=== PATIENT | female | born 1930 | race Caucasian/White ===

== ENCOUNTER 2018-08-25 12:51 | Inpatient (IN) | payer OTHER, BC ==
--- NOTE | 2018-08-25 13:20 | PDOC ---
History of Present Illness - General Chief Complaint: Injury Stated Complaint: LETHARGY Time Seen by Provider: 08/25/18 13:10 History Source: Patient, Family - History of Present Illness Initial Comments: 08/25/18 13:20 Patient is an 88F with history of CHF, hypertension, diabetes (no insulin) and hyperlipidemia here today complaining of lethargy for the past two days. Patient 's family reports that she fell yesterday, unwitnessed, and is unable to say why she fell. Patient reports left knee pain. EMS reports fingerstick of 540. Patient's family also reports that she has been incontinent of urine. Patient states that she doesn't know why she's here and wants to go home. Family and patient deny fever, chills, nausea, vomiting and abdominal pain. Denies chest pain and shortness of breath. Past History - Past Medical History Allergies/Adverse Reactions: Allergies Allergy/AdvReac Type Severity Reaction Status Date / Time Penicillins Allergy Difficulty Verified 01/28/16 17:26 Breathing Home Medications: Ambulatory Orders Aspirin [ASA -] 81 mg PO HS 01/28/16 Glimepiride [Glimepiride -] 1 mg PO BID 01/28/16 metFORMIN HCL [Glucophage -] 1,000 mg PO BID 01/28/16 Bimatoprost [Lumigan] 1 drop OU HS 01/29/16 Epinastine HCl 1 drop OU AM 01/29/16 Quinapril HCl [Accupril -] 10 mg PO HS #30 tablet 02/01/16 Carvedilol [Coreg] 6.25 mg PO BID 08/25/18 Anemia: No Asthma: No Cancer: No Cardiac Disorders: No CVA: No COPD: No CHF: No Dementia: No Diabetes: Yes (x1 year) GI Disorders: No Disorders: No HTN: Yes Hypercholesterolemia: Yes Liver Disease: No Seizures: No Thyroid Disease: No - Surgical History Abdominal Surgery: No Appendectomy: Yes Cardiac Surgery: No Cholecystectomy: No Lung Surgery: No Neurologic Surgery: No Orthopedic Surgery: No - Suicide/Smoking/Psychosocial Hx Smoking History: Never smoked Have you smoked in the past 12 months: No Information on smoking cessation initiated: No Hx Alcohol Use: No Drug/Substance Use Hx: No Substance Use Type: None Hx Substance Use Treatment: No Review of Systems - Review of Systems Comments:: 08/25/18 13:36 GENERAL/CONSTITUTIONAL: No fever or chills.+weakness. HEAD, EYES, EARS, NOSE AND THROAT: No change in vision. No sore throat. CARDIOVASCULAR: No chest pain or shortness of breath RESPIRATORY: No cough, wheezing, or hemoptysis. GASTROINTESTINAL: No nausea, vomiting, diarrhea or constipation. GENITOURINARY: No dysuria, frequency, or change in urination. MUSCULOSKELETAL: +L knee pain. No neck or back pain. SKIN: No rash NEUROLOGIC: No headache, vertigo, loss of consciousness, or change in strength/ sensation. ENDOCRINE: No increased thirst. No abnormal weight change HEMATOLOGIC/LYMPHATIC: No anemia, easy bleeding, or history of blood clots. ALLERGIC/IMMUNOLOGIC: No hives or skin allergy. *Physical Exam - Vital Signs Last Vital Signs Temp Pulse Resp BP Pulse Ox 97.7 F 74 20 162/85 97 08/25/18 13:06 08/25/18 13:06 08/25/18 13:06 08/25/18 13:06 08/25/18 13:06 - Physical Exam Comments: 08/25/18 13:37 GENERAL: Awake, alert, and fully oriented, in no acute distress L KNEE: Tender left patella, neurovascularly intact, no obvious deformity HEAD: No signs of trauma, normocephalic, atraumatic EYES: PERRLA, EOMI, sclera anicteric, conjunctiva clear ENT: Auricles normal inspection, hearing grossly normal, nares patent, oropharynx clear without exudates. Moist mucosa NECK: Normal ROM, supple, no lymphadenopathy, JVD, or masses LUNGS: No distress, speaks full sentences, clear to auscultation bilaterally HEART: Regular rate and rhythm, normal S1 and S2, no murmurs, rubs or gallops, peripheral pulses normal and equal bilaterally. ABDOMEN: Soft, +suprapubic tenderness, normoactive bowel sounds. No guarding, no rebound. No masses EXTREMITIES: Normal inspection, Normal range of motion, no edema. No clubbing or cyanosis. NEUROLOGICAL: Cranial nerves II through XII grossly intact. Normal speech, no focal sensorimotor deficits SKIN: Warm, Dry, normal turgor, no rashes or lesions noted. Moderate Sedation - Procedure Monitoring Vital Signs: Procedure Monitoring Vital Signs Temperature 97.7 F 08/25/18 13:06 Pulse Rate 74 08/25/18 13:06 Respiratory Rate 20 08/25/18 13:06 Blood Pressure 162/85 08/25/18 13:06 O2 Sat by Pulse Oximetry (%) 97 08/25/18 13:06 ED Treatment Course - LABORATORY CBC & Chemistry Diagram: 08/25/18 14:12 08/25/18 13:55 - RADIOLOGY Radiology Studies Ordered: Category Date Time Status HEAD CT WITHOUT CONTRAST [CT] Stat CT Scan 08/25/18 13:12 Ordered CHEST X-RAY PORTABLE* [RAD] Stat Radiology 08/25/18 13:11 Ordered KNEE 3 POS-LEFT [RAD] Stat Radiology 08/25/18 13:15 Ordered Medical Decision Making - Medical Decision Making 08/25/18 13:41 Patient is an 88F with history of CHF, DM, HTN here today with urinary incontinence, L knee pain, and increased confusion. Vitals normal and stable. DDx includes, but is not limited to: mechanical fall, uti, dka, metabolic abnormality. Will evaluate with cbc, cmp, ua, ekg, trop, cxr, pt/inr, vbg, acetone. Given 1L fluids by paramedics. 08/25/18 23:20 CBC, CMP shows hyperglycemia, no DKA. Imaging negative for acute issue. Admitted for hyperglycemia. *DC/Admit/Observation/Transfer Diagnosis at time of Disposition: Hyperglycemia, Dehydration - Discharge Dispostion Condition at time of disposition: Stable Decision to Admit order: Yes - Referrals - Patient Instructions - Post Discharge Activity
--- NOTE | 2018-08-25 13:21 | PDOC ---
Attending Attestation - Resident Resident Name: StuZion - ED Attending Attestation I have performed the following: I have examined & evaluated the patient, The case was reviewed & discussed with the resident, I agree w/resident's findings & plan - HPI HPI: 08/25/18 14:08 88 YOF with h/o NIDDM, HTN, HLD, CHF Presenting with AMS x 2 days. associated with lower abdominal pain, increased thirst and knee pains. Per family more altered than usual. family reports that she fell yesterday, unwitnessed, and is unable to say why she fell. Patient reports left knee pain. EMS reports fingerstick of 540. Patient's family also reports that she has been incontinent of urine. Patient states that she doesn't know why she's here and wants to go home. - Physicial Exam PE: 08/25/18 14:08 NAD, alert, disoriented. PERRL, EOMI, MMM, nl conjunctiva, anicteric; neck supple. lungs clear, RRR, abdomen soft lower suprapubic tenderness, no rebound or guarding. no CVAT. BETANCOURT x4, no focal neuro deficits. No peripheral edema. normal color for ethnicity, WWP. +bilateral knee pain, worse on left. no laxity. no erythema or warmth or skin changes. - Medical Decision Making 08/25/18 15:48 See HPI for details Vital signs reviewed, wnl. DDx. DKA, metabolic/electrolyte derangements, delirium, HHS, UTI Prior notes reviewed, including admissions, discharges and consultations. laboratory results and imaging reviewed, basic labs and lytes notable for hyperglycemia, no AG gap; +acetones UA_+glucose, ketones; but no infection - c/w hyperglycemia. CXR_no acute pathology. Xray knee with arthritic changes, soft tissue swelling Cardiac panel_neg trop, reassuring, less likely angina/ACS. EKG normal sinus rhythm, no interval abnormalities, narrow QRS, ST and T wave segments and morphology normal. Nonspecific T wave abnormalities - occasional PAC. CT head grossly wnl, no acute pathology or mass or acute CVA ED course: IVF and insulin admit for poor control of hyperglycemia, AMS - medical management. pt and family made aware 08/25/18 15:49
[2018-08-25 14:18] LABS: BASO % 0.6 % (0-2.0); EOS % 0.9 % (0-4.5); HEMATOCRIT 35.7 % (32.4-45.2); HEMOGLOBIN 12.2 GM/dL (10.7-15.3); LYMPH % 13.6 % (8-40); MCH 28.7 pg (25.7-33.7); MCHC 34.3 g/dl (32.0-36.0); MEAN CELL VOLUME 83.9 fl (80-96); MEAN PLT VOLUME 7.1 fl (7.5-11.1); MONO % 9.9 % (3.8-10.2); PLATELET COUNT 289 K/MM3 (134-434); RBC 4.26 M/mm3 (3.60-5.2); RDW 14.8 % (11.6-15.6); WHITE BLOOD COUNT 7.5 K/mm3 (4.0-10.0)
[2018-08-25 14:19] LABS: VENOUS PC02 41.6 mmHg (38-52); VENOUS PH 7.37 (7.32-7.42); VENOUS PO2 32.5 mmHg (28-48)
[2018-08-25 14:24] LABS: ALBUMIN 2.9 g/dl (3.4-5.0); ALK PHOS 94 U/L (45-117); ANION GAP 9 MMOL/L (8-16); BILIRUBIN,TOTAL 0.5 mg/dL (0.2-1); BLOOD UREA NITROGEN 38 mg/dL (7-18); CALCIUM 8.1 mg/dL (8.5-10.1); CHLORIDE 102 mmol/L (98-107); CO2 21 mmol/L (21-32); CREATININE 1.3 mg/dL (0.55-1.3); MAGNESIUM 1.8 mg/dL (1.8-2.4); POTASSIUM 3.7 mmol/L (3.5-5.1); SGOT/AST 13 U/L (15-37); SGPT/ALT 18 U/L (13-61); SODIUM 131 mmol/L (136-145); TOT PROT 6.3 g/dl (6.4-8.2)
[2018-08-25 14:28] LABS: GLUCOSE,RANDOM 459 mg/dL (74-106)
[2018-08-25] MEDS ORDERED: INSULIN (NOVOLOG) ASPART 100 UNITS/ML 10ML VIAL SQ ONE (14:28)
[2018-08-25 14:35] LABS: INR 1.03 (0.83-1.09); PROTHROMBIN TIME (PATIENT) 12.1 SEC (9.7-13.0)
[2018-08-25 14:42] LABS: URINE APPEARANCE CLEAR; URINE BILIRUBIN NEGATIVE (<2.0 mg/dL); URINE COLOR STRAW; URINE GLUCOSE (UA) 3+ (NEGATIVE); URINE KETONE TRACE (NEGATIVE); URINE LEUK ESTERASE NEGATIVE (NEGATIVE); URINE NITRITE NEGATIVE (NEGATIVE); URINE PROTEIN 1+ (NEGATIVE); URINE UROBILINOGEN NEGATIVE mg/dL (0.2-1.0)
[2018-08-25] MEDS ORDERED: INSULIN (NOVOLOG) ASPART 100 UNITS/ML 10ML VIAL ONE (14:44)
[2018-08-25 14:46] LABS: EPI CELLS RARE /HPF (FEW); URINE MUCUS RARE
[2018-08-25] MEDS ORDERED: SODIUM CHLORIDE 1,000 ML IV SCH (16:45)
--- NOTE | 2018-08-25 16:45 | EKG ---
Test Reason : Blood Pressure : / mmHG Vent. Rate : 082 BPM Atrial Rate : 082 BPM P-R Int : 166 ms QRS Dur : 064 ms QT Int : 380 ms P-R-T Axes : 031 029 068 degrees QTc Int : 443 ms SINUS RHYTHM WITH PREMATURE ATRIAL COMPLEXES SEPTAL INFARCT , AGE UNDETERMINED ABNORMAL ECG WHEN COMPARED WITH ECG OF 28-JAN-2016 18:13, PREMATURE ATRIAL COMPLEXES ARE NOW PRESENT SEPTAL INFARCT IS NOW PRESENT T WAVE INVERSION NOW EVIDENT IN ANTERIOR LEADS Confirmed by Abdirashid Chowdary MD ([id number]) on 08/25/2018 4:45:09 PM Referred By: Confirmed By:Abdirashid Chowdary MD
--- NOTE | 2018-08-25 17:11 | HP ---
Admitting History and Physical - Primary Care Physician PCP: Edilberto German - Admission Chief Complaint: You tell me why I am here History of Present Illness: Ms Riddle is an 88 year old female who was brought in by her family secondary to weakness and altered mental status. They note that she is beginning to develop dementia with forgetfulness and slight agitation since June ( accusing her grandson of stealing her belongings, refusing medications) and since then she has been drinking more and urinating more. She also lives alone and has been using the bathroom on herself, she is not incontinent but has been weak and cannot make it to the bathroom in time. This Sunday she was walking down the stairs and fell. It was an unwitnessed fall. She was helped and did not have any complaints. However the daughter noted that she was very weak, to the point she cannot walk. She has been using a wheelchair the past 2 days. Today she was receiving a bath and became lethargic and looked like she might pass out. Because of this she was brought in. Ms Riddle tells me she does not know why she is here. She says that she feels lousy and is having some gluteal pain. She denies fevers, chills, lightheadedness, dizziness, passing out, chest pain or pressure, shortness of breath, nausea, vomiting, diarrhea, constipation , polyphagia, polydipsia, polyuria, or swelling. History Source: Family Member Limitations to Obtaining History: Dementia - Past Medical History Cardiovascular: Yes: HTN, Other (hypertriglyceridemia) Musculoskeletal: Yes: Chronic low back pain, Osteoarthritis, Other (right leg benign bone mass (femur)) Endocrine: Yes: Diabetes Mellitus - Past Surgical History Past Surgical History: Yes: Appendectomy, Laminectomy ((lumbar)) - Smoking History Smoking history: Never smoked Have you smoked in the past 12 months: No - Alcohol/Substance Use Hx Alcohol Use: No History of Substance Use: reports: None - Social History Usual Living Arrangement: Yes: Alone ADL: Independent History of Recent Travel: No Home Medications - Allergies Allergies/Adverse Reactions: Allergies Allergy/AdvReac Type Severity Reaction Status Date / Time Penicillins Allergy Difficulty Verified 01/28/16 17:26 Breathing - Home Medications Home Medications: Ambulatory Orders Aspirin [ASA -] 81 mg PO HS 01/28/16 Glimepiride [Glimepiride -] 1 mg PO BID 01/28/16 metFORMIN HCL [Glucophage -] 1,000 mg PO BID 01/28/16 Bimatoprost [Lumigan] 1 drop OU HS 01/29/16 Epinastine HCl 1 drop OU AM 01/29/16 Quinapril HCl [Accupril -] 10 mg PO HS #30 tablet 02/01/16 Carvedilol [Coreg] 6.25 mg PO BID 08/25/18 Family Disease History - Family Disease History Family Disease History: Heart Disease: Brother Review of Systems Findings/Remarks: Full review of systems obtained, as per HPI and otherwise negative. However it is inaccurate secondary to dementia as patient denies all symptoms. Physical Examination Vital Signs: Vital Signs Temperature 36.7 C 08/25/18 14:49 Pulse Rate 74 08/25/18 14:49 Respiratory Rate 20 08/25/18 14:49 Blood Pressure 162/85 08/25/18 14:49 O2 Sat by Pulse Oximetry (%) 97 08/25/18 14:49 Constitutional: Yes: Well Nourished, No Distress, Calm Eyes: Yes: Conjunctiva Clear, EOM Intact, PERRL HENT: Yes: Atraumatic, Normocephalic Cardiovascular: Yes: Regular Rate and Rhythm. No: Gallop, Murmur, Rub Respiratory: Yes: Regular, CTA Bilaterally. No: Rales, Rhonchi, Wheezes Gastrointestinal: Yes: Normal Bowel Sounds, Soft. No: Distention, Tenderness Extremities: Yes: WNL Edema: No Labs: CBC, BMP 08/25/18 14:12 08/25/18 13:55 Imaging - Results Chest X-ray: Report Reviewed, Image Reviewed X-ray: Report Reviewed Cat Scan: Report Reviewed Problem List - Problems (1) Diabetes mellitus Assessment/Plan: -patient is not taking medications as prescribed at home secondary to dementia -presents with hyperglycemia but no DKA -suspect patient will need to be transitioned to insulin on discharge -admit to hospital -place on levemir 10 units qpm -diabetic diet -FSBS and SSI -check HgbA1c Code(s): E11.9 - TYPE 2 DIABETES MELLITUS WITHOUT COMPLICATIONS Qualifiers: Diabetes mellitus type: type 2 Diabetes mellitus intermediate insulin use: without long term care pharmacist use Diabetes mellitus complication status: with hyperglycemia Qualified Code(s): E11.65 - Type 2 diabetes mellitus with hyperglycemia (2) Hyperglycemia Assessment/Plan: -as above Code(s): R73.9 - HYPERGLYCEMIA, UNSPECIFIED (3) Acute metabolic encephalopathy Assessment/Plan: -secondary to hyperglycemia and dehydration in light of new onset dementia -hydration with NS -control glucose Code(s): G93.41 - METABOLIC ENCEPHALOPATHY (4) Dehydration Assessment/Plan: -hydration -recheck bmp in am Code(s): E86.0 - DEHYDRATION (5) Glaucoma Assessment/Plan: -continue home regimen Code(s): H40.9 - UNSPECIFIED GLAUCOMA (6) Hypertension Assessment/Plan: -elevated today -will continue coreg and quinapril -will hold on aldactone -monitor Code(s): I10 - ESSENTIAL (PRIMARY) HYPERTENSION (7) Fall Assessment/Plan: -unclear if mechanical or syncopal, but suspect mechanical -fall risk precautions -ECHO and carotid ultrasound -PT Code(s): W19.XXXA - UNSPECIFIED FALL, INITIAL ENCOUNTER Qualifiers: Encounter type: initial encounter Qualified Code(s): W19.XXXA - Unspecified fall, initial encounter (8) Dementia Assessment/Plan: -new onset -will trial aricept 5mg daily Code(s): F03.90 - UNSPECIFIED DEMENTIA WITHOUT BEHAVIORAL DISTURBANCE Qualifiers: Dementia type: Alzheimer's disease Alzheimer's disease onset: early-onset Dementia behavioral disturbance: without behavioral disturbance Qualified Code(s): G30.0 - Alzheimer's disease with early onset; F02.80 - Dementia in other diseases classified elsewhere without behavioral disturbance
[2018-08-25] MEDS ORDERED: CARVEDILOL 3.125 MG TABLET (FP) ONE (21:01)
[2018-08-25] MEDS ORDERED: ASPIRIN 81 MG CHEWABLE TABLETS ONE (21:01)
[2018-08-25] MEDS ORDERED: DONEPEZIL HCL 5 MG TABLET (FP) ONE (21:02)
[2018-08-25] MEDS ORDERED: QUINAPRIL HCL 10 MG TABLET (FP) ONE (21:02)
[2018-08-25] MEDS: INSULIN SLIDING SCALE (NOVOLOG) 1 VIAL SQ SCH (21:22)
[2018-08-25] MEDS: QUINAPRIL HCL 10 MG TABLET (FP) PO SCH (21:22)
[2018-08-25] MEDS: ASPIRIN 81 MG CHEWABLE TABLETS PO SCH (21:22)
[2018-08-25] MEDS: CARVEDILOL 6.25 MG TABLET (FP) PO SCH (21:22)
[2018-08-25] MEDS ORDERED: INSULIN (LEVEMIR) 100 UNITS/ML UNITS SQ ONE (21:25)
[2018-08-25] MEDS: INSULIN (LEVEMIR) 100 UNITS/ML UNITS SQ SCH (21:26)
[2018-08-25] MEDS: LATANOPROST 0.005% OPHTH SOLN 2.5ML BOTTLE OU SCH (23:14)
[2018-08-26 06:50] LABS: BASO % 0.5 % (0-2.0); EOS % 2.3 % (0-4.5); HEMATOCRIT 34.4 % (32.4-45.2); HEMOGLOBIN 11.7 GM/dL (10.7-15.3); LYMPH % 16.5 % (8-40); MEAN CELL VOLUME 82.5 fl (80-96); MEAN PLT VOLUME 7.3 fl (7.5-11.1); MONO % 11.3 % (3.8-10.2); NEUT % 69.4 % (42.8-82.8); PLATELET COUNT 306 K/MM3 (134-434); RBC 4.17 M/mm3 (3.60-5.2); RDW 14.5 % (11.6-15.6); WHITE BLOOD COUNT 8.8 K/mm3 (4.0-10.0)
[2018-08-26] MEDS ORDERED: EPINASTINE HCL OU SCH (07:00)
[2018-08-26] MEDS ORDERED: INSULIN REGULAR HUMAN 100 UNITS/ML *VIAL ONE (07:08)
[2018-08-26] MEDS: INSULIN SLIDING SCALE (NOVOLOG) 1 VIAL SQ SCH ×4 (07:11→22:31)
[2018-08-26 07:12] LABS: ANION GAP 9 MMOL/L (8-16); BLOOD UREA NITROGEN 29 mg/dL (7-18); CHLORIDE 103 mmol/L (98-107); CO2 23 mmol/L (21-32); CREATININE 1.1 mg/dL (0.55-1.3); GLUCOSE,RANDOM 225 mg/dL (74-106); MAGNESIUM 1.9 mg/dL (1.8-2.4); POTASSIUM 3.5 mmol/L (3.5-5.1); SODIUM 135 mmol/L (136-145)
[2018-08-26] MEDS ORDERED: POTASSIUM CHLORIDE TABS 20 MEQ TABLET.ER (FP) PO ONE (09:36)
[2018-08-26] MEDS: CARVEDILOL 6.25 MG TABLET (FP) PO SCH ×2 (11:19→22:30)
--- NOTE | 2018-08-26 11:40 | ECHO ---
Name: CHARLES NUNES Exam:Adult Echocardiogram Study Date: 08/26/2018 07:53 AM Age: 88 yrs Reason For Study: SYNCOPE Height: 58 in Weight: 165 lb BSA: 1.7 m2 MMode/2D Measurements & Calculations IVSd: 1.1 cm Ao root diam: 2.0 cm LVIDd: 4.1 cm LA dimension: 3.2 cm LVIDs: 3.0 cm LVPWd: 1.1 cm EDV(Teich): 72.2 ml LVOT diam: 2.0 cm ESV(Teich): 34.8 ml LAV (MOD-bp): 43.2 ml Doppler Measurements & Calculations MV E max ventura: 98.0 cm/sec Ao V2 max: 194.1 cm/sec MV A max ventura: 92.6 cm/sec Ao max P.1 mmHg MV E/A: 1.1 Ao V2 mean: 139.1 cm/sec MV dec time: 0.09 sec Ao mean P.9 mmHg Ao V2 VTI: 38.2 cm KERI(I,D): 1.0 cm2 KERI(V,D): 1.1 cm2 LV V1 max P.9 mmHg MR max ventura: 449.6 cm/sec LV V1 mean P.1 mmHg MR max P.0 mmHg LV V1 max: 69.4 cm/sec LV V1 mean: 45.4 cm/sec LV V1 VTI: 12.2 cm SV(LVOT): 39.0 ml TR max ventura: 230.8 cm/sec TR max P.7 mmHg Med Peak E' Ventura: 5.0 cm/sec PI Vmax: 154.7 cm/sec Med E/e': 19.6 Lat Peak E' Ventura: 8.8 cm/sec Lat E/e': 11.1 Procedure A complete two-dimensional transthoracic echocardiogram was performed (2D, M-mode, Doppler and color flow Doppler). Technically limited study. Left Ventricle The left ventricle is normal in size. Left ventricular systolic function is low normal. Ejection Frac tion = 50-55%. Diastolic dysfunction, Grade II, consistent with elevated left atrial pressure. No regional w all motion abnormalities noted. Right Ventricle The right ventricle is normal size. The right ventricular systolic function is normal. Atria The left atrial size is normal. LA volume index is 26 ml/m2. Right atrial size is normal. Mitral Valve The mitral valve is normal in structure and function. There is moderate mitral regurgitation. Tricuspid Valve The tricuspid valve is normal in structure and function. There is Trace to mild tricuspid regurgitati on. Pulmonary artery systolic pressure is at least 30 mmHg assuming RA pressure of 3 mmHg. Aortic Valve There is mild aortic valve thickening. Moderate valvular aortic stenosis. The calculated aortic valve area using the continuity equation is 1.1 cm2. DI (dimensionless index) is estimated 0.29. No aortic regur gitation is present. Pulmonic Valve The pulmonic valve is not well visualized. Trace to mild pulmonic valvular regurgitation. Great Vessels The aortic root is normal size. Pericardium/Pleura There is no pericardial effusion. Interpretation Summary Technically limited study The left ventricle is normal in size. Left ventricular systolic function is low normal. No regional wall motion abnormalities noted. Ejection Fraction = 50-55%. Diastolic dysfunction, Grade II, consistent with elevated left atrial pressure. The right ventricular systolic function is normal. The left atrial size is normal. Right atrial size is normal. There is moderate mitral regurgitation. There is Trace to mild tricuspid regurgitation. Pulmonary artery systolic pressure is at least 30 mmHg assuming RA pressure of 3 mmHg There is mild aortic valve thickening. Moderate valvular aortic stenosis. The calculated aortic valve area using the continuity equation is 1.1 cm2. DI (dimensionless index) is estimated 0.29 No aortic regurgitation is present. Trace to mild pulmonic valvular regurgitation. There is no pericardial effusion. Robert Payton MD 08/26/2018 11:40 AM
--- NOTE | 2018-08-26 12:37 | PN ---
Progress Note, Physician Chief Complaint: Pt lying in bed in no acute distress. Reports wanting to go home. Denies any chest pain, sob, n/v/d - Current Medication List Current Medications: Active Medications Acetaminophen (Tylenol -) 650 mg PO Q4H PRN PRN Reason: FEVER Aspirin (Asa -) 81 mg PO HS [facility] Last Admin: 08/25/18 21:22 Dose: 81 mg Carvedilol (Coreg -) 6.25 mg PO BID [facility] Last Admin: 08/26/18 11:19 Dose: 6.25 mg Donepezil HCl (Aricept -) 5 mg PO [facility] Sodium Chloride (Normal Saline -) 1,000 mls @ 75 mls/hr IV ASDIR [facility] Stop: 08/26/18 16:44 Last Admin: 08/25/18 19:26 Dose: 75 mls/hr Insulin Aspart (Novolog Vial Sliding Scale -) 1 vial SQ [facility]; Protocol Last Admin: 08/26/18 12:19 Dose: 6 units Insulin Detemir (Levemir Vial) 10 units SQ [facility] Last Admin: 08/25/18 21:26 Dose: 10 units Latanoprost (Xalatan 0.005% Eye Drops -) 1 drop OU [facility] Last Admin: 08/25/18 23:14 Dose: Not Given Non-Formulary Medication (Epinastine Hcl) 1 drop OU AM [facility] Quinapril HCl (Accupril -) 10 mg PO [facility] Last Admin: 08/25/18 21:22 Dose: 10 mg - Objective Vital Signs: Vital Signs Temperature 98.8 F 08/26/18 10:10 Pulse Rate 100 H 08/26/18 10:10 Respiratory Rate 18 08/26/18 10:10 Blood Pressure 146/98 08/26/18 10:10 O2 Sat by Pulse Oximetry (%) 98 08/26/18 10:12 Constitutional: Yes: Well Nourished, No Distress, Calm Cardiovascular: Yes: Regular Rate and Rhythm Respiratory: Yes: WNL, Regular, CTA Bilaterally. No: Accessory Muscle Use, SOB , Tachypnea, Wheezes Gastrointestinal: Yes: WNL, Normal Bowel Sounds. No: Distention, Tenderness Genitourinary: Yes: WNL Extremities: Yes: WNL Edema: No Neurological: Yes: Alert Psychiatric: Yes: Alert Labs: CBC, BMP 08/26/18 05:55 08/26/18 05:55 INR, PTT INR 1.03 (0.83-1.09) 08/25/18 14:12 Assessment/Plan (1) Diabetes mellitus Assessment/Plan: HgA1c 15 presented w/ hyperglycemia due to med non-compliance 2/2 dementia BGM Insulin sliding scale levemir hs diabetic diet monitor Code(s): E11.9 - TYPE 2 DIABETES MELLITUS WITHOUT COMPLICATIONS Qualifiers: Diabetes mellitus type: type 2 Diabetes mellitus group home insulin use: without terminal superintendent use Diabetes mellitus complication status: with hyperglycemia Qualified Code(s): E11.65 - Type 2 diabetes mellitus with hyperglycemia (2) Hyperglycemia Assessment/Plan: improving Code(s): R73.9 - HYPERGLYCEMIA, UNSPECIFIED (3) Acute metabolic encephalopathy Assessment/Plan: improving 2/2 dehydration, hyperglycemia Code(s): G93.41 - METABOLIC ENCEPHALOPATHY (4) Dehydration Assessment/Plan: improved Code(s): E86.0 - DEHYDRATION (5) Hyponatremia Assessment/Plan: pseudo improving ns monitor Code(s): E87.1 - HYPO-OSMOLALITY AND HYPONATREMIA (6) Fall Assessment/Plan: mechanical fall risk precautions head ct w/out acute findings ECHO without acute findings carotid ultrasound- mod plaque b/l w/out hemodynamic compromise PT eval pending possible SNF placement Code(s): W19.XXXA - UNSPECIFIED FALL, INITIAL ENCOUNTER Qualifiers: Encounter type: initial encounter Qualified Code(s): W19.XXXA - Unspecified fall, initial encounter (7) Glaucoma Assessment/Plan: continue home regimen Code(s): H40.9 - UNSPECIFIED GLAUCOMA (8) Hypertension Assessment/Plan: improving continue coreg and quinapril holding aldactone Code(s): I10 - ESSENTIAL (PRIMARY) HYPERTENSION (9) Dementia Assessment/Plan: new onset continue aricept Code(s): F03.90 - UNSPECIFIED DEMENTIA WITHOUT BEHAVIORAL DISTURBANCE Qualifiers: Dementia type: Alzheimer's disease Alzheimer's disease onset: early-onset Dementia behavioral disturbance: without behavioral disturbance Qualified Code(s): G30.0 - Alzheimer's disease with early onset; F02.80 - Dementia in other diseases classified elsewhere without behavioral disturbance
[2018-08-26] MEDS ORDERED: INSULIN (NOVOLOG) ASPART 100 UNITS/ML 10ML VIAL SQ ONE (22:29)
[2018-08-26] MEDS: QUINAPRIL HCL 10 MG TABLET (FP) PO SCH (22:29)
[2018-08-26] MEDS: DONEPEZIL HCL 5 MG TABLET (FP) PO SCH (22:30)
[2018-08-26] MEDS: ASPIRIN 81 MG CHEWABLE TABLETS PO SCH (22:30)
[2018-08-26] MEDS: INSULIN (LEVEMIR) 100 UNITS/ML UNITS SQ SCH (22:32)
[2018-08-27] MEDS: LATANOPROST 0.005% OPHTH SOLN 2.5ML BOTTLE OU SCH ×2 (00:19→23:11)
[2018-08-27] MEDS: INSULIN SLIDING SCALE (NOVOLOG) 1 VIAL SQ SCH ×4 (07:00→23:15)
[2018-08-27 07:41] LABS: BASO % 0.8 % (0-2.0); EOS % 2.1 % (0-4.5); HEMATOCRIT 33.6 % (32.4-45.2); HEMOGLOBIN 11.4 GM/dL (10.7-15.3); LYMPH % 19.6 % (8-40); MCH 27.9 pg (25.7-33.7); MEAN CELL VOLUME 82.1 fl (80-96); MEAN PLT VOLUME 7.7 fl (7.5-11.1); MONO % 13.1 % (3.8-10.2); NEUT % 64.4 % (42.8-82.8); PLATELET COUNT 294 K/MM3 (134-434); RDW 14.5 % (11.6-15.6); WHITE BLOOD COUNT 7.6 K/mm3 (4.0-10.0)
[2018-08-27 08:12] LABS: ANION GAP 9 MMOL/L (8-16); BLOOD UREA NITROGEN 25 mg/dL (7-18); CALCIUM 8.7 mg/dL (8.5-10.1); CHLORIDE 102 mmol/L (98-107); CO2 24 mmol/L (21-32); CREATININE 1.2 mg/dL (0.55-1.3); GLUCOSE,RANDOM 290 mg/dL (74-106); MAGNESIUM 1.7 mg/dL (1.8-2.4); PHOSPHOROUS 3.2 mg/dL (2.5-4.9); POTASSIUM 3.6 mmol/L (3.5-5.1); SODIUM 134 mmol/L (136-145)
[2018-08-27] MEDS ORDERED: POTASSIUM CHLORIDE TABS 20 MEQ TABLET.ER (FP) PO ONE (09:04)
[2018-08-27] MEDS ORDERED: MAGNESIUM SULF 50% (8.12 MEQ/2 ML-1 GM VIAL) IVPB ONE (09:04)
[2018-08-27] MEDS ORDERED: INSULIN (LEVEMIR) 100 UNITS/ML UNITS SQ SCH (09:15)
[2018-08-27] MEDS ORDERED: PT OWN MED DRAWER 7, Y5N ONE (09:26)
[2018-08-27] MEDS: CARVEDILOL 6.25 MG TABLET (FP) PO SCH ×2 (09:34→23:12)
--- NOTE | 2018-08-27 09:54 | PN ---
Progress Note, Physician Chief Complaint: Pt lying in bed in no acute distress. reports feeling well. Denies any chest pain, sob, n/v/d - Current Medication List Current Medications: Active Medications Acetaminophen (Tylenol -) 650 mg PO Q4H PRN PRN Reason: FEVER Aspirin (Asa -) [address] [facility] Last Admin: 08/26/18 22:30 Dose: 81 mg Carvedilol (Coreg -) 6.25 mg PO BID [facility] Last Admin: 08/27/18 09:34 Dose: 6.25 mg Donepezil HCl (Aricept -) [address] [facility] Last Admin: 08/26/18 22:30 Dose: 5 mg Insulin Aspart (Novolog Vial Sliding Scale -) 1 vial SQ [facility]; Protocol Last Admin: 08/27/18 07:00 Dose: 6 units Insulin Detemir (Levemir Vial) 15 units SQ BID@0700,2200 [facility] Latanoprost (Xalatan 0.005% Eye Drops -) [address] [facility] Last Admin: 08/27/18 00:19 Dose: Not Given Non-Formulary Medication (Epinastine Hcl) 1 drop OU AM [facility] Quinapril HCl (Accupril -) [address] [facility] Last Admin: 08/26/18 22:29 Dose: 10 mg - Objective Vital Signs: Vital Signs Temperature 99.2 F 08/27/18 06:00 Pulse Rate 84 08/27/18 06:00 Respiratory Rate 18 08/27/18 06:00 Blood Pressure 148/64 08/27/18 06:00 O2 Sat by Pulse Oximetry (%) 98 08/27/18 02:52 Constitutional: Yes: Well Nourished, No Distress Cardiovascular: Yes: Regular Rate and Rhythm, Murmur Respiratory: Yes: WNL, Regular, CTA Bilaterally. No: Accessory Muscle Use, SOB , Tachypnea, Wheezes Gastrointestinal: Yes: WNL, Normal Bowel Sounds, Soft, Abdomen, Obese. No: Distention, Tenderness Genitourinary: Yes: WNL Extremities: Yes: WNL Edema: No Neurological: Yes: WNL, Alert, Oriented Psychiatric: Yes: WNL, Alert, Oriented Labs: CBC, BMP 08/27/18 06:00 08/27/18 06:50 INR, PTT INR 1.03 (0.83-1.09) 08/25/18 14:12 Assessment/Plan (1) Diabetes mellitus Assessment/Plan: improving HgA1c 15 BGM Insulin sliding scale levemir increased to bid diabetic diet monitor Code(s): E11.9 - TYPE 2 DIABETES MELLITUS WITHOUT COMPLICATIONS Qualifiers: Diabetes mellitus type: type 2 Diabetes mellitus retirement insulin use: without extermination inspector use Diabetes mellitus complication status: with hyperglycemia Qualified Code(s): E11.65 - Type 2 diabetes mellitus with hyperglycemia (2) Hyperglycemia Assessment/Plan: improving Code(s): R73.9 - HYPERGLYCEMIA, UNSPECIFIED (3) Acute metabolic encephalopathy Assessment/Plan: improving 2/2 dehydration, hyperglycemia Code(s): G93.41 - METABOLIC ENCEPHALOPATHY (4) Dehydration Assessment/Plan: improved Code(s): E86.0 - DEHYDRATION (5) Hyponatremia Assessment/Plan: pseudo improving monitor Code(s): E87.1 - HYPO-OSMOLALITY AND HYPONATREMIA (6) Fall Assessment/Plan: mechanical fall risk precautions head ct w/out acute findings ECHO without acute findings carotid ultrasound- mod plaque b/l w/out hemodynamic compromise PT eval pending possible SNF placement Code(s): W19.XXXA - UNSPECIFIED FALL, INITIAL ENCOUNTER Qualifiers: Encounter type: initial encounter Qualified Code(s): W19.XXXA - Unspecified fall, initial encounter (7) Glaucoma Assessment/Plan: continue home regimen Code(s): H40.9 - UNSPECIFIED GLAUCOMA (8) Hypertension Assessment/Plan: improving continue coreg and quinapril holding aldactone Code(s): I10 - ESSENTIAL (PRIMARY) HYPERTENSION (9) Dementia Assessment/Plan: new onset continue aricept Code(s): F03.90 - UNSPECIFIED DEMENTIA WITHOUT BEHAVIORAL DISTURBANCE Qualifiers: Dementia type: Alzheimer's disease Alzheimer's disease onset: early-onset Dementia behavioral disturbance: without behavioral disturbance Qualified Code(s): 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
[2018-08-27] MEDS ORDERED: INSULIN (NOVOLOG) ASPART 100 UNITS/ML 10ML VIAL ONE ×2 (12:22→21:01)
[2018-08-27] MEDS ORDERED: INSULIN (NOVOLOG) ASPART 100 UNITS/ML 10ML VIAL SQ ONE (23:07)
[2018-08-27] MEDS: ASPIRIN 81 MG CHEWABLE TABLETS PO SCH (23:12)
[2018-08-27] MEDS: QUINAPRIL HCL 10 MG TABLET (FP) PO SCH (23:13)
[2018-08-27] MEDS: DONEPEZIL HCL 5 MG TABLET (FP) PO SCH (23:13)
[2018-08-27] MEDS: INSULIN (LEVEMIR) 100 UNITS/ML UNITS SQ SCH (23:14)
[2018-08-28] MEDS: INSULIN (LEVEMIR) 100 UNITS/ML UNITS SQ SCH ×2 (07:29→22:19)
[2018-08-28] MEDS: INSULIN SLIDING SCALE (NOVOLOG) 1 VIAL SQ SCH ×4 (07:30→22:21)
[2018-08-28 08:07] LABS: BASO % 0.7 % (0-2.0); EOS % 2.5 % (0-4.5); HEMATOCRIT 29.8 % (32.4-45.2); HEMOGLOBIN 10.1 GM/dL (10.7-15.3); LYMPH % 18.7 % (8-40); MCH 27.9 pg (25.7-33.7); MCHC 33.8 g/dl (32.0-36.0); MEAN CELL VOLUME 82.6 fl (80-96); MEAN PLT VOLUME 8.1 fl (7.5-11.1); NEUT % 65.1 % (42.8-82.8); PLATELET COUNT 322 K/MM3 (134-434); RDW 14.7 % (11.6-15.6); WHITE BLOOD COUNT 7.7 K/mm3 (4.0-10.0)
[2018-08-28 08:24] LABS: ANION GAP 7 MMOL/L (8-16); BLOOD UREA NITROGEN 28 mg/dL (7-18); CALCIUM 8.8 mg/dL (8.5-10.1); CHLORIDE 102 mmol/L (98-107); CO2 24 mmol/L (21-32); CREATININE 1.2 mg/dL (0.55-1.3); GLUCOSE,RANDOM 299 mg/dL (74-106); MAGNESIUM 2.1 mg/dL (1.8-2.4); POTASSIUM 4.3 mmol/L (3.5-5.1); SODIUM 133 mmol/L (136-145)
--- NOTE | 2018-08-28 11:22 | PN ---
Progress Note, Physician Chief Complaint: Pt lying in bed in no acute distress. reports breathing is a little heavier, mild sob. Denies any chest pain, sob, n/v/d - Current Medication List Current Medications: Active Medications Acetaminophen (Tylenol -) 650 mg PO Q4H PRN PRN Reason: FEVER Aspirin (Asa -) 81 mg PO [facility] Last Admin: 08/27/18 23:12 Dose: 81 mg Carvedilol (Coreg -) 6.25 mg PO BID [facility] Last Admin: 08/27/18 23:12 Dose: 6.25 mg Donepezil HCl (Aricept -) 5 mg PO [facility] Last Admin: 08/27/18 23:13 Dose: 5 mg Insulin Aspart (Novolog Vial Sliding Scale -) 1 vial SQ [facility]; Protocol Last Admin: 08/28/18 07:30 Dose: 6 units Insulin Detemir (Levemir Vial) 30 units SQ BID@0700,2200 [facility] Latanoprost (Xalatan 0.005% Eye Drops -) 1 drop OU [facility] Last Admin: 08/27/18 23:11 Dose: 1 drop Non-Formulary Medication (Epinastine Hcl) 1 drop OU AM [facility] Quinapril HCl (Accupril -) 10 mg PO [facility] Last Admin: 08/27/18 23:13 Dose: 10 mg - Objective Vital Signs: Vital Signs Temperature 98.3 F 08/28/18 06:00 Pulse Rate 76 08/28/18 06:00 Respiratory Rate 20 08/28/18 06:00 Blood Pressure 109/48 L 08/28/18 06:00 O2 Sat by Pulse Oximetry (%) 97 08/27/18 21:00 Constitutional: Yes: Well Nourished, No Distress Cardiovascular: Yes: Regular Rate and Rhythm, Murmur Respiratory: Yes: WNL, Regular, CTA Bilaterally. No: Accessory Muscle Use, SOB , Tachypnea, Wheezes Gastrointestinal: Yes: WNL, Normal Bowel Sounds, Soft, Abdomen, Obese. No: Distention, Tenderness Genitourinary: Yes: WNL Extremities: Yes: WNL Edema: No Neurological: Yes: WNL, Alert, Oriented Psychiatric: Yes: WNL, Alert, Oriented Labs: CBC, BMP 08/28/18 06:30 08/28/18 06:30 INR, PTT INR 1.03 (0.83-1.09) 08/25/18 14:12 Assessment/Plan (1) Diabetes mellitus Assessment/Plan: HgA1c 15 BGM Insulin sliding scale levemir increased diabetic diet monitor Code(s): E11.9 - TYPE 2 DIABETES MELLITUS WITHOUT COMPLICATIONS Qualifiers: Diabetes mellitus type: type 2 Diabetes mellitus skilled nursing insulin use: without skilled nursing use Diabetes mellitus complication status: with hyperglycemia Qualified Code(s): E11.65 - Type 2 diabetes mellitus with hyperglycemia (2) Hyperglycemia Assessment/Plan: improving Code(s): R73.9 - HYPERGLYCEMIA, UNSPECIFIED (3) Acute metabolic encephalopathy Assessment/Plan: improving 2/2 dehydration, hyperglycemia Code(s): G93.41 - METABOLIC ENCEPHALOPATHY (4) Dehydration Assessment/Plan: improved Code(s): E86.0 - DEHYDRATION (5) Hyponatremia Assessment/Plan: pseudo improving monitor Code(s): E87.1 - HYPO-OSMOLALITY AND HYPONATREMIA (6) Fall Assessment/Plan: mechanical fall risk precautions head ct w/out acute findings ECHO without acute findings carotid ultrasound- mod plaque b/l w/out hemodynamic compromise PT eval - ambulated poorly SNF placement Code(s): W19.XXXA - UNSPECIFIED FALL, INITIAL ENCOUNTER Qualifiers: Encounter type: initial encounter Qualified Code(s): W19.XXXA - Unspecified fall, initial encounter (7) Glaucoma Assessment/Plan: continue home regimen Code(s): H40.9 - UNSPECIFIED GLAUCOMA (8) Hypertension Assessment/Plan: improving continue coreg and quinapril holding aldactone Code(s): I10 - ESSENTIAL (PRIMARY) HYPERTENSION (9) Dementia Assessment/Plan: new onset continue aricept Code(s): F03.90 - UNSPECIFIED DEMENTIA WITHOUT BEHAVIORAL DISTURBANCE Qualifiers: Dementia type: Alzheimer's disease Alzheimer's disease onset: early-onset Dementia behavioral disturbance: without behavioral disturbance Qualified Code(s): 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 Discussed w/ daughter Mitzi and in agreement in SNF placement.
[2018-08-28] MEDS: CARVEDILOL 6.25 MG TABLET (FP) PO SCH ×2 (11:57→22:12)
[2018-08-28] MEDS ORDERED: ALBUTEROL SO4 2.5/IPRATROPIUM 0.5 INH SOL 3 ML VIAL.NEB. NEB ONE (12:16)
[2018-08-28 14:58] VITALS: BMI 25.0
[2018-08-28] MEDS ORDERED: INSULIN (NOVOLOG) ASPART 100 UNITS/ML 10ML VIAL ONE (22:02)
[2018-08-28] MEDS: ASPIRIN 81 MG CHEWABLE TABLETS PO SCH (22:12)
[2018-08-28] MEDS: DONEPEZIL HCL 5 MG TABLET (FP) PO SCH (22:12)
[2018-08-28] MEDS: QUINAPRIL HCL 10 MG TABLET (FP) PO SCH (22:13)
[2018-08-28] MEDS: LATANOPROST 0.005% OPHTH SOLN 2.5ML BOTTLE OU SCH (22:21)
[2018-08-28] MEDS: ACETAMINOPHEN 325 MG TABLET (FP) PO PRN (22:22)
[2018-08-28] MEDS ORDERED: MELATONIN 5 MG TABLETS PO ONE (22:38)
[2018-08-29] MEDS: INSULIN (LEVEMIR) 100 UNITS/ML UNITS SQ SCH ×2 (06:30→21:13)
[2018-08-29] MEDS: INSULIN SLIDING SCALE (NOVOLOG) 1 VIAL SQ SCH ×4 (06:31→21:12)
[2018-08-29] MEDS ORDERED: INSULIN (NOVOLOG) ASPART 100 UNITS/ML 10ML VIAL ONE (07:15)
[2018-08-29] MEDS ORDERED: PT OWN MED DRAWER 7, Y5N ONE (07:15)
[2018-08-29] MEDS ORDERED: INSULIN (LEVEMIR) 100 UNITS/ML UNITS SQ ONE (07:15)
[2018-08-29 07:40] LABS: BASO % 0.8 % (0-2.0); EOS % 4.9 % (0-4.5); HEMOGLOBIN 10.1 GM/dL (10.7-15.3); LYMPH % 22.5 % (8-40); MCHC 33.6 g/dl (32.0-36.0); MEAN CELL VOLUME 83.3 fl (80-96); MEAN PLT VOLUME 7.9 fl (7.5-11.1); MONO % 12.2 % (3.8-10.2); NEUT % 59.6 % (42.8-82.8); PLATELET COUNT 322 K/MM3 (134-434); RDW 14.4 % (11.6-15.6)
[2018-08-29 08:18] LABS: ANION GAP 8 MMOL/L (8-16); BLOOD UREA NITROGEN 32 mg/dL (7-18); CALCIUM 9.4 mg/dL (8.5-10.1); CHLORIDE 106 mmol/L (98-107); CO2 24 mmol/L (21-32); CREATININE 1.3 mg/dL (0.55-1.3); GLUCOSE,RANDOM 231 mg/dL (74-106); MAGNESIUM 1.8 mg/dL (1.8-2.4); PHOSPHOROUS 4.5 mg/dL (2.5-4.9); POTASSIUM 4.5 mmol/L (3.5-5.1); SODIUM 138 mmol/L (136-145)
[2018-08-29] MEDS: CARVEDILOL 6.25 MG TABLET (FP) PO SCH ×2 (10:12→21:06)
[2018-08-29] MEDS ORDERED: sitaGLIPtin PHOSPHATE 50 MG TABLET PO ONE (10:36)
[2018-08-29] MEDS ORDERED: MAGNESIUM SULF 50% (8.12 MEQ/2 ML-1 GM VIAL) IVPB ONE (10:42)
--- NOTE | 2018-08-29 10:43 | PN ---
Progress Note, Physician Chief Complaint: Pt lying in bed in no acute distress. wants to go home. Denies any chest pain, sob, n/v/d - Current Medication List Current Medications: Active Medications Acetaminophen (Tylenol -) 650 mg PO Q4H PRN PRN Reason: FEVER Last Admin: 08/28/18 22:22 Dose: 650 mg Aspirin (Asa -) 81 mg PO [facility] Last Admin: 08/28/18 22:12 Dose: 81 mg Carvedilol (Coreg -) 6.25 mg PO BID [facility] Last Admin: 08/29/18 10:12 Dose: 6.25 mg Donepezil HCl (Aricept -) 5 mg PO [facility] Last Admin: 08/28/18 22:12 Dose: 5 mg Insulin Aspart (Novolog Vial Sliding Scale -) 1 vial SQ [facility]; Protocol Last Admin: 08/29/18 06:31 Dose: 4 units Insulin Detemir (Levemir Vial) 30 units SQ BID@0700,2200 [facility] Last Admin: 08/29/18 06:30 Dose: 30 units Latanoprost (Xalatan 0.005% Eye Drops -) 1 drop OU [facility] Last Admin: 08/28/18 22:21 Dose: 1 drop Magnesium Sulfate (Magnesium Sulfate) 2 gm IVPB ONCE ONE Stop: 08/29/18 10:43 Quinapril HCl (Accupril -) 10 mg PO [facility] Last Admin: 08/28/18 22:13 Dose: 10 mg Sitagliptin Phosphate (Januvia -) 50 mg PO DAILY@0700 [facility] - Objective Vital Signs: Vital Signs Temperature 98.3 F 08/29/18 06:00 Pulse Rate 66 08/29/18 06:00 Respiratory Rate 20 08/29/18 06:00 Blood Pressure 105/48 L 08/29/18 06:00 O2 Sat by Pulse Oximetry (%) 96 08/28/18 21:00 Constitutional: Yes: Well Nourished, No Distress, Calm Cardiovascular: Yes: Regular Rate and Rhythm, Murmur Respiratory: Yes: WNL, Regular, CTA Bilaterally. No: Accessory Muscle Use, Tachypnea, Wheezes Gastrointestinal: Yes: WNL, Normal Bowel Sounds, Soft, Abdomen, Obese. No: Distention, Tenderness Genitourinary: Yes: WNL Musculoskeletal: Yes: WNL Extremities: Yes: WNL Edema: No Neurological: Yes: WNL, Alert, Oriented, Confusion (intermittent, forgetful) Psychiatric: Yes: WNL, Alert, Oriented Labs: CBC, BMP 08/29/18 06:20 08/29/18 06:20 INR, PTT INR 1.03 (0.83-1.09) 08/25/18 14:12 Assessment/Plan (1) Diabetes mellitus Assessment/Plan: improving BGM Insulin sliding scale levemir 30 bid januvia added diabetic diet monitor Code(s): E11.9 - TYPE 2 DIABETES MELLITUS WITHOUT COMPLICATIONS Qualifiers: Diabetes mellitus type: type 2 Diabetes mellitus half-way insulin use: without half-way use Diabetes mellitus complication status: with hyperglycemia Qualified Code(s): E11.65 - Type 2 diabetes mellitus with hyperglycemia (2) Hyperglycemia Assessment/Plan: improving Code(s): R73.9 - HYPERGLYCEMIA, UNSPECIFIED (3) Acute metabolic encephalopathy Assessment/Plan: improved Code(s): G93.41 - METABOLIC ENCEPHALOPATHY (4) Dehydration Assessment/Plan: improved Code(s): E86.0 - DEHYDRATION (5) Hyponatremia Assessment/Plan: resolved Code(s): E87.1 - HYPO-OSMOLALITY AND HYPONATREMIA (6) Fall Assessment/Plan: mechanical fall risk precautions cardiac/neuro etiology neg PT SNF placement Code(s): W19.XXXA - UNSPECIFIED FALL, INITIAL ENCOUNTER Qualifiers: Encounter type: initial encounter Qualified Code(s): W19.XXXA - Unspecified fall, initial encounter (7) Glaucoma Assessment/Plan: continue home regimen Code(s): H40.9 - UNSPECIFIED GLAUCOMA (8) Hypertension Assessment/Plan: improving continue coreg and quinapril Code(s): I10 - ESSENTIAL (PRIMARY) HYPERTENSION (9) Dementia Assessment/Plan: new onset continue aricept Code(s): F03.90 - UNSPECIFIED DEMENTIA WITHOUT BEHAVIORAL DISTURBANCE Qualifiers: Dementia type: Alzheimer's disease Alzheimer's disease onset: early-onset Dementia behavioral disturbance: without behavioral disturbance Qualified Code(s): 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 anticipate discharge tomorrow if no clinical changes
[2018-08-29] MEDS: ASPIRIN 81 MG CHEWABLE TABLETS PO SCH (21:06)
[2018-08-29] MEDS: LATANOPROST 0.005% OPHTH SOLN 2.5ML BOTTLE OU SCH (21:06)
[2018-08-29] MEDS: DONEPEZIL HCL 5 MG TABLET (FP) PO SCH (21:07)
[2018-08-29] MEDS: QUINAPRIL HCL 10 MG TABLET (FP) PO SCH (21:07)
[2018-08-29] MEDS: ACETAMINOPHEN 325 MG TABLET (FP) PO PRN (22:05)
[2018-08-30] MEDS: INSULIN SLIDING SCALE (NOVOLOG) 1 VIAL SQ SCH ×3 (06:07→17:18)
[2018-08-30] MEDS ORDERED: sitaGLIPtin PHOSPHATE 50 MG TABLET PO SCH (07:00)
[2018-08-30] MEDS: INSULIN (LEVEMIR) 100 UNITS/ML UNITS SQ SCH (07:29)
[2018-08-30 08:35] LABS: BASO % 0.7 % (0-2.0); EOS % 5.6 % (0-4.5); HEMATOCRIT 33.1 % (32.4-45.2); HEMOGLOBIN 11.1 GM/dL (10.7-15.3); LYMPH % 20.2 % (8-40); MCH 27.7 pg (25.7-33.7); MCHC 33.6 g/dl (32.0-36.0); MEAN CELL VOLUME 82.3 fl (80-96); MEAN PLT VOLUME 7.5 fl (7.5-11.1); MONO % 9.7 % (3.8-10.2); NEUT % 63.8 % (42.8-82.8); PLATELET COUNT 407 K/MM3 (134-434); RBC 4.02 M/mm3 (3.60-5.2); RDW 14.4 % (11.6-15.6); WHITE BLOOD COUNT 6.4 K/mm3 (4.0-10.0)
[2018-08-30 10:11] LABS: ANION GAP 7 MMOL/L (8-16); BLOOD UREA NITROGEN 31 mg/dL (7-18); CALCIUM 9.1 mg/dL (8.5-10.1); CHLORIDE 108 mmol/L (98-107); CO2 23 mmol/L (21-32); CREATININE 1.1 mg/dL (0.55-1.3); GLUCOSE,RANDOM 127 mg/dL (74-106); MAGNESIUM 2.2 mg/dL (1.8-2.4); POTASSIUM 4.6 mmol/L (3.5-5.1); SODIUM 138 mmol/L (136-145)
[2018-08-30] MEDS: CARVEDILOL 6.25 MG TABLET (FP) PO SCH ×2 (10:26→21:37)
[2018-08-30] MEDS ORDERED: INSULIN (LEVEMIR) 100 UNITS/ML UNITS SQ ONE (11:16)
--- NOTE | 2018-08-30 11:28 | DS ---
Physical Examination Vital Signs: Vital Signs Temperature 97.5 F L 08/30/18 06:17 Pulse Rate 70 08/30/18 06:17 Respiratory Rate 20 08/30/18 06:17 Blood Pressure 137/68 08/30/18 06:17 O2 Sat by Pulse Oximetry (%) 96 08/29/18 21:00 Constitutional: Yes: Well Nourished, No Distress, Calm Cardiovascular: Yes: Regular Rate and Rhythm Respiratory: Yes: WNL, Regular, CTA Bilaterally. No: Accessory Muscle Use, Tachypnea, Wheezes Gastrointestinal: Yes: WNL, Normal Bowel Sounds, Soft. No: Distention, Tenderness Renal/: Yes: WNL Extremities: Yes: WNL Edema: No Neurological: Yes: WNL, Alert, Oriented Psychiatric: Yes: WNL, Alert, Oriented Labs: CBC, BMP 08/30/18 06:20 08/30/18 06:20 Discharge Summary Reason For Visit: LETHARGY Current Active Problems Acute metabolic encephalopathy (Acute) Dehydration (Acute) Dementia (Acute) Fall (Acute) Glaucoma (Acute) Hyperglycemia (Acute) Hypokalemia (Acute) Hypomagnesemia (Acute) Hyponatremia (Acute) SOB (shortness of breath) (Acute) Hospital Course: Ms Riddle is an 88 year old female who was brought in by her family secondary to weakness and altered mental status at home. Pt found to be hyperglycemic and dehydrated as she was not taking medications at home 2/2 new onset dementia, plan for outpt work up. HgA1C 15, pt started on levemir and sliding scale. Blood sugars improving. Januvia added. Levemir changed to lantus, continue lantus, insulin sliding scale, and januvia at SNF, uptitrate as needed. 2/15 UA positive however pt denies any urgency/frequency/dysuria. Asymptomatic bacteriuria, treatment not recommended. Pt is medically stable for discharge to SNF. Discussed the plan with family, in agreement. Condition: Stable - Instructions Diet, Activity, Other Instructions: diabetic diet PT as tolerated insulin lantus/ januvia sliding scale - may change to basal bolus continue blood sugar monitoring and increase lantus by 2units if BGM>180 if needed follow up as directed Referrals: Charles Gonzalez MD [Staff Physician] - 2 Weeks (neurology, dementia work up) Edilberto German MD [Primary Care Provider] - 1 Week Guillermina Lyle MD [Staff Physician] - 1 Week [facility]position: [facility] - Home Medications Comprehensive Discharge Medication List: Ambulatory Orders Aspirin [ASA -] 81 mg PO HS 01/28/16 Bimatoprost [Lumigan] 1 drop OU HS 01/29/16 Epinastine HCl 1 drop OU AM 01/29/16 Quinapril HCl [Accupril -] 10 mg PO HS #30 tablet 02/01/16 Carvedilol [Coreg] 6.25 mg PO BID 08/25/18 Donepezil HCl [Aricept -] 5 mg PO HS tablet 08/30/18 Insulin Glargine,Hum.rec.anlog [Lantus] 50 unit SQ HS #1 vial 08/30/18 Insulin Sliding Scale [Novolog Vial Sliding Scale -] 1 vial SQ ACHS units 08/30 Sitagliptin Phosphate [Januvia -] 50 mg PO DAILY@0700 tablet 08/30/18
[2018-08-30 12:35] LABS: URINE APPEARANCE CLOUDY; URINE BILIRUBIN NEGATIVE (<2.0 mg/dL); URINE COLOR YELLOW; URINE GLUCOSE (UA) NEGATIVE (NEGATIVE); URINE KETONE NEGATIVE (NEGATIVE); URINE LEUK ESTERASE 2+ (NEGATIVE); URINE NITRITE POSITIVE (NEGATIVE); URINE PROTEIN 1+ (NEGATIVE); URINE UROBILINOGEN NEGATIVE mg/dL (0.2-1.0)
[2018-08-30 12:54] LABS: EPI CELLS RARE /HPF (FEW); URINE BACTERIA MANY /hpf (NONE SEEN)
--- NOTE | 2018-08-30 15:01 | EKG ---
Test Reason : Blood Pressure : / mmHG Vent. Rate : 079 BPM Atrial Rate : 079 BPM P-R Int : 172 ms QRS Dur : 064 ms QT Int : 372 ms P-R-T Axes : 036 055 072 degrees QTc Int : 426 ms SINUS RHYTHM WITH OCCASIONAL PREMATURE VENTRICULAR COMPLEXES Confirmed by RAVEN EDWARDS MD ([id number]) on 08/30/2018 3:01:14 PM Referred By: Confirmed By:RAVEN EDWARDS MD
[2018-08-30 15:20] VITALS: TEMP 98.7
[2018-08-30 18:56] VITALS: BP 153/83; PULSE 76
[2018-08-30] MEDS ORDERED: INSULIN (NOVOLOG) ASPART 100 UNITS/ML 10ML VIAL ONE (21:02)
[2018-08-30] MEDS: QUINAPRIL HCL 10 MG TABLET (FP) PO SCH (21:37)
[2018-08-30] MEDS: DONEPEZIL HCL 5 MG TABLET (FP) PO SCH (21:37)
[2018-08-30] MEDS: ASPIRIN 81 MG CHEWABLE TABLETS PO SCH (21:37)
== END 2018-08-30 21:59 | DRG 637 ==
LOC: JER 12:51 → JERBED 16:18 → J5S 08-26 16:41
PROVIDERS: ADMIT Internal Medicine; ATTEND Nurse Practitioner Family
DX: E11.65 Type 2 diabetes mellitus with hyperglycemia (principal); G93.41 Metabolic encephalopathy; E87.1 Hypo-osmolality and hyponatremia; F03.90 Unspecified dementia, unspecified severity, without behavioral disturbance, psychotic disturbance, mood disturbance, and anxiety; I10 Essential (primary) hypertension; E86.0 Dehydration; E87.6 Hypokalemia; E83.42 Hypomagnesemia; H40.9 Unspecified glaucoma; R41.82 Altered mental status, unspecified; Z79.4 Long term (current) use of insulin
CPT/HCPCS: 36415; 70450-TC; 71045-TC-FY; 73562-TC-LT-FY; 80048; 80053; 81003; 81015; 82009; 82550; 82803; 82962; 83036; 83735; 84100; 84484; 85025; 85610; 87086; 87186; 93005; 93010; 93306-TC; 93880-TC; 94010; 94640; 97116-GP; 97162-GP; 99285-25; J7030

== ENCOUNTER 2020-03-23 19:09 | Inpatient (IN) | payer OTHER, BC ==
[2020-03-23] MEDS ORDERED: LACTATED RINGERS SOLUTION 1000 ML INFUS.BAG IV ONE (19:29)
--- NOTE | 2020-03-23 20:02 | PDOC ---
History of Present Illness - General Chief Complaint: SIRS, Suspected/Possible Stated Complaint: HYPERGLYCEMIA Time Seen by Provider: 03/23/20 19:27 History Source: Patient Exam Limitations: No Limitations - History of Present Illness Initial Comments: Hx limited patient appears to be altered. Cannot provide a meaningful historical narrative Emma is an 89 yo F w a hx of NIDDM (Refuses to take insulin at home despite poor glucose control), HTN, HLD, HF who presents to the [facility] her daughter who is a nurse noticed that she has looked off for the past 2 days. Her daughter thinks she is confused and when the daughter checked a fingerstick her BGM was in the 300's. When EMS arrived they checked her glucose and noted it to be around 490. Daughter states she has been somewhat confused for the past 2 days and states this frequently happens when she has a UTI. The patient also endorses generalized lower abdominal pain as well as frequent urination. PCP: Dr. Henry PSH: Appendectomy Social Hx: states she is independent in ADL... I am suspicious, daughter helps out. Denies smoking, drinking, or other substance abuse Allergies: Penicillins - When she was younger she had an allergy at the age of 35 Past History - Medical History Allergies/Adverse Reactions: Allergies Allergy/AdvReac Type Severity Reaction Status Date / Time Penicillins Allergy Difficulty Verified 01/28/16 17:26 Breathing Home Medications: Ambulatory Orders Aspirin [ASA -] 81 mg PO HS 01/28/16 Bimatoprost [Lumigan] 1 drop OU HS 01/29/16 Epinastine HCl 1 drop OU AM 01/29/16 Quinapril HCl [Accupril -] 10 mg PO HS #30 tablet 02/01/16 Carvedilol [Coreg] 6.25 mg PO BID 08/25/18 Donepezil HCl [Aricept -] 5 mg PO HS tablet 08/30/18 Insulin Glargine,Hum.rec.anlog [Lantus] 50 unit SQ HS #1 vial 08/30/18 Insulin Sliding Scale [Novolog Vial Sliding Scale -] 1 vial SQ ACHS units 08/30/18 Sitagliptin Phosphate [Januvia -] 50 mg PO DAILY@0700 tablet 08/30/18 Anemia: No Asthma: No Cancer: No Cardiac Disorders: No CVA: No COPD: No CHF: Yes Dementia: Yes Diabetes: Yes (x1 year) GI Disorders: No Disorders: No HTN: Yes Hypercholesterolemia: Yes Liver Disease: No Seizures: No Thyroid Disease: No - Surgical History Abdominal Surgery: No Appendectomy: Yes Cardiac Surgery: No Cholecystectomy: No Lung Surgery: No Neurologic Surgery: No Orthopedic Surgery: No - Psycho-Social/Smoking History Smoking History: Unknown if ever smoked Have you smoked in the past 12 months: No - Substance Abuse Hx (Audit-C & DAST Scrn) How often the patient has a drink containing alcohol: Never Score: In Men: 4 or > Positive; In Women: 3 or > Positive: 0 Screen Result (Pos requires Nsg. Audit-10AR): Negative Review of Systems - Review of Systems Able to Perform ROS?: Yes Comments:: CONSTITUTIONAL: Present: Fever, chills, fatigue EYES: Absent: visual changes ENT: Absent: ear pain, no sore throat CARDIOVASCULAR: Absent: chest pain, no palpitations RESPIRATORY: Absent: cough, no SOB GI: Present: Abdominal pain Absent: no nausea, no vomiting, no constipation, no diarrhea GENITOURINARY: Present: frequency Absent: dysuria, no hematuria MUSKULOSKELETAL: Present: Arthralgia Absent: back pain, no myalgia SKIN: Absent: rash NEURO: Absent: headache *Physical Exam - Vital Signs Last Vital Signs Temp Pulse Resp BP Pulse Ox 109 H 18 143/79 96 03/23/20 19:36 03/23/20 19:36 03/23/20 19:36 03/23/20 19:36 - Physical Exam GENERAL: Appears confused, thinks shes cold but feels warm. Well-nourished. No apparent distress. HEENT: Normocephalic, atraumatic. PERRL, EOM intact. CARDIOVASCULAR: Tachycardic. systolic crescendo decresendo murmur prominent in the aortic region. Regular rhythm. PULMONARY: No evidence of respiratory distress. Lungs clear to auscultation bilaterally. No wheezing, rales or rhonchi. ABDOMEN: There is suprapubic right and left lower abdominal TTP. No peritoneal signs. EXTREMITIES: Normal ROM in all four extremities. No gross deformities. SKIN: Warm, dry. No rash NEUROLOGICAL: No focal neurological deficits. ED Treatment Course - LABORATORY CBC & Chemistry Diagram: 03/24/20 00:28 03/24/20 00:28 - RADIOLOGY Radiology Studies Ordered: Category Date Time Status ABDOMEN & PELVIS CT WITH CONTR [CT] Stat CT Scan 03/23/20 19:53 Ordered CHEST X-RAY PORTABLE* [RAD] Stat Radiology 03/23/20 19:32 Ordered Medical Decision Making - Medical Decision Making Hx limited patient appears to be altered. Cannot provide a meaningful historical narrative Emma is an 89 yo F w a hx of NIDDM (Refuses to take insulin at home despite poor glucose control), HTN, HLD, HF who presents to the [facility] her daughter who is a nurse noticed that she has looked off for the past 2 days. Her daughter thinks she is confused and when the daughter checked a fingerstick her BGM was in the 300's. When EMS arrived they checked her glucose and noted it to be around 490. Daughter states she has been somewhat confused for the past 2 days and states this frequently happens when she has a UTI. The patient also endorses generalized lower abdominal pain as well as frequent urination. Mitzi - patients daughter - [phone] - noticed on weekend, very cranky, so figured BS was up. doesn'tt morena insulin, stopped insulin bc of combativeness, oral hypoglycemic nepaglinidie 120 mg bid, januvia 50 mg bid, dr. henry dropped it to once daily. Vital Signs Temp Pulse Resp BP Pulse Ox 109 H 18 143/79 96 03/23/20 19:36 03/23/20 19:36 03/23/20 19:36 03/23/20 19:36 DDx IBNLT: Sepsis - uti, pna, viral syndrome, covid, electrolyte/metabolic disturbance, HHNS, DKA, dehydration, MARCIA, AMS Plan: septic/DKA workup, CTAP, Abx Dispo: Admission to hospital for AMS, Sepsis, and glucose control CTAP: Right pylonephritis. There is mild right hydronephrosis with a 3 mm distal right ureteral stone slightly proximal to the UVJ. - Ceftriaxone - Uro consult Discharge - Discharge Information Problems reviewed: Yes Clinical Impression/Diagnosis: Hyperglycemia, MARCIA (acute kidney injury), Pyelonephritis, Calculus of ureterovesical junction (UVJ), Renal stone AMS (altered mental status) Qualifiers: Altered mental status type: unspecified Qualified Code(s): R41.82 - Altered mental status, unspecified Sepsis Qualifiers: Sepsis type: sepsis due to unspecified organism Sepsis acute organ dysfunction status: unspecified Qualified Code(s): A41.9 - Sepsis, unspecified organism Condition: Stable - Admission Yes - Follow up/Referral - Patient Discharge Instructions - Post Discharge Activity
[2020-03-23] MEDS ORDERED: CEFTRIAXONE 1,000 MG in DEXTROSE 5%-WATER - 50 ML IVPB ONE (20:25)
[2020-03-23 20:26] LABS: VENOUS BASE EXCESS -6.5 mmol/L (-2-2); VENOUS O2 SATURATION 54.3 % (70-80); VENOUS PCO2 40.2 mmHg (38-52); VENOUS PH 7.302 (7.310-7.410)
[2020-03-23 20:28] LABS: BASO % 0.1 % (0-2.0); HEMOGLOBIN 11.3 GM/dL (10.7-15.3); LYMPH % 1.9 % (8-40); MCH 24.3 pg (25.7-33.7); MCHC 32.4 g/dl (32.0-36.0); MEAN PLT VOLUME 7.6 fl (7.5-11.1); MONO % 6.1 % (3.8-10.2); NEUT % 91.9 % (42.8-82.8); PLATELET COUNT 259 K/MM3 (134-434); RBC 4.66 M/mm3 (3.60-5.2); RDW 18.4 % (11.6-15.6)
[2020-03-23 20:42] LABS: ALK PHOS 82 U/L (45-117); ANION GAP 12 MMOL/L (8-16); BILIRUBIN,TOTAL 0.9 mg/dL (0.2-1); BLOOD UREA NITROGEN 54.9 mg/dL (7-18); CALCIUM 8.7 mg/dL (8.5-10.1); CHLORIDE 96 mmol/L (98-107); CO2 20 mmol/L (21-32); CREATININE 2.4 mg/dL (0.55-1.3); GLUCOSE,RANDOM 388 mg/dL (74-106); POTASSIUM 4.5 mmol/L (3.5-5.1); SGOT/AST 17 U/L (15-37); SGPT/ALT 16 U/L (13-61); SODIUM 128 mmol/L (136-145); TOT PROT 7.2 g/dl (6.4-8.2)
[2020-03-23] MEDS ORDERED: CEFTRIAXONE 1 GM/50 ML BAG ONE (20:42)
[2020-03-23 21:13] LABS: INR 1.34 (0.83-1.09); PROTHROMBIN TIME (PATIENT) 15.8 SEC (9.7-13.0)
[2020-03-23 21:16] LABS: ACTIVATED PTT 27.3 SECONDS (25.2-36.5)
--- NOTE | 2020-03-23 22:46 | PDOC ---
Documentation entered by [place] SCRIBE, acting as scribe for Christiana Christopher DO. Christiana Christopher DO: This documentation has been prepared by the prema, Montez [place] SCRIBE, under my direction and personally reviewed by me in its entirety. I confirm that the documentation accurately reflects all work, treatment, procedures, and medical decision making performed by me. Attending Attestation - Resident Resident Name: Syed Weston - ED Attending Attestation I have performed the following: I have examined & evaluated the patient, The case was reviewed & discussed with the resident, I agree w/resident's findings & plan - HPI HPI: 03/23/20 19:28 The patient is a 89y/o F with a pmh of NIDDM, HTN, HLD, and CHF who presents to the ED BIBA for hyperglycemia. Per daughter who is a nurse, the pt has been more confused the past 2 days. Per daughter, the pt's BS was in the 300's. Per EMS, pt's BS was 490, when they arrived at the scene. Daughter states, the symptoms are consistent with pt's prior UTI's Allergies: PCN PCP: Dr. German - Physicial Exam PE: 03/23/20 19:35 Agree with resident exam - Critical Care Time Total Critical Care Time: 90 Critical Care Statement: The care of this patient involved high complexity decision making to prevent further life threatening deterioration of the patient's condition and/or to evaluate & treat vital organ system(s) failure or risk of failure. - Medical Decision Making 03/23/20 20:26 The patient is a 89y/o F with a history of UTI's, brought in by daughter for AMS and fever. Plan for sepsis eval and CT abdomen/ pelvis plan for Admission for further management pending results 03/24/20 02:53 Evaluation consistent with upper urinary tract infection/pyelonephritis Rocephin as well as 1 L of IV fluids given with repeat labs showing improvement lactic acidosis Will admit to medical service Discharge - Discharge Information Problems reviewed: Yes Clinical Impression/Diagnosis: Hyperglycemia, MARCIA (acute kidney injury), Pyelonephritis, Calculus of ureterovesical junction (UVJ), Renal stone Sepsis Qualifiers: Sepsis type: sepsis due to unspecified organism Sepsis acute organ dysfunction status: unspecified Qualified Code(s): A41.9 - Sepsis, unspecified organism Condition: Stable - Follow up/Referral - Patient Discharge Instructions - Post Discharge Activity
[2020-03-23 23:51] LABS: URINE APPEARANCE TURBID; URINE COLOR YELLOW
[2020-03-23 23:52] LABS: URINE BILIRUBIN NEGATIVE (NEGATIVE); URINE GLUCOSE (UA) 2+ (NEGATIVE); URINE KETONE NEGATIVE (NEGATIVE)
[2020-03-23 23:53] LABS: EPI CELLS 519.4 /uL (0-25.1); HYALINE CASTS 536.09 /uL (0-3.1); URINE BACTERIA 55079.3 /uL (0-1359); URINE LEUK ESTERASE 2+ (NEGATIVE); URINE NITRITE NEGATIVE (NEGATIVE); URINE PROTEIN 3+ (NEGATIVE); URINE UROBILINOGEN 0.2 mg/dL (0.2-1.0); URINE WBC 33590.6 /uL (0-25.8)
[2020-03-24 00:51] LABS: VENOUS BASE EXCESS -5.4 mmol/L (-2-2); VENOUS O2 SATURATION 41.5 % (70-80); VENOUS PCO2 38.8 mmHg (38-52); VENOUS PH 7.33 (7.310-7.410)
[2020-03-24 00:56] LABS: BASO % 0.1 % (0-2.0); HEMATOCRIT 30.6 % (32.4-45.2); HEMOGLOBIN 10.1 GM/dL (10.7-15.3); LYMPH % 1.6 % (8-40); MCH 24.4 pg (25.7-33.7); MCHC 32.8 g/dl (32.0-36.0); MEAN CELL VOLUME 74.3 fl (80-96); MEAN PLT VOLUME 7.6 fl (7.5-11.1); MONO % 6.8 % (3.8-10.2); NEUT % 91.5 % (42.8-82.8); PLATELET COUNT 228 K/MM3 (134-434); RBC 4.12 M/mm3 (3.60-5.2); RDW 18.4 % (11.6-15.6)
[2020-03-24 01:09] LABS: ALBUMIN 2.6 g/dl (3.4-5.0); BILIRUBIN,TOTAL 0.5 mg/dL (0.2-1); BLOOD UREA NITROGEN 55.1 mg/dL (7-18); CALCIUM 8.6 mg/dL (8.5-10.1); CREATININE 2.2 mg/dL (0.55-1.3); POTASSIUM 4.3 mmol/L (3.5-5.1); TOT PROT 6.4 g/dl (6.4-8.2)
--- NOTE | 2020-03-24 02:50 | PN ---
Teaching Attending Note Name of Resident: [place] ATTENDING PHYSICIAN STATEMENT I saw and evaluated the patient. I reviewed the resident's note and discussed the case with the resident. I agree with the resident's findings and plan as documented. SUBJECTIVE: 89yoF with history of diabetes, HTN, HLD, and chronic diastolic CHF who presents with altered mental status and hyperglycemia. Patient was noted by family to be acting confused for two days, daughter checked glucose which was in the 300s. Patient reportedly refuses to take insulin and has presented similarly with UTI in the past. Patient febrile in the ED to 100.8, tachycardic and tachypneic. Labs notable for WBC 22.0, sodium 129 corrected to 135, creatinine 2.2, glucose 351. Venous pH 7.3, anion gap 12, lactic acid 2.6. Urinalysis grossly positive for infection. CT abd/pelvis showed right pyelonephritis with mild hydronephrosis and two ureteral stones measuring 3 and 6mm. Patient received 1L LR and ceftriaxone with improvement in lactic acid. OBJECTIVE: Vital Signs (72 hours) 03/23/20 03/23/20 03/23/20 19:32 19:35 19:36 Temperature 100.8 F H 100.8 F H Pulse Rate 109 H Pulse Rate [ Apical] Respiratory 18 Rate Blood Pressure 143/79 Blood Pressure [Left Arm] O2 Sat by Pulse 96 Oximetry (%) 03/24/20 03/24/20 01:36 03:56 Temperature Pulse Rate Pulse Rate [ 116 H 113 H Apical] Respiratory 24 H 17 Rate Blood Pressure Blood Pressure 163/78 154/74 [Left Arm] O2 Sat by Pulse 95 99 Oximetry (%) EXAM Gen: sleeping but easily awakes to voice. Mild distress HEENT: NC/AT CV: RRR, no MRG appreciated. Tachycardic Resp: Tachypneic, faint wheezing in upper lobes, no rales/rhonchi Abd: Soft, ND, tender to palpation lower quadrants MSK: Trace edema Derm: Dry skin, warm Neuro: Moving all extremities Psych: AO to person, place Laboratory Results - last 24 hr 03/23/20 03/23/20 03/23/20 19:10 19:10 19:10 WBC 23.0 H RBC 4.66 Hgb 11.3 Hct 35.0 MCV 75.0 L MCH 24.3 L D MCHC 32.4 RDW 18.4 H Plt Count 259 D MPV 7.6 Absolute Neuts (auto) 21.1 H Neutrophils % 91.9 H D Neutrophils % (Manual) 74.0 Band Neutrophils % 16.0 Lymphocytes % 1.9 L D Lymphocytes % (Manual) 4.0 L Monocytes % 6.1 Monocytes % (Manual) 6 Eosinophils % 0.0 D Eosinophils % (Manual) 0.0 Basophils % 0.1 Basophils % (Manual) 0.0 Myelocytes % (Man) 0 Promyelocytes % (Man) 0 Blast Cells % (Manual) 0 Nucleated RBC % 0 Metamyelocytes 0 PT with INR INR PTT (Actin FS) VBG pH 7.302 L POC VBG pCO2 40.2 POC VBG pO2 31.4 VBG HCO3 19.4 L VBG O2 Sat (Melissa) 54.3 L VBG Base Excess -6.5 L Sodium Potassium Chloride Carbon Dioxide Anion Gap BUN Creatinine Est GFR (CKD-EPI)AfAm Est GFR (CKD-EPI)NonAf POC Glucometer Random Glucose Lactic Acid Calcium Total Bilirubin AST ALT Alkaline Phosphatase Creatine Kinase Creatine Kinase Index CK-MB (CK-2) 7.0 H Troponin I Total Protein Albumin Beta-Hydroxybutyrate 6.7 H Urine Color Urine Appearance Urine pH Ur Specific [place] Urine Protein Urine Glucose (UA) Urine Ketones Urine Blood Urine Nitrite Urine Bilirubin Urine Urobilinogen Ur Leukocyte Esterase Urine WBC (Auto) Urine Casts (Auto) U Epithel Cells (Auto) Urine Bacteria (Auto) 03/23/20 03/23/20 03/23/20 19:10 19:10 19:10 WBC RBC Hgb Hct MCV MCH MCHC RDW Plt Count MPV Absolute Neuts (auto) Neutrophils % Neutrophils % (Manual) Band Neutrophils % Lymphocytes % Lymphocytes % (Manual) Monocytes % Monocytes % (Manual) Eosinophils % Eosinophils % (Manual) Basophils % Basophils % (Manual) Myelocytes % (Man) Promyelocytes % (Man) Blast Cells % (Manual) Nucleated RBC % Metamyelocytes PT with INR 15.80 H INR 1.34 H PTT (Actin FS) 27.3 VBG pH POC VBG pCO2 POC VBG pO2 VBG HCO3 VBG O2 Sat (Melissa) VBG Base Excess Sodium 128 L Potassium 4.5 Chloride 96 L Carbon Dioxide 20 L Anion Gap 12 BUN 54.9 H Creatinine 2.4 H Est GFR (CKD-EPI)AfAm 20.21 Est GFR (CKD-EPI)NonAf 17.44 POC Glucometer Random Glucose 388 H Lactic Acid 2.6 H* Calcium 8.7 Total Bilirubin 0.9 AST 17 ALT 16 Alkaline Phosphatase 82 Creatine Kinase 157 Creatine Kinase Index 4.3 CK-MB (CK-2) 6.8 H Troponin I < 0.02 Total Protein 7.2 Albumin 3.0 L Beta-Hydroxybutyrate Urine Color Urine Appearance Urine pH Ur Specific [place] Urine Protein Urine Glucose (UA) Urine Ketones Urine Blood Urine Nitrite Urine Bilirubin Urine Urobilinogen Ur Leukocyte Esterase Urine WBC (Auto) Urine Casts (Auto) U Epithel Cells (Auto) Urine Bacteria (Auto) 03/23/20 03/24/20 03/24/20 20:20 00:28 00:28 WBC 22.0 H RBC 4.12 Hgb 10.1 L Hct 30.6 L MCV 74.3 L MCH 24.4 L MCHC 32.8 RDW 18.4 H Plt Count 228 MPV 7.6 Absolute Neuts (auto) 20.2 H Neutrophils % 91.5 H Neutrophils % (Manual) Band Neutrophils % Lymphocytes % 1.6 L Lymphocytes % (Manual) Monocytes % 6.8 Monocytes % (Manual) Eosinophils % 0.0 Eosinophils % (Manual) Basophils % 0.1 Basophils % (Manual) Myelocytes % (Man) Promyelocytes % (Man) Blast Cells % (Manual) Nucleated RBC % 0 Metamyelocytes PT with INR INR PTT (Actin FS) VBG pH 7.330 POC VBG pCO2 38.8 POC VBG pO2 25.0 L VBG HCO3 20.0 L VBG O2 Sat (Melissa) 41.5 L VBG Base Excess -5.4 L Sodium Potassium Chloride Carbon Dioxide Anion Gap BUN Creatinine Est GFR (CKD-EPI)AfAm Est GFR (CKD-EPI)NonAf POC Glucometer Random Glucose Lactic Acid Calcium Total Bilirubin AST ALT Alkaline Phosphatase Creatine Kinase Creatine Kinase Index CK-MB (CK-2) Troponin I Total Protein Albumin Beta-Hydroxybutyrate Urine Color Yellow Urine Appearance Turbid Urine pH 5.0 Ur Specific [place] 1.020 Urine Protein 3+ H Urine Glucose (UA) 2+ H Urine Ketones Negative Urine Blood 3+ H Urine Nitrite Negative Urine Bilirubin Negative Urine Urobilinogen 0.2 Ur Leukocyte Esterase 2+ H Urine WBC (Auto) 58193.6 Urine Casts (Auto) 536.09 U Epithel Cells (Auto) 519.4 Urine Bacteria (Auto) 49200.3 03/24/20 03/24/20 03/24/20 00:28 00:28 02:27 WBC RBC Hgb Hct MCV MCH MCHC RDW Plt Count MPV Absolute Neuts (auto) Neutrophils % Neutrophils % (Manual) Band Neutrophils % Lymphocytes % Lymphocytes % (Manual) Monocytes % Monocytes % (Manual) Eosinophils % Eosinophils % (Manual) Basophils % Basophils % (Manual) Myelocytes % (Man) Promyelocytes % (Man) Blast Cells % (Manual) Nucleated RBC % Metamyelocytes PT with INR INR PTT (Actin FS) VBG pH POC VBG pCO2 POC VBG pO2 VBG HCO3 VBG O2 Sat (Melissa) VBG Base Excess Sodium 129 L Potassium 4.3 Chloride 96 L Carbon Dioxide 20 L Anion Gap 13 BUN 55.1 H Creatinine 2.2 H Est GFR (CKD-EPI)AfAm 22.46 Est GFR (CKD-EPI)NonAf 19.37 POC Glucometer 325 Random Glucose 351 H Lactic Acid 1.9 Calcium 8.6 Total Bilirubin 0.5 AST 14 L ALT 14 Alkaline Phosphatase 74 Creatine Kinase Creatine Kinase Index CK-MB (CK-2) Troponin I Total Protein 6.4 Albumin 2.6 L Beta-Hydroxybutyrate Urine Color Urine Appearance Urine pH Ur Specific [place] Urine Protein Urine Glucose (UA) Urine Ketones Urine Blood Urine Nitrite Urine Bilirubin Urine Urobilinogen Ur Leukocyte Esterase Urine WBC (Auto) Urine Casts (Auto) U Epithel Cells (Auto) Urine Bacteria (Auto) Imaging, EKG reviewed in chart ASSESSMENT AND PLAN: 89yoF with history of diabetes, HTN, HLD, and chronic diastolic CHF who presents with altered mental status and hyperglycemia in the setting of severe sepsis secondary to right pyelonephritis and ureteral obstruction. Severe sepsis secondary to pyelonephritis, infected stones Prelim read of CT abd/pelvis showing mild right hydronephrosis with 3mm distal right ureteral stone and possible second 6mm distal ureteral stone UA grossly infected, culture pending s/p ceftriaxone in ED; given presentation with severe sepsis and presence of stone, will broaden empirically - broaden antibiotic coverage to aztreonam - f/u urine, blood cultures - continue IVF - tamsulosin - strain urine - urology consult AMS, acute toxic metabolic encephalopathy In setting of severe sepsis as above Currently AOx2, please clarify baseline mental status with family in the morning - treat sepsis as above MARCIA Likely multifactorial, prerenal and obstructive - continue hydration and urology consult as above - monitor I/O - trend renal function - avoid nephrotoxic meds Hyperglycemia; pseudohyponatremia In setting of poorly controlled diabetes and acute infection Corrected sodium 135 - ISS - A1c - holding home oral medications Chronic diastolic CHF: currently appears mildly dehydrated on exam. IVF as above, monitor volume status DVT ppx: heparin subq
[2020-03-24] MEDS ORDERED: SODIUM CHLORIDE 500 ML IV STA (03:18)
[2020-03-24] MEDS ORDERED: SODIUM CHLORIDE 1,000 ML IV SCH (03:30)
[2020-03-24] MEDS ORDERED: METOPROLOL TARTRATE 25 MG TABLET (FP) PO ONE (04:49)
[2020-03-24] MEDS ORDERED: METOPROLOL TARTRATE 25 MG TABLET (FP) PO PRN (04:50)
[2020-03-24 06:36] LABS: PLATELET ESTIMATE ADEQUATE
[2020-03-24] MEDS: INSULIN SLIDING SCALE (NOVOLOG) 1 VIAL SQ SCH ×4 (06:36→21:15)
[2020-03-24] MEDS: HEPARIN NA (PORCINE) 5,000 UNITS/ML 1ML VIAL SQ SCH ×3 (06:38→21:10)
--- NOTE | 2020-03-24 07:51 | HP ---
CHIEF COMPLAINT: Altered Mental Status for 2 days PCP: Dr. German HISTORY OF PRESENT ILLNESS: 89 year old female patient with past medical history of DM, HTN, HLD, and CHF, who presents to the emergency room brought in by ambulance with hyperglycemia and altered mental status for two days. The patient's daughter had found that the patient's blood sugar was in the 300's and called EMS. The patient is A&Ox2 (name and place) and confused. CT A/P found right pyelonephritis, right mild hydronephrosis, and 2 renal stones. ER course was notable for: (1) Insulin, 1 liter LR, Rocephin 1g (2) CT A/P found right pyelonephritis with right mild hydronephrosis with a 3 mm distal right ureteral stone and a possible second 6 mm distal stone. (3) Severe sepsis (WBC 23.0, 100.8F, 116bpm, 24 breaths per minute) (4) Lactic acid 2.6, later dropped to 1.9 Recent Travel: PAST MEDICAL HISTORY: DM, HTN, HLD, and CHF PAST SURGICAL HISTORY: Appendectomy Social History: Smoking: Daughter denied Alcohol: Daughter denied Drugs: Daughter denied Allergies Penicillins Allergy (Verified 01/28/16 17:26) Difficulty Breathing HOME MEDICATIONS: Home Medications Medication Instructions Recorded Aspirin [ASA -] 81 mg PO HS 01/28/16 Bimatoprost [Lumigan] 1 drop OU HS 01/29/16 Epinastine HCl 1 drop OU AM 01/29/16 Quinapril HCl [Accupril -] 10 mg PO HS #30 tablet 02/01/16 Carvedilol [Coreg] 6.25 mg PO BID 08/25/18 Donepezil HCl [Aricept -] 5 mg PO HS tablet 08/30/18 Insulin Glargine,Hum.rec.anlog 50 unit SQ HS #1 vial 08/30/18 [Lantus] Insulin Sliding Scale [Novolog 1 vial SQ ACHS units 08/30/18 Vial Sliding Scale -] Sitagliptin Phosphate [Januvia -] 50 mg PO DAILY@0700 tablet 08/30/18 REVIEW OF SYSTEMS CONSTITUTIONAL: Patient confused, answering 'no' to all review of system questions Absent: denies any pain HEENT: Absent: denies blurry vision RESPIRATORY: Absent: denies shortness of breath GENITOURINARY: Absent: denies dysuria, denies urinary frequency MUSCULOSKELETAL: Absent: denies joint pain PHYSICAL EXAMINATION Vital Signs - 24 hr 03/23/20 03/23/20 03/23/20 19:32 19:35 19:36 Temperature 100.8 F H 100.8 F H Pulse Rate 109 H Pulse Rate [ Apical] Respiratory 18 Rate Blood Pressure 143/79 Blood Pressure [Left Arm] O2 Sat by Pulse 96 Oximetry (%) 03/24/20 03/24/20 03/24/20 01:36 03:56 05:20 Temperature 99.0 F Pulse Rate 109 H Pulse Rate [ 116 H 113 H Apical] Respiratory 24 H 17 20 Rate Blood Pressure 156/72 Blood Pressure 163/78 154/74 [Left Arm] O2 Sat by Pulse 95 99 Oximetry (%) 03/24/20 05:21 Temperature Pulse Rate Pulse Rate [ Apical] Respiratory Rate Blood Pressure Blood Pressure [Left Arm] O2 Sat by Pulse 97 Oximetry (%) GENERAL: A&Ox2 and confused. HEAD: Normal with no signs of trauma. EYES: Pupils equal, round and reactive to light, extraocular movements intact. No lid lag. EARS, NOSE, THROAT: Ears normal, nares patent, oropharynx clear without e xudates. Dry mucous membranes. NECK: Normal range of motion, supple without lymphadenopathy, JVD, or masses. LUNGS: Breath sounds equal, clear to auscultation bilaterally. No wheezes, and no crackles. Some accessory muscle use. HEART: Regular rate and rhythm, normal S1 and S2 without murmur, rub or gallop. ABDOMEN: Soft, nontender, not distended, normoactive bowel sounds, no guarding, no rebound, no masses. MUSCULOSKELETAL: Normal range of motion at all joints. No bony deformities or tenderness. Mild CVA tenderness (initially said no pain when asked, but then said 'you're hurting me'). UPPER EXTREMITIES: 2+ pulses, warm, well-perfused. No cyanosis. No clubbing. No peripheral edema. LOWER EXTREMITIES: 2+ pulses, warm, well-perfused. No calf tenderness. Mild pitting edema. NEUROLOGICAL: Normal speech. PSYCHIATRIC: Cooperative. Good eye contact. Appropriate mood and affect. SKIN: Warm, dry, normal turgor, no rashes or lesions noted, normal capillary refill. Laboratory Results - last 24 hr 03/23/20 03/23/20 03/23/20 19:10 19:10 19:10 WBC 23.0 H RBC 4.66 Hgb 11.3 Hct 35.0 MCV 75.0 L MCH 24.3 L D MCHC 32.4 RDW 18.4 H Plt Count 259 D MPV 7.6 Absolute Neuts (auto) 21.1 H Total Counted Neutrophils % 91.9 H D Neutrophils % (Manual) 74.0 Band Neutrophils % 16.0 Lymphocytes % 1.9 L D Lymphocytes % (Manual) 4.0 L Monocytes % 6.1 Monocytes % (Manual) 6 Eosinophils % 0.0 D Eosinophils % (Manual) 0.0 Basophils % 0.1 Basophils % (Manual) 0.0 Myelocytes % (Man) 0 Promyelocytes % (Man) 0 Blast Cells % (Manual) 0 Nucleated RBC % 0 Metamyelocytes 0 Platelet Estimate Platelet Comment PT with INR INR PTT (Actin FS) VBG pH 7.302 L POC VBG pCO2 40.2 POC VBG pO2 31.4 VBG HCO3 19.4 L VBG O2 Sat (Melissa) 54.3 L VBG Base Excess -6.5 L Sodium Potassium Chloride Carbon Dioxide Anion Gap BUN Creatinine Est GFR (CKD-EPI)AfAm Est GFR (CKD-EPI)NonAf POC Glucometer Random Glucose Lactic Acid Calcium Total Bilirubin AST ALT Alkaline Phosphatase Creatine Kinase Creatine Kinase Index CK-MB (CK-2) 7.0 H Troponin I Total Protein Albumin Beta-Hydroxybutyrate 6.7 H Urine Color Urine Appearance Urine pH Ur Specific [place] Urine Protein Urine Glucose (UA) Urine Ketones Urine Blood Urine Nitrite Urine Bilirubin Urine Urobilinogen Ur Leukocyte Esterase Urine WBC (Auto) Urine Casts (Auto) U Epithel Cells (Auto) Urine Bacteria (Auto) 03/23/20 03/23/20 03/23/20 19:10 19:10 19:10 WBC RBC Hgb Hct MCV MCH MCHC RDW Plt Count MPV Absolute Neuts (auto) Total Counted Neutrophils % Neutrophils % (Manual) Band Neutrophils % Lymphocytes % Lymphocytes % (Manual) Monocytes % Monocytes % (Manual) Eosinophils % Eosinophils % (Manual) Basophils % Basophils % (Manual) Myelocytes % (Man) Promyelocytes % (Man) Blast Cells % (Manual) Nucleated RBC % Metamyelocytes Platelet Estimate Platelet Comment PT with INR 15.80 H INR 1.34 H PTT (Actin FS) 27.3 VBG pH POC VBG pCO2 POC VBG pO2 VBG HCO3 VBG O2 Sat (Melissa) VBG Base Excess Sodium 128 L Potassium 4.5 Chloride 96 L Carbon Dioxide 20 L Anion Gap 12 BUN 54.9 H Creatinine 2.4 H Est GFR (CKD-EPI)AfAm 20.21 Est GFR (CKD-EPI)NonAf 17.44 POC Glucometer Random Glucose 388 H Lactic Acid 2.6 H* Calcium 8.7 Total Bilirubin 0.9 AST 17 ALT 16 Alkaline Phosphatase 82 Creatine Kinase 157 Creatine Kinase Index 4.3 CK-MB (CK-2) 6.8 H Troponin I < 0.02 Total Protein 7.2 Albumin 3.0 L Beta-Hydroxybutyrate Urine Color Urine Appearance Urine pH Ur Specific [place] Urine Protein Urine Glucose (UA) Urine Ketones Urine Blood Urine Nitrite Urine Bilirubin Urine Urobilinogen Ur Leukocyte Esterase Urine WBC (Auto) Urine Casts (Auto) U Epithel Cells (Auto) Urine Bacteria (Auto) 03/23/20 03/24/20 03/24/20 20:20 00:28 00:28 WBC 22.0 H RBC 4.12 Hgb 10.1 L Hct 30.6 L MCV 74.3 L MCH 24.4 L MCHC 32.8 RDW 18.4 H Plt Count 228 MPV 7.6 Absolute Neuts (auto) 20.2 H Total Counted 100 Neutrophils % 91.5 H Neutrophils % (Manual) 90.0 H Band Neutrophils % 5.0 Lymphocytes % 1.6 L Lymphocytes % (Manual) 1.0 L D Monocytes % 6.8 Monocytes % (Manual) 4 Eosinophils % 0.0 Eosinophils % (Manual) Basophils % 0.1 Basophils % (Manual) Myelocytes % (Man) Promyelocytes % (Man) Blast Cells % (Manual) Nucleated RBC % 0 Metamyelocytes Platelet Estimate Adequate Platelet Comment No clumping noted PT with INR INR PTT (Actin FS) VBG pH 7.330 POC VBG pCO2 38.8 POC VBG pO2 25.0 L VBG HCO3 20.0 L VBG O2 Sat (Melissa) 41.5 L VBG Base Excess -5.4 L Sodium Potassium Chloride Carbon Dioxide Anion Gap BUN Creatinine Est GFR (CKD-EPI)AfAm Est GFR (CKD-EPI)NonAf POC Glucometer Random Glucose Lactic Acid Calcium Total Bilirubin AST ALT Alkaline Phosphatase Creatine Kinase Creatine Kinase Index CK-MB (CK-2) Troponin I Total Protein Albumin Beta-Hydroxybutyrate Urine Color Yellow Urine Appearance Turbid Urine pH 5.0 Ur Specific [place] 1.020 Urine Protein 3+ H Urine Glucose (UA) 2+ H Urine Ketones Negative Urine Blood 3+ H Urine Nitrite Negative Urine Bilirubin Negative Urine Urobilinogen 0.2 Ur Leukocyte Esterase 2+ H Urine WBC (Auto) 10474.6 Urine Casts (Auto) 536.09 U Epithel Cells (Auto) 519.4 Urine Bacteria (Auto) 31568.3 03/24/20 03/24/20 03/24/20 00:28 00:28 02:27 WBC RBC Hgb Hct MCV MCH MCHC RDW Plt Count MPV Absolute Neuts (auto) Total Counted Neutrophils % Neutrophils % (Manual) Band Neutrophils % Lymphocytes % Lymphocytes % (Manual) Monocytes % Monocytes % (Manual) Eosinophils % Eosinophils % (Manual) Basophils % Basophils % (Manual) Myelocytes % (Man) Promyelocytes % (Man) Blast Cells % (Manual) Nucleated RBC % Metamyelocytes Platelet Estimate Platelet Comment PT with INR INR PTT (Actin FS) VBG pH POC VBG pCO2 POC VBG pO2 VBG HCO3 VBG O2 Sat (Melissa) VBG Base Excess Sodium 129 L Potassium 4.3 Chloride 96 L Carbon Dioxide 20 L Anion Gap 13 BUN 55.1 H Creatinine 2.2 H Est GFR (CKD-EPI)AfAm 22.46 Est GFR (CKD-EPI)NonAf 19.37 POC Glucometer 325 Random Glucose 351 H Lactic Acid 1.9 Calcium 8.6 Total Bilirubin 0.5 AST 14 L ALT 14 Alkaline Phosphatase 74 Creatine Kinase Creatine Kinase Index CK-MB (CK-2) Troponin I Total Protein 6.4 Albumin 2.6 L Beta-Hydroxybutyrate Urine Color Urine Appearance Urine pH Ur Specific [place] Urine Protein Urine Glucose (UA) Urine Ketones Urine Blood Urine Nitrite Urine Bilirubin Urine Urobilinogen Ur Leukocyte Esterase Urine WBC (Auto) Urine Casts (Auto) U Epithel Cells (Auto) Urine Bacteria (Auto) 03/24/20 06:34 WBC RBC Hgb Hct MCV MCH MCHC RDW Plt Count MPV Absolute Neuts (auto) Total Counted Neutrophils % Neutrophils % (Manual) Band Neutrophils % Lymphocytes % Lymphocytes % (Manual) Monocytes % Monocytes % (Manual) Eosinophils % Eosinophils % (Manual) Basophils % Basophils % (Manual) Myelocytes % (Man) Promyelocytes % (Man) Blast Cells % (Manual) Nucleated RBC % Metamyelocytes Platelet Estimate Platelet Comment PT with INR INR PTT (Actin FS) VBG pH POC VBG pCO2 POC VBG pO2 VBG HCO3 VBG O2 Sat (Melissa) VBG Base Excess Sodium Potassium Chloride Carbon Dioxide Anion Gap BUN Creatinine Est GFR (CKD-EPI)AfAm Est GFR (CKD-EPI)NonAf POC Glucometer 300 Random Glucose Lactic Acid Calcium Total Bilirubin AST ALT Alkaline Phosphatase Creatine Kinase Creatine Kinase Index CK-MB (CK-2) Troponin I Total Protein Albumin Beta-Hydroxybutyrate Urine Color Urine Appearance Urine pH Ur Specific [place] Urine Protein Urine Glucose (UA) Urine Ketones Urine Blood Urine Nitrite Urine Bilirubin Urine Urobilinogen Ur Leukocyte Esterase Urine WBC (Auto) Urine Casts (Auto) U Epithel Cells (Auto) Urine Bacteria (Auto) ASSESSMENT/PLAN: 89 year old female patient with past medical history of DM, HTN, HLD, and CHF, who presents to the emergency room brought in by ambulance with hyperglycemia and altered mental status for two days. 1. Severe sepsis secondary to Pyelonephritis - Aztreonam due to penicillin allergy - Tamsulosin - Urology consulted - ID consulted 2. Hyperglycemia secondary to DM - Novolog Sliding Scale - A1C 3. MARCIA - IV Fluids - Monitoring I/O #FEN - NS at 75. Monitor Electrolytes. NPO DVT PPx - Heparin SQ Family Medical History Family History: Unable to Obtain Visit type - Medication Review Med list reviewed for High Risk Meds patients 65 and older: Yes - Emergency Visit Emergency Visit: Yes ED Registration Date: 03/23/20 Care time: The patient presented to the Emergency Department on the above date and was hospitalized for further evaluation of their emergent condition. - New Patient This patient is new to me today: Yes Date on this admission: 03/24/20 - Critical Care Critical Care patient: No ATTENDING PHYSICIAN STATEMENT I saw and evaluated the patient. I reviewed the resident's note and discussed the case with the resident. I agree with the resident's findings and plan as documented. SUBJECTIVE: OBJECTIVE: ASSESSMENT AND PLAN:
[2020-03-24 08:50] LABS: BASO % 0.1 % (0-2.0); HEMATOCRIT 29.7 % (32.4-45.2); HEMOGLOBIN 9.6 GM/dL (10.7-15.3); LYMPH % 1.9 % (8-40); MCH 23.6 pg (25.7-33.7); MCHC 32.2 g/dl (32.0-36.0); MEAN CELL VOLUME 73.5 fl (80-96); MEAN PLT VOLUME 7.5 fl (7.5-11.1); MONO % 7.4 % (3.8-10.2); NEUT % 90.6 % (42.8-82.8); PLATELET COUNT 215 K/MM3 (134-434); RBC 4.04 M/mm3 (3.60-5.2); RDW 18.2 % (11.6-15.6); WHITE BLOOD COUNT 23.6 K/mm3 (4.0-10.0)
[2020-03-24] MEDS ORDERED: AZTREONAM 1 GM VIAL (RESTRICTED TO ID) IVPB SCH ×2 (09:00)
[2020-03-24 09:22] LABS: ALBUMIN 2.4 g/dl (3.4-5.0); BILIRUBIN,TOTAL 0.5 mg/dL (0.2-1); BLOOD UREA NITROGEN 53.2 mg/dL (7-18); CALCIUM 8.5 mg/dL (8.5-10.1); CREATININE 2.3 mg/dL (0.55-1.3); MAGNESIUM 1.6 mg/dL (1.8-2.4); PHOSPHOROUS 3.3 mg/dL (2.5-4.9); TOT PROT 6.2 g/dl (6.4-8.2)
[2020-03-24] MEDS ORDERED: AZTREONAM 1 GM VIAL (RESTRICTED TO ID) ONE ×3 (09:27→20:52)
[2020-03-24] MEDS ORDERED: DEXTROSE 5%-WATER - 50 ML IVPB ONE ×3 (09:27→20:52)
--- NOTE | 2020-03-24 09:48 | PN ---
Progress Note (short form) - Note Progress Note: ID consult dictated imp/reccd gram negative bacteremia obstructive uropathy MARCIA UTI penicillin allergy continue aztreonam f/u blood cultures urology consult pending NPO Problem List - Problems (1) Gram-negative bacteremia Code(s): R78.81 - BACTEREMIA (2) Obstructive uropathy Code(s): N13.9 - OBSTRUCTIVE AND REFLUX UROPATHY, UNSPECIFIED (3) MARCIA (acute kidney injury) Code(s): N17.9 - ACUTE KIDNEY FAILURE, UNSPECIFIED (4) Penicillin allergy Code(s): Z88.0 - ALLERGY STATUS TO PENICILLIN
[2020-03-24] MEDS: TAMSULOSIN HCL 0.4 MG CAP PO SCH (09:51)
[2020-03-24] MEDS: AZTREONAM 1 GM in DEXTROSE 5%-WATER - 50 ML IVPB SCH ×3 (09:51→21:10)
[2020-03-24] MEDS ORDERED: AZTREONAM 1 GM in DEXTROSE 5%-WATER - 50 ML IVPB SCH (10:30)
--- NOTE | 2020-03-24 10:54 | CONS ---
INFECTIOUS DISEASE CONSULTATION DATE OF CONSULTATION: DATE OF DICTATION: 03/24/2020 HISTORY: This is an 89-year-old woman. She came to the ER yesterday evening with hyperglycemia. She has been more confused for the last 2 days. Her sugars have been running high at home and per EMS it was 490 when they got to her house. The patient lives alone. She reports she has a sandhya tenant. She denies fevers, chills, nausea, vomiting, diarrhea, dysuria, chest pain or abdominal pain. She is ALLERGIC TO PENICILLIN which she reports gives her swelling and makes her red. She is not a very good historian, but is alert, knows she is at the hospital. She was evaluated in the ER and her emergency room course was notable for blood work that showed a white count of 23,000. She was found to have a creatinine of 2.4, a lactic acid of 2.6, a UA consistent with pyuria. She had a CAT scan of her abdomen and pelvis that showed extensive diverticulosis; no diverticulitis; no appendicitis; mildly enlarged liver and she has a 6-mm distal right ureteral calculus that is partially obstructing; edematous changes of the right kidney with perinephric and periureteral stranding and mild hydronephrosis. ALLERGIES: She is allergic to PENICILLIN as previously stated. HOME MEDICATIONS: Include Januvia, , insulin, Aricept, Coreg, Lumigan and aspirin. SOCIAL HISTORY: She reports she lives alone, but has a tenant. REVIEW OF SYSTEMS: Negative. She denies abdominal pain, dysuria, chest pain or shortness of breath. PHYSICAL EXAMINATION: General: She is a pleasant woman. Vital Signs: Temperature is 99. T-max is 100.8, pulse of 109, blood pressure 156/72. Respiratory rate is 20. She is saturating 97% on 2 L. She is in no distress. HEENT: She is normocephalic. Her eyes are anicteric. Neck: Supple. Lungs: Clear to auscultation. Heart: Regular rate and rhythm. Abdomen: Soft, nontender. Extremities: Without edema. White count is 23.6, hemoglobin 9.6. Platelets are 215. BUN is 53 and creatinine 2.3. Urinalysis has 2+ leukocytes with 3359 white cells. Blood cultures 4 of 4 bottles are growing gram-negative bacilli. Repeat lactic acid overnight is 1.9. In summary, this is an 89-year-old woman with gram-negative bacteremia, obstructive uropathy, acute kidney injury, urinary tract infection with a PENICILLIN ALLERGY. I would continue Azactam, follow up blood cultures. Urology consult is pending at this time. Patient is currently n.p.o. while awaiting Urology consult. ALYSSA CAMARA M.D. [id number]
[2020-03-24 11:15] LABS: ANISOCYTOSIS 2+; MACROCYTOSIS 0; PLATELET ESTIMATE NORMAL
--- NOTE | 2020-03-24 12:58 | EKG ---
Test Reason : Blood Pressure : / mmHG Vent. Rate : 109 BPM Atrial Rate : 109 BPM P-R Int : 170 ms QRS Dur : 072 ms QT Int : 332 ms P-R-T Axes : 084 038 068 degrees QTc Int : 447 ms SINUS TACHYCARDIA WITH PREMATURE SUPRAVENTRICULAR COMPLEXES ANTERIOR INFARCT , AGE UNDETERMINED ABNORMAL ECG WHEN COMPARED WITH ECG OF 30-AUG-2018 13:08, PREMATURE VENTRICULAR COMPLEXES ARE NO LONGER PRESENT PREMATURE SUPRAVENTRICULAR COMPLEXES ARE NOW PRESENT Confirmed by MD NIKOLE, AUREA ([id number]) on 03/24/2020 12:58:14 PM Referred By: Confirmed By:AUREA AGUSTIN MD
[2020-03-24 20:04] LABS: BASO % 0.2 % (0-2.0); EOS % 0.3 % (0-4.5); HEMATOCRIT 28.4 % (32.4-45.2); HEMOGLOBIN 9.2 GM/dL (10.7-15.3); LYMPH % 1.6 % (8-40); MCH 24.1 pg (25.7-33.7); MCHC 32.4 g/dl (32.0-36.0); MEAN CELL VOLUME 74.5 fl (80-96); MEAN PLT VOLUME 7.6 fl (7.5-11.1); MONO % 7.4 % (3.8-10.2); NEUT % 90.5 % (42.8-82.8); PLATELET COUNT 180 K/MM3 (134-434); RBC 3.81 M/mm3 (3.60-5.2); WHITE BLOOD COUNT 17.5 K/mm3 (4.0-10.0)
[2020-03-24 21:21] LABS: ALBUMIN 2.4 g/dl (3.4-5.0); BILIRUBIN,TOTAL 0.3 mg/dL (0.2-1); BLOOD UREA NITROGEN 59.4 mg/dL (7-18); CALCIUM 8.1 mg/dL (8.5-10.1); CREATININE 2.7 mg/dL (0.55-1.3); MAGNESIUM 1.6 mg/dL (1.8-2.4); TOT PROT 6.3 g/dl (6.4-8.2)
[2020-03-24] MEDS ORDERED: MAGNESIUM 2GM/50ML STERILE WATER IVPB IVPB ONE (23:10)
[2020-03-25] MEDS ORDERED: AZTREONAM 1 GM VIAL (RESTRICTED TO ID) ONE ×2 (01:44→09:22)
[2020-03-25] MEDS ORDERED: DEXTROSE 5%-WATER - 50 ML IVPB ONE ×2 (01:45→09:23)
[2020-03-25] MEDS: AZTREONAM 1 GM in DEXTROSE 5%-WATER - 50 ML IVPB SCH ×3 (02:12→19:36)
[2020-03-25] MEDS ORDERED: METOPROLOL TARTRATE 25 MG TABLET (FP) PO ONE (02:45)
[2020-03-25] MEDS: HEPARIN NA (PORCINE) 5,000 UNITS/ML 1ML VIAL SQ SCH ×3 (06:18→22:14)
[2020-03-25] MEDS: INSULIN SLIDING SCALE (NOVOLOG) 1 VIAL SQ SCH ×4 (06:19→22:23)
[2020-03-25] MEDS: TAMSULOSIN HCL 0.4 MG CAP PO SCH (08:21)
--- NOTE | 2020-03-25 10:30 | CON.GU ---
Consult - History of Present Illness History of Present Illness: 89 yo female admitted with fever and abdominal pain, CT shows 3 and 6 mm RDU stones and pyelonephritis with only mild hydro. Repeat sono with no hydro. Pt cont to have tachycardia although no pain. Cultures are positive - Past Medical History Cardio/Vascular: Yes: HTN, Other (hypertriglyceridemia) Musculoskeletal: Yes: Chronic low back pain, Osteoarthritis, Other (right leg benign bone mass (femur)) Endocrine: Yes: Diabetes Mellitus - Past Surgical History Past Surgical History: Yes: Appendectomy, Laminectomy ((lumbar)) - Alcohol/Substance Use Hx Alcohol Use: No History of Substance Use: reports: None - Smoking History Smoking history: Unknown if ever smoked Have you smoked in the past 12 months: No - Social History ADL: Independent History of Recent Travel: No Home Medications - Allergies Allergies/Adverse Reactions: Allergies Allergy/AdvReac Type Severity Reaction Status Date / Time Penicillins Allergy Severe Difficulty Verified 03/24/20 18:52 Breathing - Home Medications Home Medications: Ambulatory Orders Aspirin [ASA -] 81 mg PO HS 01/28/16 Bimatoprost [Lumigan] 1 drop OU HS 01/29/16 Epinastine HCl 1 drop OU AM PRN 01/29/16 Carvedilol [Coreg] 6.25 mg PO BID 08/25/18 Donepezil HCl [Aricept -] 5 mg PO HS tablet 08/30/18 Insulin Glargine,Hum.rec.anlog [Lantus] 50 unit SQ HS #1 vial 08/30/18 Insulin Sliding Scale [Novolog Vial Sliding Scale -] 1 vial SQ ACHS units 08/30/18 Sitagliptin Phosphate [Januvia -] 50 mg PO DAILY@0700 tablet 08/30/18 Atorvastatin Ca [Lipitor] 20 mg PO AM 03/24/20 Cholecalciferol (Vitamin D3) [Vitamin D3] 2,000 mg PO DAILY 03/24/20 Nateglinide [Starlix (Nf) -] 120 mg PO TID 03/24/20 Quinapril HCl [Accupril -] 40 mg PO HS 03/24/20 Ubidecarenone/Vit E Acet [Co Q-10 100 mg Softgel] 1 mg PO DAILY 03/24/20 Physical Exam- Vital Signs: Vital Signs Temperature 98.4 F 03/25/20 06:00 Pulse Rate 118 H 03/25/20 06:00 Respiratory Rate 22 H 03/25/20 06:00 Blood Pressure 117/69 03/25/20 06:00 O2 Sat by Pulse Oximetry (%) 98 03/25/20 06:00 Renal/: Yes: WNL (no heme) Labs: CBC, BMP 03/24/20 19:35 03/24/20 19:35 Imaging - Results Cat Scan: Image Reviewed Problem List - Problems (1) Right ureteral calculus Assessment/Plan: in light of persistant tachycardia and leukocytosis will plan for cysto/rt stent placement. I have spoken to Dr Gandhi and he is unable to place NT since no significant hydronephrosis Code(s): N20.1 - CALCULUS OF URETER
--- NOTE | 2020-03-25 11:25 | PN ---
Physical Exam: SUBJECTIVE: Patient seen and examined OBJECTIVE: Vital Signs Period Temp Pulse Resp BP Sys/Jackson Pulse Ox Last 24 Hr 98 F-99.8 F 92-132 18-32 102-144/52-83 94-987 GENERAL: The patient is awake, alert, and fully oriented, in no acute distress. HEAD: Normal with no signs of trauma. EYES: PERRL, extraocular movements intact, sclera anicteric, conjunctiva clear. No ptosis. ENT: Ears normal, nares patent, oropharynx clear without exudates, moist mucous membranes. NECK: Trachea midline, full range of motion, supple. LUNGS: Breath sounds equal, clear to auscultation bilaterally, no wheezes, no crackles, no accessory muscle use. HEART: Regular rate and rhythm, S1, S2 without murmur, rub or gallop. ABDOMEN: Soft, nontender, nondistended, normoactive bowel sounds, no guarding, no rebound, no hepatosplenomegaly, no masses. EXTREMITIES: 2+ pulses, warm, well-perfused, no edema. NEUROLOGICAL: Cranial nerves II through XII grossly intact. Normal speech, gait not observed. PSYCH: Normal mood, normal affect. SKIN: Warm, dry, normal turgor, no rashes or lesions noted Laboratory Results - last 24 hr 03/24/20 03/24/20 03/24/20 06:00 07:55 12:09 WBC RBC Hgb Hct MCV MCH MCHC RDW Plt Count MPV Absolute Neuts (auto) Neutrophils % Lymphocytes % Monocytes % Eosinophils % Basophils % Nucleated RBC % Sodium Potassium Chloride Carbon Dioxide Anion Gap BUN Creatinine Est GFR (CKD-EPI)AfAm Est GFR (CKD-EPI)NonAf POC Glucometer 289 Random Glucose Hemoglobin A1c % 10.8 H Lactic Acid Calcium Magnesium Total Bilirubin AST ALT Alkaline Phosphatase Total Protein Albumin COVID-19 (ERNESTINA) Not detected 03/24/20 03/24/20 03/24/20 17:04 19:35 19:35 WBC 17.5 H RBC 3.81 Hgb 9.2 L Hct 28.4 L MCV 74.5 L MCH 24.1 L MCHC 32.4 RDW 18.0 H Plt Count 180 MPV 7.6 Absolute Neuts (auto) 15.8 H Neutrophils % 90.5 H Lymphocytes % 1.6 L Monocytes % 7.4 Eosinophils % 0.3 D Basophils % 0.2 Nucleated RBC % 0 Sodium 130 L Potassium 4.0 Chloride 99 Carbon Dioxide 18 L Anion Gap 13 BUN 59.4 H Creatinine 2.7 H Est GFR (CKD-EPI)AfAm 17.53 Est GFR (CKD-EPI)NonAf 15.13 POC Glucometer 264 Random Glucose 289 H Hemoglobin A1c % Lactic Acid Calcium 8.1 L Magnesium 1.6 L Total Bilirubin 0.3 AST 10 L ALT 15 Alkaline Phosphatase 79 Total Protein 6.3 L Albumin 2.4 L COVID-19 (ERNESTINA) 03/24/20 03/24/20 03/25/20 19:35 21:08 06:12 WBC RBC Hgb Hct MCV MCH MCHC RDW Plt Count MPV Absolute Neuts (auto) Neutrophils % Lymphocytes % Monocytes % Eosinophils % Basophils % Nucleated RBC % Sodium Potassium Chloride Carbon Dioxide Anion Gap BUN Creatinine Est GFR (CKD-EPI)AfAm Est GFR (CKD-EPI)NonAf POC Glucometer 254 285 Random Glucose Hemoglobin A1c % Lactic Acid 1.5 Calcium Magnesium Total Bilirubin AST ALT Alkaline Phosphatase Total Protein Albumin COVID-19 (ERNESTINA) Active Medications Generic Name Dose Route Start Last Admin Trade Name Freq PRN Reason Stop Dose Admin Heparin Sodium (Porcine) 5,000 unit 03/24/20 06:00 03/25/20 06:18 Heparin - SQ 5,000 unit TID CHRIS Administration Aztreonam 1 gm/ Dextrose 50 mls @ 100 mls/hr 03/25/20 03:00 03/25/20 09:24 IVPB 100 mls/hr Q6H-IV CHRIS Administration Insulin Aspart 1 vial 03/24/20 07:00 03/25/20 06:19 Novolog Vial Sliding Scale - SQ 6 units ACHS CHRIS Administration Protocol Tamsulosin HCl 0.4 mg 03/24/20 08:30 03/25/20 08:21 Flomax - PO 0.4 mg DAILY@0830 CHRIS Administration ASSESSMENT/PLAN: 89 year old female patient with past medical history of DM, HTN, HLD, and CHF, who presents to the emergency room brought in by ambulance with hyperglycemia and altered mental status for two days. 1. Severe sepsis secondary to Pyelonephritis - Aztreonam due to penicillin allergy - Tamsulosin - Urology consulted - ID consulted 2. Hyperglycemia secondary to DM - Novolog Sliding Scale - A1C 3. MARCIA - IV Fluids - Monitoring I/O #FEN - NS at 75. Monitor Electrolytes. NPO DVT PPx - Heparin SQ \ 89 yo female admitted with fever and abdominal pain, CT shows 3 and 6 mm RDU stones and pyelonephritis with only mild hydro. Repeat sono with no hydro. Pt cont to have tachycardia although no pain. Cultures are positive
[2020-03-25] MEDS ORDERED: MAGNESIUM 2GM/50ML STERILE WATER IVPB IVPB ONE (11:29)
[2020-03-25] MEDS ORDERED: SODIUM CHLORIDE 1,000 ML IV SCH (11:45)
[2020-03-25] MEDS ORDERED: ONDANSETRON 4 MG/2 ML VIAL IVPUSH PRN (12:20)
[2020-03-25] MEDS ORDERED: ETOMIDATE 20 MG/10 ML AMPUL IVPUSH ONE (12:28)
[2020-03-25] MEDS ORDERED: PHENYLEPHRINE HCL 10 MG/1 ML SINGLE DOSE VIAL ONE (12:48)
[2020-03-25] MEDS ORDERED: EPINEPHrine 1:10,000 (P-F SYR) 1 MG/10 ML DISP.SYRIN ONE (12:52)
[2020-03-25] MEDS ORDERED: EPHEDRINE SULFATE/0.9% NACL/PF 50 MG/10 ML SYRINGE NR ONE (13:01)
[2020-03-25] MEDS ORDERED: ROCURONIUM BROMIDE 50 MG/5 ML SYRINGE ONE (13:04)
[2020-03-25] MEDS ORDERED: MIDAZOLAM HCL 2 MG/2 ML SINGLE DOSE VIAL ONE (13:04)
--- NOTE | 2020-03-25 13:11 | OP ---
Operative Note - Note: Operative Date: 03/25/20 Pre-Operative Diagnosis: RDU stone/sepsis Operation: cysto/rt stent Post-Operative Diagnosis: Same as Pre-op Anesthesia: General Operative Report Dictated: Yes
[2020-03-25] MEDS ORDERED: NOREPINEPHRINE BITARTRATE 4 MG/4 ML ML IV ONE (13:21)
[2020-03-25] MEDS: DILTIAZEM INJECTION 125 MG in DEXTROSE 5%-WATER - 100 ML IVPB SCH (13:25)
--- NOTE | 2020-03-25 14:03 | OP ---
DATE OF OPERATION: DATE OF DICTATION: 03/25/2020 PREOPERATIVE DIAGNOSIS: Obstructing right ureteral stone with sepsis. POSTOPERATIVE DIAGNOSIS: Obstructing right ureteral stone with sepsis. PROCEDURE: Cystoscopy, right ureteral stent placement. SURGEON: Sherman Orellana MD INDICATION: Patient is an 89-year-old female urinary sepsis secondary to obstructing stone. She was taken to the OR emergently for cystoscopy and stent placement. DESCRIPTION OF PROCEDURE: After informed consent was obtained from patient's daughter, patient was taken to the OR, placed supine on the table. patient monitor was administered, general anesthesia was established. She had been given aztreonam just prior to her procedure. Prior to giving anesthetic, the patient was already noted to be in atrial fibrillation, and then cystoscopy was performed. Attention was turned to right ureteral orifice, intubated with ureteral catheter. A guidewire was advanced into the right renal pelvis. A tiny bit of contrast was injected just to gently opacify the system, and then over the guidewire a 7-Lao 22-cm double pigtail stent was then advanced in monorail fashion. Fluoroscopy confirmed the stent to be in good position. During the procedure, the patient was developing tachycardia and hypotension and required pressors to support the biopsy-proven. At the completion of the procedure, the patient was intubated and transferred to recovery room where her blood pressure and heart rate were treated to be stabilized. SHERMAN ORELLANA M.D. [id number]
[2020-03-25 14:13] LABS: BLOOD UREA NITROGEN 72.1 mg/dL (7-18); CALCIUM 8.2 mg/dL (8.5-10.1); CREATININE 3.6 mg/dL (0.55-1.3); POTASSIUM 3.9 mmol/L (3.5-5.1)
[2020-03-25] MEDS ORDERED: FUROSEMIDE 40 MG/4 ML INJECTABLE VIAL IVPUSH ONE ×2 (14:55→17:13)
[2020-03-25] MEDS ORDERED: FUROSEMIDE 40 MG/4 ML INJECTABLE VIAL ONE (14:56)
--- NOTE | 2020-03-25 15:30 | PN ---
Progress Note (short form) - Note Progress Note: seen in RR s/p stent placement today noted to be in afib hypotensive extubated in recovery room and then reintubated and sedated on cardizem drip Vital Signs Period Temp Pulse Resp BP Sys/Jackson Pulse Ox Last 24 Hr 98 F-99.8 F 97-132 10-32 67-144/46-94 94-987 cor-rrr llungs tachycardic abd soft andrews with bloody urine ext no edema CBC, BMP 03/24/20 19:35 03/25/20 13:45 Microbiology 03/23/20 19:10 Blood - Peripheral Venous Blood Culture - Preliminary Lactose Fermenting Neg Bacilli 03/23/20 19:10 Blood - Peripheral Venous Blood Culture - Preliminary Lactose Fermenting Neg Bacilli 03/23/20 20:20 Urine - Urine - Catheterized Urine Culture - Preliminary Lactose Fermenting Neg Bacilli imp/reccd possible sepsis with hypotension resp failure post ureteral stent today afib gram negative bacteremia obstructive uropathy MARCIA UTI penicillin allergy labs repeated and pending switch to meropenem MAR reviewed-received ceftriaxone in the ED 03/23 overall status guarded 35 minutes spent in the care of this critically ill ICU patient Problem List - Problems (1) Gram-negative bacteremia Code(s): R78.81 - BACTEREMIA (2) Obstructive uropathy Code(s): N13.9 - OBSTRUCTIVE AND REFLUX UROPATHY, UNSPECIFIED (3) MARCIA (acute kidney injury) Code(s): N17.9 - ACUTE KIDNEY FAILURE, UNSPECIFIED (4) Penicillin allergy Code(s): Z88.0 - ALLERGY STATUS TO PENICILLIN
[2020-03-25] MEDS: SODIUM CHLORIDE 1,000 ML IV SCH ×2 (16:10→19:00)
--- NOTE | 2020-03-25 16:45 | EKG ---
Test Reason : Blood Pressure : / mmHG Vent. Rate : 121 BPM Atrial Rate : 110 BPM P-R Int : 000 ms QRS Dur : 082 ms QT Int : 282 ms P-R-T Axes : 000 052 044 degrees QTc Int : 400 ms ATRIAL FIBRILLATION WITH RAPID VENTRICULAR RESPONSE NONSPECIFIC ST ABNORMALITY ABNORMAL ECG WHEN COMPARED WITH ECG OF 23-MAR-2020 19:40, ATRIAL FIBRILLATION HAS REPLACED SINUS RHYTHM NONSPECIFIC T WAVE ABNORMALITY NOW EVIDENT IN INFERIOR LEADS Confirmed by BRANT OATES, CHAVA ([id number]) on 03/25/2020 4:44:38 PM Referred By: Confirmed By:CHAVA GUO MD
--- NOTE | 2020-03-25 16:46 | PN ---
Teaching Attending Note Name of Resident: Nathan Santana ATTENDING PHYSICIAN STATEMENT I saw and evaluated the patient. I reviewed the resident's note and discussed the case with the resident. I agree with the resident's findings and plan as documented. SUBJECTIVE: Patient seen and examined in the ICU. 89 F, DM, HTN, HLD, and CHF. Admitted via the ER due to hyperglycemia and altered mental status. Found to have Gm (-) bacteremia due to a source. Today was taken to the OR for a cystoscopy for stent placement. Developed new onset AFib and Hypotension. Was extubated and required re-intubation. Intake & Output 03/22/20 03/23/20 03/24/20 03/25/20 23:59 23:59 23:59 23:59 Intake Total 200 550 Balance 200 550 Weight 150 lb 157 lb 8 oz 157 lb 11.2 oz Last Vital Signs Temp Pulse Resp BP Pulse Ox 99 F 120 H 23 H 119/55 L 94 L 03/25/20 13:10 03/25/20 14:25 03/25/20 15:42 03/25/20 14:25 03/25/20 15:42 Active Medications Chlorhexidine Gluconate (Hibiclens For Decolonization -) 1 applic TP HS CHRIS Diltiazem HCl 125 mg/ Dextrose 125 mls @ 5 mls/hr IVPB TITR CHRIS; Protocol Propofol (Diprivan -) 1,000,000 mcg in 100 mls @ 2.146 mls/hr IVPB TITR CHIRS; Protocol Meropenem 500 mg/ Dextrose 100 mls @ 200 mls/hr IVPB Q12H CHRIS Sodium Chloride (Normal Saline -) 1,000 mls @ 60 mls/hr IV ASDIR CHRIS Insulin Aspart (Novolog Vial Sliding Scale -) 1 vial SQ ACHS CHRIS; Protocol Mupirocin (Bactroban Ointment (For Decolonization) -) 1 applic NS BID CHRIS Stop: 03/30/20 21:59 GENERAL: Intubated and sedated HEAD: Normal with no signs of trauma. EYES: (-) Pallor EARS, NOSE, THROAT: Ears normal, nares patent, oropharynx clear without exudates. Dry mucous membranes. NECK: Normal range of motion, supple without lymphadenopathy, JVD, or masses. LUNGS: Vented, diminished at the bases HEART: Afib (rate controlled on IV Cardizem @ 5mg/hr). ABDOMEN: Soft, nontender, not distended, normoactive bowel sounds, no guarding, no rebound, no masses. MUSCULOSKELETAL: No bony deformities or tenderness. UPPER EXTREMITIES: 2+ pulses, warm, well-perfused. No cyanosis. No clubbing. No peripheral edema. LOWER EXTREMITIES: 2+ pulses, warm, well-perfused. No calf tenderness. Mild pitting edema. NEUROLOGICAL: Sedated SKIN: Warm, dry, normal turgor, no rashes or lesions noted, normal capillary refill. Laboratory Results - last 24 hr 03/24/20 03/24/20 03/24/20 06:00 07:55 17:04 WBC RBC Hgb Hct MCV MCH MCHC RDW Plt Count MPV Absolute Neuts (auto) Neutrophils % Lymphocytes % Monocytes % Eosinophils % Basophils % Nucleated RBC % Sodium Potassium Chloride Carbon Dioxide Anion Gap BUN Creatinine Est GFR (CKD-EPI)AfAm Est GFR (CKD-EPI)NonAf POC Glucometer 264 Random Glucose Hemoglobin A1c % 10.8 H Lactic Acid Calcium Magnesium Total Bilirubin AST ALT Alkaline Phosphatase Creatine Kinase Troponin I Total Protein Albumin COVID-19 (ERNESTINA) Not detected 03/24/20 03/24/20 03/24/20 19:35 19:35 19:35 WBC 17.5 H RBC 3.81 Hgb 9.2 L Hct 28.4 L MCV 74.5 L MCH 24.1 L MCHC 32.4 RDW 18.0 H Plt Count 180 MPV 7.6 Absolute Neuts (auto) 15.8 H Neutrophils % 90.5 H Lymphocytes % 1.6 L Monocytes % 7.4 Eosinophils % 0.3 D Basophils % 0.2 Nucleated RBC % 0 Sodium 130 L Potassium 4.0 Chloride 99 Carbon Dioxide 18 L Anion Gap 13 BUN 59.4 H Creatinine 2.7 H Est GFR (CKD-EPI)AfAm 17.53 Est GFR (CKD-EPI)NonAf 15.13 POC Glucometer Random Glucose 289 H Hemoglobin A1c % Lactic Acid 1.5 Calcium 8.1 L Magnesium 1.6 L Total Bilirubin 0.3 AST 10 L ALT 15 Alkaline Phosphatase 79 Creatine Kinase Troponin I Total Protein 6.3 L Albumin 2.4 L COVID-19 (ERNESTINA) 03/24/20 03/25/20 03/25/20 21:08 06:12 13:40 WBC RBC Hgb Hct MCV MCH MCHC RDW Plt Count MPV Absolute Neuts (auto) Neutrophils % Lymphocytes % Monocytes % Eosinophils % Basophils % Nucleated RBC % Sodium Potassium Chloride Carbon Dioxide Anion Gap BUN Creatinine Est GFR (CKD-EPI)AfAm Est GFR (CKD-EPI)NonAf POC Glucometer 254 285 Random Glucose Hemoglobin A1c % Lactic Acid 2.0 Calcium Magnesium Total Bilirubin AST ALT Alkaline Phosphatase Creatine Kinase Troponin I Total Protein Albumin COVID-19 (ERNESTINA) 03/25/20 03/25/20 13:41 13:45 WBC RBC Hgb Hct MCV MCH MCHC RDW Plt Count MPV Absolute Neuts (auto) Neutrophils % Lymphocytes % Monocytes % Eosinophils % Basophils % Nucleated RBC % Sodium 130 L Potassium 3.9 Chloride 98 Carbon Dioxide 18 L Anion Gap 14 BUN 72.1 H Creatinine 3.6 H Est GFR (CKD-EPI)AfAm 12.38 Est GFR (CKD-EPI)NonAf 10.68 POC Glucometer Random Glucose 306 H Hemoglobin A1c % Lactic Acid Calcium 8.2 L Magnesium Total Bilirubin AST ALT Alkaline Phosphatase Creatine Kinase 49 Troponin I 0.03 Total Protein Albumin COVID-19 (ERNESTINA) ASSESSMENT/PLAN: Acute Respiratory Failure Gm (-) Sepsis due to a source New onset AFib S/P Cystocopy with stent placement DM HTN HLD MARCIA CHF by history AC Mode of vent Strict I & O ABX per ID Cardizem for rate control Trend Cardiac Enzymes If continue AFib may need AC Glycemic control Check CVP to guide IVF resuscitation Check ABG VTE prophylaxis Insert TLC Requires ICU monitoring Dr Hurt Critical care time spent in reviewing chart, evaluating patient and formulating plan - 36 minutes.
[2020-03-25] MEDS: PROPOFOL 1,000,000 MCG/100 ML VIAL IVPB SCH (17:00)
[2020-03-25] MEDS ORDERED: DEXTROSE 5%-WATER 100 ML IVPB ONE (17:35)
[2020-03-25] MEDS: MEROPENEM 500 MG in DEXTROSE 5%-WATER 100 ML IVPB SCH (17:35)
[2020-03-25] MEDS ORDERED: MEROPENEM 500 MG VIAL (RESTRICTED TO ID) IVPB ONE (17:35)
--- NOTE | 2020-03-25 17:45 | PROC ---
Procedure Note Procedure: Central line placed by Claudia Cruz with assist of Javier Goode Central Line Insertion Indication: Vasopressor Risks and Benefits Explained: Yes Consent on Chart: Yes (emergency physician consent ) Central Line: Triple Lumen Catheter Sterile Technique: Yes Ultrasound Guided Assistance: Yes Position: Right Internal Jugular Post Insertion: Yes: Chest X-Ray Ordered Sterile Dressing Applied: Yes
--- NOTE | 2020-03-25 17:47 | CONSULT ---
Consultation: REQUESTING PROVIDER: CONSULT REQUEST: We have been asked to medically evaluate this patient for ICU HISTORY OF PRESENT ILLNESS 89 yo female pt with PMHx of DM, HTN, HLD, and CHF, who presents to the ER on 03/23 with hyperglycemia and altered mental status for two days. The patient's daughter had found that the patient's blood sugar was in the 300's and called EMS. CT A/P found right pyelonephritis, right mild hydronephrosis, and 2 renal stones. Admitted to hospital due to hyperglycemia and altered mental status. Found to have gram negative bacteremia due to a source. Patient underwent a cystoscopy with rt stent. After the procedure, she was noted to be in afib & be hypotensive. In the PACU she was reintubated, sedated, and started on cardizem drip. REVIEW OF SYSTEMS: patient currently sedated and intubated unable to obtain ROS CONSTITUTIONAL: Absent: fever, chills, diaphoresis, generalized weakness, malaise, loss of appetite, weight change HEENT: Absent: rhinorrhea, nasal congestion, throat pain, throat swelling, difficulty swallowing, mouth swelling, ear pain, eye pain, visual changes CARDIOVASCULAR: Absent: chest pain, syncope, palpitations, irregular heart rate, lightheadedness, peripheral edema RESPIRATORY: Absent: cough, shortness of breath, dyspnea with exertion, orthopnea, wheezing, stridor, hemoptysis GASTROINTESTINAL: Absent: abdominal pain, abdominal distension, nausea, vomiting, diarrhea, constipation, melena, hematochezia GENITOURINARY: Absent: dysuria, frequency, urgency, hesitancy, hematuria, flank pain, genital pain MUSCULOSKELETAL: Absent: myalgia, arthralgia, joint swelling, back pain, neck pain SKIN: Absent: rash, itching, pallor HEMATOLOGIC/IMMUNOLOGIC: Absent: easy bleeding, easy bruising, lymphadenopathy, frequent infections ENDOCRINE: Absent: unexplained weight gain, unexplained weight loss, heat intolerance, cold intolerance NEUROLOGIC: Absent: headache, focal weakness or paresthesias, dizziness, unsteady gait, seizure, mental status changes, bladder or bowel incontinence PSYCHIATRIC: Absent: anxiety, depression, suicidal or homicidal ideation, hallucinations. PHYSICAL EXAMINATION Last Vital Signs Temp Pulse Resp BP Pulse Ox 98.6 F 75 15 75/57 L 100 03/25/20 18:00 03/25/20 18:45 03/25/20 18:30 03/25/20 18:45 03/25/20 18:30 GENERAL: sedated, intubated. HEAD: Normal with no signs of trauma. EYES: PERRL ENT: Moist mucous membranes. NECK: Supple LUNGS: venti breath sounds BL HEART: RRR, s1 ,s2, not currently in Afib ABDOMEN: Obese, soft, nondistended, normoactive bowel sounds MUSCULOSKELETAL: Normal range of motion at all joints. No bony deformities or tenderness. No CVA tenderness. EXTREMITIES: warm, well-perfused. No cyanosis. Mild BL edema in legs NEUROLOGICAL: unable to assess SKIN: Warm, dry, no rashes or lesions noted. Laboratory Results - last 24 hr 03/24/20 03/24/20 03/24/20 06:00 07:55 19:35 WBC 17.5 H RBC 3.81 Hgb 9.2 L Hct 28.4 L MCV 74.5 L MCH 24.1 L MCHC 32.4 RDW 18.0 H Plt Count 180 MPV 7.6 Absolute Neuts (auto) 15.8 H Neutrophils % 90.5 H Lymphocytes % 1.6 L Monocytes % 7.4 Eosinophils % 0.3 D Basophils % 0.2 Nucleated RBC % 0 Sodium Potassium Chloride Carbon Dioxide Anion Gap BUN Creatinine Est GFR (CKD-EPI)AfAm Est GFR (CKD-EPI)NonAf POC Glucometer Random Glucose Hemoglobin A1c % 10.8 H Lactic Acid Calcium Magnesium Total Bilirubin AST ALT Alkaline Phosphatase Creatine Kinase Troponin I Total Protein Albumin COVID-19 (ERNESTINA) Not detected 03/24/20 03/24/20 03/24/20 19:35 19:35 21:08 WBC RBC Hgb Hct MCV MCH MCHC RDW Plt Count MPV Absolute Neuts (auto) Neutrophils % Lymphocytes % Monocytes % Eosinophils % Basophils % Nucleated RBC % Sodium 130 L Potassium 4.0 Chloride 99 Carbon Dioxide 18 L Anion Gap 13 BUN 59.4 H Creatinine 2.7 H Est GFR (CKD-EPI)AfAm 17.53 Est GFR (CKD-EPI)NonAf 15.13 POC Glucometer 254 Random Glucose 289 H Hemoglobin A1c % Lactic Acid 1.5 Calcium 8.1 L Magnesium 1.6 L Total Bilirubin 0.3 AST 10 L ALT 15 Alkaline Phosphatase 79 Creatine Kinase Troponin I Total Protein 6.3 L Albumin 2.4 L COVID-19 (ERNESTINA) 03/25/20 03/25/20 03/25/20 06:12 13:40 13:41 WBC RBC Hgb Hct MCV MCH MCHC RDW Plt Count MPV Absolute Neuts (auto) Neutrophils % Lymphocytes % Monocytes % Eosinophils % Basophils % Nucleated RBC % Sodium Potassium Chloride Carbon Dioxide Anion Gap BUN Creatinine Est GFR (CKD-EPI)AfAm Est GFR (CKD-EPI)NonAf POC Glucometer 285 Random Glucose Hemoglobin A1c % Lactic Acid 2.0 Calcium Magnesium Total Bilirubin AST ALT Alkaline Phosphatase Creatine Kinase 49 Troponin I 0.03 Total Protein Albumin COVID-19 (ERNESTINA) 03/25/20 03/25/20 13:45 17:26 WBC RBC Hgb Hct MCV MCH MCHC RDW Plt Count MPV Absolute Neuts (auto) Neutrophils % Lymphocytes % Monocytes % Eosinophils % Basophils % Nucleated RBC % Sodium 130 L Potassium 3.9 Chloride 98 Carbon Dioxide 18 L Anion Gap 14 BUN 72.1 H Creatinine 3.6 H Est GFR (CKD-EPI)AfAm 12.38 Est GFR (CKD-EPI)NonAf 10.68 POC Glucometer 354 Random Glucose 306 H Hemoglobin A1c % Lactic Acid Calcium 8.2 L Magnesium Total Bilirubin AST ALT Alkaline Phosphatase Creatine Kinase Troponin I Total Protein Albumin COVID-19 (ERNESTINA) Active Medications Generic Name Dose Route Start Last Admin Trade Name Freq PRN Reason Stop Dose Admin Chlorhexidine Gluconate 1 applic 03/25/20 22:00 Hibiclens For Decolonization - TP HS CHRIS Furosemide 10 mg 03/25/20 17:13 Lasix Injection - IVPUSH 03/25/20 17:14 ONCE ONE Diltiazem HCl 125 mg/ Dextrose 125 mls @ 5 mls/hr 03/25/20 13:45 03/25/20 13:25 IVPB 10 mls TITR CHRIS Administration Protocol 5 MG/HR Propofol 1,000,000 mcg in 100 mls @ 2.146 mls/hr 03/25/20 15:15 03/25/20 17:00 Diprivan - IVPB 10 mcg/kg/min TITR CHRIS 4.292 mls/hr Titration Protocol 5 MCG/KG/MIN Meropenem 500 mg/ Dextrose 100 mls @ 200 mls/hr 03/25/20 16:45 03/25/20 17:35 IVPB 200 mls/hr Q12H CHRIS Administration Sodium Chloride 1,000 mls @ 60 mls/hr 03/25/20 15:36 03/25/20 16:10 Normal Saline - IV 0 mls ASDIR CHRIS Administration Insulin Aspart 1 vial 03/25/20 16:30 03/25/20 17:29 Novolog Vial Sliding Scale - SQ 10 units ACHS CHRIS Administration Protocol Mupirocin 1 applic 03/25/20 22:00 Bactroban Ointment (For Decolonization) - NS 03/30/20 21:59 BID CHRIS ASSESSMENT/PLAN: 89 yo female pt with PMHx of DM, HTN, HLD, and CHF, who presents to the ER on 03/23 with hyperglycemia and altered mental status for two days. Admitted to hospital due to hyperglycemia and altered mental status. Found to have gram negative bacteremia due to a source. Patient underwent a cystoscopy with rt stent. After the procedure, she was noted to be in afib & be hypotensive. Patient was reintubated and admitted to ICU for septic shock 2/2 bactermia. Neuro - sedated and intubated - admitted with [facility] Pul - AC vent settings - morning ABG Cardio - new onset Afib - started on cardizem drip in PACU - d/c caridzem due to hypotension >> started levophed - strict I&Os - trend trops Renal - right pyelonephritis - right renal stones >> s/p cystocopy - MARCIA, continue to monitor - Dr. Rao - s/p cystocopy with rt stent GI - no current issues ID - Dr. Boyd consulted - s/p azactam 1 day - meropenam started today Endo - DM - BGM w/ISS DVT Ppx - heparin tid GI Ppx - protonix 40 mg IV daily Lines RIJ placed 03/25 FEN - increased IVF NS to 100cc/hr - NPO Dispo: Admission to ICU Visit type - Medication Review Med list reviewed for High Risk Meds patients 65 and older: Yes - Emergency Visit Emergency Visit: Yes ED Registration Date: 03/23/20 Care time: The patient presented to the Emergency Department on the above date and was hospitalized for further evaluation of their emergent condition. - New Patient This patient is new to me today: Yes Date on this admission: 03/23/20 - Critical Care Critical Care patient: Yes Total Critical Care Time (in minutes): 35 Critical Care Statement: The care of this patient involved high complexity decision making to prevent further life threatening deterioration of the p atient's condition and/or to evaluate & treat vital organ system(s) failure or risk of failure. ATTENDING PHYSICIAN STATEMENT I saw and evaluated the patient. I reviewed the resident's note and discussed the case with the resident. I agree with the resident's findings and plan as documented. SUBJECTIVE: OBJECTIVE: ASSESSMENT AND PLAN:
[2020-03-25] MEDS: NOREPINEPHRINE BITARTRATE 16,000 MCG in SODIUM CHLORIDE 484 ML IV SCH (18:50)
[2020-03-25] MEDS ORDERED: FENTANYL NS IVPB 500 MCG/100 ML BAG IVPB SCH (20:45)
[2020-03-25] MEDS: CHLORHEXIDINE GLUCONATE 4% CLEANSER FOR DECOLONIZATION TP SCH (21:44)
[2020-03-25] MEDS: MUPIROCIN 2% TOPICAL OINTMENT FOR DECOLONIZATION NS SCH (21:44)
[2020-03-26] MEDS ORDERED: MEROPENEM 500 MG VIAL (RESTRICTED TO ID) IVPB ONE ×2 (01:52→17:22)
[2020-03-26] MEDS ORDERED: DEXTROSE 5%-WATER 100 ML IVPB ONE ×2 (01:53→17:23)
[2020-03-26] MEDS ORDERED: ACETAMINOPHEN 1000 MG/100 ML VIAL (NON FORMULARY) IVPB ONE (03:00)
[2020-03-26] MEDS: MEROPENEM 500 MG in DEXTROSE 5%-WATER 100 ML IVPB SCH ×2 (05:00→17:24)
[2020-03-26] MEDS: PROPOFOL 1,000,000 MCG/100 ML VIAL IVPB SCH ×2 (05:01→17:17)
[2020-03-26 06:51] LABS: HEMATOCRIT 26.9 % (32.4-45.2); HEMOGLOBIN 8.7 GM/dL (10.7-15.3); MCH 23.8 pg (25.7-33.7); MCHC 32.2 g/dl (32.0-36.0); MEAN CELL VOLUME 73.7 fl (80-96); MEAN PLT VOLUME 8.1 fl (7.5-11.1); PLATELET COUNT 185 K/MM3 (134-434); RBC 3.65 M/mm3 (3.60-5.2); RDW 18.9 % (11.6-15.6); WHITE BLOOD COUNT 13.5 K/mm3 (4.0-10.0)
[2020-03-26 07:03] LABS: ARTERIAL BLD GAS O2 SATURATION 99.1 mmHg (95-98); ARTERIAL BLOOD GAS BASE EXCESS -11.8 mmol/L (-2-2); ARTERIAL BLOOD GAS PO2 177.9 mmHg (80-100); ARTERIAL BLOOD GAS pH 7.318 (7.350-7.450)
[2020-03-26 07:04] LABS: ALLENS TEST POSITIVE; VENT MODE A/C
[2020-03-26 07:05] LABS: VENT RATE 12
[2020-03-26 07:14] LABS: ALBUMIN 1.8 g/dl (3.4-5.0); BILIRUBIN,TOTAL 0.5 mg/dL (0.2-1); BLOOD UREA NITROGEN 83.4 mg/dL (7-18); CALCIUM 7.5 mg/dL (8.5-10.1); CREATININE 4.2 mg/dL (0.55-1.3); MAGNESIUM 2.3 mg/dL (1.8-2.4); PHOSPHOROUS 5.2 mg/dL (2.5-4.9); POTASSIUM 4.1 mmol/L (3.5-5.1); TOT PROT 5.5 g/dl (6.4-8.2)
[2020-03-26] MEDS: HEPARIN NA (PORCINE) 5,000 UNITS/ML 1ML VIAL SQ SCH ×2 (07:23→14:37)
[2020-03-26] MEDS ORDERED: METOPROLOL TARTRATE 5 MG/5 ML VIAL IVPUSH PRN (07:59)
[2020-03-26] MEDS: INSULIN SLIDING SCALE (NOVOLOG) 1 VIAL SQ SCH ×5 (08:36→23:57)
[2020-03-26] MEDS ORDERED: ACETAMINOPHEN INJECTION 100 ML IVPB ONE (08:50)
--- NOTE | 2020-03-26 09:06 | EKG ---
Test Reason : Blood Pressure : / mmHG Vent. Rate : 110 BPM Atrial Rate : 144 BPM P-R Int : 000 ms QRS Dur : 078 ms QT Int : 320 ms P-R-T Axes : 000 049 068 degrees QTc Int : 433 ms ATRIAL FIBRILLATION WITH RAPID VENTRICULAR RESPONSE ABNORMAL ECG WHEN COMPARED WITH ECG OF 25-MAR-2020 13:35, NONSPECIFIC T WAVE ABNORMALITY NO LONGER EVIDENT IN INFERIOR LEADS Confirmed by RAVEN EDWARDS MD ([id number]) on 03/26/2020 9:06:17 AM Referred By: Confirmed By:RAVEN EDWARDS MD
[2020-03-26] MEDS: PANTOPRAZOLE SODIUM 40 MG VIAL IVPUSH SCH (09:26)
[2020-03-26] MEDS: MUPIROCIN 2% TOPICAL OINTMENT FOR DECOLONIZATION NS SCH ×2 (09:26→22:50)
--- NOTE | 2020-03-26 10:50 | PN ---
Progress Note (short form) - Note Progress Note: remains intubated on levopohed pod #1 s/p ureteral stent Vital Signs Period Temp Pulse Resp BP Sys/Jackson Pulse Ox Last 24 Hr 98.4 F-100.7 F 72-131 10-23 67-136/46-94 94-100 cor-rrr lungs decreased bs at bses abd softnt ext no edema +andrews CBC, BMP 03/26/20 06:00 03/26/20 06:00 Microbiology 03/23/20 19:10 Blood - Peripheral Venous Blood Culture - Preliminary Lactose Fermenting Neg Bacilli 03/23/20 19:10 Blood - Peripheral Venous Blood Culture - Preliminary Lactose Fermenting Neg Bacilli 03/23/20 20:20 Urine - Urine - Catheterized Urine Culture - Preliminary Lactose Fermenting Neg Bacilli cxray clear Active Medications Chlorhexidine Gluconate (Hibiclens For Decolonization -) 1 applic TP HS CHRIS Last Admin: 03/25/20 21:44 Dose: 1 applic Documented by: Heparin Sodium (Porcine) (Heparin -) 5,000 unit SQ TID CHRIS Last Admin: 03/26/20 07:23 Dose: 5,000 unit Documented by: Diltiazem HCl 125 mg/ Dextrose 125 mls @ 5 mls/hr IVPB TITR CHRIS; Protocol Last Titration: 03/25/20 18:45 Dose: 0 mg/hr, 0 mls/hr Documented by: Propofol (Diprivan -) 1,000,000 mcg in 100 mls @ 2.146 mls/hr IVPB TITR CHRIS; Pr otocol Last Titration: 03/26/20 10:00 Dose: 0 mcg/kg/min, 0 mls/hr Documented by: Meropenem 500 mg/ Dextrose 100 mls @ 200 mls/hr IVPB Q12H CHRIS Last Admin: 03/26/20 05:00 Dose: 200 mls/hr Documented by: Sodium Chloride (Normal Saline -) 1,000 mls @ 60 mls/hr IV ASDIR CHRIS Last Admin: 03/25/20 19:00 Dose: 60 mls/hr Documented by: Norepinephrine Bitartrate 16, (000 mcg/ Sodium Chloride) 500 mls @ 9.375 mls/hr IV TITR CHRIS; Protocol Last Titration: 03/26/20 10:00 Dose: 5 mcg/min, 9.375 mls/hr Documented by: Fentanyl (Sublimaze Ivpb) 500 mcg in 100 mls @ 1 mls/hr IVPB TITR [facility]; Protocol Last Titration: 03/26/20 00:30 Dose: 30 mcg/hr, 6 mls/hr Documented by: Insulin Aspart (Novolog Vial Sliding Scale -) 1 vial SQ ACHS [facility]; Protocol Metoprolol Tartrate (Lopressor Injection -) 5 mg IVPUSH Q4H PRN PRN Reason: TACHYCARDIA Mupirocin (Bactroban Ointment (For Decolonization) -) 1 applic NS BID [facility] Stop: 03/30/20 21:59 Last Admin: 03/26/20 09:26 Dose: 1 applic Documented by: Pantoprazole Sodium (Protonix Iv) 40 mg IVPUSH DAILY [facility] Last Admin: 03/26/20 09:26 Dose: 40 mg Documented by: imp/reccd gram negative sepsis s/p ureteral stent afib MARCIA UTI penicillin allergy follow up cultures MAR reviewed-received ceftriaxone in the ED 03/23 continue meropenem for now, hopefully deescalate to a cephalosporin when results are back overall status guarded Problem List - Problems (1) Gram-negative bacteremia Code(s): R78.81 - BACTEREMIA (2) Obstructive uropathy Code(s): N13.9 - OBSTRUCTIVE AND REFLUX UROPATHY, UNSPECIFIED (3) MARCIA (acute kidney injury) Code(s): N17.9 - ACUTE KIDNEY FAILURE, UNSPECIFIED (4) Penicillin allergy Code(s): Z88.0 - ALLERGY STATUS TO PENICILLIN
--- NOTE | 2020-03-26 12:15 | CON.CARD ---
Consult Consult Specialty:: Cardiology Referred by:: Dr. Hurt Reason for Consultation:: new onset AF - History of Present Illness Chief Complaint: Gram negative sepsis, new onset AF History of Present Illness: 89F with PMH: DM, chronic diastolic CHF, possible CAD (mild apical ischemia persantine MPI 2016 managed medically), PSVT/PAT, NSVT, HTN, HLD, Moderate Aortic Stenosis Admitted originally via the ER due to hyperglycemia and altered mental status. Found to have Gm (-) bacteremia due to a source. CT showed 3 and 6 mm RDU stones and pyelonephritis, she was evaluated by . Was subsequently taken to the OR for a cystoscopy for stent placement. Developed new onset AFib and Hypotension, intubated. Was extubated and required re-intubation. She has been in the ICU, we are consulted for new onset atrial fibrillation which appears overall controlled with mildly elevated V-response in the 100- 115bpm range, off rate control agents. She is currently intubated, off sedation in the ICU on Levo gtts ICU plans to extubate later today. Her H/H have been drifting down. She is alert, moves all 4 extremities, denies chest pain or prior hx of atrial fibrillation. - History Source History Provided By: Patient, Medical Record Limitations to Obtaining History: Clinical Condition - Past Medical History Cardio/Vascular: Yes: HTN, Other (chronic diastolic CHF, moderate , CAD, PSVT, PAT) Pulmonary: No: Asthma, Bronchitis, Cancer, COPD, O2 Dependent, Pneumonia, Previously Intubated, Pulmonary Embolus, Pulmonary Fibrosis, Sleep Apnea, Other Gastrointestinal: No: Ascites, Cancer, Constipation, Crohn's Disease, Diverticulitis, Diverticulosis, Esophageal Varices, Gastritis, GERD, GI Bleed, Hemorrhoids, Hiatal Hernia, Inflamatory Bowel Disease, Irritable Bowel Disease, Pancreatitis, Peptic Ulcer Disease, Ulcerative Colitis, Other Hepatobiliary: No: Cirrhosis, Cholelithiasis, Cholecystitis, Choledocholithiasis, Hepatitis A, Hepatitis B, Hepatitis C, Other Renal/: Yes: Renal Inusuff Musculoskeletal: Yes: Chronic low back pain, Osteoarthritis, Other (right leg benign bone mass (femur)) Endocrine: Yes: Diabetes Mellitus - Past Surgical History Past Surgical History: Yes: Appendectomy, Laminectomy ((lumbar)) - Alcohol/Substance Use Hx Alcohol Use: No History of Substance Use: reports: None - Smoking History Smoking history: Unknown if ever smoked Have you smoked in the past 12 months: No - Social History ADL: Independent History of Recent Travel: No Home Medications - Allergies Allergies/Adverse Reactions: Allergies Allergy/AdvReac Type Severity Reaction Status Date / Time Penicillins Allergy Severe Difficulty Verified 03/24/20 18:52 Breathing - Home Medications Home Medications: Ambulatory Orders Aspirin [ASA -] 81 mg PO HS 01/28/16 Bimatoprost [Lumigan] 1 drop OU HS 01/29/16 Epinastine HCl 1 drop OU AM PRN 01/29/16 Carvedilol [Coreg] 6.25 mg PO BID 08/25/18 Donepezil HCl [Aricept -] 5 mg PO HS tablet 08/30/18 Insulin Glargine,Hum.rec.anlog [Lantus] 50 unit SQ HS #1 vial 08/30/18 Insulin Sliding Scale [Novolog Vial Sliding Scale -] 1 vial SQ ACHS units 08/30/18 Sitagliptin Phosphate [Januvia -] 50 mg PO DAILY@0700 tablet 08/30/18 Atorvastatin Ca [Lipitor] 20 mg PO AM 03/24/20 Cholecalciferol (Vitamin D3) [Vitamin D3] 2,000 mg PO DAILY 03/24/20 Nateglinide [Starlix (Nf) -] 120 mg PO TID 03/24/20 Quinapril HCl [Accupril -] 40 mg PO HS 03/24/20 Ubidecarenone/Vit E Acet [Co Q-10 100 mg Softgel] 1 mg PO DAILY 03/24/20 Family Medical History Family History: Unremarkable (not contributory to this presentation) Review of Systems Findings/Remarks: see HPI - Review of Systems Constitutional: reports: Fever HENT: reports: No Symptoms Neck: reports: No Symptoms Cardiovascular: reports: No Symptoms Respiratory: reports: No Symptoms Gastrointestinal: reports: No Symptoms Breasts: denies: No Symptoms Reported, See HPI, Breast Implants, Discharge from Nipple, Lumps, Pain, Skin Changes, Other Musculoskeletal: denies: No Symptoms, Back Pain, Crepitus, Decreased ROM, Extremity Pain, Joint Pain, Joint Swelling, Muscle Pain, Muscle Cramps, Muscle Weakness, Other Integumentary: denies: No Symptoms, Blister, Bruising, Change in Color, Eczema, Erythema, Incision, Lesions, Lump, Pallor, Pruritis, Rash, Wound, Other Neurological: reports: Other (altered mental status on admission) Psychiatric: reports: No Symptoms - Risk Factors Known Risk Factors: Yes: Age, Diabetes Mellitus, Other (Presumed CAD) Vital Signs: Vital Signs Temperature 100.7 F H 03/26/20 08:00 Pulse Rate 96 H 03/26/20 12:03 Respiratory Rate 19 03/26/20 12:02 Blood Pressure 126/72 03/26/20 12:03 O2 Sat by Pulse Oximetry (%) 100 03/26/20 12:02 Constitutional: Yes: No Distress Eyes: Yes: Conjunctiva Clear HENT: Yes: Other (+ ETT) Neck: Yes: Other (R. IJ) Respiratory: Yes: Other (= breath sounds bilaterally) Gastrointestinal: Yes: Soft (nt) Cardiovascular: Yes: Pulse Irregular JVD: No Heart Sounds: Yes: S1, S2 (irreg, 2/6 MATTY RSB c/w aortic stenosis) Edema: No Neurological: Yes: Alert, Other (moves all 4 extremities) - Other Data Labs, Other Data: CBC, BMP 03/26/20 06:00 03/26/20 06:00 INR, PTT INR 1.34 (0.83-1.09) H 03/23/20 19:10 Troponin, BNP 03/25/20 13:41 Troponin I 0.03 Troponin, BNP 03/25/20 13:41 Troponin I 0.03 Microbiology 03/23/20 20:20 Urine - Urine - Catheterized Urine Culture - Final Escherichia Coli 03/23/20 19:10 Blood - Peripheral Venous Blood Culture - Final Escherichia Coli 03/23/20 19:10 Blood - Peripheral Venous Blood Culture - Final Escherichia Coli Laboratory Tests 03/23/20 03/24/20 03/24/20 19:10 00:28 06:00 WBC Hgb 11.3 10.1 L Hct Plt Count Sodium Potassium BUN Creatinine Random Glucose COVID-19 (ERNESTINA) Not detected 03/24/20 03/24/20 03/26/20 07:55 19:35 06:00 WBC Hgb 9.6 L 9.2 L Hct Plt Count Sodium 132 L Potassium 4.1 BUN 83.4 H Creatinine 4.2 H Random Glucose 249 H COVID-19 (ERNESTINA) 03/26/20 06:00 WBC 13.5 H Hgb 8.7 L Hct 26.9 L Plt Count 185 Sodium Potassium BUN Creatinine Random Glucose COVID-19 (ERNESTINA) AF 121bpm, NSST TELE: AFib, one teens. Echo: Pending, Report Reviewed Imaging - Results Chest X-ray: Image Reviewed EKG: Image Reviewed Assessment/Plan IMP: New onset atrial fibrillation in the setting of E.Coli bacteremia due to UTI/pyelo, nephrolithiasis Hypotension, septic shock secondary to above requiring pressors Acute respiratory failure due to septic shock DM CAD Chronic diastolic CHF (grade II diastolic dysfunction on echo here 08/2018) Moderate aortic stenosis Acute renal failure Anemia History of PSVT/PAT History of NSVT REC: 1. AF: new onset, likely triggered by sepsis, shock -Rates are currently reasonable without AV angi agents (100-115bpm) and patient is on levophed gtts for hypotension -Would hold off an adding rate control agents at this time, wean Levo as tolerated. -When BP stable off pressors, can start Lopressor 2.5- 5mg IV q4-6H to keep heart rate < 120bpm -When tolerates PO, start Lopressor 12.5mg PO Q6h (hold for SBP <100 or pulse < 60bpm). Can then convert to Toprol XL prior to discharge -IF she develops PLACIDO and it is sustained: can use Amio 150mg IV x1 dose if SBP > > 100; otherwise can use IV dig (same loading dose in renal disease) -[id number] score is at least 3 (age, DM, Female) and anticoagulation is indicated. However, H/H have drifted down since admission. While this may be dilutional, please check stool guaiac and if negative, can start UFH gtts to maintain PTT 50-70. -Can convert to Eliquis or Xarelto prior to discharge 2. Hypotension due to gram negative sepsis: -Abx as per Critical Care and ID -Wean Levophed gtts as tolerated 3. Acute respiratory failure: -CXR looks ok, patient is alert. -Wean vent as per Critical Care 4. DM: as per Critical Care Team 5. CAD: -Mildly abnl persantine MIBI here in 2016 showing mild apical ischemia managed medically -Resume beta weston as outlined above when BP stable -If she begins full AC for AF, then can discontinue ASA as it will increase bleed risk in this age group with little added benefit -Statin when tolerates PO -Rate control as outlined above 6. Chronic diastolic CHF: -Currently septic on pressors, would not diurese. -Rate control as outlined 7. Moderate : last echo here 08/2018 -Update echo 8. ARF: likely due to ATN in setting of mild obstructive uropathy -Treat underling infection, IV fluids -Daily BMP to follow renal function -Follow urine output -Avoid hypotension -Renal consulted 9. Anemia: Baseline seems to be 10-11 -Drifting down this admission, ?dilutional component -Check stool for occult blood so that we can decide re safety of anticoagulation 10. Hx PSVT/PAT/NSVT with Normal LVEF: -Now in AF -try to start beta blockade when stable off pressors -Echo to assess EF -Keep K+/Mg2+ normalized -Continue tele
--- NOTE | 2020-03-26 13:48 | ECHO ---
Version: 1 Name: CHARLES NUNES Exam: Adult Echocardiogram Study Date: 03/26/2020, 12:51 PM Age: 89 Years MMode/2D Measurements & Calculations IVSd: 1.09 cm LVIDs: 2.7 cm LVIDd: 4.3 cm LVPWd: 1.06 cm Ao root diam: 2.22 cm LA dimension: 3.1 cm Doppler Measurements & Calculations MV E max ventura: 106.9 cm/sec Med E/e': 17.9 MV A max ventura: 51.4 cm/sec Med Peak E' Ventura: 6.0 cm/sec MV E/A: 2.08 Lat E/e': 18.2 Lat Peak E' Ventura: 5.9 cm/sec MR max P.0 mmHg Ao max P.1 mmHg LV V1 mean: 56.8 cm/sec Ao mean P.7 mmHg LV V1 mean P.46 mmHg Ao V2 max: 218.3 cm/sec AI P1/2t: 236.5 msec TR max ventura: 261.0 cm/sec TR max P.0 mmHg Left Ventricle Left ventricular systolic function is normal. Ejection Fraction = 55-60%. Right Ventricle The right ventricle is normal in size and function. Atria Normal left and right atrial size and function. Mitral Valve The mitral valve is normal in structure and function. There is trace mitral regurgitation. Tricuspid Valve The tricuspid valve is normal in structure and function. There is mild tricuspid regurgitation. Righ t ventricular systolic pressure is elevated at 30-40mmHg. Aortic Valve Heavily calcified and thickened aortic valve leaflets with markedly reduced excursion. At least mode rate, possibly severe aortic valve stenosis. The obtained mean and peak gradients are likely underestimate d due to poor /non-parallel alignment of the CW doppler. Mild aortic regurgitation. Pulmonic Valve The pulmonic valve is not well seen, but is grossly normal. There is no pulmonic valvular stenosis. Great Vessels The aortic root is normal size. Pericardium/Pleura There is no pericardial effusion. Summary Statements Left ventricular systolic function is normal. Ejection Fraction = 55-60%. The right ventricle is normal in size and function. There is trace mitral regurgitation. There is mild tricuspid regurgitation. Right ventricular systolic pressure is elevated at 30-40mmHg. Heavily calcified and thickened aortic valve leaflets with markedly reduced excursion. At least moderate, possibly severe aortic valve stenosis. The obtained mean and peak gradients are l ikely underestimated due to poor /non-parallel alignment of the CW doppler MD Joiner *Axel 03/26/2020, 1:47 PM Ordering Physician: Rhys Reyna Performed By: Diane Lucas
--- NOTE | 2020-03-26 14:25 | PN ---
Teaching Attending Note Name of Resident: Claudia Cruz ATTENDING PHYSICIAN STATEMENT I saw and evaluated the patient. I reviewed the resident's note and discussed the case with the resident. I agree with the resident's findings and plan as documented. SUBJECTIVE: Patient seen and examined in the ICU. Remains intubated and sedated. NE @ 5 mcq for hemodynamic support. Intake & Output 03/23/20 03/24/20 03/25/20 03/26/20 23:59 23:59 23:59 23:59 Intake Total 200 1949 1103 Output Total 320 400 Balance 200 1629 703 Weight 150 lb 157 lb 8 oz 157 lb 11.2 oz 159 lb 6.307 oz Last Vital Signs Temp Pulse Resp BP Pulse Ox 100.7 F H 96 H 19 126/72 100 03/26/20 08:00 03/26/20 12:03 03/26/20 12:02 03/26/20 12:03 03/26/20 12:02 Active Medications Chlorhexidine Gluconate (Hibiclens For Decolonization -) 1 applic TP HS CHRIS Last Admin: 03/25/20 21:44 Dose: 1 applic Documented by: Heparin Sodium (Porcine) (Heparin -) 5,000 unit SQ TID CHRIS Last Admin: 03/26/20 07:23 Dose: 5,000 unit Documented by: Diltiazem HCl 125 mg/ Dextrose 125 mls @ 5 mls/hr IVPB TITR [facility]RIS; Protocol Last Titration: 03/25/20 18:45 Dose: 0 mg/hr, 0 mls/hr Documented by: Propofol (Diprivan -) 1,000,000 mcg in 100 mls @ 2.146 mls/hr IVPB TITR [facility]RIS; Protocol Last Titration: 03/26/20 10:00 Dose: 0 mcg/kg/min, 0 mls/hr Documented by: Meropenem 500 mg/ Dextrose 100 mls @ 200 mls/hr IVPB Q12H [facility]IS Last Admin: 03/26/20 05:00 Dose: 200 mls/hr Documented by: Sodium Chloride (Normal Saline -) 1,000 mls @ 60 mls/hr IV ASDIR [facility]IS Last Admin: 03/25/20 19:00 Dose: 60 mls/hr Documented by: Norepinephrine Bitartrate 16, (000 mcg/ Sodium Chloride) 500 mls @ 9.375 mls/hr IV TITR [facility]RIS; Protocol Last Titration: 03/26/20 12:03 Dose: 3 mcg/min, 5.625 mls/hr Documented by: Fentanyl (Sublimaze Ivpb) 500 mcg in 100 mls @ 1 mls/hr IVPB TITR [facility]; Protocol Last Titration: 03/26/20 11:00 Dose: 0 mcg/hr, 0 mls/hr Documented by: Insulin Aspart (Novolog Vial Sliding Scale -) 1 vial SQ ACHS [facility]IS; Protocol Last Admin: 03/26/20 12:11 Dose: 6 units Documented by: Metoprolol Tartrate (Lopressor Injection -) 5 mg IVPUSH Q4H PRN PRN Reason: TACHYCARDIA Mupirocin (Bactroban Ointment (For Decolonization) -) 1 applic NS BID [facility] Stop: 03/30/20 21:59 Last Admin: 03/26/20 09:26 Dose: 1 applic Documented by: Pantoprazole Sodium (Protonix Iv) 40 mg IVPUSH DAILY [facility] Last Admin: 03/26/20 09: Dose: 40 mg Documented by: GENERAL: Intubated and awake HEAD: Normal with no signs of trauma. EYES: (-) Pallor EARS, NOSE, THROAT: Ears normal, nares patent, oropharynx clear without exudates. Dry mucous membranes. NECK: Normal range of motion, supple without lymphadenopathy, JVD, or masses. LUNGS: Vented, diminished at the bases HEART: Afib ABDOMEN: Soft, nontender, not distended, normoactive bowel sounds, no guarding, no rebound, no masses. MUSCULOSKELETAL: No bony deformities or tenderness. UPPER EXTREMITIES: 2+ pulses, warm, well-perfused. No cyanosis. No clubbing. No peripheral edema. LOWER EXTREMITIES: 2+ pulses, warm, well-perfused. No calf tenderness. Mild pitting edema. NEUROLOGICAL: Non-focal SKIN: Warm, dry, normal turgor, no rashes or lesions noted, normal capillary refill. Laboratory Results - last 24 hr 03/25/20 03/25/20 03/26/20 17:26 22:19 06:00 WBC RBC Hgb Hct MCV MCH MCHC RDW Plt Count MPV Anticoagulation Therapy Puncture Site Patient Temperature ABG pH ABG pCO2 ABG pO2 ABG HCO3 ABG O2 Sat (Measured) ABG O2 Content ABG Base Excess Cj Test Patient On Oxygen O2 Delivery Device Oxygen Flow Rate Vent Mode Vent Rate Mechanical Rate PEEP Pressure Support Vent Sodium 132 L Potassium 4.1 Chloride 101 Carbon Dioxide 17 L Anion Gap 14 BUN 83.4 H Creatinine 4.2 H Est GFR (CKD-EPI)AfAm 10.28 Est GFR (CKD-EPI)NonAf 8.87 POC Glucometer 354 332 Random Glucose 249 H Calcium 7.5 L Phosphorus 5.2 H Magnesium 2.3 Total Bilirubin 0.5 AST 16 ALT 18 Alkaline Phosphatase 98 Total Protein 5.5 L Albumin 1.8 L Stool Occult Blood 03/26/20 03/26/20 03/26/20 06:00 06:30 08:12 WBC 13.5 H RBC 3.65 Hgb 8.7 L Hct 26.9 L MCV 73.7 L MCH 23.8 L MCHC 32.2 RDW 18.9 H Plt Count 185 MPV 8.1 Anticoagulation Therapy No Result Required. Puncture Site Right radial Patient Temperature No Result Required. ABG pH 7.318 L ABG pCO2 25.70 L ABG pO2 177.9 H ABG HCO3 12.9 L ABG O2 Sat (Measured) 99.1 H ABG O2 Content No Result Required. ABG Base Excess -11.8 L Cj Test Positive Patient On Oxygen Yes O2 Delivery Device Vent Oxygen Flow Rate 50% Vent Mode A/c Vent Rate 12 Mechanical Rate Yes PEEP 6.0 Pressure Support Vent 500 Sodium Potassium Chloride Carbon Dioxide Anion Gap BUN Creatinine Est GFR (CKD-EPI)AfAm Est GFR (CKD-EPI)NonAf POC Glucometer 233 Random Glucose Calcium Phosphorus Magnesium Total Bilirubin AST ALT Alkaline Phosphatase Total Protein Albumin Stool Occult Blood 03/26/20 03/26/20 10:57 14:00 WBC RBC Hgb Hct MCV MCH MCHC RDW Plt Count MPV Anticoagulation Therapy Puncture Site Patient Temperature ABG pH ABG pCO2 ABG pO2 ABG HCO3 ABG O2 Sat (Measured) ABG O2 Content ABG Base Excess Cj Test Patient On Oxygen O2 Delivery Device Oxygen Flow Rate Vent Mode Vent Rate Mechanical Rate PEEP Pressure Support Vent Sodium Potassium Chloride Carbon Dioxide Anion Gap BUN Creatinine Est GFR (CKD-EPI)AfAm Est GFR (CKD-EPI)NonAf POC Glucometer 220 Random Glucose Calcium Phosphorus Magnesium Total Bilirubin AST ALT Alkaline Phosphatase Total Protein Albumin Stool Occult Blood Positive ASSESSMENT/PLAN: Acute Respiratory Failure Gm (-) Sepsis due to a source New onset AFib S/P Cystocopy with stent placement DM HTN HLD MARCIA CHF by history Wean trials as tolerated Strict I & O ABX per ID Cardiology evaluation Glycemic control Follow CVP to guide IVF resuscitation VTE prophylaxis Requires ICU monitoring Dr Hurt Critical care time spent in reviewing chart, evaluating patient and formulating plan - 36 minutes.
--- NOTE | 2020-03-26 14:40 | PN ---
Physical Exam: SUBJECTIVE: Patient seen and examined at the bedside, extubated today, is AOx3, states she feels "lousy". OBJECTIVE: Vital Signs Period Temp Pulse Resp BP Sys/Jackson Pulse Ox Last 24 Hr 98.4 F-100.7 F 72-123 10-24 73-136/54-88 94-100 GENERAL: AOx3 LUNGS: Extubated today, decreased BS BL HEART: Irregular rhythm ABDOMEN: Soft, non tender, non distended, rectal exam performed, hemorrhoids at 12 o clock position, no adonay bleeding noticed NEUROLOGICAL: Motor 5/5, sensations intact PSYCH: Normal mood, normal affect. SKIN: Warm, dry, normal turgor, no rashes or lesions noted Laboratory Results - last 24 hr 03/25/20 03/25/20 03/26/20 17:26 22:19 06:00 WBC RBC Hgb Hct MCV MCH MCHC RDW Plt Count MPV Anticoagulation Therapy Puncture Site Patient Temperature ABG pH ABG pCO2 ABG pO2 ABG HCO3 ABG O2 Sat (Measured) ABG O2 Content ABG Base Excess Cj Test Patient On Oxygen O2 Delivery Device Oxygen Flow Rate Vent Mode Vent Rate Mechanical Rate PEEP Pressure Support Vent Sodium 132 L Potassium 4.1 Chloride 101 Carbon Dioxide 17 L Anion Gap 14 BUN 83.4 H Creatinine 4.2 H Est GFR (CKD-EPI)AfAm 10.28 Est GFR (CKD-EPI)NonAf 8.87 POC Glucometer 354 332 Random Glucose 249 H Calcium 7.5 L Phosphorus 5.2 H Magnesium 2.3 Total Bilirubin 0.5 AST 16 ALT 18 Alkaline Phosphatase 98 Total Protein 5.5 L Albumin 1.8 L Stool Occult Blood 03/26/20 03/26/20 03/26/20 06:00 06:30 08:12 WBC 13.5 H RBC 3.65 Hgb 8.7 L Hct 26.9 L MCV 73.7 L MCH 23.8 L MCHC 32.2 RDW 18.9 H Plt Count 185 MPV 8.1 Anticoagulation Therapy No Result Required. Puncture Site Right radial Patient Temperature No Result Required. ABG pH 7.318 L ABG pCO2 25.70 L ABG pO2 177.9 H ABG HCO3 12.9 L ABG O2 Sat (Measured) 99.1 H ABG O2 Content No Result Required. ABG Base Excess -11.8 L Cj Test Positive Patient On Oxygen Yes O2 Delivery Device Vent Oxygen Flow Rate 50% Vent Mode A/c Vent Rate 12 Mechanical Rate Yes PEEP 6.0 Pressure Support Vent 500 Sodium Potassium Chloride Carbon Dioxide Anion Gap BUN Creatinine Est GFR (CKD-EPI)AfAm Est GFR (CKD-EPI)NonAf POC Glucometer 233 Random Glucose Calcium Phosphorus Magnesium Total Bilirubin AST ALT Alkaline Phosphatase Total Protein Albumin Stool Occult Blood 03/26/20 03/26/20 10:57 14:00 WBC RBC Hgb Hct MCV MCH MCHC RDW Plt Count MPV Anticoagulation Therapy Puncture Site Patient Temperature ABG pH ABG pCO2 ABG pO2 ABG HCO3 ABG O2 Sat (Measured) ABG O2 Content ABG Base Excess Cj Test Patient On Oxygen O2 Delivery Device Oxygen Flow Rate Vent Mode Vent Rate Mechanical Rate PEEP Pressure Support Vent Sodium Potassium Chloride Carbon Dioxide Anion Gap BUN Creatinine Est GFR (CKD-EPI)AfAm Est GFR (CKD-EPI)NonAf POC Glucometer 220 Random Glucose Calcium Phosphorus Magnesium Total Bilirubin AST ALT Alkaline Phosphatase Total Protein Albumin Stool Occult Blood Positive Active Medications Generic Name Dose Route Start Last Admin Trade Name Freq PRN Reason Stop Dose Admin Chlorhexidine Gluconate 1 applic 03/25/20 22:00 03/25/20 21:44 Hibiclens For Decolonization - TP 1 applic HS CHRIS Administration Diltiazem HCl 125 mg/ Dextrose 125 mls @ 5 mls/hr 03/25/20 13:45 03/25/20 18:45 IVPB 0 mg/hr TITR CHRIS 0 mls/hr Titration Protocol 5 MG/HR Propofol 1,000,000 mcg in 100 mls @ 2.146 mls/hr 03/25/20 15:15 03/26/20 10 :00 Diprivan - IVPB 0 mcg/kg/min TITR CHRIS 0 mls/hr Titration Protocol 5 MCG/KG/MIN Meropenem 500 mg/ Dextrose 100 mls @ 200 mls/hr 03/25/20 16:45 03/26/20 05:00 IVPB 200 mls/hr Q12H CHRIS Administration Sodium Chloride 1,000 mls @ 60 mls/hr 03/25/20 15:36 03/25/20 19:00 Normal Saline - IV 60 mls/hr ASDIR CHRIS Administration Norepinephrine Bitartrate 16, 500 mls @ 9.375 mls/hr 03/25/20 18:45 03/26/20 12:03 000 mcg/ Sodium Chloride IV 3 mcg/min TITR CHRIS 5.625 mls/hr Titration Protocol 5 MCG/MIN Fentanyl 500 mcg in 100 mls @ 1 mls/hr 03/25/20 20:45 03/26/20 11:00 Sublimaze Ivpb IVPB 0 mcg/hr TITR [facility]RIS 0 mls/hr Titration Protocol 5 MCG/HR Insulin Aspart 1 vial 03/26/20 08:37 03/26/20 12:11 Novolog Vial Sliding Scale - SQ 6 units ACHS CHRIS Administration Protocol Metoprolol Tartrate 5 mg 03/26/20 07:59 Lopressor Injection - IVPUSH Q4H PRN TACHYCARDIA Mupirocin 1 applic 03/25/20 22:00 03/26/20 09:26 Bactroban Ointment (For Decolonization) - NS 03/30/20 21:59 1 applic BID CHRIS Administration Pantoprazole Sodium 40 mg 03/26/20 10:00 03/26/20 09:26 Protonix Iv IVPUSH 40 mg DAILY [facility]IS Administration ASSESSMENT/PLAN: 89F with PMH of DM, HTN, HLD, and CHF, s/p cystoscopy with rt stent. After the procedure, she was noted to be in afib & be hypotensive. 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 Can then convert to Toprol XL prior to discharge - Can use Amio 150mg IV x1 dose if SBP > > 100; otherwise can use IV dig (same loading dose in renal disease) - [id number] VASC at least 3, FOBT negative so holding off on AC for now #Resp - Extubated today - On High Flow #Renal - S/p cystoscopy - MARCIA: 2/2 Meropenem? Pt on renal dose - Cr 2.7 -> 3.6 -> 4.2 - Uro, Renal on board - MARCIA, continue to monitor #GI - FOBT +, will hold off on AC - Hg 8.7, will trend #ID - Blood, urine cx positive for E.Coli - ID on board - Meropenem (Penicillin allergy) started 03/25 #Endo - BGM, ISS #Prophylaxis - Protonix - Heparin held due to FOBT+ #FEN - NS @ 100 - NPO with small sips of water #Dispo: - ICU monitoring ATTENDING PHYSICIAN STATEMENT I saw and evaluated the patient. I reviewed the resident's note and discussed the case with the resident. I agree with the resident's findings and plan as documented. SUBJECTIVE: OBJECTIVE: ASSESSMENT AND PLAN:
--- NOTE | 2020-03-26 15:10 | CONSULT ---
Consult Consult Specialty:: Nephrology Reason for Consultation:: MARCIA - History of Present Illness Chief Complaint: initially presented with altered mental status History of Present Illness: Pt is an 89 year old female with pmhx of dm, htn, hld, chf, who initially presented with altered mental status and hyperglycemia. She was found to have nephrolithiasis and gram neg sepsis. She was taken for cyto and right uretral stent. She was admitted to the ICU for sepsis. She is intubated and on a vent. She was found to have worsening renal function that did not recover. She is unable to give history. CHart was reviewed and I discussed with case with the ICU team. - History Source History Provided By: Medical Record - Past Medical History Cardio/Vascular: Yes: HTN, Other (chronic diastolic CHF, moderate , CAD, PSVT, PAT) Renal/: Yes: Renal Inusuff Musculoskeletal: Yes: Chronic low back pain, Osteoarthritis, Other (right leg benign bone mass (femur)) Endocrine: Yes: Diabetes Mellitus - Past Surgical History Past Surgical History: Yes: Appendectomy, Laminectomy ((lumbar)) - Alcohol/Substance Use Hx Alcohol Use: No History of Substance Use: reports: None - Smoking History Smoking history: Unknown if ever smoked Have you smoked in the past 12 months: No - Social History ADL: Independent History of Recent Travel: No Home Medications - Allergies Allergies/Adverse Reactions: Allergies Allergy/AdvReac Type Severity Reaction Status Date / Time Penicillins Allergy Severe Difficulty Verified 03/24/20 18:52 Breathing - Home Medications Home Medications: Ambulatory Orders Aspirin [ASA -] 81 mg PO HS 01/28/16 Bimatoprost [Lumigan] 1 drop OU HS 01/29/16 Epinastine HCl 1 drop OU AM PRN 01/29/16 Carvedilol [Coreg] 6.25 mg PO BID 08/25/18 Donepezil HCl [Aricept -] 5 mg PO HS tablet 08/30/18 Insulin Glargine,Hum.rec.anlog [Lantus] 50 unit SQ HS #1 vial 08/30/18 Insulin Sliding Scale [Novolog Vial Sliding Scale -] 1 vial SQ ACHS units 08/30/18 Sitagliptin Phosphate [Januvia -] 50 mg PO DAILY@0700 tablet 08/30/18 Atorvastatin Ca [Lipitor] 20 mg PO AM 03/24/20 Cholecalciferol (Vitamin D3) [Vitamin D3] 2,000 mg PO DAILY 03/24/20 Nateglinide [Starlix (Nf) -] 120 mg PO TID 03/24/20 Quinapril HCl [Accupril -] 40 mg PO HS 03/24/20 Ubidecarenone/Vit E Acet [Co Q-10 100 mg Softgel] 1 mg PO DAILY 03/24/20 Family Medical History Family History: Unremarkable (not contributory to this presentation) Review of Systems Unable to obtain ROS, reason: pt intubated Physical Exam Vital Signs: Vital Signs Temperature 100.7 F H 03/26/20 08:00 Pulse Rate 110 H 03/26/20 14:00 Respiratory Rate 24 H 03/26/20 14:00 Blood Pressure 97/71 03/26/20 14:00 O2 Sat by Pulse Oximetry (%) 100 03/26/20 12:02 Constitutional: Yes: Calm Eyes: Yes: Conjunctiva Clear HENT: Yes: Atraumatic Neck: Yes: Supple Cardiovascular: Yes: S1, S2 Respiratory: Yes: Mechanically Ventilated Gastrointestinal: Yes: Soft Renal/: Yes: August Present Edema: No Integumentary: Yes: WNL Neurological: Yes: Lethargy Labs: CBC, BMP 03/26/20 06:00 03/26/20 06:00 Laboratory Tests 03/23/20 03/24/20 03/24/20 19:10 00:28 07:55 Sodium Carbon Dioxide Creatinine 2.4 H 2.2 H 2.3 H 03/24/20 03/25/20 03/26/20 19:35 13:45 06:00 Sodium 130 L 132 L Carbon Dioxide 17 L Creatinine 2.7 H 3.6 H 4.2 H Imaging - Results Chest X-ray: Report Reviewed Ultrasound: Report Reviewed Problem List - Problems (1) MARCIA (acute kidney injury) Code(s): N17.9 - ACUTE KIDNEY FAILURE, UNSPECIFIED (2) Gram-negative bacteremia Code(s): R78.81 - BACTEREMIA Assessment/Plan Current Medications Generic Name Dose Route Start Last Admin Trade Name Freq PRN Reason Stop Dose Admin Chlorhexidine Gluconate 1 applic 03/25/20 22:00 03/25/20 21:44 Hibiclens For Decolonization - TP 1 applic HS [facility] Administration Diltiazem HCl 125 mg/ Dextrose 125 mls @ 5 mls/hr 03/25/20 13:45 03/25/20 18:45 IVPB 0 mg/hr TITR CHRIS 0 mls/hr Titration Protocol 5 MG/HR Propofol 1,000,000 mcg in 100 mls @ 2.146 mls/hr 03/25/20 15:15 03/26/20 10:00 Diprivan - IVPB 0 mcg/kg/min TITR CHRIS 0 mls/hr Titration Protocol 5 MCG/KG/MIN Meropenem 500 mg/ Dextrose 100 mls @ 200 mls/hr 03/25/20 16:45 03/26/20 05:00 IVPB 200 mls/hr Q12H CHRIS Administration Sodium Chloride 1,000 mls @ 60 mls/hr 03/25/20 15:36 03/25/20 19:00 Normal Saline - IV 60 mls/hr ASDIR CHRIS Administration Norepinephrine Bitartrate 16, 500 mls @ 9.375 mls/hr 03/25/20 18:45 03/26/20 12:03 000 mcg/ Sodium Chloride IV 3 mcg/min TITR CHRIS 5.625 mls/hr Titration Protocol 5 MCG/MIN Fentanyl 500 mcg in 100 mls @ 1 mls/hr 03/25/20 20:45 03/26/20 11:00 Sublimaze Ivpb IVPB 0 mcg/hr TITR CHRIS 0 mls/hr Titration Protocol 5 MCG/HR Insulin Aspart 1 vial 03/26/20 08:37 03/26/20 12:11 Novolog Vial Sliding Scale - SQ 6 units ACHS CHRIS Administration Protocol Metoprolol Tartrate 5 mg 03/26/20 07:59 Lopressor Injection - IVPUSH Q4H PRN TACHYCARDIA Mupirocin 1 applic 03/25/20 22:00 03/26/20 09:26 Bactroban Ointment (For Decolonization) - NS 03/30/20 21:59 1 applic BID CHRIS Administration Pantoprazole Sodium 40 mg 03/26/20 10:00 03/26/20 09:26 Protonix Iv IVPUSH 40 mg DAILY CHRIS Administration Impression 1. marcia 2. sepsis 3. gram neg bacteremai 4. resp failure 5. nephrolithiasis 6. shock 7. dm 8. htn 9. 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
[2020-03-26] MEDS: DILTIAZEM INJECTION 125 MG in DEXTROSE 5%-WATER - 100 ML IVPB SCH (17:16)
[2020-03-26] MEDS: SODIUM CHLORIDE 1,000 ML IV SCH (17:17)
[2020-03-26] MEDS: NOREPINEPHRINE BITARTRATE 16,000 MCG in SODIUM CHLORIDE 484 ML IV SCH (18:50)
[2020-03-26 21:31] LABS: BASO % 0.3 % (0-2.0); EOS % 2.8 % (0-4.5); HEMATOCRIT 27.8 % (32.4-45.2); HEMOGLOBIN 9.2 GM/dL (10.7-15.3); LYMPH % 3.5 % (8-40); MCH 24.5 pg (25.7-33.7); MCHC 32.9 g/dl (32.0-36.0); MEAN CELL VOLUME 74.4 fl (80-96); MEAN PLT VOLUME 8.1 fl (7.5-11.1); MONO % 11.4 % (3.8-10.2); PLATELET COUNT 189 K/MM3 (134-434); RBC 3.73 M/mm3 (3.60-5.2); RDW 19.1 % (11.6-15.6); WHITE BLOOD COUNT 14.9 K/mm3 (4.0-10.0)
[2020-03-26] MEDS: CHLORHEXIDINE GLUCONATE 4% CLEANSER FOR DECOLONIZATION TP SCH (22:50)
[2020-03-27] MEDS: MEROPENEM 500 MG in DEXTROSE 5%-WATER 100 ML IVPB SCH (04:55)
[2020-03-27] MEDS ORDERED: MEROPENEM 500 MG VIAL (RESTRICTED TO ID) IVPB ONE (06:26)
[2020-03-27] MEDS ORDERED: DEXTROSE 5%-WATER 100 ML IVPB ONE (06:26)
[2020-03-27] MEDS: INSULIN SLIDING SCALE (NOVOLOG) 1 VIAL SQ SCH ×5 (06:31→22:53)
[2020-03-27 07:18] LABS: BASO % 0.3 % (0-2.0); EOS % 3.4 % (0-4.5); HEMATOCRIT 25.1 % (32.4-45.2); HEMOGLOBIN 8.3 GM/dL (10.7-15.3); LYMPH % 4.8 % (8-40); MCH 24.1 pg (25.7-33.7); MEAN CELL VOLUME 73.1 fl (80-96); MONO % 11.4 % (3.8-10.2); NEUT % 80.1 % (42.8-82.8); PLATELET COUNT 182 K/MM3 (134-434); RBC 3.44 M/mm3 (3.60-5.2); WHITE BLOOD COUNT 11.9 K/mm3 (4.0-10.0)
[2020-03-27 07:45] LABS: ALBUMIN 1.8 g/dl (3.4-5.0); BILIRUBIN,TOTAL 0.4 mg/dL (0.2-1); BLOOD UREA NITROGEN 96.9 mg/dL (7-18); CALCIUM 7.9 mg/dL (8.5-10.1); CREATININE 4.8 mg/dL (0.55-1.3); MAGNESIUM 2.4 mg/dL (1.8-2.4); PHOSPHOROUS 6.4 mg/dL (2.5-4.9); TOT PROT 5.4 g/dl (6.4-8.2)
--- NOTE | 2020-03-27 08:37 | PN ---
Progress Note, Physician Chief Complaint: altered MS History of Present Illness: extubated breathing "a little heavy" no cp, palp, syncope no cigs - Current Medication List Current Medications: Active Medications Chlorhexidine Gluconate (Hibiclens For Decolonization -) 1 applic TP HS [facility] Last Admin: 03/26/20 22:50 Dose: 1 applic Documented by: Meropenem 500 mg/ Dextrose 100 mls @ 200 mls/hr IVPB Q12H [facility] Last Admin: 03/27/20 04:55 Dose: 200 mls/hr Documented by: Sodium Chloride (Normal Saline -) 1,000 mls @ 60 mls/hr IV ASDIR [facility] Last Admin: 03/26/20 17:17 Dose: Not Given Documented by: Norepinephrine Bitartrate 16, (000 mcg/ Sodium Chloride) 500 mls @ 9.375 mls/hr IV TITR [facility]; Protocol Last Admin: 03/26/20 18:50 Dose: Not Given Documented by: Insulin Aspart (Novolog Vial Sliding Scale -) [address] [facility]; Protocol Last Admin: 03/27/20 06:31 Dose: Not Given Documented by: Metoprolol Tartrate (Lopressor Injection -) 5 mg IVPUSH Q4H PRN PRN Reason: TACHYCARDIA Last Admin: 03/27/20 00:00 Dose: 5 mg Documented by: Mupirocin (Bactroban Ointment (For Decolonization) -) 1 applic NS BID [facility] Stop: 03/30/20 21:59 Last Admin: 03/26/20 22:50 Dose: 1 applic Documented by: Pantoprazole Sodium (Protonix Iv) 40 mg IVPUSH DAILY [facility] Last Admin: 03/26/20 09:26 Dose: 40 mg Documented by: - Objective Vital Signs: Vital Signs Temperature 98.6 F 03/27/20 06:00 Pulse Rate 122 H 03/27/20 06:00 Respiratory Rate 20 03/27/20 06:00 Blood Pressure 99/71 03/27/20 06:00 O2 Sat by Pulse Oximetry (%) 94 L 03/27/20 06:00 Constitutional: Yes: Well Nourished, No Distress, Calm Cardiovascular: Yes: Pulse Irregular, S1, S2. No: JVD, Gallop, Murmur Respiratory: Yes: Regular, CTA Bilaterally. No: Accessory Muscle Use, Rales (anteriorly), Wheezes Extremities: No: Cold Edema: No Neurological: Yes: Alert. No: Seizure Psychiatric: No: Agitated Labs: CBC, BMP 03/27/20 05:00 03/27/20 05:00 INR, PTT INR 1.34 (0.83-1.09) H 03/23/20 19:10 Assessment/Plan Echo 04/04: nl LV/RV. moderate vs severe (misaligned doppler gradients). RVSP 30-40 tele: AF hr 120s-130s bpm AF: new onset, likely triggered by sepsis, shock -Rates rapid, off pressors with soft BPs not likely to tolerate much BB or CCB. -start lopressor 12.5 bid trial, watch for hypotension. defer dig given very low GFR -[id number] score is at least 3 (age, DM, Female) and anticoagulation is indicated. However, H/H have drifted down since admission, with + stool guaiac--AC held -Can convert to Eliquis or Xarelto prior to discharge if bleeding resolves Hypotension due to gram negative sepsis with shock: -Abx as per Critical Care and ID -off levophed, soft bp's but stable, mentating well CAD: -Mildly abnl persantine MIBI here in 2016 showing mild apical ischemia managed medically -Resume beta weston as outlined above when BP stable -If she begins full AC for AF, then can discontinue ASA as it will increase bleed risk in this age group with little added benefit -Statin when tolerates PO -Rate control as outlined above Chronic diastolic CHF: -appears euvolemic clinically--defer diuretics -Rate control for AF mgmt , moderate vs severe -echo here indeterminate regarding severity of stenosis. no audible murmur but soft heart sounds -in absence of attributable sx's (ischemia, refractory chf), plan outpt f/u and repeat echo ARF: likely due to ATN in setting of mild obstructive uropathy -Treat underling infection, IV fluids -Daily BMP to follow renal function -Follow urine output -Avoid hypotension -Renal consulted Anemia: Baseline seems to be 10-11 -Drifting down this admission, + guaiac DM: -per critical care, primary team Hx PSVT/PAT/NSVT with Normal LVEF: -Now in AF -try to start beta blockade when stable off pressors -Echo to assess EF -Keep K+/Mg2+ normalized -Continue tele
--- NOTE | 2020-03-27 09:29 | PN ---
Progress Note (short form) - Note Progress Note: afebrile off pressors urine clear andrews in place antibiotics ar per ID Problem List - Problems (1) Right ureteral calculus Code(s): N20.1 - CALCULUS OF URETER
[2020-03-27] MEDS: MUPIROCIN 2% TOPICAL OINTMENT FOR DECOLONIZATION NS SCH ×2 (09:54→22:48)
[2020-03-27] MEDS: PANTOPRAZOLE SODIUM 40 MG VIAL IVPUSH SCH (09:54)
--- NOTE | 2020-03-27 11:12 | PN ---
Progress Note, Physician History of Present Illness: AWAKE, ALERT IN BED TEMPS DOWN BREATHING NON LABORED ON RA AFEBRILE WBC IMPROVED OFF PRESSORS INCREASED CR BC E COLI - Current Medication List Current Medications: Active Medications Chlorhexidine Gluconate (Hibiclens For Decolonization -) 1 applic TP HS [facility] Last Admin: 03/26/20 22:50 Dose: 1 applic Documented by: Meropenem 500 mg/ Dextrose 100 mls @ 200 mls/hr IVPB Q12H [facility] Last Admin: 03/27/20 04:55 Dose: 200 mls/hr Documented by: Sodium Chloride (Normal Saline -) 1,000 mls @ 60 mls/hr IV ASDIR [facility] Last Admin: 03/26/20 17:17 Dose: Not Given Documented by: Norepinephrine Bitartrate 16, (000 mcg/ Sodium Chloride) 500 mls @ 9.375 mls/hr IV TITR [facility]; Protocol Last Admin: 03/26/20 18:50 Dose: Not Given Documented by: Insulin Aspart (Novolog Vial Sliding Scale -) 1 vial SQ [facility]; Protocol Last Admin: 03/27/20 06:31 Dose: Not Given Documented by: Metoprolol Tartrate (Lopressor Injection -) 5 mg IVPUSH Q4H PRN PRN Reason: TACHYCARDIA Last Admin: 03/27/20 00:00 Dose: 5 mg Documented by: Mupirocin (Bactroban Ointment (For Decolonization) -) 1 applic NS BID [facility] Stop: 03/30/20 21:59 Last Admin: 03/27/20 09:54 Dose: 1 applic Documented by: Pantoprazole Sodium (Protonix Iv) 40 mg IVPUSH DAILY [facility] Last Admin: 03/27/20 09:54 Dose: 40 mg Documented by: - Objective Vital Signs: Vital Signs Temperature 98.6 F 03/27/20 06:00 Pulse Rate 122 H 03/27/20 06:00 Respiratory Rate 20 03/27/20 06:00 Blood Pressure 99/71 03/27/20 06:00 O2 Sat by Pulse Oximetry (%) 94 L 03/27/20 06:00 Constitutional: Yes: No Distress Eyes: Yes: Conjunctiva Clear Cardiovascular: Yes: Regular Rate and Rhythm, Tachycardia Respiratory: Yes: CTA Bilaterally Gastrointestinal: Yes: Normal Bowel Sounds, Soft. No: Tenderness Labs: CBC, BMP 03/27/20 05:00 03/27/20 05:00 INR, PTT INR 1.34 (0.83-1.09) H 03/23/20 19:10 Assessment/Plan GRAM NEGATIVE SEPSIS SECONDARY TO SOURCE S/P URETERAL STENT MARCIA PCN ALLERGY WILL SUBSTITUTE AZTREONAM ADJUSTED FOR MARCIA (EMR DOCUMENTS DIFFICULTY BREATHING WITH PCN)
[2020-03-27] MEDS ORDERED: AZTREONAM 0.5 GM in DEXTROSE 5%-WATER - 50 ML IVPB SCH (11:30)
[2020-03-27] MEDS ORDERED: METOPROLOL TARTRATE 5 MG/5 ML VIAL IVPUSH PRN (12:50)
[2020-03-27] MEDS: METOPROLOL TARTRATE 25 MG TABLET (FP) PO SCH ×2 (13:10→22:49)
--- NOTE | 2020-03-27 13:22 | PN ---
Progress Note (short form) - Note Progress Note: This is an 89year old female with PMH of DM, HTN, HLD, and CHF, she was admitted 03/23 for AMS and was found to have R sided pyelonephritis with [address] AP[address] Cystoscopy with rt stent was performed 03/25, during the procedure she developed AFib RVR and became hypotensive. She was re-intubated, sedated, started on a Cardizem drip, and transfered to the ICU. In the ICU, central line was placed for pressor support, Dilt drip was DCed. She required Norepinephrine for BP support for one day only, on 03/25. She was extubated on 03/26. She was found to have E. Coli bacteremia, and was started on Meropenem on 03/25. Was switched to renally dosed Aztreonam on 03/27 by ID. Pt also has rising Cr level, likely MARCIA 2/2 to hypotension, as per Nephro. Will continue hydration with N/S @ 60 for now. Cardio was consulted for new onset AF. Recommendations included no rate control at this time, Lopressor 12.5mg PO Q6h convert to Toprol XL prior to discharge, can use Amio 150mg IV x1 dose if SBP> 100, otherwise can use IV dig (same loading dose in renal disease), and AC for CHADSVASC of 3. However, pt's FOBT was found to be positive with moderate drop in Hg from 8.7 -> (FOBT +) -> 9.2 -> 8.3. GI was consulted. She is now stable for transfer with rate under control, and tolerating extubation, with GI consult and FOBT ordered for today. Pending FOBT and discussion with family, pt may be started on AC for A Fib. Advertising Agent will speak to family regarding today AC. Timeline: 03/23: Admitted 03/25: Cystoscopy with R stent, AF RVR, intubated, ICU, Norepinephrine, Meropenem for E Coli bacteremia 03/26: Extubated, FOBT + 03/27: Transfer out of ICU to [facility]
--- NOTE | 2020-03-27 13:37 | PN ---
Teaching Attending Note Name of Resident: Benjamin Villanueva ATTENDING PHYSICIAN STATEMENT I saw and evaluated the patient. I reviewed the resident's note and discussed the case with the resident. I agree with the resident's findings and plan as documented. SUBJECTIVE: Patient seen and examined in the ICU. Remains extubated. NAD on NC O2. Rate controlled AFib. Off pressors for hemodynamic support. Slow downtrend of H&H. Intake & Output 03/24/20 03/25/20 03/26/20 03/27/20 23:59 23:59 23:59 23:59 Intake Total 200 1949 1870 820 Output Total 320 500 Balance 200 1629 1370 820 Weight 157 lb 8 oz 157 lb 11.2 oz 159 lb 160 lb 6.4 oz Last Vital Signs Temp Pulse Resp BP Pulse Ox 98.1 F 114 H 19 98/73 95 03/27/20 10:00 03/27/20 12:21 03/27/20 12:21 03/27/20 12:21 03/27/20 12:21 Active Medications Chlorhexidine Gluconate (Hibiclens For Decolonization -) 1 applic TP HS [facility] Last Admin: 03/26/20 22:50 Dose: 1 applic Documented by: Sodium Chloride (Normal Saline -) 1,000 mls @ 60 mls/hr IV ASDIR CHRIS Last Admin: 03/26/20 17:17 Dose: Not Given Documented by: Norepinephrine Bitartrate 16, (000 mcg/ Sodium Chloride) 500 mls @ 9.375 mls/hr IV TITR [facility]; Protocol Last Admin: 03/26/20 18:50 Dose: Not Given Documented by: Aztreonam 0.5 gm/ Dextrose 50 mls @ 100 mls/hr IVPB BID [facility]; Protocol Insulin Aspart (Novolog Vial Sliding Scale -) 1 vial SQ ACHS [facility]; Protocol Last Admin: 03/27/20 12:27 Dose: 4 units Documented by: Metoprolol Tartrate (Lopressor -) 12.5 mg PO BID CHRIS Metoprolol Tartrate (Lopressor Injection -) 2.5 mg IVPUSH Q4H PRN PRN Reason: TACHYCARDIA Mupirocin (Bactroban Ointment (For Decolonization) -) 1 applic NS BID [facility] Stop: 03/30/20 21:59 Last Admin: 09/12/20 09:54 Dose: 1 applic Documented by: Pantoprazole Sodium (Protonix Iv) 40 mg IVPUSH DAILY CHRIS Last Admin: 03/27/20 09:54 Dose: 40 mg Documented by: GENERAL: Extubated, NAD HEAD: Normal with no signs of trauma. EYES: (-) Pallor EARS, NOSE, THROAT: Ears normal, nares patent, oropharynx clear without exudates. Dry mucous membranes. NECK: Normal range of motion, supple without lymphadenopathy, JVD, or masses. LUNGS: diminished at the bases HEART: Afib ABDOMEN: Soft, nontender, not distended, normoactive bowel sounds, no guarding, no rebound, no masses. MUSCULOSKELETAL: No bony deformities or tenderness. UPPER EXTREMITIES: 2+ pulses, warm, well-perfused. No cyanosis. No clubbing. No peripheral edema. LOWER EXTREMITIES: 2+ pulses, warm, well-perfused. No calf tenderness. Mild pitting edema. NEUROLOGICAL: Non-focal SKIN: Warm, dry, normal turgor, no rashes or lesions noted, normal capillary refill. Laboratory Results - last 24 hr 03/26/20 03/26/20 03/26/20 14:00 17:14 21:00 WBC 14.9 H RBC 3.73 Hgb 9.2 L Hct 27.8 L MCV 74.4 L MCH 24.5 L MCHC 32.9 RDW 19.1 H Plt Count 189 MPV 8.1 Absolute Neuts (auto) 12.2 H Neutrophils % 82.0 Lymphocytes % 3.5 L D Monocytes % 11.4 H Eosinophils % 2.8 D Basophils % 0.3 Nucleated RBC % 0 Sodium Potassium Chloride Carbon Dioxide Anion Gap BUN Creatinine Est GFR (CKD-EPI)AfAm Est GFR (CKD-EPI)NonAf POC Glucometer 166 Random Glucose Calcium Phosphorus Magnesium Total Bilirubin AST ALT Alkaline Phosphatase Total Protein Albumin Stool Occult Blood Positive 03/26/20 03/27/20 03/27/20 23:56 05:00 05:00 WBC 11.9 H RBC 3.44 L Hgb 8.3 L Hct 25.1 L MCV 73.1 L MCH 24.1 L MCHC 33.0 RDW 19.0 H Plt Count 182 MPV 8.0 Absolute Neuts (auto) 9.5 H Neutrophils % 80.1 Lymphocytes % 4.8 L D Monocytes % 11.4 H Eosinophils % 3.4 Basophils % 0.3 Nucleated RBC % 0 Sodium 132 L Potassium 4.0 Chloride 103 Carbon Dioxide 16 L Anion Gap 13 BUN 96.9 H Creatinine 4.8 H Est GFR (CKD-EPI)AfAm 8.74 Est GFR (CKD-EPI)NonAf 7.54 POC Glucometer 194 Random Glucose 144 H Calcium 7.9 L Phosphorus 6.4 H Magnesium 2.4 Total Bilirubin 0.4 AST 12 L ALT 16 Alkaline Phosphatase 92 Total Protein 5.4 L Albumin 1.8 L Stool Occult Blood 03/27/20 03/27/20 06:30 11:44 WBC RBC Hgb Hct MCV MCH MCHC RDW Plt Count MPV Absolute Neuts (auto) Neutrophils % Lymphocytes % Monocytes % Eosinophils % Basophils % Nucleated RBC % Sodium Potassium Chloride Carbon Dioxide Anion Gap BUN Creatinine Est GFR (CKD-EPI)AfAm Est GFR (CKD-EPI)NonAf POC Glucometer 129 155 Random Glucose Calcium Phosphorus Magnesium Total Bilirubin AST ALT Alkaline Phosphatase Total Protein Albumin Stool Occult Blood ASSESSMENT/PLAN: Acute Respiratory Failure Gm (-) Sepsis due to a source New onset AFib S/P Cystocopy with stent placement DM HTN HLD MARCIA CHF by history Supplemental O2 as needed Strict I & O ABX per ID Need to discuss Risks and benefits of AC with family as patient does not seem capable to make a sound decision Glycemic control DC TLC VTE prophylaxis Cardiac Telemetry monitoring Dr Hurt
--- NOTE | 2020-03-27 14:20 | PN ---
Physical Exam: SUBJECTIVE: Patient seen and examined OBJECTIVE: Vital Signs Period Temp Pulse Resp BP Sys/Jackson Pulse Ox Last 24 Hr 98.1 F-99 F 95-129 19-22 91-117/55-82 94-98 GENERAL: The patient is awake, alert, and fully oriented, in no acute distress. HEAD: Normal with no signs of trauma. EYES: PERRL, extraocular movements intact, sclera anicteric, conjunctiva clear. No ptosis. ENT: Ears normal, nares patent, oropharynx clear without exudates, moist mucous membranes. NECK: Trachea midline, full range of motion, supple. LUNGS: Breath sounds equal, clear to auscultation bilaterally, no wheezes, no crackles, no accessory muscle use. HEART: Regular rate and rhythm, S1, S2 without murmur, rub or gallop. ABDOMEN: Soft, nontender, nondistended, normoactive bowel sounds, no guarding, no rebound, no hepatosplenomegaly, no masses. EXTREMITIES: 2+ pulses, warm, well-perfused, no edema. NEUROLOGICAL: Cranial nerves II through XII grossly intact. Normal speech, gait not observed. PSYCH: Normal mood, normal affect. SKIN: Warm, dry, normal turgor, no rashes or lesions noted Laboratory Results - last 24 hr 03/26/20 03/26/20 03/26/20 14:00 17:14 21:00 WBC 14.9 H RBC 3.73 Hgb 9.2 L Hct 27.8 L MCV 74.4 L MCH 24.5 L MCHC 32.9 RDW 19.1 H Plt Count 189 MPV 8.1 Absolute Neuts (auto) 12.2 H Neutrophils % 82.0 Lymphocytes % 3.5 L D Monocytes % 11.4 H Eosinophils % 2.8 D Basophils % 0.3 Nucleated RBC % 0 Sodium Potassium Chloride Carbon Dioxide Anion Gap BUN Creatinine Est GFR (CKD-EPI)AfAm Est GFR (CKD-EPI)NonAf POC Glucometer 166 Random Glucose Calcium Phosphorus Magnesium Total Bilirubin AST ALT Alkaline Phosphatase Total Protein Albumin Stool Occult Blood Positive 03/26/20 03/27/20 03/27/20 23:56 05:00 05:00 WBC 11.9 H RBC 3.44 L Hgb 8.3 L Hct 25.1 L MCV 73.1 L MCH 24.1 L MCHC 33.0 RDW 19.0 H Plt Count 182 MPV 8.0 Absolute Neuts (auto) 9.5 H Neutrophils % 80.1 Lymphocytes % 4.8 L D Monocytes % 11.4 H Eosinophils % 3.4 Basophils % 0.3 Nucleated RBC % 0 Sodium 132 L Potassium 4.0 Chloride 103 Carbon Dioxide 16 L Anion Gap 13 BUN 96.9 H Creatinine 4.8 H Est GFR (CKD-EPI)AfAm 8.74 Est GFR (CKD-EPI)NonAf 7.54 POC Glucometer 194 Random Glucose 144 H Calcium 7.9 L Phosphorus 6.4 H Magnesium 2.4 Total Bilirubin 0.4 AST 12 L ALT 16 Alkaline Phosphatase 92 Total Protein 5.4 L Albumin 1.8 L Stool Occult Blood 03/27/20 03/27/20 06:30 11:44 WBC RBC Hgb Hct MCV MCH MCHC RDW Plt Count MPV Absolute Neuts (auto) Neutrophils % Lymphocytes % Monocytes % Eosinophils % Basophils % Nucleated RBC % Sodium Potassium Chloride Carbon Dioxide Anion Gap BUN Creatinine Est GFR (CKD-EPI)AfAm Est GFR (CKD-EPI)NonAf POC Glucometer 129 155 Random Glucose Calcium Phosphorus Magnesium Total Bilirubin AST ALT Alkaline Phosphatase Total Protein Albumin Stool Occult Blood Active Medications Generic Name Dose Route Start Last Admin Trade Name Freq PRN Reason Stop Dose Admin Chlorhexidine Gluconate 1 applic 03/25/20 22:00 03/26/20 22:50 Hibiclens For Decolonization - TP 1 applic HS CHRIS Administration Sodium Chloride 1,000 mls @ 60 mls/hr 03/25/20 15:36 03/26/20 17:17 Normal Saline - IV Not Given ASDIR CHRIS Aztreonam 0.5 gm/ Dextrose 50 mls @ 100 mls/hr 03/27/20 11:35 IVPB BID CHRIS Protocol Insulin Aspart 1 vial 03/26/20 08:37 03/27/20 12:27 Novolog Vial Sliding Scale - SQ 4 units ACHS CHRIS Administration Protocol Metoprolol Tartrate 12.5 mg 03/27/20 13:00 03/27/20 13:10 Lopressor - PO 12.5 mg BID CHRIS Administration Metoprolol Tartrate 2.5 mg 03/27/20 12:50 Lopressor Injection - IVPUSH Q4H PRN TACHYCARDIA Mupirocin 1 applic 03/25/20 22:00 03/27/20 09:54 Bactroban Ointment (For Decolonization) - NS 03/30/20 21:59 1 applic BID CHRIS Administration Pantoprazole Sodium 40 mg 03/26/20 10:00 03/27/20 09:54 Protonix Iv IVPUSH 40 mg DAILY CHRIS Administration ASSESSMENT/PLAN: ATTENDING PHYSICIAN STATEMENT I saw and evaluated the patient. I reviewed the resident's note and discussed the case with the resident. I agree with the resident's findings and plan as documented. SUBJECTIVE: OBJECTIVE: ASSESSMENT AND PLAN:
--- NOTE | 2020-03-27 15:34 | HOSP ---
Subjective - Review of Symptoms Subjective: 89 yo f w/ PMH PMH of DM, HTN, HLD, and CHF admiotted for rt pyelo and renal stones x2. during cytoscopy, pt went into RVR and became hyoptensive. Pt intubated and transferred to ICU on pressors. pt found to have e. coli bacteremia. Now extubated, normotensive. On aztreonam per ID. pt had marcia, improving, nephro following. General: No: Chills, Night Sweats, Fatigue HEENT: No: Head Aches Pulmonary: No: Dyspnea, Cough Cardiovascular: No: Chest Pain Gastrointestinal: No: Nausea, Vomiting, Abdominal Pain Genitourinary: No: Dysuria, Frequency Musculoskeletal: No: Back Pain Neurological: No: Weakness, Numbness Physical Examination Vital Signs: Vital Signs Temperature 98.5 F 03/27/20 14:17 Pulse Rate 108 H 03/27/20 14:17 Respiratory Rate 20 03/27/20 14:17 Blood Pressure 114/67 03/27/20 14:17 O2 Sat by Pulse Oximetry (%) 95 03/27/20 14:17 Constitutional: Yes: Well Nourished, No Distress, Calm Eyes: Yes: Conjunctiva Clear, EOM Intact HENT: Yes: Atraumatic, Normocephalic Neck: Yes: Supple, Trachea Midline Cardiovascular: Yes: Regular Rate and Rhythm, S1, S2. No: Gallop, Murmur, Rub Respiratory: Yes: Regular, CTA Bilaterally Gastrointestinal: Yes: Normal Bowel Sounds, Soft. No: Tenderness Edema: No Neurological: Yes: Alert, Oriented, Cran Nerves II-XII Intact Psychiatric: Yes: Alert, Oriented. No: Agitated Labs: CBC, BMP 03/27/20 05:00 03/27/20 05:00 Hospitalist Encounter Assessment: E.coli bacteremia -on aztreonam, ID following MARCIA -improving, nephro following Afib w/ RVR and hypotension after cysto -now in sinus rhythm off drips -rate ctrl w/ lopressor -cardio following. -AC discussion ongoing
--- NOTE | 2020-03-27 15:53 | PN ---
Progress Note, Physician History of Present Illness: Pt seen and examined at bedside. She is now extubated. she remains in the iCU. - Current Medication List Current Medications: Active Medications Chlorhexidine Gluconate (Hibiclens For Decolonization -) 1 applic TP HS [facility] Last Admin: 03/26/20 22:50 Dose: 1 applic Documented by: Sodium Chloride (Normal Saline -) 1,000 mls @ 60 mls/hr IV ASDIR [facility] Last Admin: 03/26/20 17:17 Dose: Not Given Documented by: Aztreonam 0.5 gm/ Dextrose 50 mls @ 100 mls/hr IVPB BID [facility]; Protocol Insulin Aspart (Novolog Vial Sliding Scale -) 1 vial SQ ACHS [facility]; Protocol Last Admin: 03/27/20 12:27 Dose: 4 units Documented by: Metoprolol Tartrate (Lopressor -) 12.5 mg PO BID [facility] Last Admin: 03/27/20 13:10 Dose: 12.5 mg Documented by: Metoprolol Tartrate (Lopressor Injection -) 2.5 mg IVPUSH Q4H PRN PRN Reason: TACHYCARDIA Mupirocin (Bactroban Ointment (For Decolonization) -) 1 applic NS BID [facility] Stop: 03/30/20 21:59 Last Admin: 03/27/20 09:54 Dose: 1 applic Documented by: Pantoprazole Sodium (Protonix Iv) 40 mg IVPUSH DAILY [facility] Last Admin: 03/27/20 09:54 Dose: 40 mg Documented by: - Objective Vital Signs: Vital Signs Temperature 98.5 F 03/27/20 14:17 Pulse Rate 108 H 03/27/20 14:17 Respiratory Rate 20 03/27/20 14:17 Blood Pressure 114/67 03/27/20 14:17 O2 Sat by Pulse Oximetry (%) 95 03/27/20 14:17 Constitutional: Yes: Calm Eyes: Yes: Conjunctiva Clear HENT: Yes: Atraumatic Cardiovascular: Yes: S1, S2 Respiratory: Yes: On Nasal O2 Gastrointestinal: Yes: Soft Genitourinary: Yes: August Present Musculoskeletal: Yes: WNL Edema: No Neurological: Yes: Oriented Psychiatric: Yes: Oriented Labs: CBC, BMP 03/27/20 05:00 03/27/20 05:00 INR, PTT INR 1.34 (0.83-1.09) H 03/23/20 19:10 Problem List - Problems (1) MARCIA (acute kidney injury) Code(s): N17.9 - ACUTE KIDNEY FAILURE, UNSPECIFIED (2) Gram-negative bacteremia Code(s): R78.81 - BACTEREMIA Assessment/Plan Current Medications Generic Name Dose Route Start Last Admin Trade Name Freq PRN Reason Stop Dose Admin Chlorhexidine Gluconate 1 applic 03/25/20 22:00 03/26/20 22:50 Hibiclens For Decolonization - TP 1 applic HS CHRIS Administration Sodium Chloride 1,000 mls @ 60 mls/hr 03/25/20 15:36 03/26/20 17:17 Normal Saline - IV Not Given ASDIR CHRIS Aztreonam 0.5 gm/ Dextrose 50 mls @ 100 mls/hr 03/27/20 11:35 IVPB BID [facility] Protocol Insulin Aspart 1 vial 03/26/20 08:37 03/27/20 12:27 Novolog Vial Sliding Scale - SQ 4 units ACHS CHRIS Administration Protocol Metoprolol Tartrate 12.5 mg 03/27/20 13:00 03/27/20 13:10 Lopressor - PO 12.5 mg BID CHRIS Administration Metoprolol Tartrate 2.5 mg 03/27/20 12:50 Lopressor Injection - IVPUSH Q4H PRN TACHYCARDIA Mupirocin 1 applic 03/25/20 22:00 03/27/20 09:54 Bactroban Ointment (For Decolonization) - NS 03/30/20 21:59 1 applic BID CHRIS Administration Pantoprazole Sodium 40 mg 03/26/20 10:00 03/27/20 09:54 Protonix Iv IVPUSH 40 mg DAILY CHRIS Administration Impression 1. marcia 2. sepsis 3. gram neg bacteremai 4. resp failure 5. nephrolithiasis 6. shock 7. dm 8. htn 9. hld Plan - follow urine studies, will re-order - renal function worsening however she is making urine - cont to trend felt carbonizer - cont fluids for now - start phos binders - likely atn from hypotension - monitor urine output - renal dose meds - pressors to map of 65 - repeat labs in am - discussed with ICU
[2020-03-27] MEDS: SODIUM CHLORIDE 1,000 ML IV SCH (17:12)
[2020-03-27 17:52] LABS: EPI CELLS 14 /uL (0-25.1); HYALINE CASTS 2 /uL (0-3.1); URINE APPEARANCE CLOUDY; URINE BACTERIA 50 /uL (0-1359); URINE BILIRUBIN NEGATIVE (NEGATIVE); URINE COLOR YELLOW; URINE GLUCOSE (UA) NEGATIVE (NEGATIVE); URINE KETONE NEGATIVE (NEGATIVE); URINE LEUK ESTERASE 1+ (NEGATIVE); URINE NITRITE NEGATIVE (NEGATIVE); URINE PROTEIN 2+ (NEGATIVE); URINE UROBILINOGEN 0.2 mg/dL (0.2-1.0); URINE WBC 167 /uL (0-25.8)
--- NOTE | 2020-03-27 18:13 | CON.GI ---
Consult Consult Specialty:: coverage for Dr Lozano - History of Present Illness History of Present Illness: 89 yo f w/ PMH PMH of DM, HTN, HLD, and CHF admiotted for rt pyelo and renal stones x2. during cytoscopy, pt went into RVR and became hyoptensive. Pt intubated and transferred to ICU on pressors. pt found to have e. coli bacteremia. Now extubated, normotensive. On aztreonam per ID. pt had clayton, i mproving, nephro following. Patient noted to have guaiac positive stool, denies nausea, vomiting,rectal bleeding, melena. Denies recent EGD and colonoscopy - Past Medical History Cardio/Vascular: Yes: HTN, Other (chronic diastolic CHF, moderate , CAD, PSVT, PAT) Pulmonary: No: Asthma, Bronchitis, Cancer, COPD, O2 Dependent, Pneumonia, Previously Intubated, Pulmonary Embolus, Pulmonary Fibrosis, Sleep Apnea, Other Gastrointestinal: No: Ascites, Cancer, Constipation, Crohn's Disease, Diverticulitis, Diverticulosis, Esophageal Varices, Gastritis, GERD, GI Bleed, Hemorrhoids, Hiatal Hernia, Inflamatory Bowel Disease, Irritable Bowel Disease, Pancreatitis, Peptic Ulcer Disease, Ulcerative Colitis, Other Hepatobiliary: No: Cirrhosis, Cholelithiasis, Cholecystitis, Choledocholit hiasis, Hepatitis A, Hepatitis B, Hepatitis C, Other Renal/: Yes: Renal Inusuff Musculoskeletal: Yes: Chronic low back pain, Osteoarthritis, Other (right leg benign bone mass (femur)) Endocrine: Yes: Diabetes Mellitus - Past Surgical History Past Surgical History: Yes: Appendectomy, Laminectomy ((lumbar)) - Alcohol/Substance Use Hx Alcohol Use: No History of Substance Use: reports: None - Smoking History Smoking history: Unknown if ever smoked Have you smoked in the past 12 months: No - Social History ADL: Independent History of Recent Travel: No Home Medications - Allergies Allergies/Adverse Reactions: Allergies Allergy/AdvReac Type Severity Reaction Status Date / Time Penicillins Allergy Severe Difficulty Verified 03/24/20 18:52 Breathing - Home Medications Home Medications: Ambulatory Orders Aspirin [ASA -] 81 mg PO HS 01/28/16 Bimatoprost [Lumigan] 1 drop OU HS 01/29/16 Epinastine HCl 1 drop OU AM PRN 01/29/16 Carvedilol [Coreg] 6.25 mg PO BID 08/25/18 Donepezil HCl [Aricept -] 5 mg PO HS tablet 08/30/18 Insulin Glargine,Hum.rec.anlog [Lantus] 50 unit SQ HS #1 vial 08/30/18 Insulin Sliding Scale [Novolog Vial Sliding Scale -] 1 vial SQ ACHS units 08/30/18 Sitagliptin Phosphate [Januvia -] 50 mg PO DAILY@0700 tablet 08/30/18 Atorvastatin Ca [Lipitor] 20 mg PO AM 03/24/20 Cholecalciferol (Vitamin D3) [Vitamin D3] 2,000 mg PO DAILY 03/24/20 Nateglinide [Starlix (Nf) -] 120 mg PO TID 03/24/20 Quinapril HCl [Accupril -] 40 mg PO HS 03/24/20 Ubidecarenone/Vit E Acet [Co Q-10 100 mg Softgel] 1 mg PO DAILY 03/24/20 Family Medical History Family History: Unremarkable (not contributory to this presentation) Physical Exam-GI Vital Signs: Vital Signs Temperature 98.5 F 03/27/20 14:17 Pulse Rate 95 H 03/27/20 17:22 Respiratory Rate 20 03/27/20 17:22 Blood Pressure 130/81 03/27/20 17:22 O2 Sat by Pulse Oximetry (%) 96 03/27/20 17:22 Constitutional: Yes: Well Nourished Eyes: Yes: Conjunctiva Clear HENT: Yes: Atraumatic Neck: Yes: Trachea Midline Cardiovascular: Yes: Regular Rate and Rhythm Respiratory: Yes: CTA Bilaterally ...Palpate: Yes: Soft. No: Firm/Rigid, Guarding, Hepatomegaly, Mass, Pulsatile Mass, Splenomegaly, Tenderness Labs: CBC, BMP 03/27/20 05:00 03/27/20 05:00 INR, PTT INR 1.34 (0.83-1.09) H 03/23/20 19:10 Problem List - Problems (1) Anemia Assessment/Plan: multifactorial including secondary to occult gi bleeding and hematuria R>will need gi w/u once medically stable continue PPI Code(s): D64.9 - ANEMIA, UNSPECIFIED
[2020-03-27 18:34] LABS: URINE RBC 225 /uL (0-23.9); YEAST NEGATIVE (NEGATIVE)
[2020-03-27] MEDS: AZTREONAM 0.5 GM in DEXTROSE 5%-WATER - 50 ML IVPB SCH (22:48)
[2020-03-27] MEDS: CHLORHEXIDINE GLUCONATE 4% CLEANSER FOR DECOLONIZATION TP SCH (22:48)
[2020-03-28] MEDS ORDERED: ACETYLCYSTEINE 20% 200MG/ML 30 ML VIAL *FOR ORAL / INH USE ONLY PO SCH (03:30)
[2020-03-28] MEDS ORDERED: ACETYLCYSTEINE 20% 200MG/ML 30 ML VIAL *FOR ORAL / INH USE ONLY NEB SCH (03:40)
[2020-03-28] MEDS: INSULIN SLIDING SCALE (NOVOLOG) 1 VIAL SQ SCH ×5 (06:25→23:02)
[2020-03-28 07:03] LABS: BASO % 0.2 % (0-2.0); EOS % 2.5 % (0-4.5); HEMATOCRIT 27.4 % (32.4-45.2); HEMOGLOBIN 8.8 GM/dL (10.7-15.3); LYMPH % 4.3 % (8-40); MCH 23.7 pg (25.7-33.7); MCHC 32.1 g/dl (32.0-36.0); MEAN PLT VOLUME 7.9 fl (7.5-11.1); MONO % 12.2 % (3.8-10.2); NEUT % 80.8 % (42.8-82.8); PLATELET COUNT 240 K/MM3 (134-434); RDW 19.7 % (11.6-15.6); WHITE BLOOD COUNT 11.5 K/mm3 (4.0-10.0)
[2020-03-28 07:38] LABS: ALBUMIN 1.8 g/dl (3.4-5.0); BILIRUBIN,TOTAL 0.3 mg/dL (0.2-1); BLOOD UREA NITROGEN 98.2 mg/dL (7-18); CALCIUM 7.8 mg/dL (8.5-10.1); CREATININE 4.4 mg/dL (0.55-1.3); MAGNESIUM 2.4 mg/dL (1.8-2.4); PHOSPHOROUS 6.8 mg/dL (2.5-4.9); POTASSIUM 4.6 mmol/L (3.5-5.1); TOT PROT 5.9 g/dl (6.4-8.2)
[2020-03-28] MEDS ORDERED: IPRATROPIUM BR 0.02% 0.5 MG/2.5 ML VIAL.NEB. NEB PRN (09:02)
[2020-03-28 09:19] LABS: ANISOCYTOSIS 2+; MACROCYTOSIS 0; PLATELET ESTIMATE NORMAL
[2020-03-28] MEDS: MUPIROCIN 2% TOPICAL OINTMENT FOR DECOLONIZATION NS SCH ×2 (09:31→23:01)
[2020-03-28] MEDS: PANTOPRAZOLE SODIUM 40 MG VIAL IVPUSH SCH (09:32)
[2020-03-28] MEDS: METOPROLOL TARTRATE 25 MG TABLET (FP) PO SCH ×2 (09:32→23:02)
[2020-03-28] MEDS ORDERED: PT OWN MED DRAWER 7, Y5N ONE (10:30)
[2020-03-28] MEDS: AZTREONAM 0.5 GM in DEXTROSE 5%-WATER - 50 ML IVPB SCH ×2 (10:32→23:01)
[2020-03-28] MEDS: POLYETHYLENE GLYCOL 3350 119 GM BTL PO SCH (10:32)
--- NOTE | 2020-03-28 11:09 | PN ---
Progress Note (short form) - Note Progress Note: SUBJECTIVE: Feeling well, wants to go home. No complaints. OBJECTIVE: Afebrile, Hemodynamically Stable, AAO x 3. Last Vital Signs Temp Pulse Resp BP Pulse Ox 98 F 110 H 22 H 129/90 98 03/28/20 06:38 03/28/20 09:00 03/28/20 09:00 03/28/20 09:00 03/28/20 08:44 HEENT - Atraumatic, R IJ Line removed, site dressed. Heart - S1, S2, SM Lungs - few basal crackles Abdomen - High BMI, Soft, non-tender. Bowel Sounds normal. Extremities - mild edema, no calf tenderness Neuro - AAO x 3. Generalized weakness, no focal deficits. Laboratory Results - last 24 hr 03/27/20 03/27/20 03/27/20 11:44 16:08 16:08 WBC RBC Hgb Hct MCV MCH MCHC RDW Plt Count MPV Absolute Neuts (auto) Neutrophils % Neutrophils % (Manual) Band Neutrophils % Lymphocytes % Lymphocytes % (Manual) Monocytes % Monocytes % (Manual) Eosinophils % Eosinophils % (Manual) Basophils % Basophils % (Manual) Myelocytes % (Man) Promyelocytes % (Man) Blast Cells % (Manual) Nucleated RBC % Metamyelocytes Hypochromia Platelet Estimate Polychromasia Poikilocytosis Anisocytosis Microcytosis Macrocytosis Sodium Potassium Chloride Carbon Dioxide Anion Gap BUN Creatinine Est GFR (CKD-EPI)AfAm Est GFR (CKD-EPI)NonAf POC Glucometer 155 Random Glucose Calcium Phosphorus Magnesium Total Bilirubin AST ALT Alkaline Phosphatase Total Protein Albumin Urine Color Yellow Urine Appearance Cloudy Urine pH 5.0 Ur Specific [place] 1.010 Urine Protein 2+ H Urine Glucose (UA) Negative Urine Ketones Negative Urine Blood 3+ H Urine Nitrite Negative Urine Bilirubin Negative Urine Urobilinogen 0.2 Ur Leukocyte Esterase 1+ H Urine WBC (Auto) 167 Urine RBC (Auto) 225 Urine Casts (Auto) 2 U Epithel Cells (Auto) 14 Urine Bacteria (Auto) 50 Urine Yeast (Auto) Negative Ur Random Creatinine 44.0 Ur Random Sodium 28 L Ur Random Potassium 13.0 L Ur Random Chloride 24 L 03/27/20 03/27/20 03/28/20 17:04 22:52 05:00 WBC 11.5 H RBC 3.70 Hgb 8.8 L Hct 27.4 L MCV 74.0 L MCH 23.7 L MCHC 32.1 RDW 19.7 H Plt Count 240 D MPV 7.9 Absolute Neuts (auto) 9.3 H Neutrophils % 80.8 Neutrophils % (Manual) 82.8 Band Neutrophils % 0.0 Lymphocytes % 4.3 L Lymphocytes % (Manual) 5.1 L D Monocytes % 12.2 H Monocytes % (Manual) 8 Eosinophils % 2.5 Eosinophils % (Manual) 4.0 D Basophils % 0.2 Basophils % (Manual) 0.0 Myelocytes % (Man) 0 Promyelocytes % (Man) 0 Blast Cells % (Manual) 0 Nucleated RBC % 0 Metamyelocytes 0 Hypochromia 0 Platelet Estimate Normal Polychromasia 0 Poikilocytosis 0 Anisocytosis 2+ Microcytosis 2+ Macrocytosis 0 Sodium Potassium Chloride Carbon Dioxide Anion Gap BUN Creatinine Est GFR (CKD-EPI)AfAm Est GFR (CKD-EPI)NonAf POC Glucometer 183 264 Random Glucose Calcium Phosphorus Magnesium Total Bilirubin AST ALT Alkaline Phosphatase Total Protein Albumin Urine Color Urine Appearance Urine pH Ur Specific [place] Urine Protein Urine Glucose (UA) Urine Ketones Urine Blood Urine Nitrite Urine Bilirubin Urine Urobilinogen Ur Leukocyte Esterase Urine WBC (Auto) Urine RBC (Auto) Urine Casts (Auto) U Epithel Cells (Auto) Urine Bacteria (Auto) Urine Yeast (Auto) Ur Random Creatinine Ur Random Sodium Ur Random Potassium Ur Random Chloride 03/28/20 03/28/20 05:42 06:00 WBC RBC Hgb Hct MCV MCH MCHC RDW Plt Count MPV Absolute Neuts (auto) Neutrophils % Neutrophils % (Manual) Band Neutrophils % Lymphocytes % Lymphocytes % (Manual) Monocytes % Monocytes % (Manual) Eosinophils % Eosinophils % (Manual) Basophils % Basophils % (Manual) Myelocytes % (Man) Promyelocytes % (Man) Blast Cells % (Manual) Nucleated RBC % Metamyelocytes Hypochromia Platelet Estimate Polychromasia Poikilocytosis Anisocytosis Microcytosis Macrocytosis Sodium 134 L Potassium 4.6 Chloride 106 Carbon Dioxide 16 L Anion Gap 11 BUN 98.2 H Creatinine 4.4 H Est GFR (CKD-EPI)AfAm 9.71 Est GFR (CKD-EPI)NonAf 8.38 POC Glucometer 212 Random Glucose 227 H Calcium 7.8 L Phosphorus 6.8 H Magnesium 2.4 Total Bilirubin 0.3 AST 19 ALT 16 Alkaline Phosphatase 93 Total Protein 5.9 L Albumin 1.8 L Urine Color Urine Appearance Urine pH Ur Specific [place] Urine Protein Urine Glucose (UA) Urine Ketones Urine Blood Urine Nitrite Urine Bilirubin Urine Urobilinogen Ur Leukocyte Esterase Urine WBC (Auto) Urine RBC (Auto) Urine Casts (Auto) U Epithel Cells (Auto) Urine Bacteria (Auto) Urine Yeast (Auto) Ur Random Creatinine Ur Random Sodium Ur Random Potassium Ur Random Chloride Current Medications Generic Name Dose Route Start Last Admin Trade Name Freq PRN Reason Stop Dose Admin Chlorhexidine Gluconate 1 applic 03/25/20 22:00 03/27/20 22:48 Hibiclens For Decolonization - TP 1 applic HS CHRIS Administration Aztreonam 0.5 gm/ Dextrose 50 mls @ 100 mls/hr 03/27/20 11:35 03/28/20 10:32 IVPB 100 mls/hr BID CHRIS Administration Protocol Insulin Aspart 1 vial 03/26/20 08:37 03/28/20 06:25 Novolog Vial Sliding Scale - SQ 6 units ACHS CHRIS Administration Protocol Ipratropium [place] 1 amp 03/28/20 14:00 Atrovent 0.02% Nebulizer - NEB RTID CHRIS Ipratropium [place] 1 amp 03/28/20 09:02 Atrovent 0.02% Nebulizer - NEB 04/04/20 09:02 Q4H PRN WHEEZING Metoprolol Tartrate 12.5 mg 03/27/20 13:00 03/28/20 09:32 Lopressor - PO 12.5 mg BID CHRIS Administration Metoprolol Tartrate 2.5 mg 03/27/20 12:50 Lopressor Injection - IVPUSH Q4H PRN TACHYCARDIA Mupirocin 1 applic 03/25/20 22:00 03/28/20 09:31 Bactroban Ointment (For Decolonization) - NS 03/30/20 21:59 1 applic BID CHRIS Administration Pantoprazole Sodium 40 mg 03/26/20 10:00 03/28/20 09:32 Protonix Iv IVPUSH 40 mg DAILY CHRIS Administration Polyethylene Glycol 17 gm 03/28/20 10:00 03/28/20 10:32 Miralax (For Daily Use) - PO 17 gm DAILY CHRIS Administration Home Medications Medication Instructions Recorded Aspirin [ASA -] 81 mg PO HS 01/28/16 Bimatoprost [Lumigan] 1 drop OU HS 01/29/16 Epinastine HCl 1 drop OU AM PRN 01/29/16 Carvedilol [Coreg] 6.25 mg PO BID 08/25/18 Donepezil HCl [Aricept -] 5 mg PO HS tablet 08/30/18 Insulin Glargine,Hum.rec.anlog 50 unit SQ HS #1 vial 08/30/18 [Lantus] Insulin Sliding Scale [Novolog 1 vial SQ ACHS units 08/30/18 Vial Sliding Scale -] Sitagliptin Phosphate [Januvia -] 50 mg PO DAILY@0700 tablet 08/30/18 Atorvastatin Ca [Lipitor] 20 mg PO AM 03/24/20 Cholecalciferol (Vitamin D3) 2,000 mg PO DAILY 03/24/20 [Vitamin D3] Nateglinide [Starlix (Nf) -] 120 mg PO TID 03/24/20 Quinapril HCl [Accupril -] 40 mg PO HS 03/24/20 Ubidecarenone/Vit E Acet [Co Q-10 1 mg PO DAILY 03/24/20 100 mg Softgel] ASSESSMENT/PLAN: 89 year old female with history of DM 2, Chronic Diastolic CHF, CAD (mild apical ischemia on MPI 2015), Hx PSVT/PA/NSVT, HTN, HLD, Aortic Stenosis, initially admitted with AMS and hyperglycemia, found to have Acute Pyelonephritis with Bacteremia and RDU stones (3 and 6mm). She was evaluated by Urology and taken to OR for cystoscopy and stent placement, during which she developed new onset [place] fibrillation, respiratory distress, hypotension, requiring intubation and pressors. She has since been extubated and required re-intubation, now successfully extubated and off pressors. 1. Acute Hypoxic Respiratory Failure and Septic Shock secondary to Acute Pyelonephritis with Ecoli Bacteremia sec to Nephrolithiasis Shock and resp failure resolved - extubated, off pressors. POD 3 s/p Ureteral Stent Continue Aztreonam 2. New Onset Atrial Fibrillation, Hx PSVT/PAT and NSVT Likely trigger - GA, Urological procedure, Septic Shock - still with episodes of RVR AC held currently due to FOBT positive stool. Previously on Coreg, now on Metoprolol. For Metoprolol dose up-titration by Cardio. 3. FOBT + Evaluated by GI - for further work-up once medically stable. Continue PPI. 4. MARCIA - ATN sec to Shock +/- Obstructive Uropathy Not currently on IV fluids. Nephrology following. 5. Chronic Diastolic CHF with mod-Severe Grade II diastolic dysfunction No evidence of acute decompensation. Further management as per Cardio. 6. DM 2 - Maintain on Novolog sliding scale. Glargine, Januvia, Starlix held. 7. CAD s/p abnormal MIBI 2015 showing mild apical ischemia - for medical management as per Cardio. Previously on Aspirin/BB/Statin. Can resume statin on DC. Decision regarding ASA vs AC for Cardio and GI to recommend. 8. Normocytic Anemia - mild trend down-verdugo in H/H.FOBT positive - for further eval by GI. Iron/Ferritin B12, Folate levels requested. 9. HTN - CHRIS-I held due to shock and MARCIA 10 . History of Dementia - unclear whether on Aricept, will need med rec. DVT Px - SCDs. Visit type - Emergency Visit Emergency Visit: Yes ED Registration Date: 03/23/20 Care time: The patient presented to the Emergency Department on the above date and was hospitalized for further evaluation of their emergent condition. - New Patient This patient is new to me today: Yes Date on this admission: 03/29/20 - Critical Care Critical Care patient: Yes Total Critical Care Time (in minutes): 35 Critical Care Statement: The care of this patient involved high complexity decision making to prevent further life threatening deterioration of the patient's condition and/or to evaluate & treat vital organ system(s) failure or risk of failure. - Discharge Referral Referred to [facility] No - Medication Review Med list reviewed for High Risk Meds patients 65 and older: Yes
--- NOTE | 2020-03-28 11:27 | PN ---
Progress Note, Physician Chief Complaint: altered MS History of Present Illness: denies sob today no cp, palp, swelling no cigs - Current Medication List Current Medications: Active Medications Chlorhexidine Gluconate (Hibiclens For Decolonization -) 1 applic TP HS [facility] Last Admin: 03/27/20 22:48 Dose: 1 applic Documented by: Aztreonam 0.5 gm/ Dextrose 50 mls @ 100 mls/hr IVPB BID [facility]; Protocol Last Admin: 03/28/20 10:32 Dose: 100 mls/hr Documented by: Insulin Aspart (Novolog Vial Sliding Scale -) 1 vial SQ ACHS [facility]; Protocol Last Admin: 03/28/20 06:25 Dose: 6 units Documented by: Ipratropium [place] (Atrovent 0.02% Nebulizer -) 1 amp NEB RTID CHRIS Ipratropium [place] (Atrovent 0.02% Nebulizer -) 1 amp NEB Q4H PRN PRN Reason: WHEEZING Stop: 04/04/20 09:02 Metoprolol Tartrate (Lopressor -) 12.5 mg PO BID [facility] Last Admin: 03/28/20 09:32 Dose: 12.5 mg Documented by: Metoprolol Tartrate (Lopressor Injection -) 2.5 mg IVPUSH Q4H PRN PRN Reason: TACHYCARDIA Mupirocin (Bactroban Ointment (For Decolonization) -) 1 applic NS BID [facility] Stop: 03/30/20 21:59 Last Admin: 03/28/20 09:31 Dose: 1 applic Documented by: Pantoprazole Sodium (Protonix Iv) 40 mg IVPUSH DAILY [facility] Last Admin: 03/28/20 09:32 Dose: 40 mg Documented by: Polyethylene Glycol (Miralax (For Daily Use) -) 17 gm PO DAILY [facility] Last Admin: 03/28/20 10:32 Dose: 17 gm Documented by: - Objective Vital Signs: Vital Signs Temperature 98 F 03/28/20 06:38 Pulse Rate 110 H 03/28/20 09:00 Respiratory Rate 22 H 03/28/20 09:00 Blood Pressure 129/90 03/28/20 09:00 O2 Sat by Pulse Oximetry (%) 98 03/28/20 08:44 Constitutional: Yes: No Distress, Calm, Obese Eyes: No: Sclera Icterus HENT: No: Nasal Congestion Cardiovascular: Yes: Pulse Irregular, S1, S2, Other (PMI non diplaced). No: JVD, Gallop, Murmur Respiratory: Yes: CTA Bilaterally, Wheezes. No: Accessory Muscle Use, Rales Gastrointestinal: Yes: Normal Bowel Sounds, Soft. No: Tenderness Musculoskeletal: Yes: Other (No kyphosis) Extremities: No: Cyanosis Edema: No Integumentary: No: Jaundice Neurological: Yes: Alert. No: Seizure Psychiatric: No: Agitated Labs: CBC, BMP 03/28/20 05:00 03/28/20 06:00 INR, PTT INR 1.34 (0.83-1.09) H 03/23/20 19:10 Assessment/Plan Echo 04/04: nl LV/RV. moderate vs severe (misaligned doppler gradients). RVSP 30-40 tele: AF hr 90s-100s AF: new onset, likely triggered by sepsis, shock -Rates rapid, off pressors with soft BPs not likely to tolerate much BB or CCB. -started lopressor 12.5 bid, HR improved on this, no hypotension--continue same -[id number] score is at least 3 (age, DM, Female) and anticoagulation is indicated. However, H/H have drifted down since admission, with + stool guaiac--AC held -Can convert to Eliquis or Xarelto prior to discharge if bleeding resolves Hypotension due to gram negative sepsis with shock: -Abx as per Critical Care and ID -off levophed, soft bp's but stable, mentating well CAD: -Mildly abnl persantine MIBI here in 2016 showing mild apical ischemia managed medically -Resume beta weston as outlined above when BP stable -If she begins full AC for AF, then can discontinue ASA as it will increase bleed risk in this age group with little added benefit -Statin when tolerates PO -Rate control as outlined above Chronic diastolic CHF: -appears euvolemic clinically, though cxr mild congestive changes and audible wheezing -bun/creat persist very elevated--will d/w renal re: lasix dose today (ok to hold, as long as no resp complaints or hypoxia) -Rate control for AF mgmt , moderate vs severe -echo here indeterminate regarding severity of stenosis. no audible murmur but soft heart sounds -in absence of attributable sx's (ischemia, refractory chf), plan outpt f/u and repeat echo ARF: likely due to ATN in setting of mild obstructive uropathy -Treat underling infection, IV fluids -Daily BMP to follow renal function -Follow urine output -Avoid hypotension -Renal consulted Anemia: Baseline seems to be 10-11 -Drifting down this admission, + guaiac DM: -per critical care, primary team Hx PSVT/PAT/NSVT with Normal LVEF: -Now in AF -try to start beta blockade when stable off pressors -Echo to assess EF -Keep K+/Mg2+ normalized -Continue tele
[2020-03-28] MEDS ORDERED: DONEPEZIL HCL 5 MG TABLET (FP) PO SCH (12:30)
--- NOTE | 2020-03-28 12:40 | PN ---
Progress Note (short form) - Note Progress Note: Patient seen and examined in the ICU. Remains extubated. NAD on NC O2. Rate controlled AFib. Slow downtrend of H&H. Intake & Output 03/25/20 03/26/20 03/27/20 03/28/20 23:59 23:59 23:59 23:59 Intake Total 1949 1870 1280 970 Output Total 320 098 974 7429 Balance 1629 1370 780 -130 Weight 157 lb 11.2 oz 159 lb 160 lb 6.4 oz 160 lb Last Vital Signs Temp Pulse Resp BP Pulse Ox 98 F 110 H 22 H 129/90 98 03/28/20 06:38 03/28/20 09:00 03/28/20 09:00 03/28/20 09:00 03/28/20 08:44 Active Medications Chlorhexidine Gluconate (Hibiclens For Decolonization -) 1 applic TP HS [facility] Last Admin: 03/27/20 22:48 Dose: 1 applic Documented by: Donepezil HCl (Aricept -) 5 mg PO ONCE CHRIS Donepezil HCl (Aricept -) 5 mg PO HS CHRIS Aztreonam 0.5 gm/ Dextrose 50 mls @ 100 mls/hr IVPB BID [facility]RIS; Protocol Last Admin: 03/28/20 10:32 Dose: 100 mls/hr Documented by: Insulin Aspart (Novolog Vial Sliding Scale -) 1 vial SQ ACHS CHRIS; Protocol Last Admin: 03/28/20 12:11 Dose: 6 units Documented by: Ipratropium [place] (Atrovent 0.02% Nebulizer -) 1 amp NEB RTID CHRIS Ipratropium [place] (Atrovent 0.02% Nebulizer -) 1 amp NEB Q4H PRN PRN Reason: WHEEZING Stop: 04/04/20 09:02 Metoprolol Tartrate (Lopressor -) 12.5 mg PO BID CHRIS Last Admin: 03/28/20 09:32 Dose: 12.5 mg Documented by: Metoprolol Tartrate (Lopressor Injection -) 2.5 mg IVPUSH Q4H PRN PRN Reason: TACHYCARDIA Mupirocin (Bactroban Ointment (For Decolonization) -) 1 applic NS BID CHRIS Stop: 03/30/20 21:59 Last Admin: 03/28/20 09:31 Dose: 1 applic Documented by: Pantoprazole Sodium (Protonix Iv) 40 mg IVPUSH DAILY [facility] Last Admin: 03/28/20 09:32 Dose: 40 mg Documented by: Polyethylene Glycol (Miralax (For Daily Use) -) 17 gm PO DAILY [facility] Last Admin: 03/28/20 10:32 Dose: 17 gm Documented by: GENERAL: Extubated, NAD HEAD: Normal with no signs of trauma. EYES: (-) Pallor EARS, NOSE, THROAT: Ears normal, nares patent, oropharynx clear without exudates. Dry mucous membranes. NECK: Normal range of motion, supple without lymphadenopathy, JVD, or masses. LUNGS: Bilateral expiratory wheeze, diminished at the bases HEART: Afib ABDOMEN: Soft, nontender, not distended, normoactive bowel sounds, no guarding, no rebound, no masses. MUSCULOSKELETAL: No bony deformities or tenderness. UPPER EXTREMITIES: 2+ pulses, warm, well-perfused. No cyanosis. No clubbing. No peripheral edema. LOWER EXTREMITIES: 2+ pulses, warm, well-perfused. No calf tenderness. Mild pitting edema. NEUROLOGICAL: Non-focal SKIN: Warm, dry, normal turgor, no rashes or lesions noted, normal capillary refill. Laboratory Results - last 24 hr 03/27/20 03/27/20 03/27/20 16:08 16:08 17:04 WBC RBC Hgb Hct MCV MCH MCHC RDW Plt Count MPV Absolute Neuts (auto) Neutrophils % Neutrophils % (Manual) Band Neutrophils % Lymphocytes % Lymphocytes % (Manual) Monocytes % Monocytes % (Manual) Eosinophils % Eosinophils % (Manual) Basophils % Basophils % (Manual) Myelocytes % (Man) Promyelocytes % (Man) Blast Cells % (Manual) Nucleated RBC % Metamyelocytes Hypochromia Platelet Estimate Polychromasia Poikilocytosis Anisocytosis Microcytosis Macrocytosis Sodium Potassium Chloride Carbon Dioxide Anion Gap BUN Creatinine Est GFR (CKD-EPI)AfAm Est GFR (CKD-EPI)NonAf POC Glucometer 183 Random Glucose Calcium Phosphorus Magnesium Total Bilirubin AST ALT Alkaline Phosphatase Total Protein Albumin Urine Color Yellow Urine Appearance Cloudy Urine pH 5.0 Ur Specific [place] 1.010 Urine Protein 2+ H Urine Glucose (UA) Negative Urine Ketones Negative Urine Blood 3+ H Urine Nitrite Negative Urine Bilirubin Negative Urine Urobilinogen 0.2 Ur Leukocyte Esterase 1+ H Urine WBC (Auto) 167 Urine RBC (Auto) 225 Urine Casts (Auto) 2 U Epithel Cells (Auto) 14 Urine Bacteria (Auto) 50 Urine Yeast (Auto) Negative Ur Random Creatinine 44.0 Ur Random Sodium 28 L Ur Random Potassium 13.0 L Ur Random Chloride 24 L 03/27/20 03/28/20 03/28/20 22:52 05:00 05:42 WBC 11.5 H RBC 3.70 Hgb 8.8 L Hct 27.4 L MCV 74.0 L MCH 23.7 L MCHC 32.1 RDW 19.7 H Plt Count 240 D MPV 7.9 Absolute Neuts (auto) 9.3 H Neutrophils % 80.8 Neutrophils % (Manual) 82.8 Band Neutrophils % 0.0 Lymphocytes % 4.3 L Lymphocytes % (Manual) 5.1 L D Monocytes % 12.2 H Monocytes % (Manual) 8 Eosinophils % 2.5 Eosinophils % (Manual) 4.0 D Basophils % 0.2 Basophils % (Manual) 0.0 Myelocytes % (Man) 0 Promyelocytes % (Man) 0 Blast Cells % (Manual) 0 Nucleated RBC % 0 Metamyelocytes 0 Hypochromia 0 Platelet Estimate Normal Polychromasia 0 Poikilocytosis 0 Anisocytosis 2+ Microcytosis 2+ Macrocytosis 0 Sodium Potassium Chloride Carbon Dioxide Anion Gap BUN Creatinine Est GFR (CKD-EPI)AfAm Est GFR (CKD-EPI)NonAf POC Glucometer 264 212 Random Glucose Calcium Phosphorus Magnesium Total Bilirubin AST ALT Alkaline Phosphatase Total Protein Albumin Urine Color Urine Appearance Urine pH Ur Specific [place] Urine Protein Urine Glucose (UA) Urine Ketones Urine Blood Urine Nitrite Urine Bilirubin Urine Urobilinogen Ur Leukocyte Esterase Urine WBC (Auto) Urine RBC (Auto) Urine Casts (Auto) U Epithel Cells (Auto) Urine Bacteria (Auto) Urine Yeast (Auto) Ur Random Creatinine Ur Random Sodium Ur Random Potassium Ur Random Chloride 03/28/20 03/28/20 06:00 12:08 WBC RBC Hgb Hct MCV MCH MCHC RDW Plt Count MPV Absolute Neuts (auto) Neutrophils % Neutrophils % (Manual) Band Neutrophils % Lymphocytes % Lymphocytes % (Manual) Monocytes % Monocytes % (Manual) Eosinophils % Eosinophils % (Manual) Basophils % Basophils % (Manual) Myelocytes % (Man) Promyelocytes % (Man) Blast Cells % (Manual) Nucleated RBC % Metamyelocytes Hypochromia Platelet Estimate Polychromasia Poikilocytosis Anisocytosis Microcytosis Macrocytosis Sodium 134 L Potassium 4.6 Chloride 106 Carbon Dioxide 16 L Anion Gap 11 BUN 98.2 H Creatinine 4.4 H Est GFR (CKD-EPI)AfAm 9.71 Est GFR (CKD-EPI)NonAf 8.38 POC Glucometer 224 Random Glucose 227 H Calcium 7.8 L Phosphorus 6.8 H Magnesium 2.4 Total Bilirubin 0.3 AST 19 ALT 16 Alkaline Phosphatase 93 Total Protein 5.9 L Albumin 1.8 L Urine Color Urine Appearance Urine pH Ur Specific [place] Urine Protein Urine Glucose (UA) Urine Ketones Urine Blood Urine Nitrite Urine Bilirubin Urine Urobilinogen Ur Leukocyte Esterase Urine WBC (Auto) Urine RBC (Auto) Urine Casts (Auto) U Epithel Cells (Auto) Urine Bacteria (Auto) Urine Yeast (Auto) Ur Random Creatinine Ur Random Sodium Ur Random Potassium Ur Random Chloride ASSESSMENT/PLAN: Acute Respiratory Failure Gm (-) Sepsis due to a source New onset AFib S/P Cystocopy with stent placement DM HTN HLD MARCIA CHF by history Supplemental O2 as needed BD TX Monitor off systemic steroids for now due to bleeding risk Strict I & O ABX per ID Need to discuss Risks and benefits of AC with family as patient does not seem capable to make a sound decision Glycemic control VTE prophylaxis Cardiac Telemetry monitoring Dr Hurt
[2020-03-28] MEDS: IPRATROPIUM BR 0.02% 0.5 MG/2.5 ML VIAL.NEB. NEB SCH ×2 (14:20→20:14)
--- NOTE | 2020-03-28 14:45 | PN ---
Progress Note, Physician History of Present Illness: Pt seen and examined at bedside. She is awake and alert. She denies shortness of breath. - Current Medication List Current Medications: Active Medications Chlorhexidine Gluconate (Hibiclens For Decolonization -) 1 applic TP HS [facility] Last Admin: 03/27/20 22:48 Dose: 1 applic Documented by: Donepezil HCl (Aricept -) 5 mg PO ONCE [facility] Last Admin: 03/28/20 13:35 Dose: 5 mg Documented by: Donepezil HCl (Aricept -) 5 mg PO [facility] Aztreonam 0.5 gm/ Dextrose 50 mls @ 100 mls/hr IVPB BID [facility]; Protocol Last Admin: 03/28/20 10:32 Dose: 100 mls/hr Documented by: Insulin Aspart (Novolog Vial Sliding Scale -) 1 vial SQ ACHS [facility]; Protocol Last Admin: 03/28/20 12:11 Dose: 6 units Documented by: Ipratropium [place] (Atrovent 0.02% Nebulizer -) 1 amp NEB RTID [facility] Last Admin: 03/28/20 14:20 Dose: 1 amp Documented by: Ipratropium [place] (Atrovent 0.02% Nebulizer -) 1 amp NEB Q4H PRN PRN Reason: WHEEZING Stop: 04/04/20 09:02 Metoprolol Tartrate (Lopressor -) 12.5 mg PO BID [facility] Last Admin: 03/28/20 09:32 Dose: 12.5 mg Documented by: Metoprolol Tartrate (Lopressor Injection -) 2.5 mg IVPUSH Q4H PRN PRN Reason: TACHYCARDIA Mupirocin (Bactroban Ointment (For Decolonization) -) 1 applic NS BID [facility] Stop: 03/30/20 21:59 Last Admin: 03/28/20 09:31 Dose: 1 applic Documented by: Pantoprazole Sodium (Protonix Iv) 40 mg IVPUSH DAILY [facility] Last Admin: 03/28/20 09:32 Dose: 40 mg Documented by: Polyethylene Glycol (Miralax (For Daily Use) -) 17 gm PO DAILY [facility] Last Admin: 03/28/20 10:32 Dose: 17 gm Documented by: - Objective Vital Signs: Vital Signs Temperature 97.8 F 03/28/20 13:00 Pulse Rate 105 H 03/28/20 13:00 Respiratory Rate 22 H 03/28/20 13:00 Blood Pressure 112/84 03/28/20 13:00 O2 Sat by Pulse Oximetry (%) 97 03/28/20 11:00 Constitutional: Yes: Calm Eyes: Yes: Conjunctiva Clear HENT: Yes: Atraumatic Neck: Yes: Supple Cardiovascular: Yes: S1, S2 Respiratory: Yes: On Nasal O2, Wheezes Gastrointestinal: Yes: Soft Genitourinary: Yes: August Present Edema: No Neurological: Yes: Oriented Psychiatric: Yes: Oriented Labs: CBC, BMP 03/28/20 05:00 03/28/20 06:00 INR, PTT INR 1.34 (0.83-1.09) H 03/23/20 19:10 Problem List - Problems (1) MARCIA (acute kidney injury) Code(s): N17.9 - ACUTE KIDNEY FAILURE, UNSPECIFIED (2) Gram-negative bacteremia Code(s): R78.81 - BACTEREMIA Assessment/Plan Current Medications Generic Name Dose Route Start Last Admin Trade Name Freq PRN Reason Stop Dose Admin Chlorhexidine Gluconate 1 applic 03/25/20 22:00 03/27/20 22:48 Hibiclens For Decolonization - TP 1 applic HS [facility] Administration Donepezil HCl 5 mg 03/28/20 12:30 03/28/20 13:35 Aricept - PO 5 mg ONCE [facility] Administration Donepezil HCl 5 mg 03/29/20 22:00 Aricept - PO HS [facility] Aztreonam 0.5 gm/ Dextrose 50 mls @ 100 mls/hr 03/27/20 11:35 03/28/20 10:32 IVPB 100 mls/hr BID [facility] Administration Protocol Insulin Aspart 1 vial 03/26/20 08:37 03/28/20 12:11 Novolog Vial Sliding Scale - SQ 6 units ACHS [facility] Administration Protocol Ipratropium [place] 1 amp 03/28/20 14:00 03/28/20 14:20 Atrovent 0.02% Nebulizer - NEB 1 amp RTID [facility] Administration Ipratropium [place] 1 amp 03/28/20 09:02 Atrovent 0.02% Nebulizer - NEB 04/04/20 09:02 Q4H PRN WHEEZING Metoprolol Tartrate 12.5 mg 03/27/20 13:00 03/28/20 09:32 Lopressor - PO 12.5 mg BID [facility] Administration Metoprolol Tartrate 2.5 mg 03/27/20 12:50 Lopressor Injection - IVPUSH Q4H PRN TACHYCARDIA Mupirocin 1 applic 03/25/20 22:00 03/28/20 09:31 Bactroban Ointment (For Decolonization) - NS 03/30/20 21:59 1 applic BID [facility] Administration Pantoprazole Sodium 40 mg 03/26/20 10:00 03/28/20 09:32 Protonix Iv IVPUSH 40 mg DAILY [facility] Administration Polyethylene Glycol 17 gm 03/28/20 10:00 03/28/20 10:32 Miralax (For Daily Use) - PO 17 gm DAILY [facility] Administration Impression 1. marcia 2. sepsis 3. gram neg bacteremai 4. resp failure 5. nephrolithiasis 6. shock 7. dm 8. htn 9. hld Plan - cont to monitor renal function - repeat labs in am - monitor off of fluids - hold off lasix for now - repeat phos level in am - likely atn from hypotension - monitor urine output - renal dose meds - pressors to map of 65 - discussed with ICU
[2020-03-28] MEDS: CHLORHEXIDINE GLUCONATE 4% CLEANSER FOR DECOLONIZATION TP SCH (23:01)
[2020-03-29] MEDS: INSULIN SLIDING SCALE (NOVOLOG) 1 VIAL SQ SCH ×5 (06:22→22:17)
[2020-03-29] MEDS: IPRATROPIUM BR 0.02% 0.5 MG/2.5 ML VIAL.NEB. NEB SCH ×3 (07:35→20:30)
[2020-03-29] MEDS ORDERED: PT OWN MED DRAWER 7, Y5N ONE (09:35)
[2020-03-29] MEDS: METOPROLOL TARTRATE 25 MG TABLET (FP) PO SCH ×2 (09:50→22:09)
[2020-03-29] MEDS: MUPIROCIN 2% TOPICAL OINTMENT FOR DECOLONIZATION NS SCH ×2 (09:50→22:10)
[2020-03-29] MEDS: PANTOPRAZOLE SODIUM 40 MG VIAL IVPUSH SCH (09:51)
[2020-03-29] MEDS: POLYETHYLENE GLYCOL 3350 119 GM BTL PO SCH (09:51)
--- NOTE | 2020-03-29 10:53 | PN ---
Progress Note (short form) - Note Progress Note: extubated alert pod #4 s/p ureteral stent Vital Signs Period Temp Pulse Resp BP Sys/Jackson Pulse Ox Last 24 Hr 97.8 F-98.8 F 92-117 18-22 104-171/65-109 95-99 cor-rrr lungs decreased bs at bases abd soft,nt ext no edema +andrews CBC, BMP 03/28/20 05:00 03/28/20 06:00 Microbiology 03/27/20 05:46 Blood - Peripheral Venous Blood Culture - Preliminary NO GROWTH OBTAINED AFTER 48 HOURS, INCUBATION TO CONTINUE FOR 3 DAYS. 03/27/20 05:58 Blood - Peripheral Venous Blood Culture - Preliminary NO GROWTH OBTAINED AFTER 48 HOURS, INCUBATION TO CONTINUE FOR 3 DAYS. 03/23/20 20:20 Urine - Urine - Catheterized Urine Culture - Final Escherichia Coli 03/23/20 19:10 Blood - Peripheral Venous Blood Culture - Final Escherichia Coli 03/23/20 19:10 Blood - Peripheral Venous Blood Culture - Final Escherichia Coli Active Medications Chlorhexidine Gluconate (Hibiclens For Decolonization -) 1 applic TP HS [facility] Last Admin: 03/28/20 23:01 Dose: 1 applic Documented by: Donepezil HCl (Aricept -) 5 mg PO HS [facility] Aztreonam 0.5 gm/ Dextrose 50 mls @ 100 mls/hr IVPB BID [facility]; Protocol Last Admin: 03/28/20 23:01 Dose: 100 mls/hr Documented by: Insulin Aspart (Novolog Vial Sliding Scale -) 1 vial SQ ACHS [facility]; Protocol Last Admin: 03/29/20 06:22 Dose: 4 units Documented by: Ipratropium [place] (Atrovent 0.02% Nebulizer -) 1 amp NEB RTID [facility] Last Admin: 03/29/20 07:35 Dose: 1 amp Documented by: Ipratropium [place] (Atrovent 0.02% Nebulizer -) 1 amp NEB Q4H PRN PRN Reason: WHEEZING Stop: 04/04/20 09:02 Metoprolol Tartrate (Lopressor Injection -) 2.5 mg IVPUSH Q4H PRN PRN Reason: TACHYCARDIA Metoprolol Tartrate (Lopressor -) 25 mg PO BID [facility] Mupirocin (Bactroban Ointment (For Decolonization) -) 1 applic NS BID [facility] Stop: 03/30/20 21:59 Last Admin: 03/29/20 09:50 Dose: 1 applic Documented by: Pantoprazole Sodium (Protonix Iv) 40 mg IVPUSH DAILY [facility] Last Admin: 03/29/20 09:51 Dose: 40 mg Documented by: Polyethylene Glycol (Miralax (For Daily Use) -) 17 gm PO DAILY [facility] Last Admin: 03/29/20 09:51 Dose: 17 gm Documented by: imp/reccd ecoli bacteremia s/p ureteral stent afib MARCIA UTI penicillin allergy clinically improving continue azactam Problem List - Problems (1) Gram-negative bacteremia Code(s): R78.81 - BACTEREMIA (2) Obstructive uropathy Code(s): N13.9 - OBSTRUCTIVE AND REFLUX UROPATHY, UNSPECIFIED (3) MARCIA (acute kidney injury) Code(s): N17.9 - ACUTE KIDNEY FAILURE, UNSPECIFIED (4) Penicillin allergy Code(s): Z88.0 - ALLERGY STATUS TO PENICILLIN
[2020-03-29] MEDS: AZTREONAM 0.5 GM in DEXTROSE 5%-WATER - 50 ML IVPB SCH ×2 (10:55→22:10)
--- NOTE | 2020-03-29 11:14 | PN ---
Progress Note (short form) - Note Progress Note: Chief Complaint: altered MS History of Present Illness: denies sob today no cp, palp, swelling no cigs - Current Medications Generic Name Dose Route Start Last Admin Trade Name Lorenza PRN Reason Stop Dose Admin Chlorhexidine Gluconate 1 applic 03/25/20 22:00 03/28/20 23:01 Hibiclens For Decolonization - TP 1 applic HS [facility] Administration Donepezil HCl 5 mg 03/29/20 22:00 Aricept - PO HS [facility] Aztreonam 0.5 gm/ Dextrose 50 mls @ 100 mls/hr 03/27/20 11:35 03/29/20 10:55 IVPB 100 mls/hr BID [facility] Administration Protocol Insulin Aspart 1 vial 03/26/20 08:37 03/29/20 06:22 Novolog Vial Sliding Scale - SQ 4 units ACHS [facility] Administration Protocol Ipratropium [place] 1 amp 03/28/20 14:00 03/29/20 07:35 Atrovent 0.02% Nebulizer - NEB 1 amp RTID [facility] Administration Ipratropium [place] 1 amp 03/28/20 09:02 Atrovent 0.02% Nebulizer - NEB 04/04/20 09:02 Q4H PRN WHEEZING Metoprolol Tartrate 2.5 mg 03/27/20 12:50 Lopressor Injection - IVPUSH Q4H PRN TACHYCARDIA Metoprolol Tartrate 25 mg 03/29/20 22:00 Lopressor - PO BID [facility] Mupirocin 1 applic 03/25/20 22:00 03/29/20 09:50 Bactroban Ointment (For Decolonization) - NS 03/30/20 21:59 1 applic BID [facility] Administration Pantoprazole Sodium 40 mg 03/26/20 10:00 03/29/20 09:51 Protonix Iv IVPUSH 40 mg DAILY [facility] Administration Polyethylene Glycol 17 gm 03/28/20 10:00 03/29/20 09:51 Miralax (For Daily Use) - PO 17 gm DAILY [facility] Administration Vital Signs Period Temp Pulse Resp BP Sys/Jackson Pulse Ox Last 24 Hr 97.8 F-98.8 F 92-117 18-22 104-171/65-109 95-99 Constitutional: Yes: No Distress, Calm, Obese Eyes: No: Sclera Icterus HENT: No: Nasal Congestion Cardiovascular: Yes: Pulse Irregular, S1, S2, Other (PMI non diplaced). No: JVD, Gallop, Murmur Respiratory: Yes: CTA Bilaterally, Wheezes. No: Accessory Muscle Use, Rales Gastrointestinal: Yes: Normal Bowel Sounds, Soft. No: Tenderness Musculoskeletal: Yes: Other (No kyphosis) Extremities: No: Cyanosis Edema: No Integumentary: No: Jaundice Neurological: Yes: Alert. No: Seizure Psychiatric: No: Agitated Labs: CBC, BMP 03/28/20 05:00 03/28/20 06:00 Assessment/Plan Echo 04/04: nl LV/RV. moderate vs severe (misaligned doppler gradients). RVSP 30-40 tele: AF hr 100s-110s AF: new onset, likely triggered by sepsis, shock -still with mild rvr at times, bp stable, will increase lopressor to 25 bid, monitor tele -[id number] score is at least 3 (age, DM, Female) and anticoagulation is indicated. However, H/H have drifted down since admission, with + stool guaiac--AC held -Can convert to Eliquis or Xarelto prior to discharge if bleeding resolves Hypotension due to gram negative sepsis with shock: -Abx as per Critical Care and ID -off levophed, bp stable CAD: -Mildly abnl persantine MIBI here in 2016 showing mild apical ischemia managed medically -Resume beta weston as outlined above when BP stable -If she begins full AC for AF, then can discontinue ASA as it will increase bleed risk in this age group with little added benefit -Statin when tolerates PO -Rate control as outlined above Chronic diastolic CHF: -appears euvolemic clinically, though cxr mild congestive changes and audible wheezing -bun/creat persist very elevated--will d/w renal re: lasix dose today (ok to hold, as long as no resp complaints or hypoxia) -Rate control for AF mgmt , moderate vs severe -echo here indeterminate regarding severity of stenosis. no audible murmur but soft heart sounds -in absence of attributable sx's (ischemia, refractory chf), plan outpt f/u and repeat echo ARF: likely due to ATN in setting of mild obstructive uropathy -Treat underling infection, IV fluids -Daily BMP to follow renal function -Follow urine output -Avoid hypotension -Renal consulted Anemia: Baseline seems to be 10-11 -Drifting down this admission, + guaiac DM: -per critical care, primary team Hx PSVT/PAT/NSVT with Normal LVEF: -Now in AF -cont bb -Keep K+/Mg2+ normalized -Continue tele
--- NOTE | 2020-03-29 12:02 | PN ---
Teaching Attending Note Name of Resident: Patty Nassar ATTENDING PHYSICIAN STATEMENT I saw and evaluated the patient. I reviewed the resident's note and discussed the case with the resident. I agree with the resident's findings and plan as documented. SUBJECTIVE: Feeling well, no complaints. no shortness of breath/cough/fever. OBJECTIVE: Afebrile, Hemodynamically Stable, AAO x 2. Last Vital Signs Temp Pulse Resp BP Pulse Ox 98.8 F 106 H 20 139/72 100 03/29/20 05:28 03/29/20 10:00 03/29/20 10:00 03/29/20 10:00 03/29/20 10:00 HEENT - Atraumatic, R IJ Line removed, site dressed. Heart - S1, S2, SM Lungs - basal crackles Abdomen - High BMI, Soft, non-tender. Bowel Sounds normal. Extremities - mild edema, no calf tenderness Neuro - AAO x 2. Generalized weakness, no focal deficits. Laboratory Results - last 24 hr 03/28/20 03/28/20 03/28/20 12:08 17:54 21:49 POC Glucometer 224 274 326 03/29/20 03/29/20 06:20 11:23 POC Glucometer 174 187 Current Medications Generic Name Dose Route Start Last Admin Trade Name Freq PRN Reason Stop Dose Admin Chlorhexidine Gluconate 1 applic 03/25/20 22:00 03/28/20 23:01 Hibiclens For Decolonization - TP 1 applic HS [facility] Administration Donepezil HCl 5 mg 03/29/20 22:00 Aricept - PO HS [facility] Aztreonam 0.5 gm/ Dextrose 50 mls @ 100 mls/hr 03/27/20 11:35 03/29/20 10:55 IVPB 100 mls/hr BID [facility] Administration Protocol Insulin Aspart 1 vial 03/26/20 08:37 03/29/20 11:30 Novolog Vial Sliding Scale - SQ 4 units ACHS [facility] Administration Protocol Ipratropium [place] 1 amp 03/28/20 14:00 03/29/20 07:35 Atrovent 0.02% Nebulizer - NEB 1 amp RTID [facility] Administration Ipratropium [place] 1 amp 03/28/20 09:02 Atrovent 0.02% Nebulizer - NEB 04/04/20 09:02 Q4H PRN WHEEZING Metoprolol Tartrate 2.5 mg 03/27/20 12:50 Lopressor Injection - IVPUSH Q4H PRN TACHYCARDIA Metoprolol Tartrate 25 mg 03/29/20 22:00 Lopressor - PO BID [facility] Mupirocin 1 applic 03/25/20 22:00 03/29/20 09:50 Bactroban Ointment (For Decolonization) - NS 03/30/20 21:59 1 applic BID [facility] Administration Pantoprazole Sodium 40 mg 03/26/20 10:00 03/29/20 09:51 Protonix Iv IVPUSH 40 mg DAILY [facility] Administration Polyethylene Glycol 17 gm 03/28/20 10:00 03/29/20 09:51 Miralax (For Daily Use) - PO 17 gm DAILY [facility] Administration Home Medications Medication Instructions Recorded Aspirin [ASA -] 81 mg PO HS 01/28/16 Bimatoprost [Lumigan] 1 drop OU HS 01/29/16 Epinastine HCl 1 drop OU AM PRN 01/29/16 Carvedilol [Coreg] 6.25 mg PO BID 08/25/18 Donepezil HCl [Aricept -] 5 mg PO HS tablet 08/30/18 Insulin Glargine,Hum.rec.anlog 50 unit SQ HS #1 vial 08/30/18 [Lantus] Insulin Sliding Scale [Novolog 1 vial SQ ACHS units 08/30/18 Vial Sliding Scale -] Sitagliptin Phosphate [Januvia -] 50 mg PO DAILY@0700 tablet 08/30/18 Atorvastatin Ca [Lipitor] 20 mg PO AM 03/24/20 Cholecalciferol (Vitamin D3) 2,000 mg PO DAILY 03/24/20 [Vitamin D3] Nateglinide [Starlix (Nf) -] 120 mg PO TID 03/24/20 Quinapril HCl [Accupril -] 40 mg PO HS 03/24/20 Ubidecarenone/Vit E Acet [Co Q-10 1 mg PO DAILY 03/24/20 100 mg Softgel] ASSESSMENT/PLAN: 89 year old female with history of DM 2, Chronic Diastolic CHF, CAD (mild apical ischemia on MPI 2015), Hx PSVT/PA/NSVT, HTN, HLD, Aortic Stenosis, initially admitted with AMS and hyperglycemia, found to have Acute Pyelonephritis with Bacteremia and RDU stones (3 and 6mm). She was evaluated by Urology and taken to OR for cystoscopy and stent placement, during which she developed new onset [place] fibrillation, respiratory distress, hypotension, requiring intubation and pressors. She has since been extubated and required re-intubation, now successfully extubated and off pressors. 1. Acute Hypoxic Respiratory Failure and Septic Shock secondary to Acute Pyelonephritis with Ecoli Bacteremia sec to Nephrolithiasis Shock and resp failure resolved - extubated, off pressors. POD 4 s/p Ureteral Stent Continue Aztreonam ID following. 2. New Onset Atrial Fibrillation, Hx PSVT/PAT and NSVT Likely trigger - GA, Urological procedure, Septic Shock - still with episodes of RVR AC held currently due to FOBT positive stool. Previously on Coreg, now on Metoprolol. For Metoprolol dose up-titration by Cardio. 3. FOBT + Evaluated by GI - for further work-up once medically stable. Continue PPI. 4. MARCIA - ATN sec to Shock +/- Obstructive Uropathy Not currently on IV fluids. Nephrology following. 5. Chronic Diastolic CHF with mod-Severe Grade II diastolic dysfunction No evidence of acute decompensation. Further management as per Cardio. 6. DM 2 - Maintain on Novolog sliding scale. Glargine, Januvia, Starlix held. 7. CAD s/p abnormal MIBI 2015 showing mild apical ischemia - for medical management as per Cardio. Previously on Aspirin/BB/Statin. Can resume statin on DC. Decision regarding ASA vs AC for Cardio and GI to recommend. 8. Normocytic Anemia - mild trend down-verdugo in H/H.FOBT positive - for further eval by GI. Iron/Ferritin B12, Folate levels requested. 9. HTN - CHRIS-I held due to shock and MARCIA 10. History of Dementia - unclear whether on Aricept, will need med rec. DVT Px - SCDs.
[2020-03-29 12:30] LABS: BASO % 0.6 % (0-2.0); HEMATOCRIT 30.6 % (32.4-45.2); HEMOGLOBIN 9.9 GM/dL (10.7-15.3); LYMPH % 5.8 % (8-40); MCH 24.2 pg (25.7-33.7); MCHC 32.5 g/dl (32.0-36.0); MEAN CELL VOLUME 74.7 fl (80-96); MEAN PLT VOLUME 7.5 fl (7.5-11.1); MONO % 11.6 % (3.8-10.2); PLATELET COUNT 301 K/MM3 (134-434); RDW 19.3 % (11.6-15.6); WHITE BLOOD COUNT 12.1 K/mm3 (4.0-10.0)
--- NOTE | 2020-03-29 16:10 | PN ---
Progress Note, Physician History of Present Illness: Pt seen and examined at bedside. She is awake and alert. She denies shortness of breath at rest. She is tolerating diet. - Current Medication List Current Medications: Active Medications Chlorhexidine Gluconate (Hibiclens For Decolonization -) 1 applic TP HS [facility] Last Admin: 03/28/20 23:01 Dose: 1 applic Documented by: Donepezil HCl (Aricept -) 5 mg PO HS [facility] Aztreonam 0.5 gm/ Dextrose 50 mls @ 100 mls/hr IVPB BID [facility]; Protocol Last Admin: 03/29/20 10:55 Dose: 100 mls/hr Documented by: Insulin Aspart (Novolog Vial Sliding Scale -) 1 vial SQ ACHS [facility]; Protocol Last Admin: 03/29/20 11:30 Dose: 4 units Documented by: Ipratropium [place] (Atrovent 0.02% Nebulizer -) 1 amp NEB RTID [facility] Last Admin: 03/29/20 14:45 Dose: 1 amp Documented by: Ipratropium [place] (Atrovent 0.02% Nebulizer -) 1 amp NEB Q4H PRN PRN Reason: WHEEZING Stop: 04/04/20 09:02 Metoprolol Tartrate (Lopressor Injection -) 2.5 mg IVPUSH Q4H PRN PRN Reason: TACHYCARDIA Metoprolol Tartrate (Lopressor -) 25 mg PO BID [facility] Mupirocin (Bactroban Ointment (For Decolonization) -) 1 applic NS BID [facility] Stop: 03/30/20 21:59 Last Admin: 03/29/20 09:50 Dose: 1 applic Documented by: Pantoprazole Sodium (Protonix Iv) 40 mg IVPUSH DAILY [facility] Last Admin: 03/29/20 09:51 Dose: 40 mg Documented by: Polyethylene Glycol (Miralax (For Daily Use) -) 17 gm PO DAILY [facility] Last Admin: 03/29/20 09:51 Dose: 17 gm Documented by: - Objective Vital Signs: Vital Signs Temperature 98.8 F 03/29/20 05:28 Pulse Rate 113 H 03/29/20 14:00 Respiratory Rate 20 03/29/20 14:00 Blood Pressure 138/92 03/29/20 14:00 O2 Sat by Pulse Oximetry (%) 97 03/29/20 14:00 Constitutional: Yes: Calm Eyes: Yes: Conjunctiva Clear HENT: Yes: Atraumatic Neck: Yes: Supple Cardiovascular: Yes: Tachycardia, S1, S2 Respiratory: Yes: On Nasal O2, Wheezes Gastrointestinal: Yes: Normal Bowel Sounds, Soft Genitourinary: Yes: August Present Musculoskeletal: Yes: WNL Edema: No Neurological: Yes: Oriented Psychiatric: Yes: Oriented Labs: CBC, BMP 03/29/20 12:08 INR, PTT INR 1.34 (0.83-1.09) H 03/23/20 19:10 Problem List - Problems (1) MARCIA (acute kidney injury) Code(s): N17.9 - ACUTE KIDNEY FAILURE, UNSPECIFIED (2) Gram-negative bacteremia Code(s): R78.81 - BACTEREMIA Assessment/Plan Current Medications Generic Name Dose Route Start Last Admin Trade Name Freq PRN Reason Stop Dose Admin Chlorhexidine Gluconate 1 applic 03/25/20 22:00 03/28/20 23:01 Hibiclens For Decolonization - TP 1 applic HS [facility] Administration Donepezil HCl 5 mg 03/29/20 22:00 Aricept - PO HS [facility] Aztreonam 0.5 gm/ Dextrose 50 mls @ 100 mls/hr 03/27/20 11:35 03/29/20 10:55 IVPB 100 mls/hr BID [facility] Administration Protocol Insulin Aspart 1 vial 03/26/20 08:37 03/29/20 11:30 Novolog Vial Sliding Scale - SQ 4 units ACHS [facility] Administration Protocol Ipratropium [place] 1 amp 03/28/20 14:00 03/29/20 14:45 Atrovent 0.02% Nebulizer - NEB 1 amp RTID [facility] Administration Ipratropium [place] 1 amp 03/28/20 09:02 Atrovent 0.02% Nebulizer - NEB 04/04/20 09:02 Q4H PRN WHEEZING Metoprolol Tartrate 2.5 mg 03/27/20 12:50 Lopressor Injection - IVPUSH Q4H PRN TACHYCARDIA Metoprolol Tartrate 25 mg 03/29/20 22:00 Lopressor - PO BID [facility] Mupirocin 1 applic 03/25/20 22:00 03/29/20 09:50 Bactroban Ointment (For Decolonization) - NS 03/30/20 21:59 1 applic BID [facility] Administration Pantoprazole Sodium 40 mg 03/26/20 10:00 03/29/20 09:51 Protonix Iv IVPUSH 40 mg DAILY [facility] Administration Polyethylene Glycol 17 gm 03/28/20 10:00 03/29/20 09:51 Miralax (For Daily Use) - PO 17 gm DAILY [facility]IS Administration Impression 1. marcia 2. sepsis 3. gram neg bacteremai 4. resp failure 5. nephrolithiasis 6. shock 7. dm 8. htn 9. hld Plan - follow up bmp - monitor rate - avoid nephrotoxins - pt tolerating diet - hold off fluids for now - likely atn from hypotension - monitor urine output - renal dose meds - discussed with ICU
--- NOTE | 2020-03-29 16:40 | PN.GI ---
GI Progress Note Subjective: No acute events No overt bleeding - Objective Vital Signs: Vital Signs Temperature 98.8 F 03/29/20 05:28 Pulse Rate 113 H 03/29/20 14:00 Respiratory Rate 03/29/20 14:00 Blood Pressure 138/92 03/29/20 14:00 O2 Sat by Pulse Oximetry (%) 97 03/29/20 14:00 Constitutional: Calm Eyes: No: Sclera Icterus Cardiovascular: Yes: Tachycardia, Pulse Irregular Respiratory: Yes: CTA Bilaterally ...Auscultate: Yes: Normoactive Bowel Sounds ...Palpate: Yes: Soft. No: Hepatomegaly, Splenomegaly, Tenderness ...Rectal Exam: Yes: Other (No external lesions, no masses, formed light brown stool. No blood/melena) Edema: No (No LE edema) Neurological: Yes: Alert Labs: CBC, BMP 03/29/20 12:08 INR, PTT INR 1.34 (0.83-1.09) H 03/23/20 19:10 Hepatic Panel Total Bilirubin 0.3 mg/dL (0.2-1) 03/28/20 06:00 AST 19 U/L (15-37) 03/28/20 06:00 ALT 16 U/L (13-61) 03/28/20 06:00 Alkaline Phosphatase 93 U/L (45-117) 03/28/20 06:00 Albumin 1.8 g/dl (3.4-5.0) L 03/28/20 06:00 Problem List - Problems (1) Anemia Assessment/Plan: When medically cleared, discussed colonoscopy +/- endoscopy with Ms. Riddle to evaluate for GI sources of anemia (bleeding blood vessels, PUD, polyps or cancers of the GI tract such as colon cancer). We discussed potential risks of the procedrues like but not limited to bleeding, perforation requiring surgery to repair, infection, sedation medication effects all of which could be potentially life threatneing. She refused the procedures. I asked that she think about those options. She said "OK, I thought about it and it's still no." Will sign off. Please recall GI when patient is medicall cleared for procedures and ameanble to having them performed Code(s): D64.9 - ANEMIA, UNSPECIFIED
[2020-03-29 16:55] LABS: ALBUMIN 1.9 g/dl (3.4-5.0); BILIRUBIN,TOTAL 0.3 mg/dL (0.2-1); BLOOD UREA NITROGEN 87.2 mg/dL (7-18); CALCIUM 8.2 mg/dL (8.5-10.1); CREATININE 3.4 mg/dL (0.55-1.3); POTASSIUM 4.2 mmol/L (3.5-5.1); TOT PROT 5.9 g/dl (6.4-8.2)
--- NOTE | 2020-03-29 18:35 | PN ---
Physical Exam: SUBJECTIVE: Patient seen and examined OBJECTIVE: Vital Signs Period Temp Pulse Resp BP Sys/Jackson Pulse Ox Last 24 Hr 97.9 F-98.8 F 84-120 18-21 103-171/65-109 95-100 GENERAL: AAOx2, in no acute distress HEENT: NCAT, PERRLA, EOMI, sclera anicteric, conjunctiva clear, oropharynx clear w/o exudates. MMM. NECK: Normal ROM, supple, no lymphadenopathy, JVD, or masses, R IJ line removed, covered with dressing, no blood/discharge LUNGS: b/l basal crackles. No distress HEART: RRR, normal S1 S2, no M/R/G, peripheral pulses 2+ and equal b/l ABDOMEN: Soft, obese, non-tender, + BS. No guarding or rebound. No hepatomegaly or splenomegaly. MSK: ROM WNL, NO CVA tenderness EXTREMITIES: Normal inspection. +1 pitting edema, no calf tenderness. No clubbing or cyanosis. NEUROLOGICAL: CN II-XII intact. Normal speech, gait not observed, no focal sensorimotor deficits. Generalized weakness PSYCH: Normal mood, normal affect. SKIN: Warm, Dry, normal turgor, no rashes or lesions noted Laboratory Results - last 24 hr 03/28/20 03/28/20 03/29/20 17:54 21:49 06:20 WBC RBC Hgb Hct MCV MCH MCHC RDW Plt Count MPV Absolute Neuts (auto) Total Counted Neutrophils % Neutrophils % (Manual) Lymphocytes % Lymphocytes % (Manual) Monocytes % Monocytes % (Manual) Eosinophils % Basophils % Nucleated RBC % Sodium Potassium Chloride Carbon Dioxide Anion Gap BUN Creatinine Est GFR (CKD-EPI)AfAm Est GFR (CKD-EPI)NonAf POC Glucometer 274 326 174 Random Glucose Calcium Iron TIBC Iron Saturation Unsaturated IBC Ferritin Total Bilirubin AST ALT Alkaline Phosphatase Total Protein Albumin Vitamin B12 Serum Folate TSH 03/29/20 03/29/20 03/29/20 11:23 12:08 12:08 WBC 12.1 H RBC 4.10 Hgb 9.9 L Hct 30.6 L MCV 74.7 L MCH 24.2 L MCHC 32.5 RDW 19.3 H Plt Count 301 D MPV 7.5 Absolute Neuts (auto) 9.6 H Total Counted 100 Neutrophils % 79.0 Neutrophils % (Manual) 85.0 H Lymphocytes % 5.8 L D Lymphocytes % (Manual) 6.0 L Monocytes % 11.6 H Monocytes % (Manual) 9 Eosinophils % 3.0 Basophils % 0.6 Nucleated RBC % 0 Sodium 137 Potassium 4.2 Chloride 110 H Carbon Dioxide 16 L Anion Gap 11 BUN 87.2 H Creatinine 3.4 H Est GFR (CKD-EPI)AfAm 13.27 Est GFR (CKD-EPI)NonAf 11.45 POC Glucometer 187 Random Glucose 205 H Calcium 8.2 L Iron 13 L TIBC 201 L Iron Saturation 6 L Unsaturated IBC 188 L Ferritin 143.4 Total Bilirubin 0.3 AST 11 L ALT 14 Alkaline Phosphatase 92 Total Protein 5.9 L Albumin 1.9 L Vitamin B12 879 Serum Folate 5 TSH 10.10 H 03/29/20 17:17 WBC RBC Hgb Hct MCV MCH MCHC RDW Plt Count MPV Absolute Neuts (auto) Total Counted Neutrophils % Neutrophils % (Manual) Lymphocytes % Lymphocytes % (Manual) Monocytes % Monocytes % (Manual) Eosinophils % Basophils % Nucleated RBC % Sodium Potassium Chloride Carbon Dioxide Anion Gap BUN Creatinine Est GFR (CKD-EPI)AfAm Est GFR (CKD-EPI)NonAf POC Glucometer 215 Random Glucose Calcium Iron TIBC Iron Saturation Unsaturated IBC Ferritin Total Bilirubin AST ALT Alkaline Phosphatase Total Protein Albumin Vitamin B12 Serum Folate TSH Active Medications Generic Name Dose Route Start Last Admin Trade Name Lorenza PRN Reason Stop Dose Admin Chlorhexidine Gluconate 1 applic 03/25/20 22:00 03/28/20 23:01 Hibiclens For Decolonization - TP 1 applic HS CHRIS Administration Donepezil HCl 5 mg 03/29/20 22:00 Aricept - PO HS CHRIS Aztreonam 0.5 gm/ Dextrose 50 mls @ 100 mls/hr 03/27/20 11:35 03/29/20 10:55 IVPB 100 mls/hr BID CHRIS Administration Protocol Insulin Aspart 1 vial 03/26/20 08:37 03/29/20 11:30 Novolog Vial Sliding Scale - SQ 4 units ACHS CHRIS Administration Protocol Ipratropium [place] 1 amp 03/28/20 14:00 03/29/20 14:45 Atrovent 0.02% Nebulizer - NEB 1 amp RTID CHRIS Administration Ipratropium [place] 1 amp 03/28/20 09:02 Atrovent 0.02% Nebulizer - NEB 04/04/20 09:02 Q4H PRN WHEEZING Metoprolol Tartrate 2.5 mg 03/27/20 12:50 Lopressor Injection - IVPUSH Q4H PRN TACHYCARDIA Metoprolol Tartrate 25 mg 03/29/20 22:00 Lopressor - PO BID CHRIS Mupirocin 1 applic 03/25/20 22:00 03/29/20 09:50 Bactroban Ointment (For Decolonization) - NS 03/30/20 21:59 1 applic BID CHRIS Administration Pantoprazole Sodium 40 mg 03/26/20 10:00 03/29/20 09:51 Protonix Iv IVPUSH 40 mg DAILY CHRIS Administration Polyethylene Glycol 17 gm 03/28/20 10:00 03/29/20 09:51 Miralax (For Daily Use) - PO 17 gm DAILY CHRIS Administration ASSESSMENT/PLAN: 89 year old female with history of DM 2, Chronic Diastolic CHF, CAD (mild apical ischemia on MPI 2015), Hx PSVT/PA/NSVT, HTN, HLD, Aortic Stenosis, initially admitted with AMS and hyperglycemia, found to have Acute Pyelonephritis with Bacteremia and RDU stones (3 and 6mm) on admission 03/23. She was evaluated by Urology and taken to OR for cystoscopy and stent placement on 03/25, during which she developed new onset [place] fibrillation, respiratory distress, hypotension, requiring intubation and pressors and admitted to ICU. She is now successfully extubated and off pressors. #Acute Hypoxic Respiratory Failure and Septic Shock requiring intubation - 2/2 Acute Pyelonephritis with Ecoli Bacteremia, likely 2/2 Nephrolithiasis - 03/26 : Shock and resp failure resolved. Patient was extubated and off pressors - 03/27 : Transferred from ICU to [facility] - s/p Ureteral Stent, POD #4 - ID is on board - will Continue with Aztreonam #New Onset Atrial Fibrillation - Likely triggered by septic shock/urological procedure - She has a Hx PSVT/PAT and NSVT - Holding AC for now due to Positive FOBT - Cardio on board #FOBT + - GI on Board, will revaluate when medically stable colonoscopy +/- endoscopy, when medically stable - will continue PPI. #MARCIA /ATN - Likely 2/2 septic shock, Hypotension - Nephro on board, Holding IVF for now - avoid nephrotoxic drugs #Chronic diastolic HF - CXR shows mild congestive changes, PE revealed b/l basal crackles - Cardio is on board #Hx of DM - BGM + ISS - Holding home meds: Glargine, Januvia, Starlix #Hx of CAD - Patient had a MIBI in 2016 : mild apical ischemia, Cardio on board. Beta blockers when BP is stable Statin can be resumed on d/c #Hx of Normocytic Anemia - f/u with Iron/Ferritin B12, Folate labs - FOBT positive, pending further eval by GI colonoscopy +/- endoscopy, when medically stable FEN - No standing fluids at this time - Continue to monitor electrolytes - Sodium controlled diet DVT Px - Holding chemical ppx, FOBt + - SCDs. Dispo -Will continue to monitor on Tele Visit type - Emergency Visit Emergency Visit: Yes ED Registration Date: 03/23/20 Care time: The patient presented to the Emergency Department on the above date and was hospitalized for further evaluation of their emergent condition. - New Patient This patient is new to me today: No - Critical Care Critical Care patient: No - Discharge Referral Referred to [facility] No - Medication Review Med list reviewed for High Risk Meds patients 65 and older: Yes ATTENDING PHYSICIAN STATEMENT I saw and evaluated the patient. I reviewed the resident's note and discussed the case with the resident. I agree with the resident's findings and plan as documented. SUBJECTIVE: OBJECTIVE: ASSESSMENT AND PLAN:
[2020-03-29] MEDS: CHLORHEXIDINE GLUCONATE 4% CLEANSER FOR DECOLONIZATION TP SCH (22:10)
[2020-03-29] MEDS: DONEPEZIL HCL 5 MG TABLET (FP) PO SCH (23:57)
[2020-03-30] MEDS: INSULIN SLIDING SCALE (NOVOLOG) 1 VIAL SQ SCH ×4 (06:22→21:15)
[2020-03-30 06:45] LABS: BASO % 0.7 % (0-2.0); EOS % 3.2 % (0-4.5); HEMATOCRIT 31.8 % (32.4-45.2); HEMOGLOBIN 10.4 GM/dL (10.7-15.3); LYMPH % 8.4 % (8-40); MCH 24.2 pg (25.7-33.7); MCHC 32.6 g/dl (32.0-36.0); MEAN CELL VOLUME 74.2 fl (80-96); MEAN PLT VOLUME 7.2 fl (7.5-11.1); MONO % 10.2 % (3.8-10.2); NEUT % 77.5 % (42.8-82.8); PLATELET COUNT 357 K/MM3 (134-434); RBC 4.29 M/mm3 (3.60-5.2); RDW 19.7 % (11.6-15.6); WHITE BLOOD COUNT 10.8 K/mm3 (4.0-10.0)
[2020-03-30 07:17] LABS: ALBUMIN 1.9 g/dl (3.4-5.0); BILIRUBIN,TOTAL 0.8 mg/dL (0.2-1); CALCIUM 8.1 mg/dL (8.5-10.1); MAGNESIUM 1.9 mg/dL (1.8-2.4); PHOSPHOROUS 5.5 mg/dL (2.5-4.9); POTASSIUM 4.4 mmol/L (3.5-5.1); TOT PROT 5.9 g/dl (6.4-8.2)
[2020-03-30] MEDS ORDERED: METOPROLOL TARTRATE 5 MG/5 ML VIAL IVPB PRN (07:30)
[2020-03-30] MEDS: IPRATROPIUM BR 0.02% 0.5 MG/2.5 ML VIAL.NEB. NEB SCH ×2 (08:04→20:16)
[2020-03-30] MEDS ORDERED: PT OWN MED DRAWER 7, Y5N ONE (08:46)
[2020-03-30] MEDS: METOPROLOL TARTRATE 25 MG TABLET (FP) PO SCH ×2 (09:05→21:10)
[2020-03-30] MEDS: PANTOPRAZOLE SODIUM 40 MG VIAL IVPUSH SCH (09:05)
[2020-03-30] MEDS: POLYETHYLENE GLYCOL 3350 119 GM BTL PO SCH (09:14)
[2020-03-30] MEDS ORDERED: AZTREONAM 0.5 GM in DEXTROSE 5%-WATER - 50 ML IVPB SCH (10:00)
[2020-03-30 10:37] LABS: ANISOCYTOSIS 2+; MACROCYTOSIS 0; OVALOCYTE 1+; PLATELET ESTIMATE NORMAL
[2020-03-30] MEDS ORDERED: METOPROLOL TARTRATE 25 MG TABLET (FP) PO ONE (11:33)
--- NOTE | 2020-03-30 11:49 | PN ---
Progress Note (short form) - Note Progress Note: cc: altered mental status s: no chest pain, palps, dizziness, dyspnea Current Medications Generic Name Dose Route Start Last Admin Trade Name Freq PRN Reason Stop Dose Admin Donepezil HCl 5 mg 03/29/20 22:00 03/29/20 23:57 Aricept - PO 5 mg HS CHRIS Administration Aztreonam 0.5 gm/ Dextrose 50 mls @ 100 mls/hr 03/30/20 10:00 03/30/20 09:14 IVPB 100 mls/hr BID CHRIS Administration Protocol Insulin Aspart 1 vial 03/30/20 11:00 Novolog Vial Sliding Scale - SQ ACHS CHRIS Protocol Ipratropium [place] 1 amp 03/28/20 14:00 03/30/20 08:04 Atrovent 0.02% Nebulizer - NEB Not Given RTID CHRIS Ipratropium [place] 1 amp 03/28/20 09:02 Atrovent 0.02% Nebulizer - NEB 04/04/20 09:02 Q4H PRN WHEEZING Metoprolol Tartrate 25 mg 03/29/20 22:00 03/30/20 09:05 Lopressor - PO 25 mg BID CHRIS Administration Metoprolol Tartrate 2.5 mg 03/30/20 07:30 Lopressor Injection - IVPB Q4H PRN TACHYCARDIA Pantoprazole Sodium 40 mg 03/30/20 10:00 03/30/20 09:05 Protonix Iv IVPUSH 40 mg DAILY CHRIS Administration Polyethylene Glycol 17 gm 03/28/20 10:00 03/30/20 09:14 Miralax (For Daily Use) - PO 17 gm DAILY CHRIS Administration Vital Signs Period Temp Pulse Resp BP Sys/Jackson Pulse Ox Last 24 Hr 97.6 F-98.9 F 84-131 18-23 103-156/71-114 96-100 Constitutional: Yes: No Distress, Calm, Obese Eyes: No: Sclera Icterus HENT: No: Nasal Congestion Cardiovascular: Yes: Pulse Irregular, S1, S2, Other (PMI non diplaced). No: JVD, Gallop, Murmur Respiratory: Yes: CTA Bilaterally No: Accessory Muscle Use, Rales, wheeze Gastrointestinal: Yes: Normal Bowel Sounds, Soft. No: Tenderness Musculoskeletal: Yes: Other (No kyphosis) Extremities: No: Cyanosis Edema: No Integumentary: No: Jaundice Neurological: Yes: Alert. No: Seizure Psychiatric: No: Agitated Assessment/Plan Echo 04/04: nl LV/RV. moderate vs severe (misaligned doppler gradients). RVSP 30-40 tele: AF hr 120s-130s AF: new onset, likely triggered by sepsis, shock -still with rvr episodes, increase lopressor to 50 mg BID, monitor tele -[id number] score is at least 3 (age, DM, Female) and anticoagulation is indicated. However, H/H have drifted down since admission, with + stool guaiac--AC held -Can convert to Eliquis or Xarelto prior to discharge if bleeding resolves and H/H remains stable Hypotension due to gram negative sepsis with shock: -Abx as per Critical Care and ID -off levophed, bp stable CAD: -Mildly abnl persantine MIBI here in 2016 showing mild apical ischemia managed medically -If she begins full AC for AF, then can discontinue ASA as it will increase bleed risk in this age group with little added benefit -cont bb - statin resumed -Rate control as outlined above Chronic diastolic CHF: -appears euvolemic clinically, though cxr mild congestive changes - lasix held for MARCIA -Rate control for AF mgmt , moderate vs severe -echo here indeterminate regarding severity of stenosis. no audible murmur but soft heart sounds -in absence of attributable sx's (ischemia, refractory chf), plan outpt f/u and repeat echo ARF: likely due to ATN in setting of mild obstructive uropathy -improving with IVF -Renal consulted Anemia: Baseline seems to be 10-11 -Drifting down this admission, + guaiac - GI consulted - patient refused EGD/Carm[place] DM: -per primary team Hx PSVT/PAT/NSVT with Normal LVEF: -Now in AF -cont bb -Keep K+/Mg2+ normalized -Continue tele
--- NOTE | 2020-03-30 12:34 | PN ---
Progress Note, Physician History of Present Illness: Pt seen and examined at bedside. She is awake and alert. She denies shortness of breath. - Current Medication List Current Medications: Active Medications Atorvastatin Calcium (Lipitor -) 20 mg PO HS [facility] Donepezil HCl (Aricept -) 5 mg PO HS [facility] Last Admin: 03/29/20 23:57 Dose: 5 mg Documented by: Aztreonam 0.5 gm/ Dextrose 50 mls @ 100 mls/hr IVPB BID [facility]; Protocol Last Admin: 03/30/20 09:14 Dose: 100 mls/hr Documented by: Insulin Aspart (Novolog Vial Sliding Scale -) 1 vial SQ ACHS [facility]; Protocol Last Admin: 03/30/20 11:59 Dose: 8 unit Documented by: Ipratropium [place] (Atrovent 0.02% Nebulizer -) 1 amp NEB RTID [facility] Last Admin: 03/30/20 08:04 Dose: Not Given Documented by: Ipratropium [place] (Atrovent 0.02% Nebulizer -) 1 amp NEB Q4H PRN PRN Reason: WHEEZING Stop: 04/04/20 09:02 Metoprolol Tartrate (Lopressor Injection -) 2.5 mg IVPB Q4H PRN PRN Reason: TACHYCARDIA Metoprolol Tartrate (Lopressor -) 50 mg PO BID [facility] Pantoprazole Sodium (Protonix Iv) 40 mg IVPUSH DAILY [facility] Last Admin: 03/30/20 09:05 Dose: 40 mg Documented by: Polyethylene Glycol (Miralax (For Daily Use) -) 17 gm PO DAILY [facility] Last Admin: 03/30/20 09:14 Dose: 17 gm Documented by: - Objective Vital Signs: Vital Signs Temperature 98.4 F 03/30/20 10:00 Pulse Rate 111 H 03/30/20 10:00 Respiratory Rate 03/30/20 10:00 Blood Pressure 141/78 03/30/20 10:00 O2 Sat by Pulse Oximetry (%) 97 03/30/20 10:00 Constitutional: Yes: Calm Eyes: Yes: Conjunctiva Clear HENT: Yes: Atraumatic Neck: Yes: Supple Cardiovascular: Yes: S1, S2 Respiratory: Yes: CTA Bilaterally Gastrointestinal: Yes: Soft Genitourinary: Yes: August Present Musculoskeletal: Yes: WNL Edema: No Neurological: Yes: Oriented Psychiatric: Yes: Oriented Labs: CBC, BMP 03/30/20 06:25 03/30/20 06:25 INR, PTT INR 1.34 (0.83-1.09) H 03/23/20 19:10 Problem List - Problems (1) MARCIA (acute kidney injury) Code(s): N17.9 - ACUTE KIDNEY FAILURE, UNSPECIFIED (2) Gram-negative bacteremia Code(s): R78.81 - BACTEREMIA Assessment/Plan Current Medications Generic Name Dose Route Start Last Admin Trade Name Freq PRN Reason Stop Dose Admin Atorvastatin Calcium 20 mg 03/30/20 22:00 Lipitor - PO HS CHRIS Donepezil HCl 5 mg 03/29/20 22:00 03/29/20 23:57 Aricept - PO 5 mg HS CHRIS Administration Aztreonam 0.5 gm/ Dextrose 50 mls @ 100 mls/hr 03/30/20 10:00 03/30/20 09:14 IVPB 100 mls/hr BID CHRIS Administration Protocol Insulin Aspart 1 vial 03/30/20 11:00 03/30/20 11:59 Novolog Vial Sliding Scale - SQ 8 unit ACHS CHRIS Administration Protocol Ipratropium [place] 1 amp 03/28/20 14:00 03/30/20 08:04 Atrovent 0.02% Nebulizer - NEB Not Given RTID CHRIS Ipratropium [place] 1 amp 03/28/20 09:02 Atrovent 0.02% Nebulizer - NEB 04/04/20 09:02 Q4H PRN WHEEZING Metoprolol Tartrate 2.5 mg 03/30/20 07:30 Lopressor Injection - IVPB Q4H PRN TACHYCARDIA Metoprolol Tartrate 50 mg 03/30/20 22:00 Lopressor - PO BID CHRIS Pantoprazole Sodium 40 mg 03/30/20 10:00 03/30/20 09:05 Protonix Iv IVPUSH 40 mg DAILY CHRIS Administration Polyethylene Glycol 17 gm 03/28/20 10:00 03/30/20 09:14 Miralax (For Daily Use) - PO 17 gm DAILY CHRIS Administration Impression 1. marcia 2. sepsis 3. gram neg bacteremai 4. resp failure 5. nephrolithiasis 6. shock 7. dm 8. htn 9. hld Plan - renal function improving - pt tolerating diet - pt getting voiding trial today - repeat phos in am, if elevated will start binder - renal diet for now - cont to monitor rate
--- NOTE | 2020-03-30 13:55 | PN ---
Teaching Attending Note Name of Resident: Patty Nassar ATTENDING PHYSICIAN STATEMENT I saw and evaluated the patient. I reviewed the resident's note and discussed the case with the resident. I agree with the resident's findings and plan as documented. SUBJECTIVE: pt seen and examined OBJECTIVE: GENERAL: Awake, alert, and fully oriented, in no acute distress. HEENT: AT/NC, not P/C/J, PERRLA LUNGS: Breath sounds equal, clear to auscultation bilaterally. No wheezes, and no crackles. No accessory muscle use. HEART: Regular rate and rhythm, normal S1 and S2 ABDOMEN: Soft, nontender, not distended MUSCULOSKELETAL: Normal range of motion at all joints. No bony deformities or tenderness. No CVA tenderness. UPPER EXTREMITIES: 2+ pulses, warm, well-perfused. No cyanosis. No clubbing. No peripheral edema. LOWER EXTREMITIES: 2+ pulses, warm, well-perfused. No calf tenderness. No peripheral edema. NEUROLOGICAL: Cranial nerves II-XII intact. Normal speech. CBCD WBC 10.8 K/mm3 (4.0-10.0) H 03/30/20 06:25 RBC 4.29 M/mm3 (3.60-5.2) 03/30/20 06:25 Hgb 10.4 GM/dL (10.7-15.3) L 03/30/20 06:25 Hct 31.8 % (32.4-45.2) L 03/30/20 06:25 MCV 74.2 fl (80-96) L 03/30/20 06:25 MCHC 32.6 g/dl (32.0-36.0) 03/30/20 06:25 RDW 19.7 % (11.6-15.6) H 03/30/20 06:25 Plt Count 357 K/MM3 (134-434) 03/30/20 06:25 MPV 7.2 fl (7.5-11.1) L 03/30/20 06:25 CMP Sodium 140 mmol/L (136-145) 03/30/20 06:25 Potassium 4.4 mmol/L (3.5-5.1) 03/30/20 06:25 Chloride 111 mmol/L (98-107) H 03/30/20 06:25 Carbon Dioxide 20 mmol/L (21-32) L 03/30/20 06:25 Anion Gap 9 MMOL/L (8-16) 03/30/20 06:25 BUN 83.0 mg/dL (7-18) H 03/30/20 06:25 Creatinine 3.0 mg/dL (0.55-1.3) H 03/30/20 06:25 Random Glucose 226 mg/dL (74-106) H 03/30/20 06:25 Calcium 8.1 mg/dL (8.5-10.1) L 03/30/20 06:25 Total Bilirubin 0.8 mg/dL (0.2-1) 03/30/20 06:25 AST 13 U/L (15-37) L 03/30/20 06:25 ALT 14 U/L (13-61) 03/30/20 06:25 Alkaline Phosphatase 88 U/L (45-117) 03/30/20 06:25 Total Protein 5.9 g/dl (6.4-8.2) L 03/30/20 06:25 Albumin 1.9 g/dl (3.4-5.0) L 03/30/20 06:25 CARDIAC ENZYMES Creatine Kinase 49 U/L (26-192) 03/25/20 13:41 Troponin I 0.03 ng/ml (0.00-0.05) 03/25/20 13:41 Active Medications Atorvastatin Calcium (Lipitor -) 20 mg PO HS CHRIS Donepezil HCl (Aricept -) 5 mg PO HS CHRIS Last Admin: 03/29/20 23:57 Dose: 5 mg Documented by: Aztreonam 0.5 gm/ Dextrose 50 mls @ 100 mls/hr IVPB BID CHRIS; Protocol Last Admin: 03/30/20 09:14 Dose: 100 mls/hr Documented by: Insulin Aspart (Novolog Vial Sliding Scale -) 1 vial SQ ACHS CHRIS; Protocol Last Admin: 03/30/20 11:59 Dose: 8 unit Documented by: Ipratropium [place] (Atrovent 0.02% Nebulizer -) 1 amp NEB RTID CHRIS Last Admin: 03/30/20 08:04 Dose: Not Given Documented by: Ipratropium [place] (Atrovent 0.02% Nebulizer -) 1 amp NEB Q4H PRN PRN Reason: WHEEZING Stop: 04/04/20 09:02 Metoprolol Tartrate (Lopressor Injection -) 2.5 mg IVPB Q4H PRN PRN Reason: TACHYCARDIA Metoprolol Tartrate (Lopressor -) 50 mg PO BID [facility] Pantoprazole Sodium (Protonix Iv) 40 mg IVPUSH DAILY [facility] Last Admin: 03/30/20 09:05 Dose: 40 mg Documented by: Polyethylene Glycol (Miralax (For Daily Use) -) 17 gm PO DAILY [facility] Last Admin: 03/30/20 09:14 Dose: 17 gm Documented by: ASSESSMENT AND PLAN: 89 year old female with history of DM 2, Chronic Diastolic CHF, CAD (mild apical ischemia on MPI 2015), Hx PSVT/PA/NSVT, HTN, HLD, Aortic Stenosis, initially admitted with AMS and hyperglycemia, found to have Acute Pyelonephritis with septic shock and 2/2 AFib, intubated (now extubated) and downgraded to tele # Acute Hypoxic Respiratory Failure and Septic Shock - resolved 2/2 to Acute Pyelonephritis/Nephrolithiasis with Ecoli VSS, afebrile, WBC trending down POD 5 s/p Ureteral Stent Abx per ID TOV today # New Onset AFib Likely trigger by Septic Shock still with episodes of RVR FOBT+ stable H/H, can start AC [id number] # ATN improving KFT due to Shock +/- Obstructive Uropathy Not currently on IV fluids. Nephrology following. HFpEF DM 2 CAD Normocytic Anemia HTN Dementia DVT Proph
--- NOTE | 2020-03-30 15:15 | PN ---
Physical Exam: SUBJECTIVE: Patient seen and examined at bedside, she reports that she is feeling better and wants to go home. Denies any fever, chills, nausea, vomiting. No acute events overnight, tele Afib hr @ 120s-130s OBJECTIVE: Vital Signs Period Temp Pulse Resp BP Sys/Jackson Pulse Ox Last 24 Hr 97.6 F-98.9 F 111-131 18-23 118-156/74-114 96-100 GENERAL: AAOx2, in no acute distress HEENT: NCAT, PERRLA, EOMI, sclera anicteric, conjunctiva clear, oropharynx clear w/o exudates. MMM. NECK: Normal ROM, supple, no lymphadenopathy, JVD, or masses, R IJ line removed, covered with dressing, no blood/discharge LUNGS: b/l basal crackles. No distress HEART: RRR, normal S1 S2, no M/R/G, peripheral pulses 2+ and equal b/l ABDOMEN: Soft, obese, non-tender, + BS. No guarding or rebound. No hepatomegaly or splenomegaly. MSK: ROM WNL, NO CVA tenderness EXTREMITIES: Normal inspection. +1 pitting edema, no calf tenderness. No clubbing or cyanosis. NEUROLOGICAL: CN II-XII intact. Normal speech, gait not observed, no focal sensorimotor deficits. Generalized weakness PSYCH: Normal mood, normal affect. SKIN: Warm, Dry, normal turgor, no rashes or lesions noted Laboratory Results - last 24 hr 03/27/20 03/29/20 03/29/20 16:08 12:08 17:17 WBC RBC Hgb Hct MCV MCH MCHC RDW Plt Count MPV Absolute Neuts (auto) Neutrophils % Neutrophils % (Manual) Band Neutrophils % Lymphocytes % Lymphocytes % (Manual) Monocytes % Monocytes % (Manual) Eosinophils % Eosinophils % (Manual) Basophils % Basophils % (Manual) Myelocytes % (Man) Promyelocytes % (Man) Blast Cells % (Manual) Nucleated RBC % Metamyelocytes Hypochromia Platelet Estimate Polychromasia Poikilocytosis Anisocytosis Microcytosis Macrocytosis Ovalocytes Sodium 137 Potassium 4.2 Chloride 110 H Carbon Dioxide 16 L Anion Gap 11 BUN 87.2 H Creatinine 3.4 H Est GFR (CKD-EPI)AfAm 13.27 Est GFR (CKD-EPI)NonAf 11.45 POC Glucometer 215 Random Glucose 205 H Calcium 8.2 L Phosphorus Magnesium Iron 13 L TIBC 201 L Iron Saturation 6 L Unsaturated IBC 188 L Ferritin 143.4 Total Bilirubin 0.3 AST 11 L ALT 14 Alkaline Phosphatase 92 Total Protein 5.9 L Albumin 1.9 L Vitamin B12 879 Serum Folate 5 TSH 10.10 H Urine Eosinophils None seen 03/29/20 03/30/20 03/30/20 22:09 05:54 06:25 WBC 10.8 H RBC 4.29 Hgb 10.4 L Hct 31.8 L MCV 74.2 L MCH 24.2 L MCHC 32.6 RDW 19.7 H Plt Count 357 MPV 7.2 L Absolute Neuts (auto) 8.4 H Neutrophils % 77.5 Neutrophils % (Manual) 75.0 Band Neutrophils % 0.0 Lymphocytes % 8.4 D Lymphocytes % (Manual) 7.0 L Monocytes % 10.2 Monocytes % (Manual) 11 H Eosinophils % 3.2 Eosinophils % (Manual) 0.0 D Basophils % 0.7 Basophils % (Manual) 0.0 Myelocytes % (Man) 2 D Promyelocytes % (Man) 0 Blast Cells % (Manual) 0 Nucleated RBC % 0 Metamyelocytes 0 Hypochromia 1+ Platelet Estimate Normal Polychromasia 0 Poikilocytosis 1+ Anisocytosis 2+ Microcytosis 2+ Macrocytosis 0 Ovalocytes 1+ Sodium Potassium Chloride Carbon Dioxide Anion Gap BUN Creatinine Est GFR (CKD-EPI)AfAm Est GFR (CKD-EPI)NonAf POC Glucometer 263 211 Random Glucose Calcium Phosphorus Magnesium Iron TIBC Iron Saturation Unsaturated IBC Ferritin Total Bilirubin AST ALT Alkaline Phosphatase Total Protein Albumin Vitamin B12 Serum Folate TSH Urine Eosinophils 03/30/20 06:25 WBC RBC Hgb Hct MCV MCH MCHC RDW Plt Count MPV Absolute Neuts (auto) Neutrophils % Neutrophils % (Manual) Band Neutrophils % Lymphocytes % Lymphocytes % (Manual) Monocytes % Monocytes % (Manual) Eosinophils % Eosinophils % (Manual) Basophils % Basophils % (Manual) Myelocytes % (Man) Promyelocytes % (Man) Blast Cells % (Manual) Nucleated RBC % Metamyelocytes Hypochromia Platelet Estimate Polychromasia Poikilocytosis Anisocytosis Microcytosis Macrocytosis Ovalocytes Sodium 140 Potassium 4.4 Chloride 111 H Carbon Dioxide 20 L Anion Gap 9 BUN 83.0 H Creatinine 3.0 H Est GFR (CKD-EPI)AfAm 15.43 Est GFR (CKD-EPI)NonAf 13.32 POC Glucometer Random Glucose 226 H Calcium 8.1 L Phosphorus 5.5 H Magnesium 1.9 Iron TIBC Iron Saturation Unsaturated IBC Ferritin Total Bilirubin 0.8 AST 13 L ALT 14 Alkaline Phosphatase 88 Total Protein 5.9 L Albumin 1.9 L Vitamin B12 Serum Folate TSH Urine Eosinophils Active Medications Generic Name Dose Route Start Last Admin Trade Name Freq PRN Reason Stop Dose Admin Atorvastatin Calcium 20 mg 03/30/20 22:00 Lipitor - PO HS CHRIS Donepezil HCl 5 mg 03/29/20 22:00 03/29/20 23:57 Aricept - PO 5 mg HS CHRIS Administration Aztreonam 0.5 gm/ Dextrose 50 mls @ 100 mls/hr 03/30/20 10:00 03/30/20 09:14 IVPB 100 mls/hr BID CHRIS Administration Protocol Insulin Aspart 1 vial 03/30/20 11:00 03/30/20 11:59 Novolog Vial Sliding Scale - SQ 8 unit ACHS CHRIS Administration Protocol Ipratropium [place] 1 amp 03/28/20 14:00 03/30/20 08:04 Atrovent 0.02% Nebulizer - NEB Not Given RTID CHRIS Ipratropium [place] 1 amp 03/28/20 09:02 Atrovent 0.02% Nebulizer - NEB 04/04/20 09:02 Q4H PRN WHEEZING Metoprolol Tartrate 2.5 mg 03/30/20 07:30 Lopressor Injection - IVPB Q4H PRN TACHYCARDIA Metoprolol Tartrate 50 mg 03/30/20 22:00 Lopressor - PO BID CHRIS Pantoprazole Sodium 40 mg 03/30/20 10:00 03/30/20 09:05 Protonix Iv IVPUSH 40 mg DAILY CHRIS Administration Polyethylene Glycol 17 gm 03/28/20 10:00 03/30/20 09:14 Miralax (For Daily Use) - PO 17 gm DAILY CHRIS Administration ASSESSMENT/PLAN: 89 year old female with history of DM 2, Chronic Diastolic CHF, CAD (mild apical ischemia on MPI 2015), Hx PSVT/PA/NSVT, HTN, HLD, Aortic Stenosis, initially admitted with AMS and hyperglycemia, found to have Acute Pyelonephritis with Bacteremia and RDU stones (3 and 6mm) on admission 03/23. She was evaluated by Urology and taken to OR for cystoscopy and stent placement on 03/25, during which she developed new onset [place] fibrillation, respiratory distress, hypotension, requiring intubation and pressors and admitted to ICU. She is now successfully extubated and off pressors. #Acute Hypoxic Respiratory Failure and Septic Shock requiring intubation - 2/2 Acute Pyelonephritis with Ecoli Bacteremia, likely 2/2 Nephrolithiasis - 03/26 : Shock and resp failure resolved. Patient was extubated and off pressors - 03/27 : Transferred from ICU to Tele - s/p Ureteral Stent, POD #5 - ID is on board - will Continue with Aztreonam #New Onset Atrial Fibrillation - Likely triggered by septic shock/urological procedure - She has a Hx PSVT/PAT and NSVT - Holding AC for now due to Positive FOBT - AVD2IB1-KHTr 4, can start AC when medically stable - Cardio on board #FOBT + - GI on Board, will revaluate when medically stable colonoscopy +/- endoscopy, when medically stable - will continue PPI. #MARCIA /ATN - Likely 2/2 septic shock, Hypotension - Nephro on board, Holding IVF for now - Crea is improving, today 3.0 - August was d/c'ed and initiated a TOV - Phos is elevated 5.5, will f/u with am labs - avoid nephrotoxic drugs #Chronic diastolic HF - CXR shows mild congestive changes, PE revealed b/l basal crackles - Cardio is on board #Hx of DM - BGM + ISS - Holding home meds: Glargine, Januvia, Starlix #Hx of CAD - Patient had a MIBI in 2016 : mild apical ischemia, Cardio on board. Beta blockers when BP is stable Statin can be resumed on d/c #Hx of Normocytic Anemia - f/u with Iron/Ferritin B12, Folate labs - FOBT positive, pending further eval by GI colonoscopy +/- endoscopy, when medically stable FEN - No standing fluids at this time - Continue to monitor electrolytes - Renal Diet DVT Px - Holding chemical ppx, FOBt + - SCDs. Dispo -Will continue to monitor on Tele Visit type - Emergency Visit Emergency Visit: Yes ED Registration Date: 03/23/20 Care time: The patient presented to the Emergency Department on the above date and was hospitalized for further evaluation of their emergent condition. - New Patient This patient is new to me today: No - Critical Care Critical Care patient: No - Discharge Referral Referred to [facility] Med P.C.: No - Medication Review Med list reviewed for High Risk Meds patients 65 and older: Yes ATTENDING PHYSICIAN STATEMENT I saw and evaluated the patient. I reviewed the resident's note and discussed the case with the resident. I agree with the resident's findings and plan as documented. SUBJECTIVE: OBJECTIVE: ASSESSMENT AND PLAN:
--- NOTE | 2020-03-30 17:12 | PN ---
Progress Note (short form) - Note Progress Note: andrews just d/ravi hasn't voided yet pod #5 s/p ureteral stent Vital Signs Period Temp Pulse Resp BP Sys/Jackson Pulse Ox Last 24 Hr 97.6 F-98.9 F 111-131 18-23 118-156/74-114 96-100 cor-rrr lungs clear abd soft, nt ext no edema CBC, BMP 03/30/20 06:25 03/30/20 06:25 Microbiology 03/27/20 05:58 Blood - Peripheral Venous Blood Culture - Preliminary NO GROWTH OBTAINED AFTER 72 HOURS, INCUBATION TO CONTINUE FOR 2 DAYS. 03/27/20 05:46 Blood - Peripheral Venous Blood Culture - Preliminary NO GROWTH OBTAINED AFTER 72 HOURS, INCUBATION TO CONTINUE FOR 2 DAYS. 03/23/20 20:20 Urine - Urine - Catheterized Urine Culture - Final Escherichia Coli 03/23/20 19:10 Blood - Peripheral Venous Blood Culture - Final Escherichia Coli 03/23/20 19:10 Blood - Peripheral Venous Blood Culture - Final Escherichia Coli imp/reccd ecoli bacteremia s/p ureteral stent afib MARCIA-improving UTI penicillin allergy clinically improving continue azactam day #5 after stent increase dose with improving renal function Problem List - Problems (1) Gram-negative bacteremia Code(s): R78.81 - BACTEREMIA (2) Obstructive uropathy Code(s): N13.9 - OBSTRUCTIVE AND REFLUX UROPATHY, UNSPECIFIED (3) MARCIA (acute kidney injury) Code(s): N17.9 - ACUTE KIDNEY FAILURE, UNSPECIFIED (4) Penicillin allergy Code(s): Z88.0 - ALLERGY STATUS TO PENICILLIN
[2020-03-30] MEDS ORDERED: AZTREONAM 1 GM VIAL (RESTRICTED TO ID) ONE (21:03)
[2020-03-30] MEDS ORDERED: DEXTROSE 5%-WATER - 50 ML IVPB ONE (21:03)
[2020-03-30] MEDS: AZTREONAM 1 GM in DEXTROSE 5%-WATER - 50 ML IVPB SCH (21:09)
[2020-03-30] MEDS: ATORVASTATIN CA 20 MG TABLET (FP) PO SCH (21:10)
[2020-03-30] MEDS: DONEPEZIL HCL 5 MG TABLET (FP) PO SCH (21:10)
[2020-03-31] MEDS: INSULIN SLIDING SCALE (NOVOLOG) 1 VIAL SQ SCH ×4 (06:31→21:29)
[2020-03-31 08:14] LABS: POTASSIUM 4.4 mmol/L (3.5-5.1)
[2020-03-31 08:23] LABS: ALBUMIN 1.9 g/dl (3.4-5.0); BLOOD UREA NITROGEN 70.5 mg/dL (7-18); CALCIUM 7.8 mg/dL (8.5-10.1); CREATININE 2.5 mg/dL (0.55-1.3); MAGNESIUM 1.7 mg/dL (1.8-2.4); PHOSPHOROUS 4.2 mg/dL (2.5-4.9); TOT PROT 5.7 g/dl (6.4-8.2)
[2020-03-31] MEDS ORDERED: MAGNESIUM SULF 50% (8.12 MEQ/2 ML-1 GM VIAL) IVPB ONE (08:32)
[2020-03-31] MEDS: IPRATROPIUM BR 0.02% 0.5 MG/2.5 ML VIAL.NEB. NEB SCH ×3 (08:33→20:15)
[2020-03-31] MEDS ORDERED: MAGNESIUM 1GM/D5W - 1 GM/100 ML IVPB IVPB ONE (08:45)
[2020-03-31] MEDS ORDERED: AZTREONAM 1 GM VIAL (RESTRICTED TO ID) ONE ×2 (08:57→21:07)
[2020-03-31] MEDS ORDERED: DEXTROSE 5%-WATER - 50 ML IVPB ONE ×2 (08:57→21:07)
[2020-03-31] MEDS: AZTREONAM 1 GM in DEXTROSE 5%-WATER - 50 ML IVPB SCH ×2 (09:13→21:15)
[2020-03-31] MEDS: PANTOPRAZOLE SODIUM 40 MG VIAL IVPUSH SCH (09:14)
[2020-03-31] MEDS: METOPROLOL TARTRATE 25 MG TABLET (FP) PO SCH ×2 (09:14→21:15)
[2020-03-31] MEDS: POLYETHYLENE GLYCOL 3350 119 GM BTL PO SCH (09:25)
[2020-03-31 09:33] LABS: BASO % 1.3 % (0-2.0); EOS % 3.5 % (0-4.5); HEMATOCRIT 29.2 % (32.4-45.2); HEMOGLOBIN 9.4 GM/dL (10.7-15.3); LYMPH % 8.5 % (8-40); MCH 24.2 pg (25.7-33.7); MCHC 32.2 g/dl (32.0-36.0); MEAN CELL VOLUME 75.3 fl (80-96); MEAN PLT VOLUME 7.5 fl (7.5-11.1); MONO % 7.8 % (3.8-10.2); NEUT % 78.9 % (42.8-82.8); PLATELET COUNT 356 K/MM3 (134-434); RBC 3.88 M/mm3 (3.60-5.2); RDW 19.3 % (11.6-15.6); WHITE BLOOD COUNT 11.9 K/mm3 (4.0-10.0)
[2020-03-31] MEDS ORDERED: METOPROLOL TARTRATE 25 MG TABLET (FP) PO ONE (11:40)
--- NOTE | 2020-03-31 11:46 | PN ---
Progress Note (short form) - Note Progress Note: cc: altered mental status s: no chest pain, palps, dizziness, dyspnea Current Medications Generic Name Dose Route Start Last Admin Trade Name Freq PRN Reason Stop Dose Admin Atorvastatin Calcium 20 mg 03/30/20 22:00 03/30/20 21:10 Lipitor - PO 20 mg HS CHRIS Administration Donepezil HCl 5 mg 03/29/20 22:00 03/30/20 21:10 Aricept - PO 5 mg HS CHRIS Administration Aztreonam 1 gm/ Dextrose 50 mls @ 100 mls/hr 03/30/20 22:00 03/31/20 09:13 IVPB 100 mls/hr Q12H CHRIS Administration Protocol Insulin Aspart 1 vial 03/30/20 11:00 03/31/20 06:31 Novolog Vial Sliding Scale - SQ 6 unit ACHS CHRIS Administration Protocol Ipratropium [place] 1 amp 03/28/20 14:00 03/31/20 08:33 Atrovent 0.02% Nebulizer - NEB Not Given RTID CHRIS Ipratropium [place] 1 amp 03/28/20 09:02 Atrovent 0.02% Nebulizer - NEB 04/04/20 09:02 Q4H PRN WHEEZING Metoprolol Tartrate 2.5 mg 03/30/20 07:30 Lopressor Injection - IVPB Q4H PRN TACHYCARDIA Metoprolol Tartrate 50 mg 03/30/20 22:00 03/31/20 09:14 Lopressor - PO 50 mg BID CHRIS Administration Pantoprazole Sodium 40 mg 03/30/20 10:00 03/31/20 09:14 Protonix Iv IVPUSH 40 mg DAILY CHRIS Administration Polyethylene Glycol 17 gm 03/28/20 10:00 03/31/20 09:25 Miralax (For Daily Use) - PO 17 gm DAILY CHRIS Administration Vital Signs Period Temp Pulse Resp BP Sys/Jackson Pulse Ox Last 24 Hr 97.7 F-98.4 F 114-134 20-22 114-147/72-96 95-99 Constitutional: Yes: No Distress, Calm, Obese Eyes: No: Sclera Icterus HENT: No: Nasal Congestion Cardiovascular: Yes: Pulse Irregular, S1, S2, Other (PMI non diplaced). No: JVD, Gallop, Murmur Respiratory: Yes: CTA Bilaterally No: Accessory Muscle Use, Rales, wheeze Gastrointestinal: Yes: Normal Bowel Sounds, Soft. No: Tenderness Musculoskeletal: Yes: Other (No kyphosis) Extremities: No: Cyanosis Edema: No Integumentary: No: Jaundice Neurological: Yes: Alert. No: Seizure Psychiatric: No: Agitated Assessment/Plan Echo 04/04: nl LV/RV. moderate vs severe (misaligned doppler gradients). RVSP 30-40 tele: AF hr 120s-130s AF: new onset, likely triggered by sepsis, shock -still with rvr episodes, increase lopressor to 50 mg BID, monitor tele -[id number] score is at least 3 (age, DM, Female) and anticoagulation is indicated. However, H/H have drifted down since admission, with + stool guaiac-- AC held - note yesterday Hb 10.4 -> 9.4 today. given ongoing anemia with patient refusing GI workup, may be at prohibitive risk for anticoagulation Hypotension due to gram negative sepsis with shock: -Abx as per Critical Care and ID -off levophed, bp stable CAD: -Mildly abnl persantine MIBI here in 2015 showing mild apical ischemia managed medically -If she begins anticoagulation for AF, then can discontinue ASA as it will increase bleed risk in this age group with little added benefit -cont bb -statin resumed -Rate control as outlined above Chronic diastolic CHF: -appears euvolemic clinically, though cxr mild congestive changes - lasix held for MARCIA -Rate control for AF mgmt , moderate vs severe -echo here indeterminate regarding severity of stenosis. no audible murmur but soft heart sounds -in absence of attributable sx's (ischemia, refractory chf), plan outpt f/u and repeat echo ARF: likely due to ATN in setting of mild obstructive uropathy -improving with IVF -Renal consulted Anemia: Baseline seems to be 10-11 -Drifting down this admission, + guaiac - GI consulted - patient refused EGD/[place] DM: -per primary team Hx PSVT/PAT/NSVT with Normal LVEF: -Now in AF -cont bb -Keep K+/Mg2+ normalized -Continue tele
[2020-03-31] MEDS ORDERED: MAGNESIUM OXIDE 400 MG TABLET (FP) PO ONE (11:52)
--- NOTE | 2020-03-31 11:52 | PN ---
Progress Note, Physician History of Present Illness: Pt seen and examined at bedside. She is awake and alert. She is tolerating diet. - Current Medication List Current Medications: Active Medications Atorvastatin Calcium (Lipitor -) 20 mg PO HS COUNT INCLUDES THE [facility] Last Admin: 03/30/20 21:10 Dose: 20 mg Documented by: Donepezil HCl (Aricept -) 5 mg PO HS COUNT INCLUDES THE [facility] Last Admin: 03/30/20 21:10 Dose: 5 mg Documented by: Aztreonam 1 gm/ Dextrose 50 mls @ 100 mls/hr IVPB Q12H CHRIS; Protocol Last Admin: 03/31/20 09:13 Dose: 100 mls/hr Documented by: Insulin Aspart (Novolog Vial Sliding Scale -) 1 vial SQ ACHS CHRIS; Protocol Last Admin: 03/31/20 06:31 Dose: 6 unit Documented by: Ipratropium [place] (Atrovent 0.02% Nebulizer -) 1 amp NEB RTID COUNT INCLUDES THE [facility] Last Admin: 03/31/20 08:33 Dose: Not Given Documented by: Ipratropium [place] (Atrovent 0.02% Nebulizer -) 1 amp NEB Q4H PRN PRN Reason: WHEEZING Stop: 04/04/20 09:02 Metoprolol Tartrate (Lopressor Injection -) 2.5 mg IVPB Q4H PRN PRN Reason: TACHYCARDIA Metoprolol Tartrate (Lopressor -) 75 mg PO BID COUNT INCLUDES THE [facility] Pantoprazole Sodium (Protonix Iv) 40 mg IVPUSH DAILY COUNT INCLUDES THE [facility] Last Admin: 03/31/20 09:14 Dose: 40 mg Documented by: Polyethylene Glycol (Miralax (For Daily Use) -) 17 gm PO DAILY CHRIS Last Admin: 03/31/20 09:25 Dose: 17 gm Documented by: - Objective Vital Signs: Vital Signs Temperature 97.7 F 03/31/20 09:09 Pulse Rate 114 H 03/31/20 09:09 Respiratory Rate 22 H 03/31/20 09:09 Blood Pressure 147/72 03/31/20 09:09 O2 Sat by Pulse Oximetry (%) 99 03/31/20 09:09 Constitutional: Yes: Calm Eyes: Yes: Conjunctiva Clear HENT: Yes: Atraumatic Neck: Yes: Supple Cardiovascular: Yes: S1, S2 Respiratory: Yes: CTA Bilaterally Gastrointestinal: Yes: Normal Bowel Sounds, Soft Genitourinary: Yes: WNL Musculoskeletal: Yes: WNL Edema: No Neurological: Yes: Oriented Psychiatric: Yes: Oriented Labs: CBC, BMP 03/31/20 06:40 03/31/20 06:40 INR, PTT INR 1.34 (0.83-1.09) H 03/23/20 19:10 Problem List - Problems (1) MARCIA (acute kidney injury) Code(s): N17.9 - ACUTE KIDNEY FAILURE, UNSPECIFIED (2) Gram-negative bacteremia Code(s): R78.81 - BACTEREMIA Assessment/Plan Current Medications Generic Name Dose Route Start Last Admin Trade Name Freq PRN Reason Stop Dose Admin Atorvastatin Calcium 20 mg 03/30/20 22:00 03/30/20 21:10 Lipitor - PO 20 mg HS CHRIS Administration Donepezil HCl 5 mg 03/29/20 22:00 03/30/20 21:10 Aricept - PO 5 mg HS CHRIS Administration Aztreonam 1 gm/ Dextrose 50 mls @ 100 mls/hr 03/30/20 22:00 03/31/20 09:13 IVPB 100 mls/hr Q12H CHRIS Administration Protocol Insulin Aspart 1 vial 03/30/20 11:00 03/31/20 06:31 Novolog Vial Sliding Scale - SQ 6 unit ACHS CHRIS Administration Protocol Ipratropium [place] 1 amp 03/28/20 14:00 03/31/20 08:33 Atrovent 0.02% Nebulizer - NEB Not Given RTID CHRIS Ipratropium [place] 1 amp 03/28/20 09:02 Atrovent 0.02% Nebulizer - NEB 04/04/20 09:02 Q4H PRN WHEEZING Metoprolol Tartrate 2.5 mg 03/30/20 07:30 Lopressor Injection - IVPB Q4H PRN TACHYCARDIA Metoprolol Tartrate 75 mg 03/31/20 22:00 Lopressor - PO BID CHRIS Pantoprazole Sodium 40 mg 03/30/20 10:00 03/31/20 09:14 Protonix Iv IVPUSH 40 mg DAILY CHRIS Administration Polyethylene Glycol 17 gm 03/28/20 10:00 03/31/20 09:25 Miralax (For Daily Use) - PO 17 gm DAILY CHRIS Administration Impression 1. marcia 2. sepsis 3. gram neg bacteremai 4. resp failure 5. nephrolithiasis 6. shock 7. dm 8. htn 9. hld Plan - renal function continues to improve - repeat labs in am - avoid nephrotoxins - phos stable - replace mag
[2020-03-31 12:24] LABS: ANISOCYTOSIS 1+; MACROCYTOSIS 0; PLATELET ESTIMATE NORMAL
--- NOTE | 2020-03-31 12:54 | PN ---
Teaching Attending Note Name of Resident: Patty Nassar ATTENDING PHYSICIAN STATEMENT I saw and evaluated the patient. I reviewed the resident's note and discussed the case with the resident. I agree with the resident's findings and plan as documented. SUBJECTIVE: OBJECTIVE: Last Vital Signs Temp Pulse Resp BP Pulse Ox 97.7 F 114 H 22 H 147/72 99 03/31/20 09:09 03/31/20 09:09 03/31/20 09:09 03/31/20 09:09 03/31/20 09:09 GENERAL: Awake, alert and oriented, in no acute distress. HEENT: AT/NC, not P/C/J, PERRLA LUNGS: Breath sounds equal, clear to auscultation bilaterally. No wheezes, and no crackles. No accessory muscle use. HEART: Regular rate and rhythm, normal S1 and S2 ABDOMEN: Soft, nontender, not distended MUSCULOSKELETAL: Normal range of motion at all joints. No bony deformities or tenderness. No CVA tenderness. UPPER EXTREMITIES: 2+ pulses, warm, well-perfused. No cyanosis. No clubbing. No peripheral edema. LOWER EXTREMITIES: 2+ pulses, warm, well-perfused. No calf tenderness. No peripheral edema. NEUROLOGICAL: Cranial nerves II-XII intact. Normal speech. CBCD WBC 11.9 K/mm3 (4.0-10.0) H 03/31/20 06:40 RBC 3.88 M/mm3 (3.60-5.2) 03/31/20 06:40 Hgb 9.4 GM/dL (10.7-15.3) L 03/31/20 06:40 Hct 29.2 % (32.4-45.2) L 03/31/20 06:40 MCV 75.3 fl (80-96) L 03/31/20 06:40 MCHC 32.2 g/dl (32.0-36.0) 03/31/20 06:40 RDW 19.3 % (11.6-15.6) H 03/31/20 06:40 Plt Count 356 K/MM3 (134-434) 03/31/20 06:40 MPV 7.5 fl (7.5-11.1) 03/31/20 06:40 CMP Sodium 138 mmol/L (136-145) 03/31/20 06:40 Potassium 4.4 mmol/L (3.5-5.1) 03/31/20 06:40 Chloride 111 mmol/L (98-107) H 03/31/20 06:40 Carbon Dioxide 17 mmol/L (21-32) L 03/31/20 06:40 Anion Gap 10 MMOL/L (8-16) 03/31/20 06:40 BUN 70.5 mg/dL (7-18) H 03/31/20 06:40 Creatinine 2.5 mg/dL (0.55-1.3) H 03/31/20 06:40 Calcium 7.8 mg/dL (8.5-10.1) L 03/31/20 06:40 Total Bilirubin 1.0 mg/dL (0.2-1) 03/31/20 06:40 AST 10 U/L (15-37) L 03/31/20 06:40 ALT 13 U/L (13-61) 03/31/20 06:40 Alkaline Phosphatase 78 U/L (45-117) 03/31/20 06:40 Total Protein 5.7 g/dl (6.4-8.2) L 03/31/20 06:40 Albumin 1.9 g/dl (3.4-5.0) L 03/31/20 06:40 Active Medications Atorvastatin Calcium (Lipitor -) 20 mg PO HS CHRIS Last Admin: 03/30/20 21:10 Dose: 20 mg Documented by: Donepezil HCl (Aricept -) 5 mg PO HS CHRIS Last Admin: 03/30/20 21:10 Dose: 5 mg Documented by: Aztreonam 1 gm/ Dextrose 50 mls @ 100 mls/hr IVPB Q12H CHRIS; Protocol Last Admin: 03/31/20 09:13 Dose: 100 mls/hr Documented by: Insulin Aspart (Novolog Vial Sliding Scale -) 1 vial SQ ACHS CHRIS; Protocol Last Admin: 03/31/20 12:33 Dose: 10 unit Documented by: Ipratropium [place] (Atrovent 0.02% Nebulizer -) 1 amp NEB RTID CHRIS Last Admin: 03/31/20 08:33 Dose: Not Given Documented by: Ipratropium [place] (Atrovent 0.02% Nebulizer -) 1 amp NEB Q4H PRN PRN Reason: WHEEZING Stop: 04/04/20 09:02 Metoprolol Tartrate (Lopressor Injection -) 2.5 mg IVPB Q4H PRN PRN Reason: TACHYCARDIA Metoprolol Tartrate (Lopressor -) 75 mg PO BID CHRIS Pantoprazole Sodium (Protonix Iv) 40 mg IVPUSH DAILY [facility] Last Admin: 03/31/20 09:14 Dose: 40 mg Documented by: Polyethylene Glycol (Miralax (For Daily Use) -) 17 gm PO DAILY CHRIS Last Admin: 03/31/20 09:25 Dose: 17 gm Documented by: ASSESSMENT AND PLAN: 89 year old female with history of DM 2, Chronic Diastolic CHF, CAD (mild apical ischemia on MPI 2015), Hx PSVT/PA/NSVT, HTN, HLD, Aortic Stenosis, initially admitted with AMS and hyperglycemia, found to have Acute Pyelonephritis with septic shock and 2/2 AFib, intubated (now extubated) and downgraded to tele # Acute Hypoxic Respiratory Failure and Septic Shock - resolved 2/2 to Acute Pyelonephritis/Nephrolithiasis with Ecoli VSS, afebrile s/p Ureteral Stent Abx per ID had successful TOV, off andrews repeat COVID test for discharge planning # New Onset AFib Likely trigger by Septic Shock still with episodes of RVR FOBT+ stable H/H, can start AC [id number] 4 # ATN improving creatinine due to Shock +/- Obstructive Uropathy Not currently on IV fluids. Nephrology following. HFpEF DM 2 CAD Normocytic Anemia HTN Dementia DVT Proph
--- NOTE | 2020-03-31 14:22 | PN ---
Progress Note (short form) - Note Progress Note: has voided- doing well pod #6 s/p ureteral stent Vital Signs Period Temp Pulse Resp BP Sys/[place] Pulse Ox Last 24 Hr 97.7 F-98.4 F 114-134 20-22 114-147/72-96 95-99 cor-rrr lungs clear abd soft,nt ext no edema CBC, BMP 03/31/20 06:40 03/31/20 06:40 Microbiology 03/27/20 05:46 Blood - Peripheral Venous Blood Culture - Preliminary NO GROWTH OBTAINED AFTER 96 HOURS, INCUBATION TO CONTINUE FOR 1 DAYS. 03/27/20 05:58 Blood - Peripheral Venous Blood Culture - Preliminary NO GROWTH OBTAINED AFTER 96 HOURS, INCUBATION TO CONTINUE FOR 1 DAYS. 03/23/20 20:20 Urine - Urine - Catheterized Urine Culture - Final Escherichia Coli 03/23/20 19:10 Blood - Peripheral Venous Blood Culture - Final Escherichia Coli 03/23/20 19:10 Blood - Peripheral Venous Blood Culture - Final Escherichia Coli imp/reccd ecoli bacteremia s/p ureteral stent afib MARCIA-improving UTI penicillin allergy clinically improving continue azactam day #6/7 after stent renal function improving complete 7 days antibioitcs Problem List - Problems (1) Gram-negative bacteremia Code(s): R78.81 - BACTEREMIA (2) Obstructive uropathy Code(s): N13.9 - OBSTRUCTIVE AND REFLUX UROPATHY, UNSPECIFIED (3) MARCIA (acute kidney injury) Code(s): N17.9 - ACUTE KIDNEY FAILURE, UNSPECIFIED (4) Penicillin allergy Code(s): Z88.0 - ALLERGY STATUS TO PENICILLIN
--- NOTE | 2020-03-31 16:36 | PN ---
Physical Exam: SUBJECTIVE: Patient seen and examined at bedside, no acute events overnight, no new complaints. Tele: missed beats on tele OBJECTIVE: Vital Signs Period Temp Pulse Resp BP Sys/Jackson Pulse Ox Last 24 Hr 97.7 F-98.4 F 97-134 16-22 114-147/72-96 95-99 GENERAL: AAOx2, in no acute distress HEENT: NCAT, PERRLA, EOMI, sclera anicteric, conjunctiva clear, oropharynx clear w/o exudates. MMM. NECK: Normal ROM, supple, no lymphadenopathy, JVD, or masses, R IJ line removed, covered with dressing, no blood/discharge LUNGS: b/l basal crackles. No distress HEART: RRR, normal S1 S2, no M/R/G, peripheral pulses 2+ and equal b/l ABDOMEN: Soft, obese, non-tender, + BS. No guarding or rebound. No hepatomegaly or splenomegaly. MSK: ROM WNL, NO CVA tenderness EXTREMITIES: Normal inspection. +1 pitting edema, no calf tenderness. No clubbing or cyanosis. NEUROLOGICAL: CN II-XII intact. Normal speech, gait not observed, no focal sensorimotor deficits. Generalized weakness PSYCH: Normal mood, normal affect. SKIN: Warm, Dry, normal turgor, no rashes or lesions noted Laboratory Results - last 24 hr 03/30/20 03/30/20 03/31/20 14:00 21:14 06:02 WBC RBC Hgb Hct MCV MCH MCHC RDW Plt Count MPV Absolute Neuts (auto) Neutrophils % Neutrophils % (Manual) Band Neutrophils % Lymphocytes % Lymphocytes % (Manual) Monocytes % Monocytes % (Manual) Eosinophils % Eosinophils % (Manual) Basophils % Basophils % (Manual) Myelocytes % (Man) Promyelocytes % (Man) Blast Cells % (Manual) Nucleated RBC % Metamyelocytes Hypochromia Platelet Estimate Polychromasia Poikilocytosis Anisocytosis Microcytosis Macrocytosis Sodium Potassium Chloride Carbon Dioxide Anion Gap BUN Creatinine Est GFR (CKD-EPI)AfAm Est GFR (CKD-EPI)NonAf POC Glucometer 354 227 Random Glucose Calcium Phosphorus Magnesium Total Bilirubin AST ALT Alkaline Phosphatase Total Protein Albumin COVID-19 (ERNESTINA) Not detected 03/31/20 03/31/20 03/31/20 06:40 06:40 12:26 WBC 11.9 H RBC 3.88 Hgb 9.4 L Hct 29.2 L MCV 75.3 L MCH 24.2 L MCHC 32.2 RDW 19.3 H Plt Count 356 MPV 7.5 Absolute Neuts (auto) 9.4 H Neutrophils % 78.9 Neutrophils % (Manual) 73.4 Band Neutrophils % 0.0 Lymphocytes % 8.5 Lymphocytes % (Manual) 6.4 L Monocytes % 7.8 Monocytes % (Manual) 10 Eosinophils % 3.5 Eosinophils % (Manual) 2.1 D Basophils % 1.3 Basophils % (Manual) 0.0 Myelocytes % (Man) 7 H D Promyelocytes % (Man) 0 Blast Cells % (Manual) 0 Nucleated RBC % 0 Metamyelocytes 1 D Hypochromia 0 Platelet Estimate Normal Polychromasia 1+ Poikilocytosis 0 Anisocytosis 1+ Microcytosis 1+ Macrocytosis 0 Sodium 138 Potassium 4.4 Chloride 111 H Carbon Dioxide 17 L Anion Gap 10 BUN 70.5 H Creatinine 2.5 H Est GFR (CKD-EPI)AfAm 19.24 Est GFR (CKD-EPI)NonAf 16.60 POC Glucometer 318 Random Glucose 241 H Calcium 7.8 L Phosphorus 4.2 Magnesium 1.7 L Total Bilirubin 1.0 AST 10 L ALT 13 Alkaline Phosphatase 78 Total Protein 5.7 L Albumin 1.9 L COVID-19 (ERNESTINA) Active Medications Generic Name Dose Route Start Last Admin Trade Name Freq PRN Reason Stop Dose Admin Atorvastatin Calcium 20 mg 03/30/20 22:00 03/30/20 21:10 Lipitor - PO 20 mg HS CHRIS Administration Donepezil HCl 5 mg 03/29/20 22:00 03/30/20 21:10 Aricept - PO 5 mg HS CHRIS Administration Aztreonam 1 gm/ Dextrose 50 mls @ 100 mls/hr 03/30/20 22:00 03/31/20 09:13 IVPB 100 mls/hr Q12H CHRIS Administration Protocol Insulin Aspart 1 vial 03/30/20 11:00 03/31/20 12:33 Novolog Vial Sliding Scale - SQ 10 unit ACHS CHRIS Administration Protocol Ipratropium [place] 1 amp 03/28/20 14:00 03/31/20 13:25 Atrovent 0.02% Nebulizer - NEB 1 amp RTID CHRIS Administration Ipratropium [place] 1 amp 03/28/20 09:02 Atrovent 0.02% Nebulizer - NEB 04/04/20 09:02 Q4H PRN WHEEZING Metoprolol Tartrate 2.5 mg 03/30/20 07:30 Lopressor Injection - IVPB Q4H PRN TACHYCARDIA Metoprolol Tartrate 75 mg 03/31/20 22:00 Lopressor - PO BID CHRIS Pantoprazole Sodium 40 mg 03/30/20 10:00 03/31/20 09:14 Protonix Iv IVPUSH 40 mg DAILY CHRIS Administration Polyethylene Glycol 17 gm 03/28/20 10:00 03/31/20 09:25 Miralax (For Daily Use) - PO 17 gm DAILY CHRIS Administration ASSESSMENT/PLAN: 89 year old female with history of DM 2, Chronic Diastolic CHF, CAD (mild apical ischemia on MPI 2015), Hx PSVT/PA/NSVT, HTN, HLD, Aortic Stenosis, initially admitted with AMS and hyperglycemia, found to have Acute Pyelonephritis with Bacteremia and RDU stones (3 and 6mm) on admission 03/23. She was evaluated by Urology and taken to OR for cystoscopy and stent placement on 03/25, during which she developed new onset [place] fibrillation, respiratory distress, hypotension, requiring intubation and pressors and admitted to ICU. She is now successfully extubated and off pressors. #Acute Hypoxic Respiratory Failure and Septic Shock requiring intubation - 2/2 Acute Pyelonephritis with Ecoli Bacteremia, likely 2/2 Nephrolithiasis - 03/26 : Shock and resp failure resolved. Patient was extubated and off pressors - 03/27 : Transferred from ICU to [facility] - s/p Ureteral Stent, POD #6 - ID is on board - will Continue with Aztreonam D#6/7, will complete at D7 #New Onset Atrial Fibrillation - Likely triggered by septic shock/urological procedure - She has a Hx PSVT/PAT and NSVT - Holding AC for now due to Positive FOBT - [id number] 4, can start AC when medically stable - Cardio on board #FOBT + - GI on Board, will revaluate when medically stable colonoscopy +/- endoscopy, when medically stable - will continue PPI. #MARCIA /ATN - Likely 2/2 septic shock, Hypotension - Nephro on board, Holding IVF for now - Crea is improving, today 2.5 - August was d/c'ed and initiated a TOV - She was able to void - avoid nephrotoxic drugs #Chronic diastolic HF - CXR shows mild congestive changes, PE revealed b/l basal crackles - Cardio is on board #Hx of DM - BGM + ISS - Holding home meds: Glargine, Januvia, Starlix #Hx of CAD - Patient had a MIBI in 2016 : mild apical ischemia, Cardio on board. Beta blockers when BP is stable Statin can be resumed on d/c #Hx of Normocytic Anemia - f/u with Iron/Ferritin B12, Folate labs - FOBT positive, pending further eval by GI colonoscopy +/- endoscopy, when medically stable FEN - No standing fluids at this time - Continue to monitor electrolytes - Renal Diet DVT Px - Holding chemical ppx, FOBt + - SCDs. Dispo -Will continue to monitor on Tele, repeat covid, discharge planning Visit type - Emergency Visit Emergency Visit: Yes ED Registration Date: 03/23/20 Care time: The patient presented to the Emergency Department on the above date and was hospitalized for further evaluation of their emergent condition. - New Patient This patient is new to me today: No - Critical Care Critical Care patient: No - Discharge Referral Referred to [facility] Med [facility] No - Medication Review Med list reviewed for High Risk Meds patients 65 and older: Yes ATTENDING PHYSICIAN STATEMENT I saw and evaluated the patient. I reviewed the resident's note and discussed the case with the resident. I agree with the resident's findings and plan as documented. SUBJECTIVE: OBJECTIVE: ASSESSMENT AND PLAN:
[2020-03-31] MEDS: DONEPEZIL HCL 5 MG TABLET (FP) PO SCH (21:14)
[2020-03-31] MEDS: ATORVASTATIN CA 20 MG TABLET (FP) PO SCH (21:14)
[2020-03-31 23:59] VITALS: BMI 33.6
[2020-04-01] MEDS: INSULIN SLIDING SCALE (NOVOLOG) 1 VIAL SQ SCH ×5 (06:16→22:14)
[2020-04-01] MEDS: IPRATROPIUM BR 0.02% 0.5 MG/2.5 ML VIAL.NEB. NEB SCH ×3 (07:42→23:11)
[2020-04-01 07:52] LABS: BASO % 0.5 % (0-2.0); EOS % 2.6 % (0-4.5); HEMOGLOBIN 9.4 GM/dL (10.7-15.3); LYMPH % 9.4 % (8-40); MCH 23.3 pg (25.7-33.7); MCHC 31.4 g/dl (32.0-36.0); MEAN CELL VOLUME 74.1 fl (80-96); MEAN PLT VOLUME 7.3 fl (7.5-11.1); NEUT % 79.5 % (42.8-82.8); PLATELET COUNT 402 K/MM3 (134-434); RBC 4.04 M/mm3 (3.60-5.2); RDW 19.6 % (11.6-15.6); WHITE BLOOD COUNT 12.5 K/mm3 (4.0-10.0)
[2020-04-01 08:32] LABS: BILIRUBIN,TOTAL 0.4 mg/dL (0.2-1); BLOOD UREA NITROGEN 61.7 mg/dL (7-18); CALCIUM 8.3 mg/dL (8.5-10.1); CREATININE 2.3 mg/dL (0.55-1.3); MAGNESIUM 1.8 mg/dL (1.8-2.4); PHOSPHOROUS 4.2 mg/dL (2.5-4.9)
[2020-04-01] MEDS ORDERED: DEXTROSE 5%-WATER - 50 ML IVPB ONE ×2 (09:30→21:53)
[2020-04-01] MEDS ORDERED: AZTREONAM 1 GM VIAL (RESTRICTED TO ID) ONE ×2 (09:30→21:53)
[2020-04-01] MEDS ORDERED: PT OWN MED DRAWER 7, Y5N ONE (09:31)
[2020-04-01 09:55] LABS: ANISOCYTOSIS 2+; MACROCYTOSIS 0; PLATELET ESTIMATE NORMAL
[2020-04-01] MEDS: METOPROLOL TARTRATE 25 MG TABLET (FP) PO SCH ×2 (09:55→22:07)
[2020-04-01] MEDS: AZTREONAM 1 GM in DEXTROSE 5%-WATER - 50 ML IVPB SCH ×2 (09:56→22:02)
[2020-04-01] MEDS: POLYETHYLENE GLYCOL 3350 119 GM BTL PO SCH (09:57)
[2020-04-01] MEDS: PANTOPRAZOLE SODIUM 40 MG VIAL IVPUSH SCH (09:57)
--- NOTE | 2020-04-01 11:30 | PN ---
Progress Note (short form) - Note Progress Note: Chief Complaint: altered MS History of Present Illness: denies sob today no cp, palp, swelling no cigs - Current Medications Generic Name Dose Route Start Last Admin Trade Name Freq PRN Reason Stop Dose Admin Atorvastatin Calcium 20 mg 03/30/20 22:00 03/31/20 21:14 Lipitor - PO 20 mg HS CHRIS Administration Donepezil HCl 5 mg 03/29/20 22:00 03/31/20 21:14 Aricept - PO 5 mg HS CHRIS Administration Aztreonam 1 gm/ Dextrose 50 mls @ 100 mls/hr 03/30/20 22:00 04/01/20 09:56 IVPB 100 mls/hr Q12H CHRIS Administration Protocol Insulin Aspart 1 vial 03/30/20 11:00 04/01/20 06:16 Novolog Vial Sliding Scale - SQ 6 unit ACHS CHRIS Administration Protocol Ipratropium [place] 1 amp 03/28/20 14:00 04/01/20 07:42 Atrovent 0.02% Nebulizer - NEB 1 amp RTID CHRIS Administration Ipratropium [place] 1 amp 03/28/20 09:02 Atrovent 0.02% Nebulizer - NEB 04/04/20 09:02 Q4H PRN WHEEZING Metoprolol Tartrate 2.5 mg 03/30/20 07:30 Lopressor Injection - IVPB Q4H PRN TACHYCARDIA Metoprolol Tartrate 75 mg 03/31/20 22:00 04/01/20 09:55 Lopressor - PO 75 mg BID CHRIS Administration Pantoprazole Sodium 40 mg 03/30/20 10:00 04/01/20 09:57 Protonix Iv IVPUSH 40 mg DAILY CHRIS Administration Polyethylene Glycol 17 gm 03/28/20 10:00 04/01/20 09:57 Miralax (For Daily Use) - PO 17 gm DAILY CHRIS Administration Vital Signs Period Temp Pulse Resp BP Sys/Jackson Pulse Ox Last 24 Hr 97.6 F-98.9 F 97-108 16-20 115-142/61-92 94-97 Constitutional: Yes: No Distress, Calm, Obese Eyes: No: Sclera Icterus HENT: No: Nasal Congestion Cardiovascular: Yes: Pulse Irregular, S1, S2, Other (PMI non diplaced). No: JVD, Gallop, Murmur Respiratory: Yes: CTA Bilaterally, Wheezes. No: Accessory Muscle Use, Rales Gastrointestinal: Yes: Normal Bowel Sounds, Soft. No: Tenderness Musculoskeletal: Yes: Other (No kyphosis) Extremities: No: Cyanosis Edema: No Integumentary: No: Jaundice Neurological: Yes: Alert. No: Seizure Psychiatric: No: Agitated Labs: CBC, BMP 04/01/20 06:34 04/01/20 06:34 Assessment/Plan Echo 04/04: nl LV/RV. moderate vs severe (misaligned doppler gradients). RVSP 30-40 tele: AF hr 100s-110s AF: new onset, likely triggered by sepsis, shock -cont lopressor -[id number] score is at least 3 (age, DM, Female) and anticoagulation is indicated. However, H/H have drifted down since admission, with + stool guaiac--AC held - note yesterday Hb 10.4 -> 9.4 today. given ongoing anemia with patient refusing GI workup, may be at prohibitive risk for anticoagulation Hypotension due to gram negative sepsis with shock: -improved, abx per ID CAD: -Mildly abnl persantine MIBI here in 2016 showing mild apical ischemia managed medically -If she begins anticoagulation for AF, then can discontinue ASA as it will increase bleed risk in this age group with little added benefit -cont bb -statin resumed -Rate control as outlined above Chronic diastolic CHF: -appears euvolemic clinically, though cxr mild congestive changes - lasix held for MARCIA -Rate control for AF mgmt , moderate vs severe -echo here indeterminate regarding severity of stenosis. no audible murmur but soft heart sounds -in absence of attributable sx's (ischemia, refractory chf), plan outpt f/u and repeat echo ARF: likely due to ATN in setting of mild obstructive uropathy -improving with IVF -Renal consulted Anemia: Baseline seems to be 10-11 -Drifting down this admission, + guaiac - GI consulted - patient refused EGD/Castaner DM: -per primary team Hx PSVT/PAT/NSVT with Normal LVEF: -Now in AF -cont bb
--- NOTE | 2020-04-01 14:06 | PN ---
Teaching Attending Note Name of Resident: Patty Nassar ATTENDING PHYSICIAN STATEMENT I saw and evaluated the patient. I reviewed the resident's note and discussed the case with the resident. I agree with the resident's findings and plan as documented. SUBJECTIVE: pt seen and examined OBJECTIVE: Last Vital Signs Temp Pulse Resp BP Pulse Ox 98.4 F 108 H 18 120/61 96 04/01/20 09:58 04/01/20 09:58 04/01/20 09:58 04/01/20 09:58 04/01/20 09:58 GENERAL: Awake, alert and oriented, in no acute distress. HEENT: AT/NC, not P/C/J, PERRLA LUNGS: Breath sounds equal, clear to auscultation bilaterally. No wheezes, and no crackles. No accessory muscle use. HEART: Regular rate and rhythm, normal S1 and S2 ABDOMEN: Soft, nontender, not distended MUSCULOSKELETAL: Normal range of motion at all joints. No bony deformities or tenderness. No CVA tenderness. UPPER EXTREMITIES: 2+ pulses, warm, well-perfused. No cyanosis. No clubbing. No peripheral edema. LOWER EXTREMITIES: 2+ pulses, warm, well-perfused. No calf tenderness. No peripheral edema. NEUROLOGICAL: Cranial nerves II-XII intact. Normal speech. CBCD WBC 12.5 K/mm3 (4.0-10.0) H 04/01/20 06:34 RBC 4.04 M/mm3 (3.60-5.2) 04/01/20 06:34 Hgb 9.4 GM/dL (10.7-15.3) L 04/01/20 06:34 Hct 30.0 % (32.4-45.2) L 04/01/20 06:34 MCV 74.1 fl (80-96) L 04/01/20 06:34 MCHC 31.4 g/dl (32.0-36.0) L 04/01/20 06:34 RDW 19.6 % (11.6-15.6) H 04/01/20 06:34 Plt Count 402 K/MM3 (134-434) 04/01/20 06:34 MPV 7.3 fl (7.5-11.1) L 04/01/20 06:34 CMP Sodium 139 mmol/L (136-145) 04/01/20 06:34 Potassium 5.0 mmol/L (3.5-5.1) 04/01/20 06:34 Chloride 111 mmol/L (98-107) H 04/01/20 06:34 Carbon Dioxide 20 mmol/L (21-32) L 04/01/20 06:34 Anion Gap 8 MMOL/L (8-16) 04/01/20 06:34 BUN 61.7 mg/dL (7-18) H 04/01/20 06:34 Creatinine 2.3 mg/dL (0.55-1.3) H 04/01/20 06:34 Calcium 8.3 mg/dL (8.5-10.1) L 04/01/20 06:34 Total Bilirubin 0.4 mg/dL (0.2-1) 04/01/20 06:34 AST 9 U/L (15-37) L 04/01/20 06:34 ALT 13 U/L (13-61) 04/01/20 06:34 Alkaline Phosphatase 82 U/L (45-117) 04/01/20 06:34 Total Protein 6.0 g/dl (6.4-8.2) L 04/01/20 06:34 Albumin 2.0 g/dl (3.4-5.0) L 04/01/20 06:34 Active Medications Apixaban (Eliquis -) 2.5 mg PO BID CHRIS Atorvastatin Calcium (Lipitor -) 20 mg PO HS CHRIS Last Admin: 03/31/20 21:14 Dose: 20 mg Documented by: Donepezil HCl (Aricept -) 5 mg PO HS CHRIS Last Admin: 03/31/20 21:14 Dose: 5 mg Documented by: Aztreonam 1 gm/ Dextrose 50 mls @ 100 mls/hr IVPB Q12H CHRIS; Protocol Last Admin: 04/01/20 09:56 Dose: 100 mls/hr Documented by: Insulin Aspart (Novolog Vial Sliding Scale -) 1 vial SQ ACHS CHRIS; Protocol Last Admin: 04/01/20 12:13 Dose: Not Given Documented by: Insulin Detemir (Levemir Vial) 15 units SQ HS CHRIS Ipratropium [place] (Atrovent 0.02% Nebulizer -) 1 amp NEB RTID CHRIS Last Admin: 04/01/20 07:42 Dose: 1 amp Documented by: Ipratropium [place] (Atrovent 0.02% Nebulizer -) 1 amp NEB Q4H PRN PRN Reason: WHEEZING Stop: 04/04/20 09:02 Metoprolol Tartrate (Lopressor Injection -) 2.5 mg IVPB Q4H PRN PRN Reason: TACHYCARDIA Metoprolol Tartrate (Lopressor -) 75 mg PO BID [facility] Last Admin: 04/01/20 09:55 Dose: 75 mg Documented by: Pantoprazole Sodium (Protonix Iv) 40 mg IVPUSH DAILY [facility] Last Admin: 04/01/20 09:57 Dose: 40 mg Documented by: Polyethylene Glycol (Miralax (For Daily Use) -) 17 gm PO DAILY [facility] Last Admin: 04/01/20 09:57 Dose: 17 gm Documented by: ASSESSMENT AND PLAN: 89 year old female with history of DM 2, Chronic Diastolic CHF, CAD (mild apical ischemia on MPI 2015), Hx PSVT/PA/NSVT, HTN, HLD, Aortic Stenosis, initially admitted with AMS and hyperglycemia, found to have Acute Pyelonephritis with septic shock and 2/2 AFib, intubated (now extubated) and downgraded to tele # Acute Hypoxic Respiratory Failure and Septic Shock - resolved 2/2 to Acute Pyelonephritis/Nephrolithiasis with Ecoli VSS, afebrile s/p Ureteral Stent Abx per ID, day 7 discharge planning # New Onset AFib Likely trigger by Septic Shock still with episodes of RVR stable H/H, can start AC [id number] 4 # ATN improving creatinine due to Shock +/- Obstructive Uropathy Not currently on IV fluids. Nephrology following. HFpEF DM 2 CAD Normocytic Anemia HTN Dementia DVT Proph
--- NOTE | 2020-04-01 14:13 | PN ---
Progress Note, Physician History of Present Illness: Pt seen and examined at bedside. She is awake and alert. She is tolerating diet. - Current Medication List Current Medications: Active Medications Apixaban (Eliquis -) 2.5 mg PO BID [facility] Atorvastatin Calcium (Lipitor -) 20 mg PO HS [facility] Last Admin: 03/31/20 21:14 Dose: 20 mg Documented by: Donepezil HCl (Aricept -) 5 mg PO HS [facility] Last Admin: 03/31/20 21:14 Dose: 5 mg Documented by: Aztreonam 1 gm/ Dextrose 50 mls @ 100 mls/hr IVPB Q12H [facility]; Protocol Last Admin: 04/01/20 09:56 Dose: 100 mls/hr Documented by: Insulin Aspart (Novolog Vial Sliding Scale -) 1 vial SQ [facility]; Protocol Last Admin: 04/01/20 12:13 Dose: Not Given Documented by: Insulin Detemir (Levemir Vial) 15 units SQ [facility] Ipratropium [place] (Atrovent 0.02% Nebulizer -) 1 amp NEB RTID [facility] Last Admin: 04/01/20 07:42 Dose: 1 amp Documented by: Ipratropium [place] (Atrovent 0.02% Nebulizer -) 1 amp NEB Q4H PRN PRN Reason: WHEEZING Stop: 04/04/20 09:02 Metoprolol Tartrate (Lopressor Injection -) 2.5 mg IVPB Q4H PRN PRN Reason: TACHYCARDIA Metoprolol Tartrate (Lopressor -) 75 mg PO BID [facility] Last Admin: 04/01/20 09:55 Dose: 75 mg Documented by: Pantoprazole Sodium (Protonix Iv) 40 mg IVPUSH DAILY [facility] Last Admin: 04/01/20 09:57 Dose: 40 mg Documented by: Polyethylene Glycol (Miralax (For Daily Use) -) 17 gm PO DAILY [facility] Last Admin: 04/01/20 09:57 Dose: 17 gm Documented by: - Objective Vital Signs: Vital Signs Temperature 98.4 F 04/01/20 09:58 Pulse Rate 108 H 04/01/20 09:58 Respiratory Rate 18 04/01/20 09:58 Blood Pressure 120/61 04/01/20 09:58 O2 Sat by Pulse Oximetry (%) 96 04/01/20 09:58 Constitutional: Yes: Calm Eyes: Yes: Conjunctiva Clear HENT: Yes: Atraumatic Neck: Yes: Supple Cardiovascular: Yes: S1, S2 Respiratory: Yes: CTA Bilaterally Gastrointestinal: Yes: Soft, Abdomen, Obese Genitourinary: Yes: WNL Musculoskeletal: Yes: WNL Edema: No Neurological: Yes: Oriented Psychiatric: Yes: Oriented Labs: CBC, BMP 04/01/20 06:34 04/01/20 06:34 INR, PTT INR 1.34 (0.83-1.09) H 03/23/20 19:10 Problem List - Problems (1) MARCIA (acute kidney injury) Code(s): N17.9 - ACUTE KIDNEY FAILURE, UNSPECIFIED (2) Gram-negative bacteremia Code(s): R78.81 - BACTEREMIA Assessment/Plan Current Medications Generic Name Dose Route Start Last Admin Trade Name Freq PRN Reason Stop Dose Admin Apixaban 2.5 mg 04/01/20 22:00 Eliquis - PO BID CHRIS Atorvastatin Calcium 20 mg 03/30/20 22:00 03/31/20 21:14 Lipitor - PO 20 mg HS CHRIS Administration Donepezil HCl 5 mg 03/29/20 22:00 03/31/20 21:14 Aricept - PO 5 mg HS CHRIS Administration Aztreonam 1 gm/ Dextrose 50 mls @ 100 mls/hr 03/30/20 22:00 04/01/20 09:56 IVPB 100 mls/hr Q12H CHRIS Administration Protocol Insulin Aspart 1 vial 03/30/20 11:00 04/01/20 12:13 Novolog Vial Sliding Scale - SQ Not Given ACHS CHRIS Protocol Insulin Detemir 15 units 04/01/20 22:00 Levemir Vial SQ HS CHRIS Ipratropium [place] 1 amp 03/28/20 14:00 04/01/20 07:42 Atrovent 0.02% Nebulizer - NEB 1 amp RTID CHRIS Administration Ipratropium [place] 1 amp 03/28/20 09:02 Atrovent 0.02% Nebulizer - NEB 04/04/20 09:02 Q4H PRN WHEEZING Metoprolol Tartrate 2.5 mg 03/30/20 07:30 Lopressor Injection - IVPB Q4H PRN TACHYCARDIA Metoprolol Tartrate 75 mg 03/31/20 22:00 09/17/20 09:55 Lopressor - PO 75 mg BID CHRIS Administration Pantoprazole Sodium 40 mg 03/30/20 10:00 04/01/20 09:57 Protonix Iv IVPUSH 40 mg DAILY CHRIS Administration Polyethylene Glycol 17 gm 03/28/20 10:00 04/01/20 09:57 Miralax (For Daily Use) - PO 17 gm DAILY CHRIS Administration Impression 1. marcia 2. sepsis 3. gram neg bacteremai 4. resp failure 5. nephrolithiasis 6. shock 7. dm 8. htn 9. hld Plan - renal function improving - cont current diet - monitor potassium closely - repeat labs in am - renal function improving - pt likely had ATN
--- NOTE | 2020-04-01 15:19 | PN ---
Physical Exam: SUBJECTIVE: Patient seen and examined, no acute events overnight, no new complaints, asking to go home OBJECTIVE: Vital Signs Period Temp Pulse Resp BP Sys/Jackson Pulse Ox Last 24 Hr 97.6 F-98.9 F 93-108 18-20 119-142/61-92 94-97 GENERAL: AAOx2, in no acute distress HEENT: NCAT, PERRLA, EOMI, sclera anicteric, conjunctiva clear, oropharynx clear w/o exudates. MMM. NECK: Normal ROM, supple, no lymphadenopathy, JVD, or masses, R IJ line removed, covered with dressing, no blood/discharge LUNGS: b/l basal crackles. No distress HEART: RRR, normal S1 S2, no M/R/G, peripheral pulses 2+ and equal b/l ABDOMEN: Soft, obese, non-tender, + BS. No guarding or rebound. No hepatomegaly or splenomegaly. MSK: ROM WNL, NO CVA tenderness EXTREMITIES: Normal inspection. +1 pitting edema, no calf tenderness. No clubbing or cyanosis. NEUROLOGICAL: CN II-XII intact. Normal speech, gait not observed, no focal sensorimotor deficits. Generalized weakness PSYCH: Normal mood, normal affect. SKIN: Warm, Dry, normal turgor, no rashes or lesions noted Laboratory Results - last 24 hr 03/31/20 04/01/20 04/01/20 21:24 05:51 06:34 WBC 12.5 H RBC 4.04 Hgb 9.4 L Hct 30.0 L MCV 74.1 L MCH 23.3 L MCHC 31.4 L RDW 19.6 H Plt Count 402 MPV 7.3 L Absolute Neuts (auto) 9.9 H Neutrophils % 79.5 Neutrophils % (Manual) 79.2 Band Neutrophils % 1.0 Lymphocytes % 9.4 Lymphocytes % (Manual) 9.4 D Monocytes % 8.0 Monocytes % (Manual) 7 Eosinophils % 2.6 Eosinophils % (Manual) 2.1 Basophils % 0.5 Basophils % (Manual) 0.0 Myelocytes % (Man) 0 D Promyelocytes % (Man) 0 Blast Cells % (Manual) 0 Nucleated RBC % 0 Metamyelocytes 0 D Hypochromia 0 Platelet Estimate Normal Polychromasia 1+ Poikilocytosis 0 Anisocytosis 2+ Microcytosis 2+ Macrocytosis 0 Sodium Potassium Chloride Carbon Dioxide Anion Gap BUN Creatinine Est GFR (CKD-EPI)AfAm Est GFR (CKD-EPI)NonAf POC Glucometer 336 243 Random Glucose Calcium Phosphorus Magnesium Total Bilirubin AST ALT Alkaline Phosphatase Total Protein Albumin 04/01/20 06:34 WBC RBC Hgb Hct MCV MCH MCHC RDW Plt Count MPV Absolute Neuts (auto) Neutrophils % Neutrophils % (Manual) Band Neutrophils % Lymphocytes % Lymphocytes % (Manual) Monocytes % Monocytes % (Manual) Eosinophils % Eosinophils % (Manual) Basophils % Basophils % (Manual) Myelocytes % (Man) Promyelocytes % (Man) Blast Cells % (Manual) Nucleated RBC % Metamyelocytes Hypochromia Platelet Estimate Polychromasia Poikilocytosis Anisocytosis Microcytosis Macrocytosis Sodium 139 Potassium 5.0 Chloride 111 H Carbon Dioxide 20 L Anion Gap 8 BUN 61.7 H Creatinine 2.3 H Est GFR (CKD-EPI)AfAm 21.28 Est GFR (CKD-EPI)NonAf 18.36 POC Glucometer Random Glucose 249 H Calcium 8.3 L Phosphorus 4.2 Magnesium 1.8 Total Bilirubin 0.4 AST 9 L ALT 13 Alkaline Phosphatase 82 Total Protein 6.0 L Albumin 2.0 L Active Medications Generic Name Dose Route Start Last Admin Trade Name Freq PRN Reason Stop Dose Admin Apixaban 2.5 mg 04/01/20 22:00 Eliquis - PO BID CHRIS Atorvastatin Calcium 20 mg 03/30/20 22:00 03/31/20 21:14 Lipitor - PO 20 mg HS CHRIS Administration Donepezil HCl 5 mg 03/29/20 22:00 03/31/20 21:14 Aricept - PO 5 mg HS CHRIS Administration Aztreonam 1 gm/ Dextrose 50 mls @ 100 mls/hr 03/30/20 22:00 04/01/20 09:56 IVPB 100 mls/hr Q12H CHRIS Administration Protocol Insulin Aspart 1 vial 03/30/20 11:00 04/01/20 12:13 Novolog Vial Sliding Scale - SQ Not Given ACHS CHRIS Protocol Insulin Detemir 15 units 04/01/20 22:00 Levemir Vial SQ HS CHRIS Ipratropium [place] 1 amp 03/28/20 14:00 04/01/20 07:42 Atrovent 0.02% Nebulizer - NEB 1 amp RTID CHRIS Administration Ipratropium [place] 1 amp 03/28/20 09:02 Atrovent 0.02% Nebulizer - NEB 04/04/20 09:02 Q4H PRN WHEEZING Metoprolol Tartrate 2.5 mg 03/30/20 07:30 Lopressor Injection - IVPB Q4H PRN TACHYCARDIA Metoprolol Tartrate 75 mg 03/31/20 22:00 04/01/20 09:55 Lopressor - PO 75 mg BID CHRIS Administration Pantoprazole Sodium 40 mg 03/30/20 10:00 04/01/20 09:57 Protonix Iv IVPUSH 40 mg DAILY CHRIS Administration Polyethylene Glycol 17 gm 03/28/20 10:00 04/01/20 09:57 Miralax (For Daily Use) - PO 17 gm DAILY CHRIS Administration ASSESSMENT/PLAN: 89 year old female with history of DM 2, Chronic Diastolic CHF, CAD (mild apical ischemia on MPI 2015), Hx PSVT/PA/NSVT, HTN, HLD, Aortic Stenosis, initially admitted with AMS and hyperglycemia, found to have Acute Pyelonephritis with Bacteremia and RDU stones (3 and 6mm) on admission 03/23. She was evaluated by Urology and taken to OR for cystoscopy and stent placement on 03/25, during which she developed new onset [place] fibrillation, respiratory distress, hypotension, requiring intubation and pressors and admitted to ICU. She is now successfully extubated and off pressors. #Acute Hypoxic Respiratory Failure and Septic Shock requiring intubation - 2/2 Acute Pyelonephritis with Ecoli Bacteremia, likely 2/2 Nephrolithiasis - 03/26 : Shock and resp failure resolved. Patient was extubated and off pressors - 03/27 : Transferred from ICU to Tele - s/p Ureteral Stent, POD #7 - ID is on board - Aztreonam D7 - WBC is worsening 12.5 today, will repeat in AM #New Onset Atrial Fibrillation - Likely triggered by septic shock/urological procedure - She has a Hx PSVT/PAT and NSVT - Holding AC for now due to Positive FOBT, Low H/H, can star at dc - [id number] 4, can start AC when medically stable - Cardio on board #FOBT + - GI on Board, will revaluate when medically stable colonoscopy +/- endoscopy, when medically stable as outpt - will continue PPI. #MARCIA /ATN - Likely 2/2 septic shock, Hypotension - Nephro on board, Holding IVF for now - Crea is improving, today 2.3 - Mariangel was d/c'ed and initiated a TOV - She was able to void - avoid nephrotoxic drugs #Chronic diastolic HF - CXR shows mild congestive changes, PE revealed b/l basal crackles - Cardio is on board #Hx of DM - BGM + ISS - Holding home meds: Glargine, Januvia, Starlix #Hx of CAD - Patient had a MIBI in 2016 : mild apical ischemia, Cardio on board. Beta blockers when BP is stable Statin can be resumed on d/c #Hx of Normocytic Anemia - f/u with Iron/Ferritin B12, Folate labs - FOBT positive, pending further eval by GI colonoscopy +/- endoscopy, when medically stable FEN - No standing fluids at this time - Continue to monitor electrolytes - Renal Diet DVT Px - Holding chemical ppx, FOBt + - SCDs. Dispo -Will continue to monitor on Tele, repeat covid, discharge planning Visit type - Emergency Visit Emergency Visit: Yes ED Registration Date: 03/23/20 Care time: The patient presented to the Emergency Department on the above date and was hospitalized for further evaluation of their emergent condition. - New Patient This patient is new to me today: No - Critical Care Critical Care patient: No - Discharge Referral Referred to [facility] No - Medication Review Med list reviewed for High Risk Meds patients 65 and older: Yes ATTENDING PHYSICIAN STATEMENT I saw and evaluated the patient. I reviewed the resident's note and discussed the case with the resident. I agree with the resident's findings and plan as documented. SUBJECTIVE: OBJECTIVE: ASSESSMENT AND PLAN:
[2020-04-01] MEDS ORDERED: ACETAMINOPHEN 325 MG TABLET (FP) PO PRN (16:14)
--- NOTE | 2020-04-01 18:14 | PN ---
Progress Note (short form) - Note Progress Note: feels well no complaints s/p ureteral stent no diarrhea Vital Signs Period Temp Pulse Resp BP Sys/Jackson Pulse Ox Last 24 Hr 98.0 F-98.9 F 93-109 18-20 119-155/61-92 96-98 cor-rrr lungs clear abd soft,nt ext no edema CBC, BMP 04/01/20 06:34 04/01/20 06:34 Microbiology 03/27/20 05:46 Blood - Peripheral Venous Blood Culture - Final NO GROWTH AFTER 5 DAYS INCUBATION 03/27/20 05:58 Blood - Peripheral Venous Blood Culture - Final NO GROWTH AFTER 5 DAYS INCUBATION 03/23/20 20:20 Urine - Urine - Catheterized Urine Culture - Final Escherichia Coli 03/23/20 19:10 Blood - Peripheral Venous Blood Culture - Final Escherichia Coli 03/23/20 19:10 Blood - Peripheral Venous Blood Culture - Final Escherichia Coli imp/reccd ecoli bacteremia s/p ureteral stent afib MARCIA-improving UTI penicillin allergy clinically improving continue azactam day #7 if wbc decreases can switch to po levaquin 250 mg daily for 3 days - total 10 days Problem List - Problems (1) Gram-negative bacteremia Code(s): R78.81 - BACTEREMIA (2) Obstructive uropathy Code(s): N13.9 - OBSTRUCTIVE AND REFLUX UROPATHY, UNSPECIFIED (3) MARCIA (acute kidney injury) Code(s): N17.9 - ACUTE KIDNEY FAILURE, UNSPECIFIED (4) Penicillin allergy Code(s): Z88.0 - ALLERGY STATUS TO PENICILLIN
[2020-04-01] MEDS ORDERED: INSULIN (LEVEMIR) 100 UNITS/ML UNITS SQ SCH (22:00)
[2020-04-01] MEDS: ATORVASTATIN CA 20 MG TABLET (FP) PO SCH (22:07)
[2020-04-01] MEDS: APIXABAN 2.5 MG TABLET PO SCH (22:07)
[2020-04-01] MEDS: DONEPEZIL HCL 5 MG TABLET (FP) PO SCH (22:07)
--- NOTE | 2020-04-02 05:34 | PN ---
Progress Note, Physician Chief Complaint: Denies CP/SOB/Palps TELE: AF with rates low 100s History of Present Illness: E Coli bacteremia AF Anemia Non smoker - Current Medication List Current Medications: Active Medications Acetaminophen (Tylenol -) 650 mg PO Q6H PRN PRN Reason: FEVER Apixaban (Eliquis -) 2.5 mg PO BID [facility] Last Admin: 04/01/20 22:07 Dose: 2.5 mg Documented by: Atorvastatin Calcium (Lipitor -) 20 mg PO [facility] Last Admin: 04/01/20 22:07 Dose: 20 mg Documented by: Donepezil HCl (Aricept -) 5 mg PO [facility] Last Admin: 04/01/20 22:07 Dose: 5 mg Documented by: Aztreonam 1 gm/ Dextrose 50 mls @ 100 mls/hr IVPB Q12H [facility]; Protocol Last Admin: 04/01/20 22:02 Dose: 100 mls/hr Documented by: Insulin Aspart (Novolog Vial Sliding Scale -) 1 vial SQ [facility]; Protocol Last Admin: 04/01/20 22:14 Dose: 6 unit Documented by: Insulin Detemir (Levemir Vial) 15 units SQ [facility] Last Admin: 04/01/20 22:16 Dose: 15 unit Documented by: Ipratropium [place] (Atrovent 0.02% Nebulizer -) 1 amp NEB RTID [facility] Last Admin: 04/01/20 23:11 Dose: 1 amp Documented by: Ipratropium [place] (Atrovent 0.02% Nebulizer -) 1 amp NEB Q4H PRN PRN Reason: WHEEZING Stop: 04/04/20 09:02 Last Admin: 04/01/20 17:48 Dose: 1 amp Documented by: Metoprolol Tartrate (Lopressor Injection -) 2.5 mg IVPB Q4H PRN PRN Reason: TACHYCARDIA Metoprolol Tartrate (Lopressor -) 75 mg PO BID [facility] Last Admin: 04/01/20 22:07 Dose: 75 mg Documented by: Pantoprazole Sodium (Protonix Iv) 40 mg IVPUSH DAILY [facility] Last Admin: 04/01/20 09:57 Dose: 40 mg Documented by: Polyethylene Glycol (Miralax (For Daily Use) -) 17 gm PO DAILY [facility] Last Admin: 04/01/20 09:57 Dose: 17 gm Documented by: - Objective Vital Signs: Vital Signs Temperature 97.9 F 04/02/20 02:00 Pulse Rate 106 H 04/02/20 02:00 Respiratory Rate 19 04/02/20 02:00 Blood Pressure 129/67 04/02/20 02:00 O2 Sat by Pulse Oximetry (%) 96 04/01/20 21:00 Constitutional: Yes: No Distress, Calm Cardiovascular: Yes: Regular Rate and Rhythm, Tachycardia Respiratory: Yes: Rhonchi Gastrointestinal: Yes: Soft (nt) Edema: No Neurological: Yes: Alert ...Motor Strength: WNL Labs: CBC, BMP 04/01/20 06:34 04/01/20 06:34 INR, PTT INR 1.34 (0.83-1.09) H 03/23/20 19:10 - ....Imaging EKG: Image Reviewed Assessment/Plan DATA: Echo 04/04: nl LV/RV. moderate vs severe (misaligned doppler gradients). RVSP 30-40 tele: AF hr 100s-110s IMP/PLAN: AF: new onset, likely triggered by sepsis, shock -rates remain suboptimally controlled-> will increase Metoprolol tartrate to 100mg BID today -[id number] score is at least 3 (age, DM, Female) and anticoagulation is indicated. However, H/H have drifted down since admission, with + stool guaiac--AC initially held - given ongoing anemia and guaiac + stool with patient refusing GI workup, may be at prohibitive risk for anticoagulation. She has been started on a trial of AC with dose adjusted Eliquis by primary team while under observation. Follow H/H closely Hypotension due to gram negative sepsis with shock: -improved, abx per ID CAD: -Mildly abnl persantine MIBI here in 2016 showing mild apical ischemia managed medically -cont bb -statin resumed -Rate control as outlined above Chronic diastolic CHF: -appears euvolemic clinically, though cxr mild congestive changes - lasix held for MARCIA -Rate control for AF mgmt , moderate vs severe: -echo here indeterminate regarding severity of stenosis, there is a systolic murmur -in absence of attributable sx's (ischemia, refractory chf), plan outpt f/u and repeat echo ARF: likely due to ATN in setting of mild obstructive uropathy -improving with IVF -Renal consulted Anemia: Baseline seems to be 10-11 -Drifting down this admission, + guaiac - GI consulted - patient refused EGD/[place] DM: -per primary team Hx PSVT/PAT/NSVT with Normal LVEF: -Now in AF -cont bb
[2020-04-02] MEDS: INSULIN SLIDING SCALE (NOVOLOG) 1 VIAL SQ SCH ×3 (06:01→16:56)
[2020-04-02] MEDS: IPRATROPIUM BR 0.02% 0.5 MG/2.5 ML VIAL.NEB. NEB SCH ×2 (07:44→08:05)
[2020-04-02] MEDS ORDERED: INSULIN SLIDING SCALE (NOVOLOG) 1 VIAL SQ ONE (07:56)
[2020-04-02] MEDS ORDERED: AZTREONAM 1 GM VIAL (RESTRICTED TO ID) ONE (09:27)
[2020-04-02] MEDS ORDERED: DEXTROSE 5%-WATER - 50 ML IVPB ONE (09:27)
[2020-04-02] MEDS: AZTREONAM 1 GM in DEXTROSE 5%-WATER - 50 ML IVPB SCH (09:40)
[2020-04-02] MEDS: APIXABAN 2.5 MG TABLET PO SCH (09:40)
[2020-04-02] MEDS: METOPROLOL TARTRATE 25 MG TABLET (FP) PO SCH (09:41)
[2020-04-02] MEDS: PANTOPRAZOLE SODIUM 40 MG VIAL IVPUSH SCH (09:42)
[2020-04-02] MEDS: POLYETHYLENE GLYCOL 3350 119 GM BTL PO SCH (09:44)
[2020-04-02] MEDS ORDERED: METOPROLOL TARTRATE 50 MG TABLET (FP) PO SCH ×2 (10:00→22:00)
[2020-04-02] MEDS ORDERED: METOPROLOL TARTRATE 25 MG TABLET (FP) PO ONE (10:09)
--- NOTE | 2020-04-02 11:33 | PN ---
Teaching Attending Note Name of Resident: Patty Nassar ATTENDING PHYSICIAN STATEMENT I saw and evaluated the patient. I reviewed the resident's note and discussed the case with the resident. I agree with the resident's findings and plan as documented. SUBJECTIVE: pt seen and examined OBJECTIVE: Last Vital Signs Temp Pulse Resp BP Pulse Ox 98.6 F 118 H 18 136/98 97 04/02/20 09:37 04/02/20 09:37 04/02/20 09:37 04/02/20 09:37 04/02/20 09:37 GENERAL: Awake, alert and oriented, in no acute distress. HEENT: AT/NC, not P/C/J, PERRLA LUNGS: Breath sounds equal, clear to auscultation bilaterally. No wheezes, and no crackles. No accessory muscle use. HEART: Regular rate and rhythm, normal S1 and S2 ABDOMEN: Soft, nontender, not distended MUSCULOSKELETAL: Normal range of motion at all joints. No bony deformities or tenderness. No CVA tenderness. UPPER EXTREMITIES: 2+ pulses, warm, well-perfused. No cyanosis. No clubbing. No peripheral edema. LOWER EXTREMITIES: 2+ pulses, warm, well-perfused. No calf tenderness. No peripheral edema. NEUROLOGICAL: Cranial nerves II-XII intact. Normal speech. CBCD WBC 12.5 K/mm3 (4.0-10.0) H 04/01/20 06:34 RBC 4.04 M/mm3 (3.60-5.2) 04/01/20 06:34 Hgb 9.4 GM/dL (10.7-15.3) L 04/01/20 06:34 Hct 30.0 % (32.4-45.2) L 04/01/20 06:34 MCV 74.1 fl (80-96) L 04/01/20 06:34 MCHC 31.4 g/dl (32.0-36.0) L 04/01/20 06:34 RDW 19.6 % (11.6-15.6) H 04/01/20 06:34 Plt Count 402 K/MM3 (134-434) 04/01/20 06:34 MPV 7.3 fl (7.5-11.1) L 04/01/20 06:34 CMP Sodium 139 mmol/L (136-145) 04/01/20 06:34 Potassium 5.0 mmol/L (3.5-5.1) 04/01/20 06:34 Chloride 111 mmol/L (98-107) H 04/01/20 06:34 Carbon Dioxide 20 mmol/L (21-32) L 04/01/20 06:34 Anion Gap 8 MMOL/L (8-16) 04/01/20 06:34 BUN 61.7 mg/dL (7-18) H 04/01/20 06:34 Creatinine 2.3 mg/dL (0.55-1.3) H 04/01/20 06:34 Calcium 8.3 mg/dL (8.5-10.1) L 04/01/20 06:34 Total Bilirubin 0.4 mg/dL (0.2-1) 04/01/20 06:34 AST 9 U/L (15-37) L 04/01/20 06:34 ALT 13 U/L (13-61) 04/01/20 06:34 Alkaline Phosphatase 82 U/L (45-117) 04/01/20 06:34 Total Protein 6.0 g/dl (6.4-8.2) L 04/01/20 06:34 Albumin 2.0 g/dl (3.4-5.0) L 04/01/20 06:34 Active Medications Acetaminophen (Tylenol -) 650 mg PO Q6H PRN PRN Reason: FEVER Apixaban (Eliquis -) 2.5 mg PO BID [facility] Last Admin: 04/02/20 09:40 Dose: 2.5 mg Documented by: Atorvastatin Calcium (Lipitor -) 20 mg PO [facility] Last Admin: 04/01/20 22:07 Dose: 20 mg Documented by: Donepezil HCl (Aricept -) 5 mg PO [facility] Last Admin: 04/01/20 22:07 Dose: 5 mg Documented by: Aztreonam 1 gm/ Dextrose 50 mls @ 100 mls/hr IVPB Q12H [facility]; Protocol Last Admin: 04/02/20 09:40 Dose: 100 mls/hr Documented by: Insulin Aspart (Novolog Vial Sliding Scale -) 1 vial SQ [facility]; Protocol Last Admin: 04/02/20 06:01 Dose: 6 unit Documented by: Insulin Detemir (Levemir Vial) 15 units SQ [facility] Last Admin: 04/01/20 22:16 Dose: 15 unit Documented by: Ipratropium [place] (Atrovent 0.02% Nebulizer -) 1 amp NEB RTID [facility] Last Admin: 04/02/20 08:05 Dose: Not Given Documented by: Ipratropium [place] (Atrovent 0.02% Nebulizer -) 1 amp NEB Q4H PRN PRN Reason: WHEEZING Stop: 04/04/20 09:02 Last Admin: 04/01/20 17:48 Dose: 1 amp Documented by: Metoprolol Tartrate (Lopressor Injection -) 2.5 mg IVPB Q4H PRN PRN Reason: TACHYCARDIA Metoprolol Tartrate (Lopressor -) 100 mg PO BID [facility] Pantoprazole Sodium (Protonix Iv) 40 mg IVPUSH DAILY [facility] Last Admin: 04/02/20 09:42 Dose: 40 mg Documented by: Polyethylene Glycol (Miralax (For Daily Use) -) 17 gm PO DAILY [facility] Last Admin: 04/02/20 09:44 Dose: 17 gm Documented by: ASSESSMENT AND PLAN: 89 year old female with history of DM 2, Chronic Diastolic CHF, CAD (mild apical ischemia on MPI 2015), Hx PSVT/PA/NSVT, HTN, HLD, Aortic Stenosis, initially admitted with AMS and hyperglycemia, found to have Acute Pyelonephritis with septic shock and 2/2 AFib, intubated (now extubated) and downgraded to tele # Acute Hypoxic Respiratory Failure and Septic Shock - resolved 2/2 to Acute Pyelonephritis/Nephrolithiasis with Ecoli VSS, afebrile s/p Ureteral Stent Abx per ID, day 7 discharge planning # New Onset AFib Likely trigger by Septic Shock metoprolol increased stable H/H [id number] (10%/year stroke risk, high risk VTE/STroke) HAS-BLED 2 (4.1% risk, risk is moderate) cardiology notes conflicting about starting AC pt started on AC will monitor H&H closes (giving that she had +FOBT and refused GI work up) risks and benefits of anticoagulation were discussed extensive with patient and family who agreed with the plan. # ATN improving creatinine due to Shock +/- Obstructive Uropathy Not currently on IV fluids. Nephrology following. HFpEF DM 2 CAD Normocytic Anemia HTN Dementia DVT Proph
[2020-04-02 11:35] LABS: BASO % 0.5 % (0-2.0); EOS % 2.4 % (0-4.5); HEMATOCRIT 29.5 % (32.4-45.2); HEMOGLOBIN 9.6 GM/dL (10.7-15.3); LYMPH % 8.3 % (8-40); MCH 24.2 pg (25.7-33.7); MCHC 32.6 g/dl (32.0-36.0); MEAN CELL VOLUME 74.1 fl (80-96); MEAN PLT VOLUME 7.4 fl (7.5-11.1); MONO % 7.8 % (3.8-10.2); PLATELET COUNT 369 K/MM3 (134-434); RBC 3.99 M/mm3 (3.60-5.2); RDW 19.6 % (11.6-15.6); WHITE BLOOD COUNT 11.5 K/mm3 (4.0-10.0)
[2020-04-02 12:16] LABS: BILIRUBIN,TOTAL 0.3 mg/dL (0.2-1); BLOOD UREA NITROGEN 52.5 mg/dL (7-18); CALCIUM 8.2 mg/dL (8.5-10.1); MAGNESIUM 1.6 mg/dL (1.8-2.4); PHOSPHOROUS 3.5 mg/dL (2.5-4.9); POTASSIUM 4.6 mmol/L (3.5-5.1); TOT PROT 6.1 g/dl (6.4-8.2)
--- NOTE | 2020-04-02 12:34 | PN ---
Progress Note, Physician History of Present Illness: Pt seen and examined at bedside. She is awake and alert. She denies shortness of breath. - Current Medication List Current Medications: Active Medications Acetaminophen (Tylenol -) 650 mg PO Q6H PRN PRN Reason: FEVER Apixaban (Eliquis -) 2.5 mg PO BID [facility] Last Admin: 04/02/20 09:40 Dose: 2.5 mg Documented by: Atorvastatin Calcium (Lipitor -) 20 mg PO [facility] Last Admin: 04/01/20 22:07 Dose: 20 mg Documented by: Donepezil HCl (Aricept -) 5 mg PO [facility] Last Admin: 04/01/20 22:07 Dose: 5 mg Documented by: Aztreonam 1 gm/ Dextrose 50 mls @ 100 mls/hr IVPB Q12H [facility]; Protocol Last Admin: 04/02/20 09:40 Dose: 100 mls/hr Documented by: Insulin Aspart (Novolog Vial Sliding Scale -) 1 vial SQ [facility]; Protocol Last Admin: 04/02/20 11:52 Dose: 4 unit Documented by: Insulin Detemir (Levemir Vial) 15 units SQ [facility] Last Admin: 04/01/20 22:16 Dose: 15 unit Documented by: Ipratropium [place] (Atrovent 0.02% Nebulizer -) 1 amp NEB RTID [facility] Last Admin: 04/02/20 08:05 Dose: Not Given Documented by: Ipratropium [place] (Atrovent 0.02% Nebulizer -) 1 amp NEB Q4H PRN PRN Reason: WHEEZING Stop: 04/04/20 09:02 Last Admin: 04/01/20 17:48 Dose: 1 amp Documented by: Metoprolol Tartrate (Lopressor Injection -) 2.5 mg IVPB Q4H PRN PRN Reason: TACHYCARDIA Metoprolol Tartrate (Lopressor -) 100 mg PO BID [facility] Pantoprazole Sodium (Protonix Iv) 40 mg IVPUSH DAILY [facility] Last Admin: 04/02/20 09:42 Dose: 40 mg Documented by: Polyethylene Glycol (Miralax (For Daily Use) -) 17 gm PO DAILY [facility] Last Admin: 04/02/20 09:44 Dose: 17 gm Documented by: - Objective Vital Signs: Vital Signs Temperature 98.6 F 04/02/20 09:37 Pulse Rate 118 H 04/02/20 09:37 Respiratory Rate 18 04/02/20 09:37 Blood Pressure 136/98 04/02/20 09:37 O2 Sat by Pulse Oximetry (%) 97 04/02/20 09:37 Constitutional: Yes: Calm Eyes: Yes: Conjunctiva Clear HENT: Yes: Atraumatic Neck: Yes: Supple Cardiovascular: Yes: S1, S2 Respiratory: Yes: CTA Bilaterally Gastrointestinal: Yes: Soft Genitourinary: Yes: WNL Musculoskeletal: Yes: WNL Edema: No Neurological: Yes: Oriented Psychiatric: Yes: Oriented Labs: CBC, BMP 04/02/20 10:25 04/02/20 10:25 INR, PTT INR 1.34 (0.83-1.09) H 03/23/20 19:10 Problem List - Problems (1) MARCIA (acute kidney injury) Code(s): N17.9 - ACUTE KIDNEY FAILURE, UNSPECIFIED (2) Gram-negative bacteremia Code(s): R78.81 - BACTEREMIA Assessment/Plan Current Medications Generic Name Dose Route Start Last Admin Trade Name Freq PRN Reason Stop Dose Admin Acetaminophen 650 mg 04/01/20 16:14 Tylenol - PO Q6H PRN FEVER Apixaban 2.5 mg 04/01/20 22:00 04/02/20 09:40 Eliquis - PO 2.5 mg BID [facility]RIS Administration Atorvastatin Calcium 20 mg 03/30/20 22:00 04/01/20 22:07 Lipitor - PO 20 mg HS [facility]RIS Administration Donepezil HCl 5 mg 03/29/20 22:00 04/01/20 22:07 Aricept - PO 5 mg HS [facility]IS Administration Aztreonam 1 gm/ Dextrose 50 mls @ 100 mls/hr 03/30/20 22:00 04/02/20 09:40 IVPB 100 mls/hr Q12H [facility]IS Administration Protocol Insulin Aspart 1 vial 03/30/20 11:00 04/02/20 11:52 Novolog Vial Sliding Scale - SQ 4 unit ACHS CHRIS Administration Protocol Insulin Detemir 15 units 04/01/20 22:00 04/01/20 22:16 Levemir Vial SQ 15 unit HS [facility] Administration Ipratropium [place] 1 amp 03/28/20 14:00 04/02/20 08:05 Atrovent 0.02% Nebulizer - NEB Not Given RTID CHRIS Ipratropium [place] 1 amp 03/28/20 09:02 04/01/20 17:48 Atrovent 0.02% Nebulizer - NEB 04/04/20 09:02 1 amp Q4H PRN Administration WHEEZING Metoprolol Tartrate 2.5 mg 03/30/20 07:30 Lopressor Injection - IVPB Q4H PRN TACHYCARDIA Metoprolol Tartrate 100 mg 04/02/20 22:00 Lopressor - PO BID [facility] Pantoprazole Sodium 40 mg 03/30/20 10:00 04/02/20 09:42 Protonix Iv IVPUSH 40 mg DAILY [facility] Administration Polyethylene Glycol 17 gm 03/28/20 10:00 04/02/20 09:44 Miralax (For Daily Use) - PO 17 gm DAILY [facility] Administration Impression 1. marcia 2. sepsis 3. gram neg bacteremai 4. resp failure 5. nephrolithiasis 6. shock 7. dm 8. htn 9. hld 10. 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
[2020-04-02] MEDS ORDERED: MAGNESIUM 2GM/50ML STERILE WATER IVPB IVPB ONE (13:00)
[2020-04-02 14:19] VITALS: PULSE 119
[2020-04-02 15:16] LABS: ANISOCYTOSIS 1+; MACROCYTOSIS 0; OVALOCYTE 1+; PLATELET ESTIMATE NORMAL; TEAR DROP CELLS 1+
--- NOTE | 2020-04-02 15:43 | DS ---
Physical Exam: SUBJECTIVE: Patient seen and examined OBJECTIVE: Vital Signs Period Temp Pulse Resp BP Sys/Jackson Pulse Ox Last 24 Hr 97.9 F-98.6 F 106-119 18-20 129-155/67-98 95-98 PHYSICAL EXAM GENERAL: The patient is awake, alert, and fully oriented, in no acute distress. HEAD: Normal with no signs of trauma. EYES: PERRL, extraocular movements intact, sclera anicteric, conjunctiva clear. ENT: Ears normal, nares patent, oropharynx clear without exudates, moist mucous membranes. NECK: Trachea midline, full range of motion, supple. LUNGS: Breath sounds equal, clear to auscultation bilaterally, no wheezes, no crackles, no accessory muscle use. HEART: Regular rate and rhythm, S1, S2 without murmur, rub or gallop. ABDOMEN: Soft, nontender, nondistended, normoactive bowel sounds, no guarding, no rebound, no hepatosplenomegaly, no masses. EXTREMITIES: 2+ pulses, warm, well-perfused, no edema. NEUROLOGICAL: Cranial nerves II through XII grossly intact. Normal speech, gait not observed. PSYCH: Normal mood, normal affect. SKIN: Warm, dry, normal turgor, no rashes or lesions noted. LABS Laboratory Results - last 24 hr 04/02/20 04/02/20 04/02/20 05:25 10:25 10:25 WBC 11.5 H RBC 3.99 Hgb 9.6 L Hct 29.5 L MCV 74.1 L MCH 24.2 L MCHC 32.6 RDW 19.6 H Plt Count 369 MPV 7.4 L Absolute Neuts (auto) 9.3 H Neutrophils % 81.0 Neutrophils % (Manual) 84.4 H Band Neutrophils % 2.1 Lymphocytes % 8.3 Lymphocytes % (Manual) 5.2 L D Monocytes % 7.8 Monocytes % (Manual) 6 Eosinophils % 2.4 Eosinophils % (Manual) 2.1 Basophils % 0.5 Basophils % (Manual) 0.0 Myelocytes % (Man) 0 Promyelocytes % (Man) 0 Blast Cells % (Manual) 0 Nucleated RBC % 0 Metamyelocytes 0 Hypochromia 0 Platelet Estimate Normal Platelet Comment Present Polychromasia 1+ Poikilocytosis 1+ Anisocytosis 1+ Microcytosis 1+ Macrocytosis 0 Spherocytes 1+ Tear Drop Cells 1+ Ovalocytes 1+ Debora Cells 1+ Acanthocytes (Spur) 1+ Sodium 138 Potassium 4.6 Chloride 110 H Carbon Dioxide 18 L Anion Gap 9 BUN 52.5 H Creatinine 2.0 H Est GFR (CKD-EPI)AfAm 25.20 Est GFR (CKD-EPI)NonAf 21.74 POC Glucometer 209 Random Glucose 228 H Calcium 8.2 L Phosphorus 3.5 Magnesium 1.6 L Total Bilirubin 0.3 AST 19 ALT 14 Alkaline Phosphatase 85 Total Protein 6.1 L Albumin 2.0 L HOSPITAL COURSE: Date of Admission:03/23/20 89 year old female with history of DM 2, Chronic Diastolic CHF, CAD (mild apical ischemia on MPI 2015), Hx PSVT/PA/NSVT, HTN, HLD, Aortic Stenosis, initially admitted with AMS and hyperglycemia, found to have Acute Pyelonephritis with septic shock and 2/2 AFib, intubated (now extubated) and downgraded to tele. During tele monitoring, she remained afibrile and hemodynamically stable. She was treated with 7 days of antibiotics inpatient and discharged with 3 additional days for 10 day completion. New Onset AFib was Likely triggered by Septic Shock. Her metoprolol was increased. Her labs revealed stable H/H. Calculated [id number] (10%/year st roke risk, high risk VTE/STroke) and HAS-BLED 2 (4.1% risk, risk is moderate). pt started on AC, risks and benefits of anticoagulation were discussed extensive with patient and family who agreed with the plan. Advised her to follow up with her GI and Cardiology for further evaluations and recommendations ATN likely due to Shock +/- Obstructive Uropathy. Labs revealed improving creatinine, advised her to f/u with her visiting professor for further management. FOBT +: GI was consulted, who recommended outpatient colonoscopy +/- endoscopy, when medically stable. Patient is clinically stable for discharge and discharged her with the following instructions, referrals and prescriptions Date of Discharge: 04/02/20 Minutes to complete discharge: 36 Discharge Summary Problems reviewed: Yes Reason For Visit: HYPERGLYCEMIA,SEPSIS,ALTERED MENTAL STATUS Current Active Problems MARCIA (acute kidney injury) (Acute) Anemia (Acute) Calculus of ureterovesical junction (UVJ) (Acute) Gram-negative bacteremia (Acute) Obstructive uropathy (Acute) Pyelonephritis (Acute) Renal stone (Acute) Right ureteral calculus (Acute) Sepsis (Acute) Hyperglycemia (Chronic) Penicillin allergy (Chronic) Condition: Improved - Instructions Diet, Activity, Other Instructions: YOUR VISIT: You were admitted to the hospital for an infection of your kidney caused by a kidney stone. Urology placed a stent in your urinary tract to prevent more stones. After the procedure you developed low blood pressure and difficulty breathing. You had a breathing tube to be placed to help you breath. You improved and we were able to take you off of the breathing tube. You are now stable for discharge For the kidney infection, we treated you with antibiotics for 7 days. you will need 3 additional days at home. You also developed an abnormal rhythm of your heart, most likely due to the infection and low blood pressure. You will need to take anticoagulant medications to help prevent strokes. You will also need to follow up with your ctrs for more imaging and further management of your heart. Risks and benefits of anticoagulants were discussed. You will need to check your hemoglobin level within a week to make sure it is stable. One of your labs also showed that you had blood in your stool, you will need to be evaluated by a GI doctor. You will need colonoscopy and endoscopy as outpatient. We have provided you with a GI doctor listed below. Labs also show that you have some damages to your kidney, resulting in decreased function, you will need further care as outpatient. MEDICATIONS: Please START taking levaquin 250 mg daily for 3 more days Please START taking Sodium Bicarbonate 325 mg daily Please START taking Eliquis 2.5mg twice daily Please START taking Lopressor 100mg twice a day Please Do NOT Take Quinipril and Aspirin and Coreg Continue to take all other home medications as prescribed FOLLOW UPS: Please follow up with your Cardiology, Dr. Penny within 1 week to discuss anticoagulant therapy, monitor your hemoglobin and to further evaluate your heart Please follow up with your GI, Dr. Pace within 1 week to for further evaluation of blood in your stool Please follow up with your Nephrology, Dr. Berrios within 1 week to further evaluate your Kidneys Please visit your primary care provider within 2 weeks to follow up with your labwork and hospital visit. ADDITIONAL INSTRUCTIONS: You are being discharged to a care home facility You will need repeat CBC and CMP within 1 week. Please return to the Emergency department if you are experiencing worsening or concerning symptoms. Referrals: Andrew Pace DO [Staff Physician] - 1 Week (FOBT+, Colonoscopy/EGD) Jose Maria Penny MD [Staff Physician] - 1 Week (Repeat Echo, New Afib, AC) Shon Berrios MD [Staff Physician] - 1 Week (MARCIA/AIN) Disposition: [facility] - Home Medications Comprehensive Discharge Medication List: Ambulatory Orders Bimatoprost [Lumigan] 1 drop OU HS 01/29/16 Donepezil HCl [Aricept -] 5 mg PO HS tablet 08/30/18 Atorvastatin Ca [Lipitor] 20 mg PO AM 03/24/20 Acetaminophen [Tylenol .Regular Strength -] 650 mg PO Q6H PRN tablet 04/02/20 Apixaban [Eliquis -] 2.5 mg PO BID tablet 04/02/20 Atorvastatin Ca [Lipitor] 20 mg PO HS tablet 04/02/20 Insulin (Levemir) [Levemir Vial] 15 units SQ HS #0 units 04/02/20 Ipratropium 0.02% Nebulizer [Atrovent 0.02% Nebulizer -] 1 amp NEB RTID amp 04/02/20 Levofloxacin [Levaquin] 250 mg PO DAILY #3 tablet 04/02/20 Metoprolol Tartrate [Lopressor -] 100 mg PO BID tablet 04/02/20 Pantoprazole Sodium [Protonix IV] 40 mg IVPUSH DAILY vial 04/02/20 Polyethylene Glycol 3350 [Miralax 119 gm Btl -] 17 gm PO DAILY bottle 04/02/20 Sodium Bicarbonate - 325 mg PO DAILY #0 tablet 04/02/20 This patient is new to me today: No Emergency Visit: Yes ED Registration Date: 03/23/20 Care time: The patient presented to the Emergency Department on the above date and was hospitalized for further evaluation of their emergent condition. Critical Care patient: No - Discharge Referral Referred to [facility] Med P.C.: No ATTENDING PHYSICIAN STATEMENT I saw and evaluated the patient. I reviewed the resident's note and discussed the case with the resident. I agree with the resident's findings and plan as documented. SUBJECTIVE: OBJECTIVE: ASSESSMENT AND PLAN:
[2020-04-02 18:45] VITALS: BP 146/92; TEMP 98.2
[2020-04-03] MEDS ORDERED: SODIUM BICARBONATE 325 MG TABLET PO SCH (10:00)
== END 2020-04-02 20:50 | DRG 853 ==
LOC: JER 19:09 → JERBED 20:09 → J8W 03-24 05:20 → JICU 03-25 16:32 → J4S 03-29 23:44
PROVIDERS: ADMIT Hospitalist; ATTEND Student in an Organized Health Care Education/Training Program
PROC: 0BH17EZ Insertion of Endotracheal Airway into Trachea, Via Natural or Artificial Opening (ICD-10-PCS; 2020-03-25)
PROC: 02HV33Z Insertion of Infusion Device into Superior Vena Cava, Percutaneous Approach (ICD-10-PCS; 2020-03-25)
PROC: B548ZZA Ultrasonography of Superior Vena Cava, Guidance (ICD-10-PCS; 2020-03-25)
PROC: 0T768DZ Dilation of Right Ureter with Intraluminal Device, Via Natural or Artificial Opening Endoscopic (ICD-10-PCS; principal; 2020-03-25 12:30)
PROC: 5A1935Z Respiratory Ventilation, Less than 24 Consecutive Hours (ICD-10-PCS; 2020-03-25 12:30)
DX: A41.51 Sepsis due to Escherichia coli [E. coli] (principal); G93.41 Metabolic encephalopathy; R65.21 Severe sepsis with septic shock; J95.821 Acute postprocedural respiratory failure; N17.0 Acute kidney failure with tubular necrosis; N17.9 Acute kidney failure, unspecified; I50.32 Chronic diastolic (congestive) heart failure; E87.1 Hypo-osmolality and hyponatremia; N13.6 Pyonephrosis; I97.191 Other postprocedural cardiac functional disturbances following other surgery; E87.2 Acidosis; E78.5 Hyperlipidemia, unspecified; I11.0 Hypertensive heart disease with heart failure; Z88.0 Allergy status to penicillin; Z79.4 Long term (current) use of insulin; E11.65 Type 2 diabetes mellitus with hyperglycemia; I35.0 Nonrheumatic aortic (valve) stenosis; I48.91 Unspecified atrial fibrillation; Y83.8 Other surgical procedures as the cause of abnormal reaction of the patient, or of later complication, without mention of misadventure at the time of the procedure; D64.9 Anemia, unspecified; I25.10 Atherosclerotic heart disease of native coronary artery without angina pectoris; F03.90 Unspecified dementia, unspecified severity, without behavioral disturbance, psychotic disturbance, mood disturbance, and anxiety; E66.9 Obesity, unspecified; Z68.33 Body mass index [BMI] 33.0-33.9, adult
CPT/HCPCS: 36415; 36600; 71045-TC-FY; 74176-TC; 76000-TC-FY; 76775-TC; 80048; 80053; 81003; 82010; 82272; 82436; 82550; 82553; 82565; 82607; 82728; 82746; 82803; 82962; 83036; 83540; 83550; 83605; 83735; 84100; 84133; 84300; 84443; 84484; 85025; 85027; 85610; 85730; 87040; 87086; 87186; 87205; 93005; 93010; 93306-TC; 94002; 94640; 94760; 97116-GP; 97161-GP; 99291; 99292; J0131; J1644; U0003

== ENCOUNTER 2021-05-10 19:13 | Inpatient (IN) | payer OTHER, BC ==
[2021-05-10 19:47] VITALS: BMI 34.4
[2021-05-10] MEDS ORDERED: HALOPERIDOL LACTATE 5 MG/ML IM ONE (20:42)
[2021-05-10] MEDS ORDERED: HALOPERIDOL LACTATE 5 MG/ML ONE (20:59)
[2021-05-10 21:53] LABS: EPI CELLS 31 /uL (0-25.1); HYALINE CASTS 1 /uL (0-3.1); PH,URINE 5.5 (5.0-8.0); URINE APPEARANCE TURBID; URINE BACTERIA >9,000 /uL (0-1359); URINE BILIRUBIN NEGATIVE (NEGATIVE); URINE COLOR YELLOW; URINE GLUCOSE (UA) NEGATIVE (NEGATIVE); URINE KETONE NEGATIVE (NEGATIVE); URINE LEUK ESTERASE 3+ (NEGATIVE); URINE NITRITE NEGATIVE (NEGATIVE); URINE PROTEIN 3+ (NEGATIVE); URINE RBC 441 /uL (0-23.9); URINE UROBILINOGEN 0.2 mg/dL (0.2-1.0); URINE WBC 3395 /uL (0-25.8)
[2021-05-10 22:06] LABS: BASO % 0.5 % (0-2.0); HEMOGLOBIN 9.8 GM/dL (10.7-15.3); LYMPH % 9.8 % (8-40)
[2021-05-10] MEDS ORDERED: MEROPENEM 1 GM in DEXTROSE 5%-WATER 100 ML IVPB ONE (22:10)
[2021-05-10 22:11] LABS: HEMATOCRIT 28.9 % (32.4-45.2); MCH 26.8 pg (25.7-33.7); MCHC 33.8 g/dl (32.0-36.0); MEAN CELL VOLUME 79.2 fl (80-96); MEAN PLT VOLUME 6.8 fl (7.5-11.1); MONO % 7.6 % (3.8-10.2); NEUT % 81.1 % (42.8-82.8); PLATELET COUNT 250 10^3/uL (134-434); RBC 3.65 M/mm3 (3.60-5.2); RDW 16.8 % (11.6-15.6); WHITE BLOOD COUNT 9.3 K/mm3 (4.0-10.0)
[2021-05-10 22:13] LABS: CHLORIDE 104 mmol/L (98-107); SODIUM 138 mmol/L (136-145)
[2021-05-10 22:14] LABS: INR 1.7 (0.83-1.09)
[2021-05-10 22:15] LABS: CALCIUM 8.7 mg/dL (8.5-10.1)
[2021-05-10 22:16] LABS: ALBUMIN 3.4 g/dl (3.4-5.0); ANION GAP 10 MMOL/L (8-16); BLOOD UREA NITROGEN 62.3 mg/dL (7-18); CO2 23 mmol/L (21-32); GLUCOSE,RANDOM 162 mg/dL (74-106)
[2021-05-10 22:17] LABS: ACTIVATED PTT 31.9 SECONDS (25.2-36.5)
[2021-05-10 22:19] LABS: CREATININE 3.6 mg/dL (0.55-1.3); SGOT/AST 12 U/L (15-37); SGPT/ALT 15 U/L (13-61)
[2021-05-10 22:20] LABS: BILIRUBIN,TOTAL 0.3 mg/dL (0.2-1)
[2021-05-10 22:22] LABS: ALK PHOS 79 U/L (45-117)
[2021-05-10] MEDS ORDERED: LACTATED RINGERS SOLUTION 1000 ML INFUS.BAG IV ONE (22:48)
[2021-05-11] MEDS ORDERED: MEROPENEM 1 GM VIAL (RESTRICTED TO ID) IVPB ONE ×2 (00:13→10:55)
[2021-05-11] MEDS ORDERED: ACETAMINOPHEN 1000 MG/100 ML VIAL IVPB PRN (00:43)
[2021-05-11] MEDS ORDERED: QUEtiapine FUMARATE 50 MG TABLET PO PRN (01:26)
[2021-05-11] MEDS ORDERED: LABETALOL HCL 5 MG/1 ML (100MG/20 ML VIAL) IVPUSH ONE ×2 (01:30→02:29)
[2021-05-11] MEDS ORDERED: LABETALOL HCL 5 MG/1 ML (100MG/20 ML VIAL) ONE (01:43)
[2021-05-11] MEDS ORDERED: CARVEDILOL 12.5 MG TABLET (FP) ONE ×3 (02:31→21:08)
[2021-05-11] MEDS: CARVEDILOL 12.5 MG TABLET (FP) PO SCH ×3 (02:43→21:43)
[2021-05-11] MEDS ORDERED: ALBUTEROL SO4 2.5/IPRATROPIUM 0.5 INH SOL 3 ML VIAL.NEB. NEB ONE ×2 (02:51→02:52)
[2021-05-11] MEDS ORDERED: DEXAMETHASONE SOD PHOSPHATE 10 MG/1 ML VIAL IVPUSH ONE (02:51)
[2021-05-11] MEDS ORDERED: DEXAMETHASONE SOD PHOSPHATE 10 MG/1 ML VIAL ONE (02:52)
[2021-05-11] MEDS ORDERED: hydrALAZINE HCL 20 MG/ML VIAL IVPUSH ONE (03:20)
[2021-05-11 04:14] LABS: ARTERIAL BLD GAS O2 SATURATION 95.6 % (95-98); ARTERIAL BLOOD GAS BASE EXCESS -4.7 mmol/L (-2-2); ARTERIAL BLOOD GAS PO2 78.9 mmHg (80-100); ARTERIAL BLOOD GAS pH 7.379 (7.350-7.450)
[2021-05-11 04:20] LABS: ALLENS TEST POSITIVE
[2021-05-11 06:01] LABS: HEMATOCRIT 29.5 % (32.4-45.2); HEMOGLOBIN 9.8 GM/dL (10.7-15.3); MCH 26.3 pg (25.7-33.7); MCHC 33.3 g/dl (32.0-36.0); MEAN CELL VOLUME 78.9 fl (80-96); MEAN PLT VOLUME 6.6 fl (7.5-11.1); PLATELET COUNT 231 10^3/uL (134-434); RBC 3.74 M/mm3 (3.60-5.2); RDW 16.5 % (11.6-15.6); WHITE BLOOD COUNT 12.2 K/mm3 (4.0-10.0)
[2021-05-11] MEDS ORDERED: QUEtiapine FUMARATE 25 MG TABLET ONE ×2 (06:06→21:07)
[2021-05-11] MEDS: QUEtiapine FUMARATE 25 MG TABLET PO SCH ×3 (06:11→21:44)
[2021-05-11 07:04] LABS: LACTIC ACID 3.1 mmol/L (0.4-2.0)
[2021-05-11 07:05] LABS: ALBUMIN 3.3 g/dl (3.4-5.0); BILIRUBIN,TOTAL 0.3 mg/dL (0.2-1); BLOOD UREA NITROGEN 59.6 mg/dL (7-18); CALCIUM 8.6 mg/dL (8.5-10.1); CREATININE 3.3 mg/dL (0.55-1.3); MAGNESIUM 1.7 mg/dL (1.8-2.4); PHOSPHOROUS 3.1 mg/dL (2.5-4.9); TOT PROT 7.7 g/dl (6.4-8.2)
[2021-05-11] MEDS ORDERED: MEROPENEM 1 GM in DEXTROSE 5%-WATER 100 ML IVPB ONE (08:00)
[2021-05-11 09:48] LABS: ANISOCYTOSIS 0; HELMET CELLS 0; HOWELL-JOLLY BODIES 0; MACROCYTOSIS 0; OVALOCYTE 0; PLATELET ESTIMATE NORMAL; ROULEAU 0; SICKELED CELLS 0; TARGET CELLS 0; TEAR DROP CELLS 0; TOXIC GRANULATION 0
[2021-05-11] MEDS ORDERED: APIXABAN 2.5 MG TABLET ONE ×2 (10:56→21:06)
[2021-05-11] MEDS: APIXABAN 2.5 MG TABLET PO SCH ×2 (11:36→21:43)
[2021-05-11] MEDS ORDERED: SODIUM CHLORIDE 0.45% 1,000 ML IV SCH (13:30)
[2021-05-11] MEDS: INSULIN SLIDING SCALE (NOVOLOG) 1 VIAL SQ SCH ×3 (18:39→22:55)
[2021-05-11] MEDS ORDERED: MEROPENEM 500 MG VIAL (RESTRICTED TO ID) IVPB ONE (21:06)
[2021-05-11] MEDS: MEROPENEM 500 MG in DEXTROSE 5%-WATER 100 ML IVPB SCH (21:43)
[2021-05-12] MEDS: INSULIN SLIDING SCALE (NOVOLOG) 1 VIAL SQ SCH ×4 (06:44→22:53)
[2021-05-12] MEDS: QUEtiapine FUMARATE 25 MG TABLET PO SCH ×3 (06:44→21:54)
[2021-05-12] MEDS ORDERED: MEROPENEM 500 MG VIAL (RESTRICTED TO ID) IVPB ONE ×2 (08:51→22:45)
[2021-05-12] MEDS ORDERED: DEXTROSE 5%-WATER 100 ML IVPB ONE ×2 (08:52→22:46)
[2021-05-12] MEDS ORDERED: VANCOMYCIN 1 GRAM (PRE-DOCKED) 1,000 MG/250 ML BAG IVPB ONE (09:30)
[2021-05-12] MEDS: MEROPENEM 500 MG in DEXTROSE 5%-WATER 100 ML IVPB SCH ×2 (09:31→22:57)
[2021-05-12] MEDS: APIXABAN 2.5 MG TABLET PO SCH ×2 (09:35→21:54)
[2021-05-12] MEDS: CARVEDILOL 12.5 MG TABLET (FP) PO SCH ×2 (09:35→21:54)
[2021-05-12] MEDS ORDERED: ALBUTEROL SO4 2.5/IPRATROPIUM 0.5 INH SOL 3 ML VIAL.NEB. NEB PRN (20:14)
[2021-05-12] MEDS ORDERED: ALBUTEROL SO4 2.5/IPRATROPIUM 0.5 INH SOL 3 ML VIAL.NEB. NEB ONE (20:16)
[2021-05-12] MEDS ORDERED: methylPREDNISolone NA SUCC 125 MG/2 ML VIAL IVPUSH ONE (21:21)
[2021-05-12] MEDS ORDERED: methylPREDNISolone NA SUCC 125 MG/2 ML VIAL ONE (21:23)
[2021-05-12] MEDS ORDERED: INSULIN (LEVEMIR) 100 UNITS/ML UNITS SQ SCH (22:00)
[2021-05-12] MEDS ORDERED: LORazepam 2 MG/ML SDV VIAL IVPUSH ONE (22:12)
[2021-05-13] MEDS: INSULIN SLIDING SCALE (NOVOLOG) 1 VIAL SQ SCH ×5 (06:37→22:45)
[2021-05-13] MEDS: QUEtiapine FUMARATE 25 MG TABLET PO SCH ×3 (06:40→22:11)
[2021-05-13 07:16] LABS: BASO % 0.2 % (0-2.0); HEMATOCRIT 28.9 % (32.4-45.2); HEMOGLOBIN 9.7 GM/dL (10.7-15.3); MCH 27.1 pg (25.7-33.7); MCHC 33.6 g/dl (32.0-36.0); MEAN CELL VOLUME 80.6 fl (80-96); MEAN PLT VOLUME 7.1 fl (7.5-11.1); NEUT % 92.8 % (42.8-82.8); PLATELET COUNT 217 10^3/uL (134-434); RBC 3.58 M/mm3 (3.60-5.2); RDW 16.6 % (11.6-15.6)
[2021-05-13 07:28] LABS: CALCIUM 8.9 mg/dL (8.5-10.1)
[2021-05-13 07:29] LABS: ALBUMIN 2.8 g/dl (3.4-5.0); BLOOD UREA NITROGEN 82.7 mg/dL (7-18)
[2021-05-13 07:32] LABS: CREATININE 3.3 mg/dL (0.55-1.3)
[2021-05-13 07:33] LABS: BILIRUBIN,TOTAL 0.4 mg/dL (0.2-1)
[2021-05-13] MEDS ORDERED: DEXTROSE 5%-WATER 100 ML IVPB ONE ×2 (09:11→20:32)
[2021-05-13] MEDS ORDERED: MEROPENEM 500 MG VIAL (RESTRICTED TO ID) IVPB ONE ×2 (09:11→20:31)
[2021-05-13] MEDS: APIXABAN 2.5 MG TABLET PO SCH ×2 (09:44→22:11)
[2021-05-13] MEDS: CARVEDILOL 12.5 MG TABLET (FP) PO SCH ×2 (09:44→22:10)
[2021-05-13] MEDS: MEROPENEM 500 MG in DEXTROSE 5%-WATER 100 ML IVPB SCH ×2 (09:45→22:12)
[2021-05-13 10:02] LABS: ANISOCYTOSIS 1+; MACROCYTOSIS 1+; PLATELET ESTIMATE NORMAL
[2021-05-13] MEDS ORDERED: ACETAMINOPHEN 325 MG TABLET (FP) PO PRN (11:58)
[2021-05-13] MEDS: methylPREDNISolone NA SUCC 40 MG/1 ML VIAL IVPUSH SCH ×2 (16:27→22:08)
[2021-05-13] MEDS: INSULIN (LEVEMIR) 100 UNITS/ML UNITS SQ SCH ×2 (22:33→22:43)
[2021-05-14] MEDS: methylPREDNISolone NA SUCC 40 MG/1 ML VIAL IVPUSH SCH ×2 (03:00→09:27)
[2021-05-14] MEDS: QUEtiapine FUMARATE 25 MG TABLET PO SCH ×3 (06:54→22:06)
[2021-05-14] MEDS: INSULIN SLIDING SCALE (NOVOLOG) 1 VIAL SQ SCH ×3 (06:54→16:27)
[2021-05-14 07:56] LABS: HEMATOCRIT 27.9 % (32.4-45.2); HEMOGLOBIN 9.3 GM/dL (10.7-15.3); MCH 26.9 pg (25.7-33.7); MCHC 33.5 g/dl (32.0-36.0); MEAN CELL VOLUME 80.2 fl (80-96); MEAN PLT VOLUME 7.5 fl (7.5-11.1); PLATELET COUNT 241 10^3/uL (134-434); RBC 3.48 M/mm3 (3.60-5.2); RDW 16.6 % (11.6-15.6); WHITE BLOOD COUNT 10.7 K/mm3 (4.0-10.0)
[2021-05-14 08:14] LABS: ALBUMIN 2.8 g/dl (3.4-5.0); BLOOD UREA NITROGEN 87.7 mg/dL (7-18); MAGNESIUM 2.3 mg/dL (1.8-2.4)
[2021-05-14 08:18] LABS: CREATININE 2.9 mg/dL (0.55-1.3)
[2021-05-14 08:19] LABS: BILIRUBIN,TOTAL 0.4 mg/dL (0.2-1)
[2021-05-14] MEDS ORDERED: INSULIN (LEVEMIR) 100 UNITS/ML UNITS SQ SCH (08:21)
[2021-05-14] MEDS ORDERED: DEXTROSE 5%-WATER 100 ML IVPB ONE ×2 (08:33→20:23)
[2021-05-14] MEDS ORDERED: MEROPENEM 500 MG VIAL (RESTRICTED TO ID) IVPB ONE ×2 (08:33→20:23)
[2021-05-14] MEDS: MEROPENEM 500 MG in DEXTROSE 5%-WATER 100 ML IVPB SCH ×2 (09:23→22:06)
[2021-05-14] MEDS: APIXABAN 2.5 MG TABLET PO SCH ×2 (09:27→22:06)
[2021-05-14] MEDS: CARVEDILOL 12.5 MG TABLET (FP) PO SCH ×2 (09:27→22:03)
[2021-05-14 09:57] LABS: ANISOCYTOSIS 0; HELMET CELLS 0; HOWELL-JOLLY BODIES 0; MACROCYTOSIS 0; OVALOCYTE 0; PLATELET ESTIMATE NORMAL; ROULEAU 0; SICKELED CELLS 0; TARGET CELLS 0; TEAR DROP CELLS 0; TOXIC GRANULATION 0
[2021-05-14] MEDS ORDERED: INSULIN (NOVOLOG) ASPART 100 UNITS/ML 10ML VIAL SQ ONE (10:53)
[2021-05-14] MEDS ORDERED: FUROSEMIDE 40 MG/4 ML INJECTABLE VIAL IVPUSH ONE (11:19)
[2021-05-14] MEDS: INSULIN (LEVEMIR) 100 UNITS/ML UNITS SQ SCH (11:29)
[2021-05-15] MEDS: INSULIN (LEVEMIR) 100 UNITS/ML UNITS SQ SCH ×3 (05:53→22:15)
[2021-05-15] MEDS: QUEtiapine FUMARATE 25 MG TABLET PO SCH ×3 (05:54→21:47)
[2021-05-15] MEDS: INSULIN SLIDING SCALE (NOVOLOG) 1 VIAL SQ SCH ×6 (06:03→22:16)
[2021-05-15] MEDS ORDERED: LORazepam 0.5 MG TABLET PO ONE (07:21)
[2021-05-15] MEDS: CARVEDILOL 12.5 MG TABLET (FP) PO SCH ×2 (09:37→21:47)
[2021-05-15] MEDS: ERTAPENEM SODIUM 0.5 GM in SODIUM CHLORIDE 50 ML IVPB SCH (09:40)
[2021-05-15] MEDS ORDERED: BISACODYL 10 MG SUPP.RECT PR ONE (09:55)
[2021-05-15] MEDS ORDERED: methylPREDNISolone NA SUCC 40 MG/1 ML VIAL IVPUSH SCH (10:00)
[2021-05-15] MEDS: PANTOPRAZOLE 20 MG TABLET PO SCH (10:34)
[2021-05-15] MEDS: APIXABAN 2.5 MG TABLET PO SCH ×2 (10:35→21:47)
[2021-05-15] MEDS: POLYETHYLENE GLYCOL (HEALTHYLAX) 3350 17 GM PACKET PO SCH (10:35)
[2021-05-15] MEDS: DOCUSATE SODIUM 100 MG CAPSULE (FP) PO SCH ×2 (14:39→21:47)
[2021-05-15 16:10] LABS: CHLORIDE 101 mmol/L (98-107); SODIUM 135 mmol/L (136-145)
[2021-05-15 16:11] LABS: CALCIUM 8.5 mg/dL (8.5-10.1)
[2021-05-15 16:12] LABS: ANION GAP 12 MMOL/L (8-16); BLOOD UREA NITROGEN 103.5 mg/dL (7-18); CO2 21 mmol/L (21-32)
[2021-05-15 16:15] LABS: CREATININE 3.2 mg/dL (0.55-1.3)
[2021-05-15 16:19] LABS: GLUCOSE,RANDOM 598 mg/dL (74-106); LACTIC ACID 2.9 mmol/L (0.4-2.0)
[2021-05-15] MEDS ORDERED: Insulin (LOG) Aspart 100 UNITS/ML VIAL SQ ONE (16:30)
[2021-05-16] MEDS ORDERED: hydrALAZINE HCL 20 MG/ML VIAL IVPUSH ONE (04:42)
[2021-05-16] MEDS: DOCUSATE SODIUM 100 MG CAPSULE (FP) PO SCH ×3 (05:38→21:06)
[2021-05-16] MEDS: QUEtiapine FUMARATE 25 MG TABLET PO SCH ×4 (05:38→21:06)
[2021-05-16] MEDS: INSULIN (LEVEMIR) 100 UNITS/ML UNITS SQ SCH ×2 (06:21→21:15)
[2021-05-16] MEDS: INSULIN SLIDING SCALE (NOVOLOG) 1 VIAL SQ SCH ×4 (06:22→21:16)
[2021-05-16] MEDS: PANTOPRAZOLE 20 MG TABLET PO SCH (10:00)
[2021-05-16] MEDS: CARVEDILOL 12.5 MG TABLET (FP) PO SCH ×2 (10:00→21:10)
[2021-05-16] MEDS: APIXABAN 2.5 MG TABLET PO SCH ×2 (10:00→21:10)
[2021-05-16] MEDS: ERTAPENEM SODIUM 0.5 GM in SODIUM CHLORIDE 50 ML IVPB SCH (10:01)
[2021-05-16] MEDS: POLYETHYLENE GLYCOL (HEALTHYLAX) 3350 17 GM PACKET PO SCH (10:03)
[2021-05-16] MEDS ORDERED: INSULIN (NOVOLOG) ASPART 100 UNITS/ML 10ML VIAL ONE (20:47)
[2021-05-17] MEDS: DOCUSATE SODIUM 100 MG CAPSULE (FP) PO SCH ×3 (05:20→21:20)
[2021-05-17] MEDS: QUEtiapine FUMARATE 25 MG TABLET PO SCH ×3 (05:20→21:20)
[2021-05-17] MEDS: INSULIN SLIDING SCALE (NOVOLOG) 1 VIAL SQ SCH ×4 (06:35→21:40)
[2021-05-17] MEDS: INSULIN (LEVEMIR) 100 UNITS/ML UNITS SQ SCH ×2 (06:36→21:38)
[2021-05-17] MEDS: PANTOPRAZOLE 20 MG TABLET PO SCH (10:21)
[2021-05-17] MEDS: APIXABAN 2.5 MG TABLET PO SCH ×2 (10:21→21:20)
[2021-05-17] MEDS: CARVEDILOL 12.5 MG TABLET (FP) PO SCH ×2 (10:21→21:20)
[2021-05-17] MEDS: ERTAPENEM SODIUM 0.5 GM in SODIUM CHLORIDE 50 ML IVPB SCH (10:21)
[2021-05-17] MEDS: POLYETHYLENE GLYCOL (HEALTHYLAX) 3350 17 GM PACKET PO SCH (10:21)
[2021-05-17] MEDS ORDERED: INSULIN (NOVOLOG) ASPART 100 UNITS/ML 10ML VIAL ONE (21:09)
[2021-05-18] MEDS: QUEtiapine FUMARATE 25 MG TABLET PO SCH ×3 (05:28→21:25)
[2021-05-18] MEDS: DOCUSATE SODIUM 100 MG CAPSULE (FP) PO SCH ×3 (05:28→21:24)
[2021-05-18] MEDS: INSULIN (LEVEMIR) 100 UNITS/ML UNITS SQ SCH ×2 (06:38→22:02)
[2021-05-18] MEDS: INSULIN SLIDING SCALE (NOVOLOG) 1 VIAL SQ SCH ×4 (06:38→21:43)
[2021-05-18] MEDS ORDERED: PT OWN MED DRAWER 7, Y5N ONE (09:58)
[2021-05-18] MEDS: ERTAPENEM SODIUM 0.5 GM in SODIUM CHLORIDE 50 ML IVPB SCH (10:09)
[2021-05-18] MEDS: PANTOPRAZOLE 20 MG TABLET PO SCH (10:10)
[2021-05-18] MEDS: APIXABAN 2.5 MG TABLET PO SCH ×2 (10:10→21:25)
[2021-05-18] MEDS: CARVEDILOL 12.5 MG TABLET (FP) PO SCH ×2 (10:10→21:24)
[2021-05-18] MEDS: POLYETHYLENE GLYCOL (HEALTHYLAX) 3350 17 GM PACKET PO SCH (10:10)
[2021-05-18] MEDS: ATORVASTATIN CA 20 MG TABLET (FP) PO SCH (21:24)
[2021-05-19] MEDS: DOCUSATE SODIUM 100 MG CAPSULE (FP) PO SCH ×3 (06:22→21:51)
[2021-05-19] MEDS: QUEtiapine FUMARATE 25 MG TABLET PO SCH ×3 (06:23→21:50)
[2021-05-19] MEDS: INSULIN SLIDING SCALE (NOVOLOG) 1 VIAL SQ SCH ×3 (06:24→16:32)
[2021-05-19] MEDS: INSULIN (LEVEMIR) 100 UNITS/ML UNITS SQ SCH ×2 (06:25→22:07)
[2021-05-19] MEDS: POLYETHYLENE GLYCOL (HEALTHYLAX) 3350 17 GM PACKET PO SCH (09:53)
[2021-05-19] MEDS: PANTOPRAZOLE 20 MG TABLET PO SCH (09:54)
[2021-05-19] MEDS: APIXABAN 2.5 MG TABLET PO SCH ×2 (09:54→21:50)
[2021-05-19] MEDS: CARVEDILOL 12.5 MG TABLET (FP) PO SCH ×2 (09:54→21:51)
[2021-05-19] MEDS: ATORVASTATIN CA 20 MG TABLET (FP) PO SCH (21:50)
[2021-05-20] MEDS: INSULIN SLIDING SCALE (NOVOLOG) 1 VIAL SQ SCH ×2 (00:52→08:00)
[2021-05-20] MEDS: DOCUSATE SODIUM 100 MG CAPSULE (FP) PO SCH (05:20)
[2021-05-20] MEDS: INSULIN (LEVEMIR) 100 UNITS/ML UNITS SQ SCH (06:12)
[2021-05-20] MEDS: QUEtiapine FUMARATE 25 MG TABLET PO SCH (06:15)
[2021-05-20 08:57] LABS: HEMATOCRIT 25.8 % (32.4-45.2); HEMOGLOBIN 8.9 GM/dL (10.7-15.3); MCH 26.8 pg (25.7-33.7); MCHC 34.4 g/dl (32.0-36.0); MEAN CELL VOLUME 78.1 fl (80-96); MEAN PLT VOLUME 7.5 fl (7.5-11.1); PLATELET COUNT 206 10^3/uL (134-434); RDW 16.5 % (11.6-15.6); WHITE BLOOD COUNT 9.2 K/mm3 (4.0-10.0)
[2021-05-20 09:13] VITALS: BP 117/56; PULSE 74; TEMP 97.8
[2021-05-20 09:19] LABS: ALBUMIN 2.4 g/dl (3.4-5.0); CALCIUM 8.4 mg/dL (8.5-10.1)
[2021-05-20 09:20] LABS: MAGNESIUM 2.2 mg/dL (1.8-2.4)
[2021-05-20 09:23] LABS: BILIRUBIN,TOTAL 0.8 mg/dL (0.2-1); CREATININE 2.8 mg/dL (0.55-1.3); TOT PROT 6.3 g/dl (6.4-8.2)
[2021-05-20 09:28] LABS: BLOOD UREA NITROGEN 69.7 mg/dL (7-18)
[2021-05-20 09:49] LABS: ANISOCYTOSIS 0; HELMET CELLS 0; HOWELL-JOLLY BODIES 0; MACROCYTOSIS 0; OVALOCYTE 0; PLATELET ESTIMATE NORMAL; ROULEAU 0; SICKELED CELLS 0; TARGET CELLS 0; TEAR DROP CELLS 0; TOXIC GRANULATION 0
[2021-05-20] MEDS: APIXABAN 2.5 MG TABLET PO SCH (10:07)
[2021-05-20] MEDS: PANTOPRAZOLE 20 MG TABLET PO SCH (10:07)
[2021-05-20] MEDS: CARVEDILOL 12.5 MG TABLET (FP) PO SCH (10:07)
[2021-05-20] MEDS: POLYETHYLENE GLYCOL (HEALTHYLAX) 3350 17 GM PACKET PO SCH (10:11)
== END 2021-05-20 11:40 | DRG 871 ==
LOC: JER 19:13 → JERBED 05-11 00:48 → J4W 05-12 00:12
PROVIDERS: ADMIT Internal Medicine; ATTEND Nurse Practitioner Acute Care
DX: A41.9 Sepsis, unspecified organism (principal); G93.41 Metabolic encephalopathy; J96.00 Acute respiratory failure, unspecified whether with hypoxia or hypercapnia; I50.33 Acute on chronic diastolic (congestive) heart failure; N39.0 Urinary tract infection, site not specified; J98.11 Atelectasis; N17.9 Acute kidney failure, unspecified; I13.0 Hypertensive heart and chronic kidney disease with heart failure and stage 1 through stage 4 chronic kidney disease, or unspecified chronic kidney disease; E87.2 Acidosis; Z79.01 Long term (current) use of anticoagulants; E78.5 Hyperlipidemia, unspecified; F03.90 Unspecified dementia, unspecified severity, without behavioral disturbance, psychotic disturbance, mood disturbance, and anxiety; Z88.0 Allergy status to penicillin; D64.9 Anemia, unspecified; I16.0 Hypertensive urgency; E11.22 Type 2 diabetes mellitus with diabetic chronic kidney disease; N18.9 Chronic kidney disease, unspecified; I35.0 Nonrheumatic aortic (valve) stenosis; I48.0 Paroxysmal atrial fibrillation; B96.20 Unspecified Escherichia coli [E. coli] as the cause of diseases classified elsewhere; B96.1 Klebsiella pneumoniae [K. pneumoniae] as the cause of diseases classified elsewhere
CPT/HCPCS: 36415; 36600; 71045-TC-FY; 76775-TC; 80048; 80053; 81003; 82550; 82803; 82962; 83605; 83735; 84100; 84484; 85025; 85610; 85730; 87040; 87086; 87186; 87804; 87807; 87899; 93005; 93010; 93306-TC; 94640; 94660; 97116-GP; 97162-GP; 99285-25; C9803; J1100; U0003; U0005